=== PATIENT | female | born 1980 | race Caucasian/White ===

== ENCOUNTER 2024-05-02 09:25 | Emergency (ER) | payer OTHER, SELFPAY ==
--- NOTE | 2024-05-02 09:37 | ED_ITS ---
HPI - Extremity Problem General Chief complaint: Back Pain/Injury Stated complaint: leg pain Time Seen by Provider: 05/02/24 09:27 History of Present Illness HPI Narrative: 43-year-old female presented to the emergency department for evaluation right hip pain. Patient does have a prior history of sciatica and feels that is what affecting her today. Patient does have an injury to her left leg involving a fibula fracture and so patient is in a walking boot. Patient suspects that her adapting her walking to the boot has affected her right-sided sciatica. Patient has been taking ibuprofen for pain control without significant improvement. Related Data Allergies Allergy/AdvReac Type Severity Reaction Status Date / Time No Known Allergies Allergy Verified 05/02/24 09:48 Review of Systems Review of Systems: All systems reviewed & are unremarkable except as noted in HPI and below Exam Narrative: APPEARANCE: Well appearing, no pain, no distress, well-nourished. HEAD: normocephalic, atraumatic. EYES: PERRLA/EOMI, conjunctivae clear. NOSE: Normal no drainage EARS:TMS clear with good light reflex. THROAT: Pharynx clear, no exudate. NECK: Supple. No adenopathy, no masses. RESPIRATORY: Airway patent, respirations nonlabored. Clear to auscultation bilaterally, no rales, rhonchi, wheezing. CARDIOVASCULAR: Regular rate and rhythm without murmurs rubs or gallops. ABDOMINAL: Soft, nontender, nondistended, normal bowel sounds MUSCULOSKELETAL: Lower back tenderness into right buttock NEURO: Alert. Cranial nerves II through XII intact. Grossly intact SKIN: Warm, dry. Normal Color Course Vital Signs Vital signs: Vital Signs Temperature 97.7 F 05/02/24 09:44 Pulse Rate 91 05/02/24 09:44 Respiratory Rate 20 05/02/24 09:44 Blood Pressure 137/88 05/02/24 09:44 Pulse Oximetry 97 05/02/24 09:44 Oxygen Delivery Room Air 05/02/24 09:44 Temperature 97.7 F 05/02/24 09:44 Pulse Rate 89 05/02/24 10:43 Respiratory Rate 20 05/02/24 10:43 Blood Pressure 133/76 05/02/24 10:43 Pulse Oximetry 98 05/02/24 10:43 Oxygen Delivery Room Air 05/02/24 09:44 MDM - Extremity (Nontraumatic) MDM Narrative Medical decision making narrative: 43-year-old female presents emergency department for evaluation for worsening pinched nerve/sciatica the right side. Patient suspects is worsened due to her favoring her left foot. Patient has only been taking ibuprofen for pain control. Patient did feel improved with treatment with med to the emergency department. Patient was discharged home with a Medrol Dosepak and Flexeril and additional medication for pain control. Patient was comfortable plan for discharge and close follow-up. Differential Diagnosis Differential diagnosis: Likely other (Back pain, lumbar radiculopathy) Discharge Plan Discharge Clinical Impression: Sciatica, Lumbar radiculopathy Patient Disposition: Home, Self-Care Condition: Stable Instructions: Antibiotic Form, Sciatica (ED) Additional Instructions: Medrol Dosepak as directed. Ibuprofen for pain control. [place] for additional pain control. Flexeril for muscle spasm. Patient Language: Indonesian Prescriptions: New methylprednisolone [Medrol (Rahsad)] 4 mg tablets,dose pack See Rx Instructions .ROUTE .COMPLEX Qty: 21 0RF Rx Instructions: for 6 days hydrocodone-acetaminophen 5-325 mg tablet 1 tablet PO Q12H PRN (Reason: pain) Qty: 14 0RF Follow-up/Referrals: [place], [Primary Care Provider] -
[2024-05-02 09:44] VITALS: BP 137/88; PULSE 91; RESP 20; TEMP 36.5; O2SAT 97
[2024-05-02] MEDS: KETOROLAC 30 MG/ML VIAL (*BKC) IM (09:48)
[2024-05-02] MEDS: HYDROcodone/acetaminophen (*CRX) 5-325 MG TABLET 1 TAB PO (09:49)
[2024-05-02] MEDS: CYCLOBENZAPRINE HCL 10 MG TABLET PO (09:49)
[2024-05-02 10:43] VITALS: BP 133/76; PULSE 89; RESP 20; O2SAT 98
--- OUTSIDE RECORDS SUMMARY | 2024-05-09 04:59 | XMS_ITS | Continuity of Care Document ---
Author Name [facility] Organization [facility] Care Team Providers Care Microbiology Analyst Name Role Phone [facility] Unavailable Unavailable Problems Combined list of problems from Department of Defense and Veterans Affairs facilities. It does not include entries that were removed or entered in error. Problem Status Onset Date Problem Type Date of Resolution Comments Source Depression Active 04/24/2024 Diagnosis 6130C-Af -C -375Th Medgrp-Sco tt Fracture of leg Active 04/24/2024 Diagnosis 613 0C-Af-C -375Th Medgrp-Sco tt Weight gain Active 04/24/2024 Diagnosis 6130C-A f-C -375Th Medgrp-Sco tt Laboratory test result abnormal Active 04/13/2024 Diagnosis 6130C-Af- C -375Th Medgrp-Sco tt Leg fracture Active 04/13/2024 Diagnosis 6130C- Af-C -375Th Medgrp-Sco tt Anxiety disorder, unspecified Active 06/04/2016 Condition DoD Essential (primary) hypertension Active 03/06/2015 Condition DoD Major depressive disorder, recurrent, moderate Active Condition DoD Post-traumatic stress disorder, chronic Active Condition DoD Diverticulosis of intestine, part unspecified, without perforation or abscess without bleeding Active Condition DoD Dysthymic disorder Active Condition DoD Headache Active Condition DoD headache syndromes Active Condition DoD depression with anxiety Active Condition DoD Implantable Contraceptive Capsules Removal Inactive Condition DoD routine gynecological exam Inactive Condition DoD Inquiry And Counseling: Family Planning Inactive Condition DoD menorrhagia Active Condition DoD Implantable Contraceptive Capsules Insertion Inactive Condition DoD esophageal reflux Inactive Condition DoD Cervix Sample Taken For Pap Smear Inactive Condition DoD Cervical Pap Smear Inactive Condition Do D nonorganic sleep apnea obstructive Inactive Condition DoD Patient Counseling: Inactive Condition D oD sinusitis Inactive Condition DoD iron deficiency anemia Active Condition DoD anxiety Inactive Condition DoD depression Inactive Condition DoD tobacco use Active Condition DoD vertigo Inactive Condition DoD visit for: laboratory Inactive Condition DoD Breasts Pendulous Active Condition DoD partner relational problem Inactive Condition DoD upper back pain Active Condition DoD lower back pain Active Condition DoD constipation Inactive Condition DoD visit for: issue repeat prescription Inactive Condition DoD nonorganic sleep apnea Inactive Condition DoD Need For Prophylactic Measure Inactive Condition DoD visit for: contraceptive surveillance Inactive Condition DoD insomnia Inactive Condition DoD Laboratory Studies Inactive Condition Do D visit for: screening exam pulmonary tuberculosis Inactive Condition DoD essential hypertension Active Condition DoD visit for: screening exam for malignant neoplasm cervix Inactive Condition DoD visit for: administrative purpose Inactive Condition DoD pain during urination (dysuria) Inactive Condition DoD prehypertension Inactive Condition DoD visit for: issue medical certificate Inactive Condition DoD visit for: routine eye exam Inactive Condition DoD urinary tract infection Inactive Condition DoD joint pain, localized in the hip Active Condition DoD Need For Vaccination Against Influenza Inactive Condition DoD Patient Education Inactive Condition DoD visit for: occupational health / fitness exam Inactive Condition DoD Patient Education - Injury Prevention Inactive Condition DoD Need For Vaccination Hepatitis B Inactive Condition DoD Need For Vaccination Hepatitis A Inactive Condition DoD dizziness Inactive Condition DoD backache Inactive Condition DoD herpes simplex type II Inactive Condition DoD fatigue Inactive Condition DoD Gynecologic Services Intrauterine Device (IUD) Checking Inactive Condition DoD allergic rhinitis Active Condition DoD Gynecologic Services Contraceptive Management Inactive Condition DoD upper respiratory infection Inactive Condition DoD pharyngitis Inactive Condition DoD routine pelvic exam Inactive Condition D oD Need For Vaccination Against Combinations Of Diseases Inactive Condition DoD Need For Vaccination Against Single Disease Inactive Condition DoD visit for: pre-employment physical Inactive Condition DoD Need For Vaccination Against DTP Inactive Condition DoD Guidance: Concerns About Inadequate Physical Activity Inactive Condition DoD obesity Active Condition DoD Contraceptives Inactive Condition DoD abdominal pain Inactive Condition DoD pyelonephritis Inactive Condition DoD Unspecified fracture of unspecified lower leg, initial encounter for closed fracture Active Diagnosis 6130C-Af-C -375Th Medgrp-Sco tt Abnormal weight gain Active Diagnosis 6 130C-Af-C -375Th Medgrp-Sco tt Depression, unspecified Active Diagnosis 6130C-Af-C -375Th Medgrp-Sco tt Medications Combined list of outpatient medications from Department of Defense and Veterans Affairs facilities.Medications provided include 1) outpatient medications from the last 15 months, and 2) patient-reported medications. Medication Details Route Status Patient Instructions Prescription Expires Prescription Number Last Dispense Date Ordering Provider Order Date Order Qty Source phentermine 37.5 mg oral capsule 1 cap(s), Oral, Daily, # 90 cap(s), 0 total refill(s ), Maintena nce, 1 cap(s) Oral Daily, Pharmacy : [id number] Oral (given by mouth) Ordered 90.0 6130C-A f-C-375 Th Medgrp- Varinder Topamax 50 mg oral tablet 3 tab(s), Oral, BID, 0 total refill(s ), Maintena nce Oral (given by mouth) Discont inued 03/26/2024 6130C-A f-C-375 Th Medgrp- Varinder Wellbutrin SR 150 mg/12 hours oral tablet, extended release tab(s), Oral, BID, 0 total refill(s ), Maintena nce Oral (given by mouth) Discont inued 03/26/2024 6130C-A f-C-375 Th Medgrp- Varinder Wellbutrin SR 200 mg/12 hours oral tablet, extended release 1 tab(s), Oral, BID, # 180 tab(s), 0 total refill(s ), Maintena nce, 1 tab(s) Oral BID, Pharmacy : [facility] Oral (given by mouth) Discont inued 04/30/2024 180.0 6130C-A f-C-375 Th Medgrp- Varinder Wellbutrin SR 200 mg/12 hours oral tablet, extended release 1 tab(s), Oral, BID, # 180 tab(s), 3 total refill(s ), Maintena nce, 1 tab(s) Oral BID, Pharmacy : [facility] #[id number] Oral (given by mouth) Ordered 180.0 6130C-A f-C-375 Th Medgrp- Varinder Allergies, Adverse Reactions, Alerts Combined list of allergies from Department of Defense and Veterans Affairs facilities. It does not include entries that were removed or entered in error. Substance Category Reaction Severity Reaction type Status Date Reported Comments Source No Known Allergies Drug allergy (disorder) active 02/23/2017 [facility] Immunizations Combined list of available immunizations from the Department of Defense and Veterans Affairs facilities. 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 Status Comments Source COVID Vaccine Pfizer 2021 Traci myers Arm [id number] PFIZER complet ed COVID Vaccine Pfizer 07/29/21 Given Ambulat ory Pharmac y SARS-COV-2 (COVID-19) vaccine, mRNA, spike protein, LNP, preservative free, 30 mcg/0.3mL dose 1 2021 [place] CATHERINE [id number] Pfizer, Inc (PFR) complet ed SARS-COV- 2 (COVID-19 ) vaccine, mRNA, spike protein, LNP, preservat pierre free, 30 mcg/0.3mL dose DoD SARS-CoV-2 (COVID-19) Ad26 vaccine, rec 2020 [facility] Arm [id number] complet ed SARS-CoV- 2 (COVID-19 ) Ad26 vaccine, rec 07/25/20 Given Ambulat ory Pharmac y SARS-COV-2 (COVID-19) vaccine, vector non-replicati ng, recombinant spike protein-Ad26, preservative free, 0.5 mL 1 2020 LESTERKURT [id number] [facility] (JSN) complet ed SARS-COV- 2 (COVID-19 ) vaccine, vector non-repli cating, recombina nt spike protein-A d26, preservat pierre free, 0.5 mL DoD influenza, seasonal, injectable 2013 zzMiquel Arm [id number] GlaxoSmithKli ne complet ed influenza , seasonal, injectabl e 03/04/14 Given Ambulat ory Pharmac y Influenza, seasonal, injectable 1 2013 JUJU JONES [id number] [facility] (SKB) complet ed Influenza , seasonal, injectabl e DoD tuberculin purified protein derivative 2009 zzLef t Arm [id number] complet ed Patient Tolerance : Negative Ambulat ory Pharmac y tuberculin skin test; purified protein derivative solution, intradermal 0 2009 ISIDRO CANTU [id number] 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) complet ed tuberculi n skin test; purified protein derivativ e solution, intraderm al DoD hepatitis B adult vaccine 2009 [id number] 43 Unknown complet ed hepatitis B adult vaccine 11/15/09 Given Ambulat ory Pharmac y hepatitis A-hepatitis B vaccine 2009 zzLef t Arm [id number] 104 GlaxoSmithKli ne complet ed hepatitis A-hepatit is B vaccine 11/06/09 Given Ambulat ory Pharmac y hepatitis A and hepatitis B vaccine 3 2009 KATINA TAPIA ahabb16 7ba 104 [employer]line ([place]) complet ed hepatitis A and hepatitis B vaccine DoD hepatitis A-hepatitis B vaccine 2009 zzLef t Arm [id number] 104 [facility] ed hepatitis A-hepatit is B vaccine 07/08/09 Given Ambulat ory Pharmac y hepatitis A and hepatitis B vaccine 2 2009 MAHI BUTLER ahabb17 4aa 104 Smithine (B) complet ed hepatitis A and hepatitis B vaccine DoD tuberculin purified protein derivative 2009 UNK 96 Unknown complet ed tuberculi n purified protein derivativ e 06/09/09 Given Ambulat ory Pharmac y hepatitis A-hepatitis B vaccine 2007 zzLef t Arm [id number] 104 [facility] hepatitis A-hepatit is B vaccine 02/26/08 Given Ambulat ory Pharmac y Human Papillomaviru s,quadrivalen t(HPV4) 2007 zzLef t Arm [id number] Merck & Company Inc complet ed Human Papilloma virus,jhonny drivalent (HPV4) 02/26/08 Given Ambulat ory Pharmac y human papilloma virus vaccine, quadrivalent 1 2007 JJ BAIRD [id number] Merck (MSD) complet ed human papilloma virus vaccine, quadrival ent DoD hepatitis A and hepatitis B vaccine 1 2007 JJ BAIRD [id number] 104 Smithine ([place]) complet ed hepatitis A and hepatitis B vaccine DoD tetanus-dipht h toxoids (Td) adult/adol 2007 UNK 09 Unknown complet ed tetanus-d iphth toxoids (Td) adult/ado l 02/21/08 Given Ambulat ory Pharmac y tetanus, diphtheria, acellular pertu is 2007 zzLef t Arm [id number] [facility] complet ed tetanus, diphtheri a, acellular pertussis 02/21/08 Given Ambulat ory Pharmac y tetanus toxoid, reduced diphtheria toxoid, and acellular pertu is vaccine, adsorbed 1 2007 SEEMA BILLINGSLEY [id number] [facility] ([place]) complet ed tetanus toxoid, reduced diphtheri a toxoid, and acellular pertussis vaccine, adsorbed DoD Results Combined list of recent chemistry, hematology and other laboratory results from Department of Defense and Veterans Affairs, ranging from 15 months to all on record, depending upon the facility. Order Name Results Value Reference Range Date Interpretation Specimen Comments Source Chemistry _Thyroglobu beny ARIAS LC 11.4 ng/mL 04/04 Result Comment: According to the National Academy of Clinical Biochemistr y, the reference interval for Thyroglobul in (TG) should be related to euthyroid patients and not for patients who underwent thyroidecto my. TG reference intervals for these patients depend on the residual mass of the thyroid tissue left after surgery. Establishin g a post-operat pierre baseline is recommended . The assay limit of quantitatio n is 0.1 ng/mL Thyroglobul in measured by [facility] [employer]omet[employer] c Assay Performed At: [address] [id number] Lenora Blanco PhD Ph:[phone] [facility] Chemistry eGFR CKD EPI 82 mL/min /1.73_ m2 04/04 Interpretiv e Data: Estimated Glomerular Filtration Rate (eGFR) calculated using the 2020 Chronic Kidney Disease-Epi demiology (CKD-EPI) Collaborati on creatinine equation; units of measure are mL/min/1.73 m2. Results are only valid for adults (>=18 years) whose serum creatinine is in steady state. eGFR calculation s are not valid for patients with acute kidney injury and for patients on dialysis. Creatinine- based estimates of kidney function may also be inaccurate in patients with reduced creatinine generation due to decreased muscle mass (e.g., malnutritio n, severe hypoalbumin emia, sarcopenia, chronic neuromuscul ar disease, amputations , severe heart failure or liver disease) and in patients with increased creatinine generation due to increased muscle mass (e.g., muscle builders, anabolic steroids) or increased dietary intake. CKD is diagnosed based on abnormaliti es of kidney structure or function, present for >3 months, with implication s for health and disease. CKD is classified and staged based on cause, eGFR and albuminuria (quantified as urine albumin to creatinine ratio). An eGFR >60 mL/min/1.73 m2 in the absence of increased urine albumin excretion or structural abnormaliti es does not CKD. eGFR provides only an estimate of measured GFR within +/- 30% for most patients. As mentioned, nutritional status and muscle mass, among many factors, may lead to inaccuracy in the estimate. Consider ordering the creatinine- cystatin C panel if better accuracy is needed for clinical decision-camacho lowery. eGFR (mL/min/1.7 3 m2) CKD stage Interpretat ion Normal 60-89 Mild decrease 45-59 Mild to moderate decrease 30-44 Moderate to severe decrease 15-29 Severe decrease <15 Kidney failure [facility] TSH 1.340 mIU/L 0.270 - 4.200 04/04 N Interpretiv e Data: Recommend: TPO/Thyrope roxidase Antibody when TSH result is > 4.2 uIU/mL [facility] Hematolog y WBC 5.4 x10^3/ mcL 4.0 - 11.0103 04/04 N [facility] Hematolog y RDW 14.4 % 11.0 - 14.9 04/04 N [facility] Hematolog y RBC 3.9 x10^6/ mcL 3.6 - 5.0106 04/04 N [facility] Hematolog y Platelets 302.0 x10^3/ mcL 150.0 - 450.0103 04/04 N [facility] Hematolog y MPV 9.3 fL 7.4 - 10.4 04/04 N [facility] Hematolog y MCV 90 fL 80 - 97 04/04 N [facility] Hematolog y MCHC 33.6 g/dL 33.0 - 36.5 04/04 N [facility] Hematolog y MCH 30 pg 28 - 33 04/04 N [facility] Hematolog y Hemoglobin 11.8 g/dL 11.0 - 15.0 04/04 N [facility] Hematolog y Hematocrit 35 % 34 - 46 04/04 N [facility] Hematolog y Differentia l? Auto (04/04 1:05 PM) 04/04 N [facility] Chemistry Protein Total 7.6 g/dL 6.4 - 8.3 04/04 N [facility] Chemistry Sodium 140 mmol/L 136 - 145 04/04 N [facility] Chemistry Potassium Lvl 3.7 mmol/L 3.5 - 5.1 04/04 N [facility] Chemistry Glucose Lvl 91 mg/dL 74 - 99 04/04 N [facility] Chemistry Creatinine Level 0.90 mg/dL 0.57 - 1.11 04/04 N [facility] Chemistry CO2 22 mmol/L 22 - 29 04/04 N [facility] Chemistry Chloride 108 mmol/L 98 - 107 04/04 H [facility] Chemistry Calcium 9.8 mg/dL 8.4 - 10.2 04/04 N [facility] Chemistry BUN/Creat Ratio 18 mg/dL 12 - 20 04/04 N [facility] Chemistry BUN 16 mg/dL 7 - 20 04/04 N [facility] Chemistry Bilirubin Total 0.5 mg/dL 0.2 - 1.2 04/04 N [facility] Chemistry AST 14 U/L 5 - 34 04/04 N [facility] Chemistry ALT 11 U/L 5 - 55 04/04 N [facility] Chemistry Alk Phos 103 U/L 40 - 150 04/04 N [facility] Chemistry Albumin 4.10 g/dL 3.50 - 5.20 04/04 N [facility] Chemistry AGAP 10.00 0.00 - 15.00 04/04 N [facility] Chemistry T4 Free 1.34 ng/dL 0.93 - 1.70 04/04 N Interpretiv e Data: METHODOLOGY : Testing performed by electrochem iluminescen t immunoassay (ECLIA). [facility] Chemistry T3 Free 3.8 pg/mL 2.0 - 4.4 04/04 N Interpretiv e Data: METHODOLOGY : Testing performed by electrochem iluminescen t immunoassay (ECLIA). [facility] Immunolog y/Serolog y Thyroid Peroxidase Ab >450 IU/mL 04/04 H Interpretiv e Data: Values above 35 IU/mL are generally associated with autoimmune thyroiditis , but elevations are also seen in other autoimmune diseases. In patients with subclinical hypothyroid ism, the presence of thyroperoxi dase (TPO) antibodies predicts a higher risk of developing overt hypothyroid ism, 4.3% per year versus 2.1% per year in antibody-ne gative individuals . Furthermore , it raises the concern that such patients may be at increased risk of developing other autoimmune diseases, such as adrenal insufficien cy and type 1 diabetes. The frequency of detectable anti-TPO observed in nonimmune thyroid disease is similar to the 10% to 12% observed in a healthy population with normal thyroid function. There is a good association between the presence of autoantibod ies against TPO and histologica l thyroiditis . However, in view of the extensive regenerativ e capacity of the thyroid under the influence of thyroid-sti mulating hormone, chronic thyroid disease may be present for years before the clinical manifestati on of hypothyroid ism becomes evident, if ever. Moderately increased levels of thyroperoxi dase (TPO) antibodies may be found in patients with nonthyroid autoimmune disease such as pernicious anemia, type 1 diabetes, or other disorders that activate the immune system. No reference ranges available for pediatric patients. Methodology : Electrochem iluminescen ce [facility] Chemistry T3 Reverse.LC 18.5 ng/dL 04/04 Result Comment: This test was developed and its performance characteris tics determined by [facility]. It has not been cleared or approved by the Food and Drug Administrat ion. Performed At: [address] [facility] [address] [id number] Jeffy Flowers MD Ph:[phone] [facility] Chemistry Thyroglobul in Antibody LC <1.0 IU/mL 04/04 Result Comment: Thyroglobul in Antibody measured by EDMdesigner Methodology It should be noted that the presence of thyroglobul in antibodies may not be pathogenic nor diagnostic, especially at very low levels. The assay manufacture r has found that four percent of individuals without evidence of thyroid disease or autoimmunit y will have positive TgAb levels up to 4 IU/mL. Performed At: [address] [facility] [address] [id number] Lenora Blanco PhD Ph:[phone] [facility] Hematolog y Neutrophil % Auto 60.1 % 46.0 - 77.0 04/04 N [facility] Hematolog y Neutro Absolute 3.3 x10^3/ mcL 2.0 - 7.0103 04/04 N [facility] Hematolog y Monocyte % Auto 7 % 1 - 12 04/04 N [facility] Hematolog y [place] Absolute 0.4 x10^3/ mcL 0.2 - 0.8103 04/04 N [facility] Hematolog y Lymph Absolute 1.6 x10^3/ mcL 1.2 - 4.0103 04/04 N [facility] Hematolog y Lymphocyte % Auto 30.1 % 20.0 - 40.0 04/04 N [facility] Hematolog y Eosinophil % Auto 2 % 0 - 5 04/04 N [facility] Hematolog y Eos Absolute 0.1 x10^3/ mcL 0.0 - 0.7103 04/04 N [facility] Hematolog y Basophil % Auto 0.6 % 0.0 - 2.5 04/04 N [facility] Hematolog y Baso Absolute 0.0 x10^3/ mcL 0.0 - 0.1103 04/04 N [facility] Vital Signs Combined list of inpatient and outpatient Vital Signs from Department of Defense and Veterans Affairs, ranging from 12 months to all on record, depending upon the facility. Vital Sign Value Date Comments Source BP Site 04/24/2024 15:49:00 [facility] Blood Pressure Manual 04/24/2024 15:49:00 [facility] Systolic Blood Pressure 122mm[Hg] 04/24/2024 15:49:00 Ambulatory Pharmacy Diastolic Blood Pressure 72mm[Hg] 04/24/2024 15:49:00 [facility]ulatory Pharm[facility] Mean Arterial Pressure, Calc 89mm[Hg] 04/24/2024 15:49:00 Ambulatory P harmacy Peripheral Pulse Rate 102bpm 04/24/2024 15:49:00 Ambulatory Pharmacy Systolic Blood Pressure 126mm[Hg] 03/26/2024 19:41:00 Ambulatory Pharmacy Diastolic Blood Pressure 88mm[Hg] 03/26/2024 19:41:00 Ambulatory Pharmacy Mean Arterial Pressure, Calc 101mm[Hg] 03/26/2024 19:41:00 Ambulatory P harmacy Peripheral Pulse Rate 98bpm 03/26/2024 19:41:00 Ambulatory Pharmacy BP Site 03/26/2024 19:41:00 [facility] Blood Pressure Manual 03/26/2024 19:41:00 Ambulatory Pharmacy Encounters Combined list of: 1) Encounters from Department of Veterans Affairs facilities going back up to thelast 18 months. 2) Encounters from the Department of Defense facilities going back up to 280 months. Location Location Details Encounter Type Encounter Number Reason For Visit Attending Provider ADM Date DC Date Status Disposition Source [facility] 01A17 Fabricati on) OUTPATIENT [id number] poss kidney infecti on x4dys BOB DAVILA 10/29 Released w/o Limitations [facility] 01A17 Clancy tion) [facility] 01A17 Fabricati on) OUTPATIENT [id number] F/U PAP TEST RESULTS ,REQ BSKIP MOCTEZUMA 12/04 Released w/o Limitations [facility] 01A17 Clancy tion) [facility]) OUTPATIENT [id number] td SEEMA BILLINGSLEY 02/20 Released w/o Limitations [facility] Immun[facility] at[facility]) [facility] OUTPATIENT [id number] Pre Appt health screen MARY ELLEN DIETRICH 02/23 Released w/o Limitations [facility]) [facility] 01A17 Fabricati on) OUTPATIENT [id number] imms varicel la MMR Hep B JOCELINE BOOKER 02/25 Released w/o Limitations [facility] 01A17 Clancy tion) [facility] 01A17 Fabricati on) OUTPATIENT [id number] ANNUAL PAP/BC LEATHA ESTEBAN 03/15 Released w/o Limitations [facility] 01A17 Cl[address]ion) [facility] 01A17 Fabricati on) OUTPATIENT [id number] OLESYA Ortiz 03/18 Released w/o Limitations [facility] 01A17 Cl[address]ion) [facility] 01A17 Fabricati on) OUTPATIENT [id number] fu cough,s ore throat, sinus x2wks OLESYA MICHAELS 03/26 Released w/o Limitations [facility] 01A17 [address]) [facility] 01A17 Fabricati on) OUTPATIENT [id number] iud placmen t LEATHA ESTEBAN A 03/29 Released w/o Limitations [facility] 01A17 [address]) [facility] 01A17 Fabricati on) OUTPATIENT [id number] fu iud LEATHA ESTEBAN A 06/05 Released w/o Limitations [facility] 01A17 [address]) [facility] 01A17 Fabricati on) OUTPATIENT [id number] back pain +yrs/la bs + multi issues (uar 06/19) SKIP KEYS 06/20 Released w/o Limitations [facility] 01A17 Cl[address]ion) [facility]) OUTPATIENT [id number] ini SERGEY Simpson 08/02 [facility] [place]ette [place]Immun[place]) OUTPATIENT [id number] ISIDRO Dubose 07/08 Released w/o Limitations [facility] [place](Im[place]iz[place]) [facility] [place] OUTPATIENT [id number] [facility] MARIAELENA FRANKEL 07/29 Released w/o Limitations [facility] [place]) [facility] [place]Immun[place]ations) OUTPATIENT [id number] ISIDRO Leary 07/29 Released w/o Limitations [facility] [place]) [facility] [place] [facility] [place]) OUTPATIENT [id number] ARNOLDO LUNA 08/25 Released w/o Limitations [facility] Samuel [place] [facility] [place] [facility] [place] [facility] [place]) [place]PATIENT [id number] poss uti/hcg LAUREN ROSA 10/17 Released w/o Limitations [facility] [place]) [facility] [place] OUTPATIENT [id number] [facility] JUJU SALAS L 10/21 Released w/o Limitations [facility] Samuel Mendosa [facility] [place]) [facility] Samuel Mend[facility] [place]) OUTPATIENT [id number] urinary issues BARBARA IZQUIERDO 10/22 Released w/o Limitations [facility] Samuel Mendosa [facility] [place] [facility] [place] TELE CONSULT [id number] UTI WILI RAMOS 10/27 Referred for Appointment [facility] [place]) [facility] [place]) TELE CONSULT [id number] Complet e Hepatit is Series JUJU SALAS L 10/30 [facility] [place]) [facility] [place]Immun[place]) [place] [id number] twin YANG BUTLER 11/06 Released w/o Limitations [facility] Samuel Mend[facility] [place]Im[place] [facility] [place] [facility] [place] [facility]) OUTPATIENT [id number] swati webb for job TIMBOBARBARA VARINDER 12/04 Released w/o Limitations [facility] Samuel [facility] [place] 1) [facility] [place]Immun[place]) OUTPATIENT [id number] ISIDRO [place] 12/08 Released w/o Limitations [facility] [place](Immu nizatio ns) [facility] Samuel Mendosa [facility] JOON [place](Immuni zations) OUTPATIENT [id number] read ISIDRO CANTU 12/10 Released w/o Limitations [facility] [place]ON [place](Immu nizatio ns) [facility] Samuel Mendosa [facility] [place](Family Practice Team 1) TELE CONSULT [id number] pap letter SUMMER CLARK 12/29 Referred for Appointment [facility] Samuel Mend[facility] JOON [place](Fami ly Practic e Team 1) [facility] Samuel Mend[facility] [place](Family Practice Team 1) OUTPATIENT [id number] f/u weight managem ent BARBARA IZQUIERDO 12/29 Released w/o Limitations [facility] Samuel Mendosa [facility] [place] Pract[place] 1) [facility] Samuel Mend[facility] [place]) OUTPATIENT [id number] f/up meds BARBARA IZQUIERDO 02/19 Released w/o Limitations [facility] Samuel Mendosa [facility] [place](Fami ly Practic e Team 1) [facility] Samuel Mendosa [facility] JOON [place](Family Practice Team 1) TELE CONSULT [id number] Needs referra ls WILI [place] 03/10 Referred for Appointment [facility] Mend[facility] [place](Fami ly Practic e Team 1) [facility] Samuel Mendosa [facility] [place] TELE CONSULT [id number] Pt asking for new order's for a multivi tamin and calcuim supplem ent WILI RAMOS 03/23 Referred for Appointment [facility] [place](Fami ly Practic e Team 1) [facility] Mend[facility] [place]) OUTPATIENT [id number] F/U SLEEP STUDY BARBARA IZQUIERDO 04/22 Released w/o Limitations [facility] [place] Pract[place] 1) [facility] [place] TELE CONSULT [id number] Pt seen yesterd ay and sleep study to be faxed and titrati on done need's script. BARBARA IZQUIERDO 04/23 [facility] [place] 1) [facility] Mend[facility] [place] TELE CONSULT [id number] control MOSELEY, ANDREI A. 05/21 Referred for Appointment [facility] Samuel Mendosa [facility] [place] 1) [facility] Samuel Mendosa [facility] [place] TELE CONSULT [id number] rx refill MOSELEY, ANDREI A. 05/21 Referred for Appointment [facility] Samuel Mend[facility] [place] 1[place] [facility] Samuel Mend[facility] [place]) [place] [id number] JAKUB KHOURY 06/05 Released w/o Limitations [facility] Samuel Mend[facility] [place] [facility] [place] TELE CONSULT [id number] medicat ion refill WILI RAMOS 06/25 Referred for Appointment [facility] Samuel Mend[facility] [place] 1) [facility] Mend[facility] [place] [id number] OLESYA GUZMAN 06/27 Released w/o Limitations [facility] Samuel Mend[facility] [place] [facility] Mend[facility] [place]) [place]PAT[place] [id number] control needed and back pain GURJIT KISER 12/11 Released w/o Limitations [facility] Samuel Mendosa [facility] [place] Team 1) [facility] Mend[facility] [place]) OUTPATIENT [id number] f/u on xray s JACKY STODDARD 12/29 Released w/o Limitations [facility] Samuel Mend[facility] [place] Pract[place] 1) [facility] Samuel Mend[facility] [place]Loader Engineer al Medicine[place] OUTPATIENT [id number] CONSULT FOR BREAST REDUCTI ON JACKY STODDARD 01/08 Released w/o Limitations [facility] [place] [facility] Mend[facility] [place] TELE CONSULT [id number] Med Renewal JACKY STODDARD 02/17 [facility] Mend[facility] [place]Inte [place] Medicin [place]) [facility] Mend[facility] [place]) OUTPATIENT [id number] sinus/v ertigo issues JACKY STODDARD F 02/22 Released w/o Limitations [facility] Mend[facility] [place]) [facility] Mend[facility] [place] TELE CONSULT [id number] refbisi [place] JACKY STODDARD 03/03 [facility] Mend[facility] [place]) [facility] Mend[facility] [place] OUTPATIENT [id number] f/u med refill JACKY STODDARD 03/16 Released w/o Limitations [facility] Mend[facility] [place]) [facility] [place]) [place] [id number] DEBRA TRUONG R 04/27 Released w/o Limitations [facility] Samuel Mend[facility] [place]) [facility] Mend[facility] [place] M01D Cats[place] OUTPATIENT [id number] swati [place] JACKY STODDARD F 05/04 Released w/o Limitations [facility] Samuel Mend[facility] [place] M[place] [facility] Mendosa [facility] [place]AMH M01A Cards) OUTPATIENT [id number] POSS SINUS INFECTI ON KELVIN GARCIA R 07/07 Released w/o Limitations [facility] Samuel Mend[facility] [place]) [facility] Mend[facility] [place] TELE CONSULT [id number] KELVIN Cerda R 07/13 [facility] [place] [facility] [place]) OUTPATIENT [id number] referra l wanted and med. renewal s JOSESINDHUSachi Ambrocio 07/18 Released w/o Limitations [facility] [place](AMH M01A Cards) [facility] [place]ON [place](AMH M01D Cats) TELE CONSULT [id number] Adminis trative issue JACKY STODDARD 07/19 [facility] [place]ON [place](AMH M01D Cats) [facility] JOON [place](AMH M01A Cards) TELE CONSULT [id number] xray results MOSELEY, ANDREI A. 07/21 Referred for Appointment [facility] JOON [place](AMH M01A Cards) [facility] Mendosa [facility] JOON [place](AMH M01A Cards) TELE CONSULT [id number] Sleep Study Results MOSELEY, ANDREI A. 08/09 Referred for Appointment [facility] [place]ON [place](AMH M01A Cards) [facility] Mend[facility] JOON [place](AMH M01A Cards) TELE CONSULT [id number] med refills MOSELEY, ANDREI A. 08/26 Referred for Appointment [facility] JOON [place](AMH M01A Cards) [facility] JOON [place](AMH M01A Cards) TELE CONSULT [id number] Med refills MOSELEY, ANDREI A. 08/30 Referred for Appointment [facility] JOON [place](AMH M01A Cards) [facility] JOON [place](AMH M01A Cards) OUTPATIENT [id number] MARC Gnog 10/21 Released w/o Limitations [facility] JOON [place](AMH M01A Cards) [facility] JOON [place](AMH M01A Cards) TELE CONSULT [id number] Notes Entered by: LUBA RAMIREZ 03 Nov 2011 1430 ------- ------- ------- ------- -- Followu p labs MOSELEY ANDREI A. 11/02 Referred for Appointment [facility] JOON [place](AMH M01A Cards) [facility] Mend[facility] [place]) OUTPATIENT [id number] medicat ion & tail bone LOPEZHARRISON LOVE 12/20 Released w/o Limitations [facility] Mend[facility] [place] M01A Cards) [facility] Mend[facility] [place] OUTPATIENT [id number] Nexipla non inserti on, hcg ordered AMITA AYERSLEIGH ANN 01/03 Released w/o Limitations [facility] [place] M01A Cards) [facility] [place] Oz 1) OUTPATIENT [id number] [place] ANDREI DANIELS JASSI 09/12 Released w/o Limitations [facility] [place] F01A Oz 1) [facility] [place]) OUTPATIENT [id number] Notes Entered by: EDGARD MAY 26 Sep 2013 0848 ------- ------- ------- ------- -- OSS FOR GENNY EVAN ARAUJO 09/26 Released w/o Limitations [facility] [place] ) [facility] [place] F01[place] Oz [place]) OUTPATIENT [id number] nexplan on removal ANDREI DANIELS JASSI 10/08 Released w/o Limitations [facility] [place] [facility] [place] F[place] Oz [place] TELE CONSULT [id number] Notes Entered by: MARIAELENA BRANCH 09 Oct 2013 1337 ------- ------- ------- ------- -- symptom MARIAELENA LIU 10/09 Referred for Appointment [facility] [place] F[place] [facility] [place] F[place] Oz [place] TELE CONSULT [id number] Notes Entered by: JOSEPH HAMILTON 10 Dec 2013 1602 ------- ------- ------- ------- -- pt needs zoloft 100mg, zestore tic 20/12.5 mg ARNOLD KISER 12/10 Medication Refill Forwarded [place] TELE CONSULT [id number] Notes Entered by: MARIAELENA BRANCH 02 Jan 2014 1205 ------- ------- ------- ------- -- referMARIAELENA Adrian 01/02 Referred [place] Appointment [place]) OUTPATIENT [id number] discuss referra ANDREI Durbin 01/29 Released w/o Limitations [place] [facility] M[facility] Blue) OUTPATIENT [id number] Larm pain JUJU BANDA LEON 03/04 [facility] w[facility] Limitations [facility] M04[facility] Blue[place] OUTPATIENT [id number] medicat ion update JUJU BANDA LEON 03/14 [facility] w/[facility] Limitations [facility] M04A Blue[facility] TELE CONSULT [id number] Notes Entered by: KESHA THOMSON 28 Mar 2014 0925 ------- ------- ------- ------- -- f/u labwork JUJU BANDA LEON 03/28 [facility](AMH M04A Blue) [facility](AMH M04A Blue) TELE CONSULT [id number] Notes Entered by: ZEFERINO PATEL 10 Apr 2014 1128 ------- ------- ------- ------- -- Hospita l Dischar UBALDO Joe 04/10 [facility](AMH M04A Blue) [facility](AMH M04A Blue) OUTPATIENT [id number] F/U diverti roque SOTOHARRISON Ram Cristóbal 04/10 Released w/o Limitations [facility](AMH M04A Blue) [facility] M04B Red) TELE CONSULT [id number] Notes Entered by: JH ARELLANO 11 Apr 2014 0922 ------- ------- ------- ------- -- Dischar ge Follow Up JH ARELLANO 04/11 [facility](AMH M04B Red) [facility](AMH M04A Blue) OUTPATIENT [id number] Follow up JUJU BANDA 04/18 [facility] w/o Limitations [facility]H M04A Blue) TELE CONSULT [id number] Notes Entered by: ZEFERINO PATEL 22 Apr 2014 0929 ------- ------- ------- ------- -- Poss Yeast infecti on JUJU BANDA 04/22 [facility](AMH M04A Blue) [facility](AMH M04A Blue) OUTPATIENT [id number] Telecon UBALDO Mccann 04/23 [facility] w[facility] Limitations [facility] General Surgery) OUTPATIENT [id number] Telehea lt, Scope, Diverti ROBYN Choe 04/23 Released w/o Limitations [facility] General Surgery ) [facility](AMH M04A Blue) OUTPATIENT [id number] sore throat JUJU BANDA 05/13 Released w/o Limitations [facility](AMH M04A Blue) [facility](AMH M04A Blue) TELE CONSULT [id number] Notes Entered by: JOHNY NICOLE 14 May 2014 1010 ------- ------- ------- ------- -- JUJU Byrd 05/14 [facility](AMH M04A Blue) [facility] OUTPATIENT [id number] METABOL IC TESTING DREW GANDHI 05/15 Released w/o Limitations [facility] OUTPATIENT [id number] Notes Entered by: TATI SYED 15 May 2014 1346 ------- ------- ------- ------- -- BODY DREW WILKINS 05/15 Released w/o Limitations [facility] M04A Blue) TELE CONSULT [id number] Notes Entered by: BILL GANDHI 15 May 2014 1541 ------- ------- ------- ------- -- Please review Metabol ic Test JUJU BANDA 05/15 [facility](AMH M04A Blue) [facility] OUTPATIENT [id number] UYM CLASS DREW GANDHI 05/21 Released w/o Limitations [facility] OUTPATIENT [id number] Notes Entered by: SHAW MYERS 23 May 2014 1312 ------- ------- ------- ------- -- UYM Class SHAW HALEY 05/23 Released w/o Limitations [facility](AMH M04A Blue) TELE CONSULT [id number] Notes Entered by: ZEFERINO PATEL 23 May 2014 1519 ------- ------- ------- ------- -- Lap Band/La b work JUJU BANDA LEON 05/23 [facility](AMH M04A Blue) [facility](AMH M04B Red) OUTPATIENT [id number] Smoking GUILLERMINA DELEON 05/29 Released w/o Limitations [facility](AMH M04B Red) [facility](AMH M04B Red) OUTPATIENT [id number] smoking cessati on KHRIS HAYWOOD 05/29 Released w/o Limitations [facility](AMH M04B Red) [facility](AMH M04A Blue) OUTPATIENT [id number] pt stated that her lap band is leaking JUJU BANDA LEON 06/06 Released w/o Limitations [facility](AMH M04A Blue) [facility](AMH M04B Red) TELE CONSULT [id number] Notes Entered by: JOSE LYONS 06 Jun 2014 1113 ------- ------- ------- ------- -- smoking cessati on medicat ions KHRIS HAYWOOD 06/06 [facility](AMH M04B Red) [facility](AMH M04A Blue) TELE CONSULT [id number] Notes Entered by: KESHA THOMSON 07 Jun 2014 0813 ------- ------- ------- ------- -- low Vitamin D level JUJU BANDA 06/07 [facility](AMH M04A Blue) [facility](AMH M04A Blue) OUTPATIENT [id number] acupunc ture JUJU BANDA LEON 06/10 Released w/o Limitations [facility](AMH M04A Blue) [facility]H M04B Red) OUTPATIENT [id number] smoking cessati on f/u #[address] [facility] 06/12 Released w/o Limitations [facility](AMH M04B Red) [facility](AMH M04A Blue) OUTPATIENT [id number] acupunc ture JUJU BANDA LEON 06/12 Released w/o Limitations [facility](AMH M04A Blue) [facility](AMH M04A Blue) OUTPATIENT [id number] acupunc ture-20 min per JUJU Chowdary LEON 06/14 Released w/o Limitations [facility](AMH M04A Blue) [facility](AMH M04B Red) TELE CONSULT [id number] Notes Entered by: [facility] 28 Jun 2014 0917 ------- ------- ------- ------- -- Zyban refKHRIS Aguilera 06/28 [facility](AMH M04B Red) [facility](AMH M04B Red) OUTPATIENT [id number] F/U per patient [facility] 07/25 Released w/o Limitations [facility](AMH M04B Red) [facility](AMH M04B Red) TELE CONSULT [id number] Notes Entered by: [facility] 25 Jul 2014 1024 ------- ------- ------- ------- -- medicat ion refill JUJU BANDA 07/25 [facility](AMH M04B Red) [facility](AMH M04A Blue) OUTPATIENT [id number] pain in knee pcm JUJU Edge 07/31 Released w/o Limitations [facility](AMH M04A Blue) [facility](AMH M04A Blue) TELE CONSULT [id number] Notes Entered by: JUAN PABLO PEREZ 19 Aug 2014 0743 ------- ------- ------- ------- -- Need presc refills for Topiram ax, Setrali ne UBALDO MCHUGH 08/19 [facility](AMH M04A Blue) [facility](AMH M04B Red) OUTPATIENT [id number] smoking cessati on GUILLERMINA DELEON 08/28 Released w/o Limitations [facility](AMH M04B Red) [facility](AMH M04A Blue) TELE CONSULT [id number] Notes Entered by: SURJIT PORTER 04 Sep 2014 1401 ------- ------- ------- ------- -- NETWORK RESULTS - INPT - -10 APR 2014. LOOK IN ARTIFAC TS AND IMAGES JUJU BANDA LEON 09/04 [facility](AMH M04A Blue) [facility](AMH M04A Blue) TELE CONSULT [id number] Notes Entered by: NGOC WONG 23 Sep 2014 1150 ------- ------- ------- ------- -- medicai ton refill UBALDO MCHUGH 09/23 [facility](AMH M04A Blue) [facility]H M04A Blue) OUTPATIENT [id number] smoking cessati on med refill KHRIS HAYWOOD 10/17 Released w/o Limitations [facility](AMH M04A Blue) [facility](AMH M04A Blue) OUTPATIENT [id number] Vaginal Infecti on PCM [facility] JUJU Hawthorne LEON 11/21 Released w/o Limitations [facility](AMH M04A Blue) [facility](AMH M04A Blue) TELE CONSULT [id number] Notes Entered by: Cassandra MCHUGH 27 Nov 2014 0911 ------- ------- ------- ------- -- patient states she is doing fine, but would like results from labs on 11/21 JUJU BANDA 11/27 [facility](AMH M04A Blue) [facility](AMH M04A Blue) OUTPATIENT [id number] family emely garza PCM Antony swan n/a DANIKA KNIGHT 01/21 Released w/o Limitations [facility](AMH M04A Blue) [facility](AMH M04A Blue) TELE CONSULT [id number] Notes Entered by: JUAN PABLO PEREZ 11 Feb 2015 1046 ------- ------- ------- ------- -- Need lab results done on Jan 23 2015 UBALDO MCHUGH 02/11 [facility](AMH M04A Blue) [facility](AMH M04A Blue) OUTPATIENT [id number] severe stomach pains ALEKSANDER AMBROSE 02/18 Released w/o Limitations [facility](AMH M04A Blue) [facility](AMH M04A Blue) TELE CONSULT [id number] Notes Entered by: Cassandra MCHUGH 18 Feb 2015 1539 ------- ------- ------- ------- -- UBALDO De Luna 02/18 [facility](AMH M04A Blue) [facility](AMH M04A Blue) TELE CONSULT [id number] Notes Entered by: BILL SALAZAR 19 Feb 2015 1150 ------- ------- ------- ------- -- Lab results . PCM UBALDO SANDOVAL 02/19 [facility](AMH M04A Blue) [facility](AMH M04A Blue) TELE CONSULT [id number] Notes Entered by: ADRIANE HOUSE 06 Mar 2015 1517 ------- ------- ------- ------- -- rx ALEKSANDER Goddard 03/06 [facility](AMH M04A Blue) [facility](AMH M04A Blue) TELE CONSULT [id number] Notes Entered by: VIDYA BLAKELYSENACristóbal Hassan 14 Apr 2015 1417 ------- ------- ------- ------- -- consult ation report ALEKSANDER AMBROSE 04/14 [facility](AMH M04A Blue) [facility](AMH M04A Blue) TELE CONSULT [id number] Notes Entered by: BILL SALAZAR 05 May 2015 1245 ------- ------- ------- ------- -- Imms needed. PCM ALEKSANDER OSHEA 05/05 [facility](AMH M04A Blue) [facility]H M04A Blue) OUTPATIENT [id number] [facility] ALEKSANDER Ball 05/12 Released w/o Limitations [facility](AMH M04A Blue) [facility](AMH M04A Blue) TELE CONSULT [id number] Notes Entered by: NIKOLAI ESPITIA 16 May 2015 1042 ------- ------- ------- ------- -- Medicat ion refill ALEKSANDER AMBROSE 05/16 [facility](AMH M04A Blue) [facility](AMH M04A Blue) OUTPATIENT [id number] chest cold CARLENE ALTAMIRANO 05/30 Released w/o Limitations [facility](AMH M04A Blue) [facility](AMH M04A Blue) OUTPATIENT [id number] Conjunc DANIKA Vela 06/19 Released w/o Limitations [facility](AMH M04A Blue) [facility](AMH M04A Blue) TELE CONSULT [id number] Notes Entered by: Geoffrey STEVENSON 24 Jun 2015 1007 ------- ------- ------- ------- -- NETWORK RESULTS -IN PATIENT -[id number] ALEKSANDER AMBROSE 06/24 [facility]) [facility]) OUTPATIENT [id number] Skin ulcer DANIKA KNIGHT 07/01 Released w/o Limitations [facility]) [facility]) TELE CONSULT [id number] Notes Entered by: ELLEN FAULKNER 03 Jul 2015 1601 ------- ------- ------- ------- -- EVAN Pascal 07/03 [facility] Derm[facility]) [facility] M04A Blue) OUTPATIENT [id number] hip pain ALEKSANDER AMBROSE 07/08 Released w/o Limitations [facility]) [facility]) OUTPATIENT [id number] CT scan follow up Diverti culosis ALEKSANDER AMBROSE 07/14 Released w/o Limitations [facility]) [facility]) TELE CONSULT [id number] Notes Entered by: ALFREDO HARDY 21 Jul 2015 0943 ------- ------- ------- ------- -- NETWORK RESULTS - RAD - [id number] ALEKSANDER AMBROSE 07/20 [facility]) [facility]) OUTPATIENT [id number] pos skin cancer EVAN PETERSEN 07/20 Released w/o Limitations [facility]) [facility]) OUTPATIENT [id number] per team EVAN PETERSEN 08/10 Released w/o Limitations [facility]) [facility]) TELE CONSULT [id number] Notes Entered by: ELANA CHAVEZ 11 Aug 2015 1618 ------- ------- ------- ------- -- care after procedu re NICOLAEVAN JEAN-PAUL 08/10 [facility] Derm[facility]) [facility](Em ergency) OUTPATIENT [id number] L Elbow Pain//A brasion L Elbow/M edical Exam CHOW, TRUNG 10/07 Released w/o Limitations [facility] [place]( Emergen [facility]) [facility] OUTPATIENT [id number] ED F/up HUSSAIN RODRIGUEZ 10/13 Released w/o Limitations [facility] [place]( [facility]) [facility] OUTPATIENT [id number] F/up appt HUSSAIN RODRIGUEZ 10/27 Released w/o Limitations [facility]( [facility]) [facility](Em ergency) OUTPATIENT [id number] L ear pain/th roat pain//p haryngi tis acute/o talgia ear pain, bilater al/coug h CHOW, TRUNG 11/18 Released w/o Limitations [facility]( Emergen [facility]) [facility] TELE CONSULT [id number] Notes Entered by: Yared BADILLO 26 Nov 2015 1328 ------- ------- ------- ------- -- rx AUBRIE Monahan 11/25 Released to Self Care .[facility]( [facility]) [facility] TELE CONSULT [id number] Notes Entered by: AUBRIE DANIELS 05 Dec 2015 1634 ------- ------- ------- ------- -- NO SHOW - Nov-MED REFILL AUBRIE DANIELS 12/04 Referred for Appointment [facility]( [facility]) [facility]) TELE CONSULT [id number] Notes Entered by: MAXIMO LANDERS 30 Dec 2015 1617 ------- ------- ------- ------- -- med refill ALEKSANDER AMBROSE 12/29 [facility]) [facility]) OUTPATIENT [id number] multipl e med refills and checkup with ALEKSANDER Buckley 01/04 Released w/o Limitations [facility]) [facility]) TELE CONSULT [id number] Notes Entered by: ADRIANE HOUSE 15 Jan 2016 1246 ------- ------- ------- ------- -- lab results ALEKSANDER AMBROSE 01/14 [facility]) [facility]) TELE CONSULT [id number] Notes Entered by: ELLEN FAULKNER 05 Feb 2016 1548 ------- ------- ------- ------- -- Rx refill ALEKSANDER AMBROSE 02/04 [facility]) [facility]) TELE CONSULT [id number] Notes Entered by: DALIA MATHIS 21 Apr 2016 0857 ------- ------- ------- ------- -- NETWORK RESULTS [facility] 16 ALEKSANDER AMBROSE 04/21 [facility]) [facility]) OUTPATIENT [id number] Possibl e sinus infecti on ANANYA CORRIGAN 05/20 Released w/o Limitations [facility]) [facility]) OUTPATIENT [id number] Lung pain,co ughing, and sinuses ALEKSANDER AMBROSE 05/26 Released w/o Limitations [facility]) [facility] M04B Red) TELE CONSULT [id number] Notes Entered by: Fely ENGLISH 28 May 2016 1043 ------- ------- ------- ------- -- Medicat ALEKSANDER Riley 05/28 [facility]) [facility] ) OUTPATIENT [id number] eye exam JACKY DREW BLANCO 08/24 Released w/o Limitations [facility]) [facility]) OUTPATIENT [id number] ALEKSANDER Mosley 09/02 Released w/o Limitations [facility]) [facility]) TELE CONSULT [id number] Notes Entered by: YVONNE BE 10 Sep 2016 1421 ------- ------- ------- ------- -- ALEKSANDER Montes 09/10 [facility]) [facility]) TELE CONSULT [id number] Notes Entered by: LORETTA ARCINIEGA 10 Sep 2016 1510 ------- ------- ------- ------- -- Medicat ALEKSANDER Eller 09/10 [facility]) [facility]) TELE CONSULT [id number] Notes Entered by: YVONNE BE 23 Sep 2016 1552 ------- ------- ------- ------- -- Lab results ALEKSANDER AMBROSE 09/23 [facility]) [facility]) OUTPATIENT [id number] sore throat for 2 wks TORIE TEMPLE 10/13 Released w/o Limitations [facility]) [facility]) TELE CONSULT [id number] Notes Entered by: Cassandra ALEXANDER 22 Oct 2016 1009 ------- ------- ------- ------- -- NETWORK RESULTS -RADIO- [id number] ALEKSANDER AMBROSE 10/22 [facility]) [facility]) TELE CONSULT [id number] Notes Entered by: Geoffrey STEVENSON 22 Oct 2016 1522 ------- ------- ------- ------- -- NETWORK RESULTS -DERM-1 [id number] ALEKSANDER AMBROSE 10/22 [facility]) [facility] 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)) OUTPATIENT [id number] Notes Entered by: CARMELITA KWAN 01 Nov 2016 1015 ------- ------- ------- ------- -- Care Coordin STACEY Costello 11/01 Released w/o Limitations [facility] 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) ) [facility]) TELE CONSULT [id number] Notes Entered by: DALIA MATHIS 26 Nov 2016 0950 ------- ------- ------- ------- -- NETWORK RESULTS DERM [id number] VIDYAREDDYALEKSANDER 11/26 [facility] M04A Blue) [facility] ER, DIRECT TO [facility] [id number] CEASAR ROJAS 01/02 DISCHARGED HOME [facility]( [facility] Surgery Clinic) OUTPATIENT [id number] f/u per diverti CEASAR Wetzel 01/24 Released w/o Limitations [facility] ([facility] Surgery [facility]) [facility] Team 1) TELE CONSULT [id number] Notes Entered by: MANE CLEMENS 17 Feb 2017 1519 ------- ------- ------- ------- -- medicat ion bridge, appoint ment on Feb SYLVIA FRAZIER 02/17 Referred for Appointment [facility] ([facility] Team 1) [facility] Team 1) OUTPATIENT [id number] medicat ion refill - topamax , velafax JASSI Smith 03/04 Released w/o Limitations [facility] ([facility] Team 1) [facility]( en[facility] Surgery Clinic) OUTPATIENT [id number] f/u diverti cultisi CEASAR Ramos 03/16 Released w/o Limitations [facility] ([facility] Surgery [facility]) [facility]( en[facility] Surgery Clinic) OUTPATIENT [id number] f/u CSP 17nov, sched surgery CEASAR ROJAS 04/04 Released w/o Limitations [facility] ([facility] Surgery [facility]) [address] Medgrp-Sc paris Between Visit [id number] 04/05 Discharge Disposition: Home or Self Care 6[address]C-A f-C-375 Th Medgrp- [place] 6[address]C-Af- C[address]375Th Medgrp-Sc paris Between Visit [id number] 04/08 Discharge Disposition: Home or Self Care 6130C-A f-C-375 Th Medgr[facility]- [place] 6130C-Af- C-375Th Medgrp-Sc paris Between Visit [id number] Unspeci fied abnorma l finding in specime ns from other organs, systems and tissues ,Unspec ified fractur e of unspeci fied lower leg, initial encount er for closed fractur e 04/09 Discharge Disposition: Home or Self Care [address] f-C[address]375 [facility] [address]- C[address]375[address] [facility] [id number] Unspeci fied fractur e of unspeci fied lower leg, initial encount er for closed fractur e,Abnor mal weight gain,De pressio n, unspeci fied,Un specifi ed fractur e of unspeci fied lower leg, initial encount er for closed fractur e,Abnor mal weight gain,De pressio n, unspeci fied ILYA BURNETT 04/24 Discharge Disposition: Home or Self Care [address] f-C[address] [facility] [address]C-Af- C[address]375Th Medgrp-Tn paris Between Visit [id number] 04/30 Discharge Disposition: Home or Self Care [address] f-C[address]375 [facility] Procedures Combined list of: 1) Procedures from Department of [facility] Affairs facilities [facility], not all VA non-surgical procedures are included; 2) All procedures from the Department of Defense facilities. Procedure Procedure Type Code Date Perfomer Comments Sourc e No data available for this section Ambulato ry Pharmacy UNLISTED SPECIAL SERVICE, PROCEDURE OR REPORT 2016 [facility] INTRAVENOUS INFUSION, FOR THERAPY, PROPHYLAXIS, OR DIAGNOSIS (SPECIFY SUBSTANCE OR DRUG); EACH ADDITIONAL HOUR (LIST SEPARATELY IN ADDITION TO CODE FOR PRIMARY PROCEDURE) 2016 [facility] INTRAVENOUS INFUSION, FOR THERAPY, PROPHYLAXIS, OR DIAGNOSIS (SPECIFY SUBSTANCE OR DRUG); EACH ADDITIONAL HOUR (LIST SEPARATELY IN ADDITION TO CODE FOR PRIMARY PROCEDURE) 2016 [facility] INTRAVENOUS INFUSION, FOR THERAPY, PROPHYLAXIS, OR DIAGNOSIS (SPECIFY SUBSTANCE OR DRUG); INITIAL, UP TO 1 HOUR 2016 [facility]D THERAPEUTIC,PROPHY LACTIC,OR DIAGNOSTIC INJECTION (SPECIFY SUBSTANCE/DRUG);EA ADDITIONAL SEQUENTIAL INTRAVENOUS PUSH OF A NEW SUBSTANCE/DRUG (LIST SEPARATELY IN ADDITION TO CODE FOR PRIMARY PROCEDURE) 2016 DoD INJECTION, DIAZEPAM, UP TO 5 MG 2008 DoD HEPATITIS A AND HEPATITIS B VACCINE (HEPA-HEPB), ADULT DOSAGE, FOR INTRAMUSCULAR USE 2007 [facility] SCREENING TEST OF VISUAL ACUITY, QUANTITATIVE, BILATERAL 2007 DoD IMMUNIZATION ADMINISTRATION (INCLUDES PERCUTANEOUS, INTRADERMAL, SUBCUTANEOUS, OR INTRAMUSCULAR INJECTIONS); 1 VACCINE (SINGLE OR COMBINATION VACCINE/TOXOID) 2007 DoD COLLECTION OF VENOUS BLOOD BY VENIPUNCTURE 2015 DoD TELE ASSESS & MGT SRV PROV QUAL NONPHYS HLTH CARE PRO TO EST PAT,PARENT,GUARD NOT ORIG REL ASSESS & MGT SRV PROV W/IN PREV 7 DAYS NOR LEAD ASSESS & MGT SRV/PX W/IN NXT 24 HR/SOON APT;5-10 MIN MED DIS 2013 DoD TELE ASSESS & MGT SRV PROV QUAL NONPHYS HLTH CARE PRO TO EST PAT,PARENT,GUARD NOT ORIG REL ASSESS & MGT SRV PROV W/IN PREV 7 DAYS NOR LEAD ASSESS & MGT SRV/PX W/IN NXT 24 HR/SOON APT;5-10 MIN MED DIS 2013 DoD SCREENING PAPANICOLAOU SMEAR; OBTAINING, PREPARING AND CONVEYANCE OF CERVICAL OR VAGINAL SMEAR TO LABORATORY 2013 DoD INSERTION, DRUG-DELIVERY IMPLANT (IE, BIORESORBABLE, BIODEGRADABLE, NON-BIODEGRADABLE) 2011 DoD THERAPEUTIC, PROPHYLACTIC, OR DIAGNOSTIC INJECTION (SPECIFY SUBSTANCE OR DRUG); SUBCUTANEOUS OR INTRAMUSCULAR 2011 DoD FAMILY PSYCHOTHERAPY (CONJOINT PSYCHOTHERAPY) (WITH PATIENT PRESENT), 50 MINUTES 2010 DoD PSYCHIATRIC DIAGNOSTIC INTERVIEW EXAMINATION 2010 DoD THERAPEUTIC,PROPHY LACTIC,OR DIAGNOSTIC INJECTION (SPECIFY SUBSTANCE/DRUG);EA ADDITIONAL SEQUENTIAL INTRAVENOUS PUSH OF A NEW SUBSTANCE/DRUG (LIST SEPARATELY IN ADDITION TO CODE FOR PRIMARY PROCEDURE) 2010 DoD SKIN TEST; TUBERCULOSIS, INTRADERMAL 2009 DoD SCREENING PAPANICOLAOU SMEAR; OBTAINING, PREPARING AND CONVEYANCE OF CERVICAL OR VAGINAL SMEAR TO LABORATORY 2009 DoD HEPATITIS A AND HEPATITIS B VACCINE (HEPA-HEPB), ADULT DOSAGE, FOR INTRAMUSCULAR USE 2009 DoD VIS FUNCT SCREEN,AUTOMAT/JOCELYNE I-AUTOMAT BILAT QUANT DETERM VISUAL ACUITY,OCULAR ALIGN,COLOR VISION,PSEUDOISOCH ROMAT PLATES,& FIELD VIS (MAY INC ALL/SOME SCRN DETERM FOR CONTRAST SENSITIV,VIS UND GLARE) 2009 [facility] INFLUENZA VIRUS VACCINE, TRIVALENT (IIV3), SPLIT VIRUS, 0.5 ML DOSAGE, FOR INTRAMUSCULAR USE 2009 DoD HEPATITIS A AND HEPATITIS B VACCINE (HEPA-HEPB), ADULT DOSAGE, FOR INTRAMUSCULAR USE 2009 DoD CASE MANAGEMENT, EACH 15 MINUTES 2016 DoD PSYCHOTHERAPY, 30 MINUTES WITH PATIENT WHEN PERFORMED WITH AN EVALUATION AND MANAGEMENT SERVICE (LIST SEPARATELY IN ADDITION TO THE CODE FOR PRIMARY PROCEDURE) 2016 DoD TELE ASSESS & MGT SRV PROV QUAL NONPHYS HLTH CARE PRO TO EST PAT,PARENT,GUARD NOT ORIG REL ASSESS & MGT SRV PROV W/IN PREV 7 DAYS NOR LEAD ASSESS & MGT SRV/PX W/IN NXT 24 HR/SOON APT;5-10 MIN MED DIS 2016 DoD ONLINE ASSESS &MANAG SERV PROVIDE,A QUAL NONPHYS HCP TO AN ESTABLISHED PAT/GUARDIAN,NOT ORIGINAT FRM RELAT ASSESS &MANAG SERV PROVIDE W/IN THE PREV 7 DAYS,USE THE [employer] NETWORK 2016 DoD TELE ASSESS & MGT SRV PROV QUAL NONPHYS HLTH CARE PRO TO EST PAT,PARENT,GUARD NOT ORIG REL ASSESS & MGT SRV PROV W/IN PREV 7 DAYS NOR LEAD ASSESS & MGT SRV/PX W/IN NXT 24 HR/SOON APT;5-10 MIN MED DIS 2016 DoD DETERMINATION OF REFRACTIVE STATE 2016 DoD PSYCHIATRIC DIAGNOSTIC EVALUATION WITH MEDICAL SERVICES 2016 DoD BRIEF EMOTIONAL/BEHAVIOR AL ASSESSMENT (EG, DEPRESSION INVENTORY, ATTENTION-DEFICIT/ HYPERACTIVITY DISORDER [ADHD] SCALE), WITH SCORING AND DOCUMENTATION, PER STANDARDIZED INSTRUMENT 2016 DoD TELE ASSESS & MGT SRV PROV QUAL NONPHYS HLTH CARE PRO TO EST PAT,PARENT,GUARD NOT ORIG REL ASSESS & MGT SRV PROV W/IN PREV 7 DAYS NOR LEAD ASSESS & MGT SRV/PX W/IN NXT 24 HR/SOON APT;5-10 MIN MED DIS 2015 DoD TELE ASSESS & MGT SRV PROV QUAL NONPHYS HLTH CARE PRO TO EST PAT,PARENT,GUARD NOT ORIG REL ASSESS & MGT SRV PROV W/IN PREV 7 DAYS NOR LEAD ASSESS & MGT SRV/PX W/IN NXT 24 HR/SOON APT;5-10 MIN MED DIS 2015 DoD TELE ASSESS & MGT SRV PROV QUAL NONPHYS HLTH CARE PRO TO EST PAT,PARENT,GUARD NOT ORIG REL ASSESS & MGT SRV PROV W/IN PREV 7 DAYS NOR LEAD ASSESS & MGT SRV/PX W/IN NXT 24 HR/SOON APT;5-10 MIN MED DIS 2015 DoD REPAIR, INTERMEDIATE, WOUNDS OF FACE, EARS, EYELIDS, NOSE, LIPS AND/OR MUCOUS MEMBRANES; 2.6 CM TO 5.0 CM 2015 DoD BIOPSY OF SKIN, SUBCUTANEOUS TISSUE AND/OR MUCOUS MEMBRANE (INCLUDING SIMPLE CLOSURE), UNLESS OTHERWISE LISTED; SINGLE LESION 2015 DoD OSTEOPATHIC MANIPULATIVE TREATMENT (OMT); 3-4 BODY REGIONS INVOLVED 2015 DoD TELE ASSESS & MGT SRV PROV QUAL NONPHYS HLTH CARE PRO TO EST PAT,PARENT,GUARD NOT ORIG REL ASSESS & MGT SRV PROV W/IN PREV 7 DAYS NOR LEAD ASSESS & MGT SRV/PX W/IN NXT 24 HR/SOON APT;5-10 MIN MED DIS 2015 DoD TELE ASSESS & MGT SRV PROV QUAL NONPHYS HLTH CARE PRO TO EST PAT,PARENT,GUARD NOT ORIG REL ASSESS & MGT SRV PROV W/IN PREV 7 DAYS NOR LEAD ASSESS & MGT SRV/PX W/IN NXT 24 HR/SOON APT;5-10 MIN MED DIS 2014 DoD TELE ASSESS & MGT SRV PROV QUAL NONPHYS HLTH CARE PRO TO EST PAT,PARENT,GUARD NOT ORIG REL ASSESS & MGT SRV PROV W/IN PREV 7 DAYS NOR LEAD ASSESS & MGT SRV/PX W/IN NXT 24 HR/SOON APT;5-10 MIN MED DIS 2014 DoD TELE ASSESS & MGT SRV PROV QUAL NONPHYS HLTH CARE PRO TO EST PAT,PARENT,GUARD NOT ORIG REL ASSESS & MGT SRV PROV W/IN PREV 7 DAYS NOR LEAD ASSESS & MGT SRV/PX W/IN NXT 24 HR/SOON APT;5-10 MIN MED DIS 2014 DoD TELE ASSESS & MGT SRV PROV QUAL NONPHYS HLTH CARE PRO TO EST PAT,PARENT,GUARD NOT ORIG REL ASSESS & MGT SRV PROV W/IN PREV 7 DAYS NOR LEAD ASSESS & MGT SRV/PX W/IN NXT 24 HR/SOON APT;5-10 MIN MED DIS 2014 DoD SCREENING PAPANICOLAOU SMEAR; OBTAINING, PREPARING AND CONVEYANCE OF CERVICAL OR VAGINAL SMEAR TO LABORATORY 2014 DoD MEDICATION THERAPY MANAGEMENT SERVICE(S) PROVIDED BY A PHARMACIST, INDIVIDUAL, [id number] WITH PATIENT, WITH ASSESSMENT AND INTERVENTION IF PROVIDED; INITIAL 15 MINUTES, ESTABLISHED PATIENT 2014 DoD TELE ASSESS & MGT SRV PROV QUAL NONPHYS HLTH CARE PRO TO EST PAT,PARENT,GUARD NOT ORIG REL ASSESS & MGT SRV PROV W/IN PREV 7 DAYS NOR LEAD ASSESS & MGT SRV/PX W/IN NXT 24 HR/SOON APT;5-10 MIN MED DIS 2014 DoD SMOKING AND TOBACCO CESSATION COUNSELING VISIT FOR THE ASYMPTOMATIC PATIENT; INTENSIVE, GREATER THAN 10 MINUTES 2014 DoD TELE ASSESS & MGT SRV PROV QUAL NONPHYS HLTH CARE PRO TO EST PAT,PARENT,GUARD NOT ORIG REL ASSESS & MGT SRV PROV W/IN PREV 7 DAYS NOR LEAD ASSESS & MGT SRV/PX W/IN NXT 24 HR/SOON APT;5-10 MIN MED DIS 2014 DoD EDUCATION &TRAINING, PATIENT SELF-MGT QUALIFIED, NONPHYSICIAN HEALTH [place] USING STDIZED CURRICULUM, [id number] W THE PATIENT (COULD INCL CAREGIVER/FAMILY) EA 30 MIN; INDIVIDUAL PATIENT 2014 DoD ACUPUNCTURE, 1 OR MORE NEEDLES; WITH ELECTRICAL STIMULATION, INITIAL 15 MINUTES OF PERSONAL ONE-ON-ONE CONTACT WITH THE PATIENT 2014 DoD ACUPUNCTURE, 1/MORE NEEDLES; WO ELECTRICAL STIMULATION, EA ADDITIONAL 15 MINUTES, PERSONAL ONE-ON-ONE CONTACT W THE PATIENT, W RE-INSERTION, NEEDLE(S) (LIST SEPARATELY ADDITION CODE, 1 PROCEDURE) 2014 DoD EDUCATION &TRAINING, PATIENT SELF-MGT QUALIFIED, NONPHYSICIAN HEALTH [place] USING STDIZED CURRICULUM, [id number] W THE PATIENT (COULD INCL CAREGIVER/FAMILY) EA 30 MIN; INDIVIDUAL PATIENT 2014 [facility] ACUPUNCTURE, 1/MORE NEEDLES; WO ELECTRICAL STIMULATION, EA ADDITIONAL 15 MINUTES, PERSONAL ONE-ON-ONE CONTACT W THE PATIENT, W RE-INSERTION, NEEDLE(S) (LIST SEPARATELY ADDITION CODE, 1 PROCEDURE) 2014 [facility] ACUPUNCTURE, 1 OR MORE NEEDLES; WITHOUT ELECTRICAL STIMULATION, INITIAL 15 MINUTES OF PERSONAL ONE-ON-ONE CONTACT WITH THE PATIENT 2014 [facility] UNLISTED SPECIAL SERVICE, PROCEDURE OR REPORT 2014 [facility] MEDICATION THERAPY MGT SERVICE(S) PROVIDED,A PHARMACIST,Brandi BARON LUZ ELENA-TO-FACE W PATIENT,WITH ASSESS & INTERVENE IF PROVIDED;EA ADDITION 15 MINUTES (LIST SEPARATELY IN ADDITION TO CODE FOR PRIM SERVICE) 2014 [facility] PATIENT EDUCATION, NOT OTHERWISE CLASSIFIED, NON-PHYSICIAN PROVIDER, GROUP, PER SESSION 2014 [facility] PATIENT EDUCATION, NOT OTHERWISE CLASSIFIED, NON-PHYSICIAN PROVIDER, GROUP, PER SESSION 2014 [facility] PATIENT EDUCATION, NOT OTHERWISE CLASSIFIED, NON-PHYSICIAN PROVIDER, INDIVIDUAL, PER SESSION 2014 [facility] OXYGEN UPTAKE, GAS ANALYSIS; REST, INDIRECT (SEPARATE PROCEDURE) 2014 [facility] TELEHEALTH ORIGINATING SITE FACILITY FEE 2013 [facility] HEEL OR ELBOW PROTECTOR, EACH 2013 [facility] Case Management, each 15 minutes 2016 STACEY KWAN [facility] Coordinated care fee, maintenance rate 2016 STACEY KWAN [facility] Psychotherapy Individual Approx 30 Min W/ Medical Evaluation & Management Psychotherapy Individual Approx 30 Min W/ Medical Evaluation & Management [id number] 2016 STANTON RENE [facility] Non-Physician Phone Call To Patient/Provider Brief (5-10min) Non-Physician Phone Call To Patient/Provider Brief (5-10min) [id number] 2016 ALEKSANDER AMRBOSE Internet Med Svc Qual Nonphys Healthcare Prof Up To 7 Days Estab Patient Internet Med Svc Qual Nonphys Healthcare Prof Up To 7 Days Estab Patient [id number] 2016 ALEKSANDER AMBROSE Non-Physician Phone Call To Patient/Provider Brief (5-10min) Non-Physician Phone Call To Patient/Provider Brief (5-10min) [id number] 2016 ALEKSANDER AMBROSE Determination Of Refractive State Determination Of Refractive State [id number] 2016 DREW RICO Ophthalmological New Patient Start Comprehensive Care Ophthalmological New Patient Start Comprehensive Care [id number] 2016 DREW RICO Psychiatric Diagnostic Evaluation With Medical Evaluation And Management Psychiatric Diagnostic Evaluation With Medical Evaluation And Management [id number] 2016 RENECOTYSTANTON Yanely [facility] Psychiatric Diagnostic Evaluation Comprehensive Examination Psychiatric Diagnostic Evaluation Comprehensive Examination [id number] 2016 TOM RANDLE Non-Physician Phone Call To Patient/Provider Brief (5-10min) Non-Physician Phone Call To Patient/Provider Brief (5-10min) [id number] 2015 ALEKSANDER AMBROSE Non-Physician Phone Call To Patient/Provider Brief (5-10min) Non-Physician Phone Call To Patient/Provider Brief (5-10min) [id number] 2015 ALEKSANDER AMBROSE Non-Physician Phone Call To Patient/Provider Brief (5-10min) Non-Physician Phone Call To Patient/Provider Brief (5-10min) [id number] 2015 ANDREWS MITTAL Layer Closure Of Wound Face 2.6 to 5.0 cm Layer Closure Of Wound Face 2.6 to 5.0 cm [id number] 2015 EVAN PETERSEN Excision Of Lesion Face Malignant 1.1 to 2cm Excision Of Lesion Face Malignant 1.1 to 2cm 38324 2015 EVAN PETERSEN Biopsy Skin Biopsy Skin 14328 2015 EVAN PETERSEN Osteopathic Manip Treatment (OMT) 3-4 Body Regions Involved Osteopathic Manip Treatment (OMT) 3-4 Body Regions Involved [id number] 2015 ALEKSANDER AMBROSE Non-Physician Phone Call To Patient/Provider Brief (5-10min) Non-Physician Phone Call To Patient/Provider Brief (5-10min) [id number] 2015 CHANTEL MORRIS Non-Physician Phone Call To Patient/Provider Brief (5-10min) Non-Physician Phone Call To Patient/Provider Brief (5-10min) [id number] 2014 CHANTEL MORRIS Non-Physician Phone Call To Patient/Provider Brief (5-10min) Non-Physician Phone Call To Patient/Provider Brief (5-10min) [id number] 2014 UBALDO MCHUGH Non-Physician Phone Call To Patient/Provider Brief (5-10min) Non-Physician Phone Call To Patient/Provider Brief (5-10min) [id number] 2014 CHANTEL MORRIS Non-Physician Phone Call To Patient/Provider Brief (5-10min) Non-Physician Phone Call To Patient/Provider Brief (5-10min) [id number] 2014 CHANTEL MORRIS Medication Management By Pharmacist Initial 15 Minutes Established Patient Medication Management By Pharmacist Initial 15 Minutes Established Patient [id number] 2014 KHRIS HAYWOOD Non-Physician Phone Call To Patient/Provider Brief (5-10min) Non-Physician Phone Call To Patient/Provider Brief (5-10min) [id number] 2014 CHANTEL MORRIS Smoking and tobacco ce ation counseling visit for the asymptomatic patient; intensive, greater than 10 minutes 2014 GUILLERMINA DELEON Non-Physician Phone Call To Patient/Provider Brief (5-10min) Non-Physician Phone Call To Patient/Provider Brief (5-10min) [id number] 2014 CHANTEL MORRIS Acupuncture One Or More Quitman With Stimulation Initial 15 Min Acupuncture One Or More Q[place] With Stimulation Initial 15 Min [id number] 2014 JUJU BANDA Acupunct One Or More Q[place]man W/O Stimulation Initial 15 Min Acupunct One Or More Q[place]man W/O Stimulation Initial 15 Min [id number] 2014 JUJU BANDA Acupunct One Or More [place] W/O Stimulation Initial 15 Min Acupunct One Or More Q[place] W/O Stimulation Initial 15 Min [id number] 2014 JUJU BANDA Verbal consent after review of risks and benefits. Sterile 0.2 x 40 mm needles placed to Kidney, Point Zero, Gracia Men, Lung, and nicotine point bilaterally for 30 minutes. Body points added to LR3, SP6, MH6 and Anderson Elsi and left in dispersion. Patient tolerated procedure well. Damaris Acupunct One/More Quitman W/O Stim Each Addl 15 Min W/ Reinsert Needle(s) Acupunct One/More Quitman W/O Stim Each Addl 15 Min W/ Reinsert Needle(s) 55129 2014 JUJU BANDA Verbal consent after review of risks and benefits. Body points to LR 3, SP 6, MH 6, and Anderson Elsi placed bilaterally and left in dispersion for 15 minutes. Patient tolerated procedure well. DoD Acupunct One Or More Q[place]man W/O Stimulation Initial 15 Min Acupunct One Or More Quitman W/O Stimulation Initial 15 Min [id number] 2014 JUJU BANDA Verbal consent after review of risks and benefits. Auricular acupuncture with points to Gracia Men, Kidney, Point Zero, Lung and nicotine point bilaterally and left for 30 minutes. [facility]D Acupunct One Or More Quitman W/O Stimulation Initial 15 Min Acupunct One Or More Quitman W/O Stimulation Initial 15 Min [id number] 2014 JUJU BANDA Verbal consent after review of risks and benefits. Auricular acupuncture bilaterally to Gracia Men, kidney, Point Zero, Lung, and Nicotine Point for 30 minutes. Quitman removed without incident and patient tolerated procedure well. [facility] Intervention And Counseling On Ce ation Of Tobacco Use Intervention And Counseling On Cessation Of Tobacco Use 4000F 2014 KHRIS HAYWOOD [facility] Medication Management By Pharmacist Each Additional 15 Minutes Medication Management By Pharmacist Each Additional 15 Minutes [id number] 2014 KHRIS HAYWOOD [facility] Medication Management By Pharmacist Initial 15 Minutes New Patient Medication Management By Pharmacist Initial 15 Minutes New Patient [id number] 2014 KHRIS HAYWOOD [facility] Patient education, not otherwise cla ified, non-physician provider, group, per se ion 2014 SHAW HENRY [facility] Patient education, not otherwise cla ified, non-physician provider, group, per se ion 2014 DREW GANDHI [facility] Patient education, not otherwise cla ified, non-physician provider, individual, per se ion 2014 DREW GANDHI Pulmon Function - O2 Uptake - Gas Analysis Rest, Ind Pulmon Function - [place]2 [place]ptake [place] [address] 2014 DREW GANDHI Acupunct One Or More Quitman W/O Stimulation Initial 15 Min Acupunct One Or More Quitman W/O Stimulation Initial 15 Min [id number] 2014 JUJU BANDA Verbal consent after review of risks and benefits. 22 gauge needle used to create small punctures from BL2 medially to glabella at GV 24.5 bilaterally (about 10 total) and excess blood wiped away with sterile gauze. Procedure caused profuse rhinorrhea (normal response). Patient reported 70+% improvement in pressure and rhinorrhea following procedure. [facility] Telehealth originating site facility fee 2013 UBALDO MCHUGH [facility] Heel or elbow protector, each 2013 JUJU BANDA Issued Tennis Elbow Strap and patient instructed on use. [facility] Vaccines Vaccines 48498 2013 JUJU BANDA Influenza Split (Injectable); Series #: 1; .5 mL; IM; Right Arm; Mfg: Ryzing; Lot: [id number]; VIS given (Gurdeep: 12/01/12). [facility] Immunization Administration By Injection, One Vaccine Immunization Administration By Injection, One Vaccine 50234 2013 JUJU BANDA [facility] Non-Physician Phone Call To Patient/Provider Brief (5-10min) Non-Physician Phone Call To Patient/Provider Brief (5-10min) [id number] 2013 MARIAELENA LIU [facility] Non-Physician Phone Call To Patient/Provider Brief (5-10min) Non-Physician Phone Call To Patient/Provider Brief (5-10min) [id number] 2013 ARNOLD KISER [facility] Screening papanicolaou smear; obtaining, preparing and conveyance of cervical or vaginal smear to laboratory 2013 ANDREI DANIELS [facility] Implantable Contraceptive Capsules Insertion 2011 AMITA AYERS [facility] Clinical Social Work Counseling Marital 2010 WILLAM MERAZ [facility] Psychiatric Diagnostic Evaluation Comprehensive Examination Psychiatric Diagnostic Evaluation Comprehensive Examination [id number] 2010 WILLAM MERAZ [facility] Skin Test Anergy Tuberculin Intradermal Skin Test Anergy Tuberculin Intradermal 84004 2009 ISIDRO CANTU [facility] Screening papanicolaou smear; obtaining, preparing and conveyance of cervical or vaginal smear to laboratory 2009 BARBARA IZQUIERDO [facility] Immunization Administration By Injection, One Vaccine Immunization Administration By Injection, One Vaccine 21280 2009 CARRIEYANG HENNING [facility] Hepatitis A And Hepatitis B (Intramuscular Use) Adult Dosage Hepatitis A And Hepatitis B (Intramuscular Use) Adult Dosage 94378 2009 CARRIEYANG HENNING [facility] Visual Function Screening Visual Function Screening 42492 2009 JUJU SALAS [facility] Influenza Split Virus Vaccine 0.5mL Dosage Intramuscular 2009 ISIDRO CANTU [facility] Immunization Administration By Injection, One Vaccine Immunization Administration By Injection, One Vaccine 51541 2009 [place] [facility] Hepatitis A And Hepatitis B (Intramuscular Use) Adult Dosage Hepatitis A And Hepatitis B (Intramuscular Use) Adult Dosage 74942 2009 [place] [facility] Immunization Administration By Injection, One Vaccine Immunization Administration By Injection, One Vaccine 54781 2009 [facility] Hepatitis A And Hepatitis B (Intramuscular Use) Adult Dosage Hepatitis A And Hepatitis B (Intramuscular Use) Adult Dosage 13848 2007 JJ BAIRD [facility] Immunization Administration By Injection, Each Additional Vaccine Immunization Administration By Injection, Each Additional Vaccine 47529 2007 JJ BAIRD [facility] Human Papilloma Virus Vaccine, Quadrivalent Human Papilloma Virus Vaccine, Quadrivalent 94447 2007 BAIRDJJ CARY [facility] Immunization Administration By Injection, One Vaccine Immunization Administration By Injection, One Vaccine 53164 2007 JJ BAIRD [facility] Screening Test Of Visual Acuity, Quantitative, Bilateral Screening Test Of Visual Acuity, Quantitative, Bilateral 22772 2007 MARY ELLEN DIETRICH [facility] Immunization Administration By Injection, One Vaccine Immunization Administration By Injection, One Vaccine 90820 2007 SEEMA BILLINGSLEY [facility] Tdap Vaccine Tdap Vaccine 49916 2007 SEEMA BILLINGSLEY [facility] Social History Combined list of available smoking, tobacco, and other social history from [facility] and [facility] facilities. Social History Type Response Date Comment [facility] e Female 12/02/2022 Ambulatory Pha rmacy Tobacco Cigarette use: Yes-current everyday cigarette user. Average PACKS per day: (10 cigarettes = 0.5 packs) 0.25. Other Tobacco use: Never-other tobacco user (not cigarettes). Ambulatory Pharma cy Sexual Orientation Ambula tory Pharmacy Gender identity Ambulator y Pharmacy This section is an empty social history section. DoD Assessment and Plan Combined list of future care activities from [facility] of Defense and Veterans Affairs facilities (e.g., assessment and plan notes, appointments, orders, and referrals). Additional future care activities may be listed in the Plan of Care section. Result Assessment and Plan Date Source Assessment and Plan Extracted from:Title : Lab f/u, weight gain, med f/u Author: ILYA HAHN MD Date: 04/24/24 1.?Fracture of leg - Labs drawn from last visit remarkable for presence of TPO antibodies - Other labs unremarkable - Referral to endo placed - PTH and urine Ca to assess for parathyroid disorder - DEXA scan ordered ? ? ? Ordered: PTH Intact [id number] Referral Request 2.0 - DoD ? 2.?Weight gain ?- Has gained almost 10 lbs over the past ~1 month - Likely multifactorial: depression improvement, stopping topimax, leg fracture - Will trial phentermine, f/u in 3 months to discuss weight changes ? Ordered: phentermine(phentermine 37.5 mg oral capsule), 1 cap(s), Oral, Daily, # 90 cap(s), 0 total refill(s), Maintenance, 1 cap(s) Oral Daily, Pharmacy: [facility] #[id number] [External Rx] ? 3.?Depression ?- BILLY-7: 6, PHQ-9: 6 - Changed from 150mg to 200mg BID of wellbutrin - Patient doing better on new med regimen, will f/u in 3 months as above ? ? Ilya Hahn MD PGY-2, Family Medicine Addendum by VICKIE ALMANZA DO on April 25, 2024 10:34:02 GROCERY ASSOCIATE I certify that I was present for case discussion in the Family Medicine preceptor room at the time of this encounter. I have reviewed the note and agree with the findings, assessment, and plan except as I have documented below. Follow up as listed. All labs/imaging/consults to be followed by the ordering provider. Vickie Almanza, , [facility], Staff Physician Extracted from:Title: Leg fracture, depression/anxiety med change Author: ILYA HAHN MD Date: 03/26/24 1.?Leg fracture - Per patient fracture happened while she took a step walking up her stairs at home.? No force when going up stairs. - Fracture of tib/fib of left leg s/p internal fixation - Patient has f/u w/ ortho on Tuesday - Discussed drawing labs to look for possible cause of fracture - Will order skeletal CT to assess for bone fragility - Patient has f/u w/ Ortho on Tuesday ? Ordered: CBC w/ Diff Comprehensive Metabolic Panel Free T3 Level Free T4 Level Reverse T3 [id number] TgAb + Thyroglobulin JUANA or MESERET [id number] Thyroid Peroxidase Antibodies Thyroid Stimulating Hormone CT Bone Density Axial Skeleton ? 2.?Depression - PHQ-9: 22, BILLY-7: 12 - Patient says that she has not noticed difference in anxiety depression, says she does feel sad about her broken leg - Patient seeing therapist - After discussion patient is interested in med change, has done multiple combos including SNRI+buspar and SNRI+abilify.? Had adverse reaction to abilify - Discussed increasing wellbutrin dose - No SI/HI - Will f/u in 1 month ? 3.?Anxiety - Plan as above ? Orders: buPROPion(Wellbutrin SR 200 mg/12 hours oral tablet, extended release), 1 tab(s), Oral, BID, # 180 tab(s), 0 total refill(s), Maintenance, 1 tab(s) Oral BID, Pharmacy: [facility] [Not filled] Ilya Hahn MD PGY-2, Family Medicine Addendum by SARIAH DENISE MD on March 27, 2024 13:44:52 GROCERY ASSOCIATE On the day of encounter, I was available for discussion with the resident physician. Case was discussed with me in the Teach Room. I agree with the assessment and plan of care as documented above with any exceptions/additions noted below if necessary. All labs/rads/consults to be followed by the ordering provider. ? DO [employer], Family Medicine Physician? Future Scheduled TestsLaboratoryCalcium Random Ur [id number] 04/20/24PTH Intact [id number] 04/24/24PTH Intact+Calcium [id number] 04/13/24Phosphorus Level 04/13/24RadiologyCT Bone Density Axial Skeleton 03/26/24US Thyroid 04/13/24 05/09/2024 Ambulatory Pharmacy Functional Status Combined list of recent functional and cognitive assessments recorded at [facility] Functional Gates Measurement (FIM) Scale: 1 = Total Assistance (Subject = 0% +), 2 = Maximal Assistance (Subject = 25% +), 3 = Moderate Assistance (Subject = 50% +), 4 = Minimal Assistance (Subject = 75% +), 5 = Supervision, 6 = Modified Gates (Device), 7 = Complete Gates (Timely, Safely). Assessment Date/Time Source Assessment Type Assessment Skill Assessment Score Assessment Details No data available for this section
--- OUTSIDE RECORDS SUMMARY | 2024-05-09 05:04 | XMS_ITS | Referral Summary ---
Author Organization [facility] Address [address] [facility] [place] [address] Care Team Providers Care Oracle Endeca Consultant Name Role Phone None, Physician Primary Care Provider Unavailabl e Source Comments [facility],non-owned Affiliates and Associated Physician Practices is amultiple site organization consisting of ambulatory clinics and hospital sitesin [place], [place], [place] and [place]. This disclosure is being madepursuant to the Care Everywhere program and may not contain all information available regarding this patient. Last updated 18.[facility] Encounters Date Type Department Care Team Description 04/04/2024 Orders Only [facility] - Orth[facility] [address] [place] [phone] Manuel Resendiz, Tibia/fibula fracture, left, closed, with routine healing, subsequent encounter 03/30/2024 Travel 03/30/2024 11:15 AM RESEARCH ENVIRONMENTAL SCIENTIST Office Visit [facility] [address] [place] [address] Manuel Resendiz, Fracture tibia/fibula, left, closed, initial encounter (Primary Dx) 03/05/2024 11:26 PM CDT - 03/09/2024 11:17 AM CDT Hospital Encounter [facility] 5S ACUTE [address] [place] [phone] Jv Garcia MD Revak, Thomas J, DO Surgery Orthopedics Discharge Disposition: Home or Self Care 03/07/2024 2:29 PM CDT - 03/07/2024 4:[address] [facility] [address] [place] [address] Manuel Resendiz, DO INTRAMEDULLARY (IM) NAILING TIBIA 03/07/2024 3:33 PM CDT Anesthesia Event [facility] [address] [place] [address] Abhishek Rubi MD Wilson, Katlyn Oliver, GRAPHIC DESIGN INTERN-SORTING SUPERVISOR 03/05/2024 Travel from Last 3 Months Allergies No known active allergies Medications * Be aware that medications may not be up to date on this document. Alwaysverify current medications with the patient. Medication Sig Dispensed Refills Start Date End Date Status buPROPion SR 12hr (Wellbutrin-SR) 150 MG tablet Take 1 (one) tablet by mouth 2 times daily Active topiramate (Topamax) 100 MG tablet Take 1 (one) tablet by mouth 2 times daily Active oxyCODONE, immediate release, (Roxicodone) 5 MG tabletIndications :Closed fracture of left ankle, initial encounter,Fractur e tibia/fibula, left, closed, initial encounter Take 1 (one) tablet by mouth every 4 hours as needed 40 tablet 03/09/2024 Active oxyCODONE, immediate release, (Roxicodone) 5 MG tabletIndications :Closed fracture of left ankle, initial encounter Take 1 (one) tablet by mouth every 6 hours as needed for Pain 40 tablet 03/09/2024 Active acetaminophen (Tylenol) 500 MG tablet Take 2 (two) tablets by mouth every 6 hours for 60 days Maximum allowable Acetaminophen amount = 4 Grams (4000 mg) / 24 hours. 240 tablet 1 03/09/2024 Active aspirin EC (Ecotrin) 81 MG tablet Take 1 (one) tablet by mouth 2 times daily 100 tablet 03/09/2024 Active polyethylene glycol 3350 (MiraLax) 17 g packet Take 17 (seventeen) g by mouth once daily 03/09/2024 Active cyclobenzaprine (Flexeril) 10 MG tablet Take 1 (one) tablet by mouth 3 times daily as needed for Muscle Spasms 40 tablet 03/09/2024 Active vitamin D3 (Cholecalciferol) 25 MCG (1000 UNITS) tablet Take 1 (one) tablet by mouth once daily for 90 days 30 tablet 2 03/09/2024 06/07/2024 Active Active Problems Problem Noted Date Diagnosed Date Fall 03/06/2024 Fracture tibia/fibula, left, closed, initial enc ounter 03/06/2024 Syncope and collapse 03/06/2024 Closed fracture of left ankle, initial encounter 03/06/2024 Ground-level fall 03/06/2024 Social History Tobacco Use Types Packs/Day Years Used Date Smoking Tobacco: Never Smokeless Tobacco: Never Tobacco Cessation:Counseling Given: Not Answered AUDIT-C Answer Date Recorded Q1: How often do you have a drink containing alcohol? Never 03/09/2024 Q2: How many drinks containi ng alcohol do you have on a typical day when you are drinking? Patient does not drink Q3: How often do you have si x or more drinks on one occasion? Never 03/09/2024 Overall Financial Resource Strain (CARDIA) Answe r Date Recorded How hard is it for you to pa y for the very basics like food, housing, medical care, and heating? Patient declined 03/09/2024 [facility] - Occupational Stress Questionnaire Answer Date Recorded Do you feel stress - tense, restless, nervous, or anxious, or unable to sleep at night because your mind is troubled all the time - these days? Patient declined 03/09/2024 Hunger Vital Sign Answer Date Recorded Within the past 12 months, y ou worried that your food would run out before you got the money to buy more. Patient declined Within the past 12 months, t he food you bought just didn't last and you didn't have money to get more. Patient declined 05/2023 PRAPARE - Transportation Answer Date Re corded In the past 12 months, has l ack of transportation kept you from medical appointments or from getting medications? No 05/2023 In the past 12 months, has l ack of transportation kept you from meetings, work, or from getting things needed for daily living? No 03/09/2024 Housing Stability Vital Sign Answer Kee e Recorded In the last 12 months, was t here a time when you were not able to pay the mortgage or rent on time? Patient declined 03/09/20 24 In the past 12 months, how m any times have you moved where you were living? 1 03/09/2024 At any time in the past 12 m [facility], were you homeless or living in a alf (including now)? Patient declined 03/09/2024 Sex and Gender Information Value Date Recorded Sex Assigned at Not on file Gender Identity Not on file Sexual Orientation Not on file Last Filed Vital Signs Vital Sign Reading Time Taken Comments Blood Pressure 119/75 03/09/2024 7:28 AM CDT Pulse 71 03/09/2024 7:28 AM CDT Temperature 36.7 ??C (98.1 ??F) 03/09/2024 7:28 AM CD T Respiratory Rate 16 03/09/2024 7:28 AM CDT Oxygen Saturation 100% 03/09/2024 7:28 AM CDT Inhaled Oxygen Concentration - - Weight 83 kg (183 lb) 03/30/2024 11:35 AM RESEARCH ENVIRONMENTAL SCIENTIST Height 165.1 cm (5' 5 ) 03/30/2024 11:35 AM RESEARCH ENVIRONMENTAL SCIENTIST Body Mass Index 30.45 03/30/2024 11:35 AM RESEARCH ENVIRONMENTAL SCIENTIST Functional Status Functional Status Response Date of Assess ment Is person deaf or have serious hearing difficult y? No 03/07/2024 Is person blind or have serious difficulty seein g? No 03/07/2024 Does person have serious dif ficulty walking/climbing stairs? No 03/07/2024 Does person have difficulty dressing/bathing? No 03/07/2024 Does person have difficulty doing errands alone? No 03/07/2024 Cognitive Status Response Date of Assessm ent Does person have difficulty concentrating/remembering/making decisions? No 03/07/2024 Plan of Treatment Upcoming Encounters Date Type Department Care Team (Late st Contact Info) Description 05/18/2024 9:15 AM RESEARCH ENVIRONMENTAL SCIENTIST Office Visit [facility] [address] [place] [address], [facility] [phone] Manuel Resendiz T, DO [address] [place] [phone] Medical Devices Implanted Type Area Svp Operations Device Identifier Shelf Expiration Date Model / Serial / Lot Screw 2.7mm 5mm 30mm T8 Slf-Tap Strdr Implanted:Qty: 1 on 03/07/2024 by Benny Jones MD at [facility] Left: Tibia [employer]ynthe[employer] Usa [id number] / / Screw 2.7mm 5mm 32mm T8 Slf-Tap Strdr Implanted:Qty: 1 on 03/07/2024 by Benny Jones MD at [facility] Left: Tibia [employer] Usa [id number] / / Nail Im 9mm 345mm Xprt Tib Cornell Prox Bnd Implanted:Qty: 1 on 03/07/2024 by Benny Jones MD at [facility] Left: Tibia [employer] 07/06/2033 [id number] S / / [id number] 5.0mm Locking Screw For Im Nail, 28mm Implanted:Qty: 1 on 03/07/2024 by Benny Jones MD at [facility] Left: Tibia S[employer]s Trauma [id number] / / 5.0mm Locking Screw For Im Nail, 32mm Implanted:Qty: 1 on 03/07/2024 by Benny Jones MD at [facility] Left: Tibia [employer] Trauma [id number] / / 5.0mm Locking Screw For Im Nail, 36mm Implanted:Qty: 1 on 03/07/2024 by Benny Jones MD at [facility] Left: Tibia [employer]s Trauma [id number] / / Explanted Type Area Svp Operations Device Identifier Shelf Expiration Date Model / Serial / Lot Screw 2.7mm 5mm 28mm T8 Slf-Tap Strdr Explanted:Qty: 1 on 03/07/2024 by Benny Jones MD at [facility] Left: Tibia [employer] Usa [id number] / / Slv Prtc 12mm Suprapatellar Strl Explanted:Qty: 1 on 03/07/2024 by Benny Jones MD at [facility] Left: Tibia [employer]sa [id number] S / / Procedures Procedure Name Priority Date/Time Associated Diagnosis Comments CBC W/O DIFFERENTIAL AM Draw 03/09/2024 2:53 AM CDT Closed fracture of left ankle, initial encounter CARDIAC EKG ORDER 03/08/2024 11: 33 AM CDT CBC W/O DIFFERENTIAL AM Draw 03/08/2024 2:41 AM CDT Closed fracture of left ankle, initial encounter PT EVAL AND TREAT Routine 03/07/2024 5:5 8 PM CDT OT EVAL AND TREAT Routine 03/07/2024 5:5 8 PM CDT FL ESTEFANI SURGERY Routine 03/07/2024 5:55 PM CDT Fracture tibia/fibula, left, closed, initial encounter ENDOTRACHEAL TUBE NOTE Routine 4:11 PM CDT OH OPEN RX TIBIA SHAFT FX,INTRAMED NASIR 03/07/2024 3:34 PM CDT Closed fracture of distal end of left tibia, unspecified fracture morphology, initial encounter BASIC METABOLIC PANEL (CALCIUM TOTAL) AM Draw 03/07/2024 2:41 AM CDT Closed fracture of left ankle, initial encounter CBC W/O DIFFERENTIAL AM Draw 03/07/2024 2:41 AM CDT Closed fracture of left ankle, initial encounter EKG 12-LEAD Routine 03/06/2024 4:07 PM CDT Closed fracture of left ankle, initial encounter URINE DRUG SCREEN IMMUNOASSAY STAT 03/06/2024 9:[address] LUMBAR SPINE WO CONTRAST STAT 03/06/2024 2:42 AM CDT Ground-level fall CT THORACIC SPINE WO CONTRAST STAT 03/06/2024 2:42 AM CDT Ground-level fall CT CHEST ABDOMEN PELVIS W CONT STAT 03/06/2024 2:42 AM CDT Ground-level fall CT CERVICAL SPINE WO CONTRAST STAT 03/06/2024 2:42 AM CDT Ground-level fall CT HEAD WO CONTRAST STAT 03/06/2024 2 :42 AM CDT Ground-level fall CT ANKLE LEFT WO CONTRAST STAT 03/06/2024 2:41 AM CDT Ground-level fall BLOOD TYPE VERIFICATION STAT 03/06/2024 2:39 AM CDT HCG BETA BLOOD QUANTITATIVE STAT 03/06/2024 2:36 AM CDT Ground-level fall Closed fracture of left ankle, initial encounter Syncope and collapse VITAMIN D 25-HYDROXY Routine 03/06/2024 2:36 AM CDT PTT SLH STAT 03/06/2024 2:36 AM CDT PT-INR SLH STAT 03/06/2024 2:36 AM CDT ALCOHOL ETHYL BLOOD STAT 03/06/2024 2 :36 AM CDT XR TIBIA FIBULA LEFT 2VW Routine 03/06/2024 1:40 AM CDT Ground-level fall XR KNEE LEFT 2VW OR LESS STAT 03/06/2024 1:04 AM CDT Ground-level fall TYPE + SCREEN PANEL STAT 03/06/2024 1 :00 AM CDT PTT SLH STAT 03/06/2024 1:00 AM CDT PT-INR SLH STAT 03/06/2024 1:00 AM CDT COMPREHENSIVE METABOLIC PANEL STAT 03/06/2024 1:00 AM CDT CBC W AUTO DIFFERENTIAL STAT 03/06/2024 1:00 AM CDT XR TIBIA FIBULA LEFT 2VW STAT 03/05/2024 11:50 PM CDT Ground-level fall XR ANKLE LEFT 3VW OR MORE STAT 03/05/2024 11:50 PM CDT Ground-level fall from Last 3 Months Results * (ABNORMAL) CBC W/O DIFFERENTIAL (03/09/2024 2:53 AM CDT) Only the most recent of3 resultswithin the time period is included. WBC 5.5 4.0 - 10.7 x10E9/L 03/09/2024 3:49 AM [facility] RBC Count 3.06(L) 3.90 - 5.20 x10E12/L 03/09/2024 3:49 AM [facility] Hemoglobin 8.9(L) 11.9 - 15.8 g/dL 03/09/2024 3:49 AM [facility] Hematocrit 28.2(L) 34.8 - 46.1 % 03/09/2024 3:49 AM [facility] MCV 92.2 80.0 - 98.0 fL 03/09/2024 3:49 AM [facility] MCH 29.1 26.7 - 33.6 pg 03/09/2024 3:49 AM [facility] MCHC 31.6(L) 31.7 - 36.3 g/dL 03/09/2024 3:49 AM [facility] RDW-CV 14.5 11.3 - 14.8 % 03/09/2024 3:49 AM [facility] Platelet Count 230 150 - 420 x10E9/L 03/09/2024 3:49 AM [facility] MPV 9.4 7.8 - 11.4 fL 03/09/2024 3:49 AM [facility] Blood BLOOD SPECIMEN / Unknown Lab Venipuncture / Unknown 03/09/2024 2:53 AM CDT 03/09/2024 3:28 AM CDT Chase Garcia DO LAB - HEMATOLOGY ORD ERABLES [facility] [address] [place] [phone], [facility] [phone] * CARDIAC EKG ORDER (03/08/2024 11:33 AM CDT) Narrative 03/08/2024 11:33 AM CDT Ordered by an unspecified provider. Scanned Document CARDIAC SERVICES ORD ERABLES * FL Estefani Surgery (03/07/2024 5:55 PM CDT) Narrative [facility] RADI[facility] - 03/07/2024 5:57 PM CDT Fluoroscopy was used for this exam in the OR. Please see the Operative report. Manuel Geiger Astrid DO FLUOROSCOPY ORDERABL ES [facility] * ETT LINE PERFORMABLE (03/07/2024 4:11 PM CDT) Narrative Obinna Gupta MD - 03/07/2024 4:11 PM CDT Obinna Gupta MD ? 03/07/2024 ??4:11 PM Endotracheal Tube Placement: ? Patient Location: OR. Intubation Event Date/Time: ??03/07/2024 3:43 PM Procedure: intubation (53201) Procedure Section: ?? Sedation: under general anesthesia. Indications for Airway Management: ??anesthesia Procedure pretreatments used? ??No Induction: standard IV Patient Position: ??sniffing and supine Mask Ventilation: easy with oral airway. Blade Type: Umer Blade Size: 3 Laryngoscopy View: grade 1 (full cords) Intubation Adjuncts: stylet Tube: endotracheal tube Placement: oral Tube type: cuff - inflated Tube Size (MM): 7 Depth of Insertion (CM): 22 Measured From: teeth Cuff volume (mL): ??10 Cuff Inflated With: air Number of Attempts: 1. Placement Verified By: direct visualization, bilateral breath sounds, chest auscultation and CO2 monitor Tube secured with: ??adhesive tape. Dentition unchanged? ??Yes Difficult Airway? ??No. Procedure Start Time: 03/07/2024 3:43 PM. Staff Section ? Anesthesia Provider: Obinna Gupta MD, Performed the procedure ? Provider #1: Iker Jonas MD. Iker Jonas MD GENERAL ANESTHESIA O RDERABLES * (ABNORMAL) BASIC METABOLIC PANEL (CALCIUM TOTAL) (03/07/2024 2:41 AM CDT) BUN 12 7 - 26 mg/dL 03/07/2024 3:42 AM [facility] Creatinine 1.04(H) 0.56 - 0.96 mg/dL 03/07/2024 3:42 AM [facility] Sodium 140 136 - 145 mmol/L 03/07/2024 3:42 AM [facility] Potassium 3.9 3.5 - 4.5 mmol/L 03/07/2024 3:42 AM [facility] Chloride 106 98 - 107 mmol/L 03/07/2024 3:42 AM [facility] CO2 25 22 - 29 mmol/L 03/07/2024 3:42 AM [facility] Glucose 101(H) 70 - 99 mg/dL 03/07/2024 3:42 AM [facility] Calcium 8.2(L) 8.4 - 10.2 mg/dL 03/07/2024 3:42 AM [facility] Anion Gap 9 6 - 16 03/07/2024 3:42 AM [facility] BUN/Creatinine Ratio 12 7 - 23 03/07/2024 3:42 AM [facility] Osmolality Calculated 290 275 - 295 mOsm/kg 03/07/2024 3:42 AM [facility] eGFR by CKD-EPI 69(L) >=90 mL/min/1.7 3 m2 03/07/2024 3:42 AM [facility] Blood BLOOD SPECIMEN / Unknown Lab Venipuncture / Unknown 03/07/2024 2:41 AM CDT 03/07/2024 3:08 AM CDT Chase Garcia DO LAB - CHEMISTRY PAULINE JORGE [facility] [address] [place] [phone], [facility] [phone] * EKG 12-LEAD (03/06/2024 4:07 PM CDT) Ventricular Rate [address] [facility] Atrial Rate [address] [facility] P-R Interval [address] [facility] QRS Duration ms [address] [facility] Q-T Interval ms [address] [facility] QTC Calculation (Bezet) [address] [facility] Calculated P [place] [address] [facility] Calculated R [place] [address] [facility] Calculated T [place] [address] [facility] Interpretation EKG NORMAL SINUS RHYTHM NORMAL ECG NO PREVIOUS ECGS AVAILABLE Confirmed by MAYURI ZHANG MD ([id number]) on 03/11/2024 10:28:[address] [facility] 03/06/2024 4:07 PM CDT 03/11/2024 10:28 AM RESEARCH ENVIRONMENTAL SCIENTIST Katlyn King GRAPHIC DESIGN INTERN-SORTING SUPERVISOR ECG ORDERAB LES [facility] * (ABNORMAL) URINE DRUG SCREEN IMMUNOASSAY (03/06/2024 9:38 AM CDT) Amphetamines Screen Urine Negative Negative : < 1000 ng/mL 03/06/2024 10:00 AM [facility] Barbiturates Screen Urine Negative Negative : < 200 ng/mL 03/06/2024 10:00 AM [facility] Benzodiazepine Screen Urine Negative Negative : < 200 ng/mL 03/06/2024 10:00 AM [facility] Opiates Urine Positive(A) Negative : < 300 ng/mL 03/06/2024 10:00 AM [facility] Comment:Positive urine opiat e screening results should be confirmed by another generally accepted non-immunological method such as gas chromatography or mass spectrometry. Cocaine Metabolites Urine Negative Negative : < 300 ng/mL 03/06/2024 10:00 AM [facility] Phencyclidine Screen Urine Negative Negative : < 25 ng/ml 03/06/2024 10:00 AM [facility] Cannabinoids Screen Urine Positive(A) Negative : <50 ng/mL 03/06/2024 10:00 AM [facility] Comment:Positive urine canna binoids (THC) screening results should be confirmed by another generally accepted non-immunological method such as gas chromatography or mass spectrometry. Methadone Screen Urine Negative Negative : < 300 ng/mL 03/06/2024 10:00 AM CDT [facility] Fentanyl Screen Urine Negative Negative : <1.5 ng/mL 03/06/2024 10:00 AM CDT [facility] Urine URINE / Unknown Collection / Unknown 03/06/2024 9:38 AM CDT 03/06/2024 9:41 AM CDT Narrative [facility] - 03/06/2024 10:00 AM CDT The Urine Toxicology Screening Panel does not screen for Propoxyphene, Meprobamate, Carisoprodol, Trazodone, xjit-jji-pxsbrwk medications and/or volatiles (Acetone, Isopropanol, Methanol or Ethylene Glycol). Ethanol, Salicylate, Acetaminophen, Tricyclic Antidepressants and several therapeutic drugs may be individually assayed in serum or plasma specimen. Toxicology testing by the [facility] is an aid to medical diagnosis and treatment of patients. No documented chain of custody was maintained. Results are intended to be used for clinical purposes only. ? Jv Garcia MD LAB - URINE CHEMISTR Y ORDERABLES Performing Organization Address [facility]/State/[facility] Co de Phone Number [facility] [address] [place] [phone], [facility] [phone] * CT CHEST ABDOMEN PELVIS W CONT - Abdomen-pelvis trauma, blunt or penetrating (03/06/2024 2:42 AM CDT) Anatomical Region Laterality Modality Chest, Abdomen, Pelvis Computed Tomography 03/06/2024 2:47 AM CDT Impressions 03/06/2024 7:08 AM CDT Impression: 1.No acute visceral, vascular, or osseus injury identified in the chest, abdomen, or pelvis. 2.Postoperative changes of partial colectomy with surgical anastomosis within the region of the sigmoid colon. Postoperative changes of gastric banding are seen. > Dictated by Pranav Morales DO (resident assistant). I, Selina Narvaez MD have personally reviewed and interpreted this examination/study. > Interpreting Provider: Selina Narvaez MD on 03/06/2024 7:08 AM Narrative 03/06/2024 7:08 AM CDT PROCEDURE: ??CT CHEST ABDOMEN PELVIS W CONT, DATE/TIME OF EXAM: ??03/06/2024 2:43 AM, LOCATION ??[facility] INDICATION: Trauma COMPARISON: None. TECHNIQUE: CT of the chest, abdomen, and pelvis was performed after the uneventful administration of 100 mL of Isovue 370 intravenous contrast according to standard protocol. Findings: Chest: Lower Neck and Axillae: Normal. Lungs: No pulmonary parenchymal or airway process is present. No suspicious pulmonary nodules are identified. No pleural fluid or pneumothorax is present. Heart and Pericardium: The cardiac chambers are normal in size. No pericardial fluid or thickening is present. Mediastinum and Jessica: No mediastinal hemorrhage is present. No enlarged lymph nodes are present. Thoracic Vasculature: No vascular abnormality is present. Abdomen/pelvis: Liver: Normal. Gallbladder and Bile Ducts: Normal. Spleen: Normal. Pancreas: Normal. Adrenals: Normal. Kidneys: Normal. Gastrointestinal: A gastric banding device is seen. A tube is seen extending from the gastric banding device and courses through the abdominal wall relating to a device that is implanted in the subcutaneous anterior abdominal wall soft tissues.. The stomach and visualized loops of small bowel are unremarkable. Postsurgical changes of partial colectomy with surgical anastomosis seen within the region of the sigmoid colon. There is otherwise scattered diverticula, primarily within the sigmoid colon. No evidence of diverticulitis. The appendix is normal. Mesentery/Peritoneum/Retroperitoneum: No free intraperitoneal air. No free fluid in the abdomen or pelvis. Bladder: Normal. Reproductive Organs: The uterus is normal. Abdominal Vasculature: Atherosclerotic calcification of the aorta and its branch vessels. Bones: Bone windows demonstrate no suspicious lytic or blastic lesions. The visible osseous structures are intact. There are mild degenerative changes throughout the spine. Soft tissues: Bilateral breast implants are seen. Procedure Note Selina Narvaez MD - 03/06/2024 PROCEDURE: CT CHEST ABDOMEN PELVIS W CONT, DATE/TIME OF EXAM:03/06/2024 2:43 AM, LOCATION [facility] INDICATION: Trauma COMPARISON: None. TECHNIQUE: CT of the chest, abdomen, and pelvis was performed after the uneventful administration of 100 mL of Isovue 370 intravenous contrast according to standard protocol. Findings: Chest: Lower Neck and Axillae: Normal. Lungs: No pulmonary parenchymal or airway process is present. No suspicious pulmonary nodules are identified. No pleural fluid or pneumothorax is present. Heart and Pericardium: The cardiac chambers are normal in size. No pericardial fluid orthickening is present. Mediastinum and Jessica: No mediastinal hemorrhage is present. No enlarged lymph nodes arepresent. Thoracic Vasculature: No vascular abnormality is present. Abdomen/pelvis: Liver: Normal. Gallbladder and Bile Ducts: Normal. Spleen: Normal. Pancreas: Normal. Adrenals: Normal. Kidneys: Normal. Gastrointestinal: A gastric banding device is seen. A tube is seen extending from thegastric banding device and courses through the abdominal wall relating to adevice that is implanted in the subcutaneous anterior abdominal wall soft tissues.. The stomach and visualized loops of small bowel are unremarkable. Postsurgical changes of partial colectomy with surgical anastomosis seen within the region of the sigmoid colon. There is otherwise scattered diverticula, primarily within the sigmoid colon. No evidence of diverticulitis. The appendix is normal. Mesentery/Peritoneum/Retroperitoneum: No free intraperitoneal air. No free fluid in the abdomen or pelvis. Bladder: Normal. Reproductive Organs: The uterus is normal. Abdominal Vasculature: Atherosclerotic calcification of the aorta and its branch vessels. Bones: Bone windows demonstrate no suspicious lytic or blastic lesions. The visible osseous structures are intact. There are mild degenerativechanges throughout the spine. Soft tissues: Bilateral breast implants are seen. Impression: 1.No acute visceral, vascular, or osseus injury identified in the chest, abdomen, or pelvis. 2.Postoperative changes of partial colectomy with surgical anastomosis within the region of the sigmoid colon. Postoperative changes of gastric banding are seen. > Dictated by Pranav Morales DO (resident assistant). Selina Mallory MD have personally reviewed and interpreted this examination/study. > Interpreting Provider: Selina Narvaez MD on 47:08 AM Jv Garcia MD CT ORDERABLES * CT LUMBAR SPINE WO CONTRAST - T/L-spine trauma, Spine fracture (03/06/2024 2:42 AM CDT) Anatomical Region Laterality Modality Spine Computed Tomogra phy 03/06/2024 2:57 AM CDT Impressions 03/06/2024 7:44 AM CDT IMPRESSION: 1.No acute intracranial hemorrhage, midline shift, or significant mass effect. 2.No evidence of acute fracture in the cervical, thoracic, or lumbar spine. 3.Please refer to the concurrent, dedicated body report for findings in the chest, abdomen, and pelvis. > Dictated by Cedric Bal DO ([employer]), 03/06/2024 3:09 AM. Anthony Mallory MD have personally reviewed and interpreted this examination/study. > Interpreting Provider: Anthony Adler MD on 03/06/2024 7:44 AM Narrative 03/06/2024 7:44 AM CDT PROCEDURE: ??CT HEAD WO CONTRAST, CT LUMBAR SPINE WO CONTRAST, CT THORACIC SPINE WO CONTRAST, CT CERVICAL SPINE WO CONTRAST, DATE/TIME OF EXAM: 03/06/2024 2:43 AM, LOCATION ??[facility] INDICATION: Trauma EXAMINATION: 1.Computed tomography (CT) of the head without contrast 2.CT of the cervical spine without contrast 3.CT of the thoracic spine without contrast 4.CT of the lumbar spine without contrast TECHNIQUE: CT of the head and cervical spine was performed without contrast according to standard protocol. Reformatted axial, sagittal, and coronal images of the thoracic and lumbar spine were obtained by the technologist from a concurrently performed body CT and sent to the workstation for review. CT dose reduction technique was used, including Automated Exposure Control. COMPARISON: No prior study is available for comparison at the time of this dictation. FINDINGS: Head: No acute intra- or extra-axial fluid collections are identified. The ventricles are of normal size, shape, and morphology. The basilar cisterns are patent. No mass effect or midline shift is seen. The white-white matter differentiation is normal. No acute calvarial fracture is identified.. The orbits appear normal. The paranasal sinuses are clear.. The mastoid air cells are clear. No soft tissue abnormality is identified. Cervical spine: There is gentle cervical kyphosis. Vertebral bodies are normal in height without evidence of acute fracture. Other than middle atlantoaxial joint osteoarthritis, the craniocervical junction appears normal. There is mild degenerative disc disease. No central canal stenosis is seen. The facets appear normal. There are varying degrees of mild uncovertebral joint osteoarthritis. No significant neural foraminal stenosis is seen. No soft tissue abnormality is identified. Thoracic spine: Very shallow S-shaped curvature of the thoracic spine. The alignment is normal. Vertebral bodies are normal in height without evidence of acute fracture. There is mild degenerative disc disease. No central canal stenosis is seen. There is mild facet osteoarthritis at multiple levels. No neural foraminal stenosis is seen. No soft tissue abnormality is identified. Lumbar spine: The alignment is normal. Vertebral bodies are normal in height without evidence of acute fracture. There is mild degenerative disc disease. No central canal stenosis is seen. There is mild facet osteoarthritis at multiple levels. No neural foraminal stenosis is seen. The arterial vessels are tortuous. No soft tissue abnormality is identified. Brain injury guidelines: Skull fracture: No Subdural hematoma: No subdural hematoma. Epidural hematoma: No epidural hematoma. Intraparenchymal hemorrhage: No intraparenchymal hemorrhage. Subarachnoid hemorrhage: No subarachnoid hemorrhage. Intraventricular hemorrhage: No. Midline shift: No. Procedure Note Anthony Adler MD - 03/06/2024 PROCEDURE: CT HEAD WO CONTRAST, CT LUMBAR SPINE WO CONTRAST, CTTHORACIC SPINE WO CONTRAST, CT CERVICAL SPINE WO CONTRAST, DATE/TIME OF EXAM: 03/06/2024 2:43 AM, LOCATION [facility] INDICATION: Trauma EXAMINATION: 1.Computed tomography (CT) of the head without contrast 2.CT of the cervical spine without contrast 3.CT of the thoracic spine without contrast 4.CT of the lumbar spine without contrast TECHNIQUE: CT of the head and cervical spine was performed withoutcontrast according to standard protocol. Reformatted axial, sagittal, and coronal images of the thoracic and lumbar spine were obtained by thetechnologist from a concurrently performed body CT and sent to the workstation for review. CT dose reduction technique was used, including AutomatedExposure Control. COMPARISON: No prior study is available for comparison at the time ofthis dictation. FINDINGS: Head: No acute intra- or extra-axial fluid collections are identified. The ventricles are of normal size, shape, and morphology. The basilarcisterns are patent. No mass effect or midline shift is seen. The white-whitematter differentiation is normal. No acute calvarial fracture is identified..The orbits appear normal. The paranasal sinuses are clear.. The mastoid air cells are clear. No soft tissue abnormality is identified. Cervical spine: There is gentle cervical kyphosis. Vertebral bodies are normal in height without evidence of acute fracture. Other than middle atlantoaxial joint osteoarthritis, the craniocervical junction appears normal. There ismild degenerative disc disease. No central canal stenosis is seen. The facets appear normal. There are varying degrees of mild uncovertebral joint osteoarthritis. No significant neural foraminal stenosis is seen. Nosoft tissue abnormality is identified. Thoracic spine: Very shallow S-shaped curvature of the thoracic spine. The alignment is normal. Vertebral bodies are normal in height without evidence of acute fracture. There is mild degenerative disc disease. No central canal stenosis is seen. There is mild facet osteoarthritis at multiple levels.No neural foraminal stenosis is seen. No soft tissue abnormality is identified. Lumbar spine: The alignment is normal. Vertebral bodies are normal in height without evidence of acute fracture. There is mild degenerative disc disease. No central canal stenosis is seen. There is mild facet osteoarthritis at multiple levels. No neural foraminal stenosis is seen. The arterialvessels are tortuous. No soft tissue abnormality is identified. Brain injury guidelines: Skull fracture: No Subdural hematoma: No subdural hematoma. Epidural hematoma: No epidural hematoma. Intraparenchymal hemorrhage: No intraparenchymal hemorrhage. Subarachnoid hemorrhage: No subarachnoid hemorrhage. Intraventricular hemorrhage: No. Midline shift: No. IMPRESSION: 1.No acute intracranial hemorrhage, midline shift, or significant mass effect. 2.No evidence of acute fracture in the cervical, thoracic, or lumbarspine. 3.Please refer to the concurrent, dedicated body report for findings inthe chest, abdomen, and pelvis. > Dictated by Cedric Bal DO ([employer]), 03/06/2024 3:09AM. Anthony Mallory MD have personally reviewed and interpretedthis examination/study. > Interpreting Provider: Anthony Adler MD on 03/06/2024 7:44 AM Jv Garcia MD CT ORDERABLES * CT THORACIC SPINE WO CONTRAST - T/L-spine trauma, spine fracture (03/06/2024 2:42 AM CDT) Anatomical Region Laterality Modality Spine Computed Tomogra phy 03/06/2024 2:57 AM CDT Impressions 03/06/2024 7:44 AM CDT IMPRESSION: 1.No acute intracranial hemorrhage, midline shift, or significant mass effect. 2.No evidence of acute fracture in the cervical, thoracic, or lumbar spine. 3.Please refer to the concurrent, dedicated body report for findings in the chest, abdomen, and pelvis. > Dictated by Cedric Bal DO ([employer]), 03/06/2024 3:09 AM. Anthony Mallory MD have personally reviewed and interpreted this examination/study. > Interpreting Provider: Anthony Adler MD on 03/06/2024 7:44 AM Narrative 03/06/2024 7:44 AM CDT PROCEDURE: ??CT HEAD WO CONTRAST, CT LUMBAR SPINE WO CONTRAST, CT THORACIC SPINE WO CONTRAST, CT CERVICAL SPINE WO CONTRAST, DATE/TIME OF EXAM: 03/06/2024 2:43 AM, LOCATION ??[facility] INDICATION: Trauma EXAMINATION: 1.Computed tomography (CT) of the head without contrast 2.CT of the cervical spine without contrast 3.CT of the thoracic spine without contrast 4.CT of the lumbar spine without contrast TECHNIQUE: CT of the head and cervical spine was performed without contrast according to standard protocol. Reformatted axial, sagittal, and coronal images of the thoracic and lumbar spine were obtained by the technologist from a concurrently performed body CT and sent to the workstation for review. CT dose reduction technique was used, including Automated Exposure Control. COMPARISON: No prior study is available for comparison at the time of this dictation. FINDINGS: Head: No acute intra- or extra-axial fluid collections are identified. The ventricles are of normal size, shape, and morphology. The basilar cisterns are patent. No mass effect or midline shift is seen. The white-white matter differentiation is normal. No acute calvarial fracture is identified.. The orbits appear normal. The paranasal sinuses are clear.. The mastoid air cells are clear. No soft tissue abnormality is identified. Cervical spine: There is gentle cervical kyphosis. Vertebral bodies are normal in height without evidence of acute fracture. Other than middle atlantoaxial joint osteoarthritis, the craniocervical junction appears normal. There is mild degenerative disc disease. No central canal stenosis is seen. The facets appear normal. There are varying degrees of mild uncovertebral joint osteoarthritis. No significant neural foraminal stenosis is seen. No soft tissue abnormality is identified. Thoracic spine: Very shallow S-shaped curvature of the thoracic spine. The alignment is normal. Vertebral bodies are normal in height without evidence of acute fracture. There is mild degenerative disc disease. No central canal stenosis is seen. There is mild facet osteoarthritis at multiple levels. No neural foraminal stenosis is seen. No soft tissue abnormality is identified. Lumbar spine: The alignment is normal. Vertebral bodies are normal in height without evidence of acute fracture. There is mild degenerative disc disease. No central canal stenosis is seen. There is mild facet osteoarthritis at multiple levels. No neural foraminal stenosis is seen. The arterial vessels are tortuous. No soft tissue abnormality is identified. Brain injury guidelines: Skull fracture: No Subdural hematoma: No subdural hematoma. Epidural hematoma: No epidural hematoma. Intraparenchymal hemorrhage: No intraparenchymal hemorrhage. Subarachnoid hemorrhage: No subarachnoid hemorrhage. Intraventricular hemorrhage: No. Midline shift: No. Procedure Note Anthony Adler MD - 03/06/2024 PROCEDURE: CT HEAD WO CONTRAST, CT LUMBAR SPINE WO CONTRAST, CTTHORACIC SPINE WO CONTRAST, CT CERVICAL SPINE WO CONTRAST, DATE/TIME OF EXAM: 03/06/2024 2:43 AM, LOCATION [facility] INDICATION: Trauma EXAMINATION: 1.Computed tomography (CT) of the head without contrast 2.CT of the cervical spine without contrast 3.CT of the thoracic spine without contrast 4.CT of the lumbar spine without contrast TECHNIQUE: CT of the head and cervical spine was performed withoutcontrast according to standard protocol. Reformatted axial, sagittal, and coronal images of the thoracic and lumbar spine were obtained by thetechnologist from a concurrently performed body CT and sent to the workstation for review. CT dose reduction technique was used, including AutomatedExposure Control. COMPARISON: No prior study is available for comparison at the time ofthis dictation. FINDINGS: Head: No acute intra- or extra-axial fluid collections are identified. The ventricles are of normal size, shape, and morphology. The basilarcisterns are patent. No mass effect or midline shift is seen. The white-whitematter differentiation is normal. No acute calvarial fracture is identified..The orbits appear normal. The paranasal sinuses are clear.. The mastoid air cells are clear. No soft tissue abnormality is identified. Cervical spine: There is gentle cervical kyphosis. Vertebral bodies are normal in height without evidence of acute fracture. Other than middle atlantoaxial joint osteoarthritis, the craniocervical junction appears normal. There ismild degenerative disc disease. No central canal stenosis is seen. The facets appear normal. There are varying degrees of mild uncovertebral joint osteoarthritis. No significant neural foraminal stenosis is seen. Nosoft tissue abnormality is identified. Thoracic spine: Very shallow S-shaped curvature of the thoracic spine. The alignment is normal. Vertebral bodies are normal in height without evidence of acute fracture. There is mild degenerative disc disease. No central canal stenosis is seen. There is mild facet osteoarthritis at multiple levels.No neural foraminal stenosis is seen. No soft tissue abnormality is identified. Lumbar spine: The alignment is normal. Vertebral bodies are normal in height without evidence of acute fracture. There is mild degenerative disc disease. No central canal stenosis is seen. There is mild facet osteoarthritis at multiple levels. No neural foraminal stenosis is seen. The arterialvessels are tortuous. No soft tissue abnormality is identified. Brain injury guidelines: Skull fracture: No Subdural hematoma: No subdural hematoma. Epidural hematoma: No epidural hematoma. Intraparenchymal hemorrhage: No intraparenchymal hemorrhage. Subarachnoid hemorrhage: No subarachnoid hemorrhage. Intraventricular hemorrhage: No. Midline shift: No. IMPRESSION: 1.No acute intracranial hemorrhage, midline shift, or significant mass effect. 2.No evidence of acute fracture in the cervical, thoracic, or lumbarspine. 3.Please refer to the concurrent, dedicated body report for findings inthe chest, abdomen, and pelvis. > Dictated by Cedric Bal DO ([employer]), 03/06/2024 3:09AM. Anthony Mallory MD have personally reviewed and interpretedthis examination/study. > Interpreting Provider: Anthony Adler MD on 03/06/2024 7:44 AM Jv Garcia MD CT ORDERABLES * CT CERVICAL SPINE WO CONTRAST - C-Spine Trauma, Spine fracture (03/06/2024 2:42 AM CDT) Anatomical Region Laterality Modality Spine Computed Tomogra phy 03/06/2024 2:57 AM CDT Impressions 03/06/2024 7:44 AM CDT IMPRESSION: 1.No acute intracranial hemorrhage, midline shift, or significant mass effect. 2.No evidence of acute fracture in the cervical, thoracic, or lumbar spine. 3.Please refer to the concurrent, dedicated body report for findings in the chest, abdomen, and pelvis. > Dictated by Cedric Bal DO ([employer]), 03/06/2024 3:09 AM. Anthony Mallory MD have personally reviewed and interpreted this examination/study. > Interpreting Provider: Anthony Adler MD on 03/06/2024 7:44 AM Narrative 03/06/2024 7:44 AM CDT PROCEDURE: ??CT HEAD WO CONTRAST, CT LUMBAR SPINE WO CONTRAST, CT THORACIC SPINE WO CONTRAST, CT CERVICAL SPINE WO CONTRAST, DATE/TIME OF EXAM: 03/06/2024 2:43 AM, LOCATION ??[facility] INDICATION: Trauma EXAMINATION: 1.Computed tomography (CT) of the head without contrast 2.CT of the cervical spine without contrast 3.CT of the thoracic spine without contrast 4.CT of the lumbar spine without contrast TECHNIQUE: CT of the head and cervical spine was performed without contrast according to standard protocol. Reformatted axial, sagittal, and coronal images of the thoracic and lumbar spine were obtained by the technologist from a concurrently performed body CT and sent to the workstation for review. CT dose reduction technique was used, including Automated Exposure Control. COMPARISON: No prior study is available for comparison at the time of this dictation. FINDINGS: Head: No acute intra- or extra-axial fluid collections are identified. The ventricles are of normal size, shape, and morphology. The basilar cisterns are patent. No mass effect or midline shift is seen. The white-white matter differentiation is normal. No acute calvarial fracture is identified.. The orbits appear normal. The paranasal sinuses are clear.. The mastoid air cells are clear. No soft tissue abnormality is identified. Cervical spine: There is gentle cervical kyphosis. Vertebral bodies are normal in height without evidence of acute fracture. Other than middle atlantoaxial joint osteoarthritis, the craniocervical junction appears normal. There is mild degenerative disc disease. No central canal stenosis is seen. The facets appear normal. There are varying degrees of mild uncovertebral joint osteoarthritis. No significant neural foraminal stenosis is seen. No soft tissue abnormality is identified. Thoracic spine: Very shallow S-shaped curvature of the thoracic spine. The alignment is normal. Vertebral bodies are normal in height without evidence of acute fracture. There is mild degenerative disc disease. No central canal stenosis is seen. There is mild facet osteoarthritis at multiple levels. No neural foraminal stenosis is seen. No soft tissue abnormality is identified. Lumbar spine: The alignment is normal. Vertebral bodies are normal in height without evidence of acute fracture. There is mild degenerative disc disease. No central canal stenosis is seen. There is mild facet osteoarthritis at multiple levels. No neural foraminal stenosis is seen. The arterial vessels are tortuous. No soft tissue abnormality is identified. Brain injury guidelines: Skull fracture: No Subdural hematoma: No subdural hematoma. Epidural hematoma: No epidural hematoma. Intraparenchymal hemorrhage: No intraparenchymal hemorrhage. Subarachnoid hemorrhage: No subarachnoid hemorrhage. Intraventricular hemorrhage: No. Midline shift: No. Procedure Note Anthony Adler MD - 03/06/2024 PROCEDURE: CT HEAD WO CONTRAST, CT LUMBAR SPINE WO CONTRAST, CTTHORACIC SPINE WO CONTRAST, CT CERVICAL SPINE WO CONTRAST, DATE/TIME OF EXAM: 03/06/2024 2:43 AM, LOCATION [facility] INDICATION: Trauma EXAMINATION: 1.Computed tomography (CT) of the head without contrast 2.CT of the cervical spine without contrast 3.CT of the thoracic spine without contrast 4.CT of the lumbar spine without contrast TECHNIQUE: CT of the head and cervical spine was performed withoutcontrast according to standard protocol. Reformatted axial, sagittal, and coronal images of the thoracic and lumbar spine were obtained by thetechnologist from a concurrently performed body CT and sent to the workstation for review. CT dose reduction technique was used, including AutomatedExposure Control. COMPARISON: No prior study is available for comparison at the time ofthis dictation. FINDINGS: Head: No acute intra- or extra-axial fluid collections are identified. The ventricles are of normal size, shape, and morphology. The basilarcisterns are patent. No mass effect or midline shift is seen. The white-whitematter differentiation is normal. No acute calvarial fracture is identified..The orbits appear normal. The paranasal sinuses are clear.. The mastoid air cells are clear. No soft tissue abnormality is identified. Cervical spine: There is gentle cervical kyphosis. Vertebral bodies are normal in height without evidence of acute fracture. Other than middle atlantoaxial joint osteoarthritis, the craniocervical junction appears normal. There ismild degenerative disc disease. No central canal stenosis is seen. The facets appear normal. There are varying degrees of mild uncovertebral joint osteoarthritis. No significant neural foraminal stenosis is seen. Nosoft tissue abnormality is identified. Thoracic spine: Very shallow S-shaped curvature of the thoracic spine. The alignment is normal. Vertebral bodies are normal in height without evidence of acute fracture. There is mild degenerative disc disease. No central canal stenosis is seen. There is mild facet osteoarthritis at multiple levels.No neural foraminal stenosis is seen. No soft tissue abnormality is identified. Lumbar spine: The alignment is normal. Vertebral bodies are normal in height without evidence of acute fracture. There is mild degenerative disc disease. No central canal stenosis is seen. There is mild facet osteoarthritis at multiple levels. No neural foraminal stenosis is seen. The arterialvessels are tortuous. No soft tissue abnormality is identified. Brain injury guidelines: Skull fracture: No Subdural hematoma: No subdural hematoma. Epidural hematoma: No epidural hematoma. Intraparenchymal hemorrhage: No intraparenchymal hemorrhage. Subarachnoid hemorrhage: No subarachnoid hemorrhage. Intraventricular hemorrhage: No. Midline shift: No. IMPRESSION: 1.No acute intracranial hemorrhage, midline shift, or significant mass effect. 2.No evidence of acute fracture in the cervical, thoracic, or lumbarspine. 3.Please refer to the concurrent, dedicated body report for findings inthe chest, abdomen, and pelvis. > Dictated by Cedric Bal DO ([employer]), 03/06/2024 3:09AM. Anthony Mallory MD have personally reviewed and interpretedthis examination/study. > Interpreting Provider: Anthony Adler MD on 03/06/2024 7:44 AM Jv Garcia MD CT ORDERABLES * CT HEAD WO CONTRAST - Head Trauma, CSF leak, mental status changes (03/06/2024 2:42 AM CDT) Anatomical Region Laterality Modality Head Computed Tomogra phy 03/06/2024 2:57 AM CDT Impressions 03/06/2024 7:44 AM CDT IMPRESSION: 1.No acute intracranial hemorrhage, midline shift, or significant mass effect. 2.No evidence of acute fracture in the cervical, thoracic, or lumbar spine. 3.Please refer to the concurrent, dedicated body report for findings in the chest, abdomen, and pelvis. > Dictated by Cedric Bal DO ([employer]), 03/06/2024 3:09 AM. Anthony Mallory MD have personally reviewed and interpreted this examination/study. > Interpreting Provider: Anthony Adler MD on 03/06/2024 7:44 AM Narrative 03/06/2024 7:44 AM CDT PROCEDURE: ??CT HEAD WO CONTRAST, CT LUMBAR SPINE WO CONTRAST, CT THORACIC SPINE WO CONTRAST, CT CERVICAL SPINE WO CONTRAST, DATE/TIME OF EXAM: 03/06/2024 2:43 AM, LOCATION ??[facility] INDICATION: Trauma EXAMINATION: 1.Computed tomography (CT) of the head without contrast 2.CT of the cervical spine without contrast 3.CT of the thoracic spine without contrast 4.CT of the lumbar spine without contrast TECHNIQUE: CT of the head and cervical spine was performed without contrast according to standard protocol. Reformatted axial, sagittal, and coronal images of the thoracic and lumbar spine were obtained by the technologist from a concurrently performed body CT and sent to the workstation for review. CT dose reduction technique was used, including Automated Exposure Control. COMPARISON: No prior study is available for comparison at the time of this dictation. FINDINGS: Head: No acute intra- or extra-axial fluid collections are identified. The ventricles are of normal size, shape, and morphology. The basilar cisterns are patent. No mass effect or midline shift is seen. The white-white matter differentiation is normal. No acute calvarial fracture is identified.. The orbits appear normal. The paranasal sinuses are clear.. The mastoid air cells are clear. No soft tissue abnormality is identified. Cervical spine: There is gentle cervical kyphosis. Vertebral bodies are normal in height without evidence of acute fracture. Other than middle atlantoaxial joint osteoarthritis, the craniocervical junction appears normal. There is mild degenerative disc disease. No central canal stenosis is seen. The facets appear normal. There are varying degrees of mild uncovertebral joint osteoarthritis. No significant neural foraminal stenosis is seen. No soft tissue abnormality is identified. Thoracic spine: Very shallow S-shaped curvature of the thoracic spine. The alignment is normal. Vertebral bodies are normal in height without evidence of acute fracture. There is mild degenerative disc disease. No central canal stenosis is seen. There is mild facet osteoarthritis at multiple levels. No neural foraminal stenosis is seen. No soft tissue abnormality is identified. Lumbar spine: The alignment is normal. Vertebral bodies are normal in height without evidence of acute fracture. There is mild degenerative disc disease. No central canal stenosis is seen. There is mild facet osteoarthritis at multiple levels. No neural foraminal stenosis is seen. The arterial vessels are tortuous. No soft tissue abnormality is identified. Brain injury guidelines: Skull fracture: No Subdural hematoma: No subdural hematoma. Epidural hematoma: No epidural hematoma. Intraparenchymal hemorrhage: No intraparenchymal hemorrhage. Subarachnoid hemorrhage: No subarachnoid hemorrhage. Intraventricular hemorrhage: No. Midline shift: No. Procedure Note Anthony Adler MD - 03/06/2024 PROCEDURE: CT HEAD WO CONTRAST, CT LUMBAR SPINE WO CONTRAST, CTTHORACIC SPINE WO CONTRAST, CT CERVICAL SPINE WO CONTRAST, DATE/TIME OF EXAM: 03/06/2024 2:43 AM, LOCATION [facility] INDICATION: Trauma EXAMINATION: 1.Computed tomography (CT) of the head without contrast 2.CT of the cervical spine without contrast 3.CT of the thoracic spine without contrast 4.CT of the lumbar spine without contrast TECHNIQUE: CT of the head and cervical spine was performed withoutcontrast according to standard protocol. Reformatted axial, sagittal, and coronal images of the thoracic and lumbar spine were obtained by thetechnologist from a concurrently performed body CT and sent to the workstation for review. CT dose reduction technique was used, including AutomatedExposure Control. COMPARISON: No prior study is available for comparison at the time ofthis dictation. FINDINGS: Head: No acute intra- or extra-axial fluid collections are identified. The ventricles are of normal size, shape, and morphology. The basilarcisterns are patent. No mass effect or midline shift is seen. The white-whitematter differentiation is normal. No acute calvarial fracture is identified..The orbits appear normal. The paranasal sinuses are clear.. The mastoid air cells are clear. No soft tissue abnormality is identified. Cervical spine: There is gentle cervical kyphosis. Vertebral bodies are normal in height without evidence of acute fracture. Other than middle atlantoaxial joint osteoarthritis, the craniocervical junction appears normal. There ismild degenerative disc disease. No central canal stenosis is seen. The facets appear normal. There are varying degrees of mild uncovertebral joint osteoarthritis. No significant neural foraminal stenosis is seen. Nosoft tissue abnormality is identified. Thoracic spine: Very shallow S-shaped curvature of the thoracic spine. The alignment is normal. Vertebral bodies are normal in height without evidence of acute fracture. There is mild degenerative disc disease. No central canal stenosis is seen. There is mild facet osteoarthritis at multiple levels.No neural foraminal stenosis is seen. No soft tissue abnormality is identified. Lumbar spine: The alignment is normal. Vertebral bodies are normal in height without evidence of acute fracture. There is mild degenerative disc disease. No central canal stenosis is seen. There is mild facet osteoarthritis at multiple levels. No neural foraminal stenosis is seen. The arterialvessels are tortuous. No soft tissue abnormality is identified. Brain injury guidelines: Skull fracture: No Subdural hematoma: No subdural hematoma. Epidural hematoma: No epidural hematoma. Intraparenchymal hemorrhage: No intraparenchymal hemorrhage. Subarachnoid hemorrhage: No subarachnoid hemorrhage. Intraventricular hemorrhage: No. Midline shift: No. IMPRESSION: 1.No acute intracranial hemorrhage, midline shift, or significant mass effect. 2.No evidence of acute fracture in the cervical, thoracic, or lumbarspine. 3.Please refer to the concurrent, dedicated body report for findings inthe chest, abdomen, and pelvis. > Dictated by Cedric Bal DO ([employer]), 03/06/2024 3:09AM. Anthony Mallory MD have personally reviewed and interpretedthis examination/study. > Interpreting Provider: Anthony Adler MD on 03/06/2024 7:44 AM Jv Garcia MD CT ORDERABLES * CT Ankle Left Wo Contrast (03/06/2024 2:41 AM CDT) Anatomical Region Laterality Modality Lower Extremity Computed Tomogra phy 03/06/2024 2:56 AM CDT Impressions 03/06/2024 7:43 AM CDT IMPRESSION: Redemonstration of moderately displaced mildly comminuted distal fibular and tibial fractures with posterior displacement and angulation of the apex fragments relative to the proximal fragments. There is extension of the distal tibial fracture into the tibial plafond. > Dictated by Pranav Morales DO (resident assistant). Selina Mallory MD have personally reviewed and interpreted this examination/study. > Interpreting Provider: Selina Narvaez MD on 03/06/2024 7:43 AM Narrative 03/06/2024 7:43 AM CDT PROCEDURE: ??CT ANKLE LEFT WO CONTRAST DATE/TIME OF EXAM: ??03/06/2024 2:42 AM CLINICAL INFORMATION: None relevant/not provided if blank. Indication: W18.30XA: Ground-level fall COMPARISON: None. TECHNIQUE: CT of the left ankle was performed utilizing standard protocol. CT dose reduction technique was used, including Automated Exposure Control. FINDINGS: A soft tissue splint is seen. Redemonstration of moderately displaced mildly comminuted distal fibular and tibial fractures. The tibial fracture is spiral in morphology and extends into the tibial plafond. There is posterior and angulation and displacement of the tibial and fibular apex fragments relative to the proximal fragments. The medial and lateral clear spaces are within normal limits. Mild soft tissue swelling is seen about the ankle. Procedure Note Selina Narvaez MD - 03/06/2024 PROCEDURE: CT ANKLE LEFT WO CONTRAST DATE/TIME OF EXAM: 03/06/2024 2:42 AM CLINICAL INFORMATION: None relevant/not provided if blank. Indication: W18.30XA: Ground-level fall COMPARISON: None. TECHNIQUE: CT of the left ankle was performed utilizing standard protocol. CT dose reduction technique was used, including Automated ExposureControl. FINDINGS: A soft tissue splint is seen. Redemonstration of moderately displaced mildly comminuted distal fibular and tibial fractures. The tibial fracture is spiral in morphology and extends into the tibial plafond. There is posterior and angulation and displacement of the tibial and fibular apex fragments relative to the proximal fragments. The medial and lateral clear spaces are withinnormal limits. Mild soft tissue swelling is seen about the ankle. IMPRESSION: Redemonstration of moderately displaced mildly comminuted distal fibular and tibial fractures with posterior displacement and angulation of theapex fragments relative to the proximal fragments. There is extension of the distal tibial fracture into the tibial plafond. > Dictated by Pranav Morales DO (resident assistant). I, Selina Narvaez MD have personally reviewed and interpreted this examination/study. > Interpreting Provider: Selina Narvaez MD on 47:43 AM Jv Garcia MD CT ORDERABLES * BLOOD TYPE VERIFICATION (03/06/2024 2:39 AM CDT) ABO Rh A POS 03/06/2024 3:[address] [facility] Blood Bank BLOOD SPECIMEN / Unknown Venipuncture / Unknown 03/06/2024 2:39 AM CDT 03/06/2024 2:45 AM CDT Jv Garcia MD LAB - BLOOD BANK ORD ERABLES [facility] [address] [place] [address], [facility] [phone] * PTT [facility] (03/06/2024 2:36 AM CDT) Only the most recent of2 resultswithin the time period is included. APTT 26.0 23.0 - 38.4 Seconds 03/06/2024 3:08 AM CDT [facility] Comment:Suggested therapeuti c range for full dose I.V. unfractionated heparin therapy for venous thromboembolism is 71 to 109 seconds. Blood BLOOD SPECIMEN / Unknown Venipuncture / Unknown 03/06/2024 2:36 AM CDT 03/06/2024 2:47 AM CDT Jv Garcia MD LAB - COAGULATION OR DERABLES Performing Organization Address City/[facility]/ZIP Co de Phone Number [address] [address], [facility] [phone] * PT-INR [facility] (03/06/2024 2:36 AM CDT) Only the most recent of2 resultswithin the time period is included. PT 12.7 12.1 - 14.8 Seconds 03/06/2024 3:08 AM CDT [facility] INR 1.0 See Comment 03/06/2024 3:08 AM CDT [facility] Comment:The suggested therap eutic range for standard coumadin (warfarin) therapy is an INR of 2.0-3.0. For high-risk patients (Mechanical Mitral Valve Prosthesis, etc.), the suggested prophylactic therapeutic range is an INR of 2.5-3.5. Blood BLOOD SPECIMEN / Unknown Venipuncture / Unknown 03/06/2024 2:36 AM CDT 03/06/2024 2:47 AM CDT Jv Garcia MD LAB - COAGULATION OR DERABLES [facility] [address] [place] [phone], [facility] [phone] * (ABNORMAL) VITAMIN D 25-HYDROXY (03/06/2024 2:36 AM CDT) [facility] Vitamin D, 25 Hydroxy 26.0(L) 30.0 - 80.0 ng/mL 03/06/2024 6:57 AM CDT [facility] Comment: The recommendations for 25-Hydroxy Vitamin D clinical decision points are as follows: ? Deficient: ? <20.0 ng/mL ? Insufficient: ? 20.0 - 29.9 ng/mL ? Sufficient: ? 30.0 - 100.0 ng/mL ? Potential Toxicity: ??>100 ng/mL Reference: The Endocrine Society Clinical Practice Guidelines. 2011 If the 25-Hydroxy Vitamin D results are inconsitent with clinical evidence, it is recommended that follow-up testing using a method such as LC/MS/MS be performed to confirm the result. ? Blood BLOOD SPECIMEN / Unknown Venipuncture / Unknown 03/06/2024 2:36 AM CDT 03/06/2024 2:47 AM CDT Rissa Montes PA-C LAB - CHEMISTRY OR DERABLES Performing Organization Address [facility] Phone Number [address] [phone], [facility] [phone] * HCG BETA BLOOD QUANTITATIVE (03/06/2024 2:36 AM CDT) [facility] Beta-hCG Total Quantitative <3 mIU/mL 03/06/2024 3:16 PM CDT [facility] Comment: HCG Numeric Result Interpretation: ? Non- Females: ? < 5 mIU/mL ? Post-Menopausal Females: ??< 7 mIU/mL ? This assay is cleared for use in the early detection of only. It is not approved for any other uses such as tumor marker screening, tumor marker monitoring, etc. and should not be used for any other purposes. Blood BLOOD SPECIMEN / Unknown Venipuncture / Unknown 03/06/2024 2:36 AM CDT 03/06/2024 2:47 AM CDT Katlynbaltazar Oliver Fernando GRAPHIC DESIGN INTERN-SORTING SUPERVISOR LAB - CHEMI STRY ORDERABLES Performing Organization Address [facility]/ZIP Co de Phone Number [address] [address], [facility] [phone] * ALCOHOL ETHYL BLOOD (03/06/2024 2:36 AM CDT) Ethanol (mg/dL) <10 <10 mg/dL 3:09 AM CDT [facility] Ethanol Calculated (g/dL) <0.010 <=0.010 g/dL 03/06/2024 3:09 AM CDT [facility] Blood BLOOD SPECIMEN / Unknown Venipuncture / Unknown 03/06/2024 2:36 AM CDT 03/06/2024 2:47 AM CDT Narrative [facility] - 03/06/2024 3:09 AM CDT Ethanol Interp <10: None Detected. Depression of PROPERTY MAINTENANCE SUPERVISOR: >100 mg/dl Potentially Critical: >250 mg/dl Potentially Fatal >400 mg/dl Ethanol in the patient's blood will contribute to the osmolar gap. Ethanol's contribution to the osmolar gap can be estimated by dividing the concentration of ethanol in mg/dL by 4.6. This test is for clinical use only and does not equal a MARY for legal purposes. Jv Garcia MD LAB - CHEMISTRY PAULINE JORGE Performing Organization Address [facility] Co de Phone Number [address] [phone], [facility] [phone] * XR Tibia Fibula Left 2Vw (03/06/2024 1:40 AM CDT) Only the most recent of2 resultswithin the time period is included. Anatomical Region Laterality Modality Lower Extremity Digital Radiogra phy 03/06/2024 2:40 AM CDT Narrative 03/06/2024 11:55 AM CDT PROCEDURE: ??XR TIBIA FIBULA LEFT 2VW, DATE/TIME OF EXAM: ??03/06/2024 1:40 AM, LOCATION ??[facility] INDICATION: W18.30XA: Ground-level fall ADDITIONAL CLINICAL INFORMATION: Ordering Provider Reason For Exam: ??reduction will call when ready COMPARISON: Left tibia fibula x-ray 03/05/2024 FINDINGS/IMPRESSION: Splint material obscures osseous and soft tissue detail. Redemonstrated acute moderately displaced comminuted fracture of the distal tibia and fibula with extension into the tibial plafond. Alignment appears relatively unchanged from prior exam. Report dictated by Cedric Bal DO (resident assistant). Naveen Mallory MD have personally reviewed and interpreted this examination/study. > Interpreting Provider: Naveen Ace MD on 03/06/2024 11:55 AM Procedure Note Naveen Ace MD - 03/06/2024 PROCEDURE: XR TIBIA FIBULA LEFT 2VW, DATE/TIME OF EXAM: 41:40 AM, LOCATION [facility] INDICATION: W18.30XA: Ground-level fall ADDITIONAL CLINICAL INFORMATION: Ordering Provider Reason For Exam: reduction will call when ready COMPARISON: Left tibia fibula x-ray 03/05/2024 FINDINGS/IMPRESSION: Splint material obscures osseous and soft tissue detail. Redemonstrated acute moderately displaced comminuted fracture of the distal tibia and fibula with extension into the tibial plafond. Alignment appearsrelatively unchanged from prior exam. Report dictated by Cedric Bal DO (resident assistant). Naveen Mallory MD have personally reviewed andinterpreted this examination/study. > Interpreting Provider: Naveen Ace MD on 03/06/2024 11:55AM Jv Garcia MD DIAGNOSTIC IMAGING O RDERABLES * XR Knee Left 2Vw or Less (03/06/2024 1:04 AM CDT) Anatomical Region Laterality Modality Lower Extremity Digital Radiogra phy 03/06/2024 2:40 AM CDT Impressions 03/06/2024 9:26 AM CDT IMPRESSION: No acute fracture or dislocation identified. Report dictated by Cedric Bal DO (resident assistant). Naveen Mallory MD have personally reviewed and interpreted this examination/study. > Interpreting Provider: Naveen Ace MD on 03/06/2024 9:26 AM Narrative 03/06/2024 9:26 AM CDT PROCEDURE: ??XR KNEE LEFT 2VW OR LESS, DATE/TIME OF EXAM: ??03/06/2024 1:05 AM, LOCATION ??[facility] INDICATION: W18.30XA: Ground-level fall ADDITIONAL CLINICAL INFORMATION: Ordering Provider Reason For Exam: ??injury films COMPARISON: ??None. FINDINGS: The osseous structures are intact and well aligned without acute fracture or dislocation. The knee joint space is preserved. No joint effusion is seen. Bone density and texture are normal. Procedure Note Naveen Ace MD - 03/06/2024 PROCEDURE: XR KNEE LEFT 2VW OR LESS, DATE/TIME OF EXAM: 41:05 AM, LOCATION [facility] INDICATION: W18.30XA: Ground-level fall ADDITIONAL CLINICAL INFORMATION: Ordering Provider Reason For Exam: injury films COMPARISON: None. FINDINGS: The osseous structures are intact and well aligned without acutefracture or dislocation. The knee joint space is preserved. No joint effusion is seen. Bone density and texture are normal. IMPRESSION: No acute fracture or dislocation identified. Report dictated by Cedric Bal DO (resident assistant). Naveen Mallory MD have personally reviewed andinterpreted this examination/study. > Interpreting Provider: Naveen Ace MD on 03/06/2024 9:26AM Jv Garcia MD DIAGNOSTIC IMAGING O RDERABLES * TYPE + SCREEN PANEL (03/06/2024 1:00 AM CDT) [facility] Antibody Screen NEG 1:[address] [facility] ABO Rh A POS 03/06/2024 1:[address] [facility] Blood Bank BLOOD SPECIMEN / Unknown Venipuncture / Unknown 03/06/2024 1:00 AM CDT 03/06/2024 1:07 AM CDT Jv Garcia MD LAB - BLOOD BANK ORD ERABLES [facility] [address] [place] [address], [facility] [phone] * (ABNORMAL) CBC W AUTO DIFFERENTIAL (03/06/2024 1:00 AM CDT) [facility] WBC 8.8 4.0 - 10.7 x10E9/L 03/06/2024 1:13 AM [facility] RBC Count 3.88(L) 3.90 - 5.20 x10E12/L 03/06/2024 1:13 AM [facility] Hemoglobin 11.6(L) 11.9 - 15.8 g/dL 03/06/2024 1:13 AM [facility] Hematocrit 34.0(L) 34.8 - 46.1 % 03/06/2024 1:13 AM [facility] MCV 87.6 80.0 - 98.0 fL 03/06/2024 1:13 AM [facility] MCH 29.9 26.7 - 33.6 pg 03/06/2024 1:13 AM [facility] MCHC 34.1 31.7 - 36.3 g/dL 03/06/2024 1:13 AM [facility] RDW-CV 14.1 11.3 - 14.8 % 03/06/2024 1:13 AM [facility] Platelet Count 297 150 - 420 x10E9/L 03/06/2024 1:13 AM [facility] MPV 9.2 7.8 - 11.4 fL 03/06/2024 1:13 AM [facility] Neutrophil % 78.1(H) 41.0 - 74.0 % 03/06/2024 1:13 AM [facility] Lymphocyte % 15.7(L) 17.0 - 47.0 % 03/06/2024 1:13 AM [facility] Monocyte % 4.9 3.0 - 11.0 % 03/06/2024 1:13 AM [facility] Eosinophil % 0.6 0.0 - 7.0 % 03/06/2024 1:13 AM [facility] Basophil % 0.5 0.0 - 1.6 % 03/06/2024 1:13 AM [facility] Immature Granulocytes % 0.2 0.0 - 1.0 % 03/06/2024 1:13 AM [facility] Neutrophil Absolute 6.85 1.60 - 7.50 x10E9/L 03/06/2024 1:13 AM [facility] Lymphocyte Absolute 1.38 1.00 - 4.40 x10E9/L 03/06/2024 1:13 AM [facility] Monocyte Absolute 0.43 0.15 - 1.00 x10E9/L 03/06/2024 1:13 AM [facility] Eosinophil Absolute 0.05 0.00 - 0.60 x10E9/L 03/06/2024 1:13 AM [facility] Basophil Absolute 0.04 0.00 - 0.13 x10E9/L 03/06/2024 1:13 AM [facility] Blood BLOOD SPECIMEN / Unknown Venipuncture / Unknown 03/06/2024 1:00 AM CDT 03/06/2024 1:07 AM CDT Jv Garcia MD LAB - HEMATOLOGY ORD ERABLES [facility] [address] [place] [phone], [facility] [phone] * (ABNORMAL) COMPREHENSIVE METABOLIC PANEL (03/06/2024 1:00 AM CDT) [facility] BUN 12 7 - 26 mg/dL 03/06/2024 1:32 AM [facility] Creatinine 0.97(H) 0.56 - 0.96 mg/dL 03/06/2024 1:32 AM [facility] Sodium 138 136 - 145 mmol/L 03/06/2024 1:32 AM [facility] Potassium 3.6 3.5 - 4.5 mmol/L 03/06/2024 1:32 AM [facility] Chloride 107 98 - 107 mmol/L 03/06/2024 1:32 AM [facility] CO2 22 22 - 29 mmol/L 03/06/2024 1:32 AM [facility] Glucose 132(H) 70 - 99 mg/dL 03/06/2024 1:32 AM [facility] Calcium 8.9 8.4 - 10.2 mg/dL 03/06/2024 1:32 AM [facility] Protein Total 6.3 6.0 - 8.3 g/dL 03/06/2024 1:32 AM [facility] Albumin 3.6 3.4 - 5.0 g/dL 03/06/2024 1:32 AM [facility] Bilirubin Total 0.2 0.2 - 1.2 mg/dL 03/06/2024 1:32 AM [facility] Alkaline Phosphatase 63 40 - 150 U/L 03/06/2024 1:32 AM [facility] ALT 12 5 - 55 U/L 03/06/2024 1:32 AM [facility] AST 15 5 - 34 U/L 03/06/2024 1:32 AM [facility] Anion Gap 9 6 - 16 03/06/2024 1:32 AM [facility] BUN/Creatinine Ratio 12 7 - 23 03/06/2024 1:32 AM [facility] Osmolality Calculated 288 275 - 295 mOsm/kg 03/06/2024 1:32 AM [facility] Albumin/Globulin Ratio 1.3 1.1 - 2.3 03/06/2024 1:32 AM [facility] eGFR by CKD-EPI 75(L) >=90 mL/min/1.7 3 m2 03/06/2024 1:[address] [facility] Blood BLOOD SPECIMEN / Unknown Venipuncture / Unknown 03/06/2024 1:00 AM CDT 03/06/2024 1:07 AM CDT Jv Garcia MD LAB - CHEMISTRY PAULINE JORGE [facility] [address] [place] [address], [facility] [phone] * XR Ankle Left 3Vw or More (03/05/2024 11:50 PM CDT) Anatomical Region Laterality Modality Lower Extremity Digital Radiogra phy 03/06/2024 2:24 AM CDT Impressions 03/06/2024 9:21 AM CDT IMPRESSION: Acute moderately displaced comminuted fracture of the distal tibia and fibula with extension into the tibial plafond. Report dictated by Cedric Bal DO (resident assistant). I, Naveen Ace MD have personally reviewed and interpreted this examination/study. > Interpreting Provider: Naveen Ace MD on 03/06/2024 9:21 AM Narrative 03/06/2024 9:21 AM CDT PROCEDURE: ??XR ANKLE LEFT 3VW OR MORE, DATE/TIME OF EXAM: ??03/05/2024 11:50 PM, LOCATION ??[facility] INDICATION: W18.30XA: Ground-level fall ADDITIONAL CLINICAL INFORMATION: Ordering Provider Reason For Exam: ??r/o fracture COMPARISON: ??None. FINDINGS: Acute moderately displaced comminuted fracture of the distal tibia and fibula. There is extension into the tibial plafond. There is narrowing of the lateral clear space. Bone density and texture are normal. Soft tissue swelling is present. Procedure Note Naveen Ace MD - 03/06/2024 PROCEDURE: XR ANKLE LEFT 3VW OR MORE, DATE/TIME OF EXAM: 1:50 PM, LOCATION [facility] INDICATION: W18.30XA: Ground-level fall ADDITIONAL CLINICAL INFORMATION: Ordering Provider Reason For Exam: r/o fracture COMPARISON: None. FINDINGS: Acute moderately displaced comminuted fracture of the distal tibia and fibula. There is extension into the tibial plafond. There is narrowingof the lateral clear space. Bone density and texture are normal. Softtissue swelling is present. IMPRESSION: Acute moderately displaced comminuted fracture of the distal tibia and fibula with extension into the tibial plafond. Report dictated by Cedric Bal DO (resident assistant). I, Naveen Ace MD have personally reviewed andinterpreted this examination/study. > Interpreting Provider: Naveen Ace MD on 03/06/2024 9:21AM Prachi Martinez MD DIAGNOSTIC IMAGING O RDERABLES from Last 3 Months Advance Directives * Full Code (Latest Code Status on File) Date Activated Date Inactivated Comments 03/06/2024 8:39 PM 03/09/2024 12:23 PM Care Teams [employer] Consultant Relationship Specialty Start Date End Date None, Physician [address] [place] [address] PCP - General 03/30/24
--- OUTSIDE RECORDS SUMMARY | 2024-05-09 05:04 | XMS_ITS | Encounter Summary ---
Author Organization [facility] Address [address] [place] [address] Care Team Providers Care Seed Trucker Name Role Phone None, Physician Primary Care Provider Unavailabl e Reason for Visit * Reason Comments Injury Ankle Encounter Details Date Type Department Care Team (Late st Contact Info) Description 03/30/2024 11:15 AM DERMATOLOGIST MANAGING PARTNER Office Visit [facility] - [facility] [address], [facility] [place] [phone] Manuel Resendiz T, DO [address] [place] [phone] Fracture tibia/fibula, left, closed, initial encounter (Primary Dx) Social History Tobacco Use Types Packs/Day Years [...] medical care, and heating? Patient declined 03/09/2024 [facility] [place] [facility] Occupat ional Health - Occupational Stress [...] any time in the past 12 m [facility], were you homeless or living in a snf (including now)? Patient declined 03/09/2024 Sex and Gender Information Value Date Recorded Sex Assigned at Not on file Gender Identity Not on file Sexual Orientation Not on file documented as of this encounter Last Filed Vital Signs Vital Sign Reading Time Taken Comments Blood Pressure - - Pulse - - Temperature - - Respiratory Rate - - Oxygen Saturation - - Inhaled Oxygen Concentration - - Weight 83 kg (183 lb) 03/30/2024 11:35 AM DERMATOLOGIST MANAGING PARTNER Height 165.1 cm (5' 5 ) 03/30/2024 11:35 AM DERMATOLOGIST MANAGING PARTNER Body Mass Index 30.45 03/30/2024 11:35 AM DERMATOLOGIST MANAGING PARTNER documented in this encounter Functional Status Functional Status Response Date of [...] person have difficulty concentrating/remembering/making decisions? No 03/07/2024 documented as of this encounter Progress Notes * Jennifer Gary MD - 03/30/2024 11:51 AM CST [facility] Clinic Note Serenity Mooney 43 year old female CSN: [id number] Date of service: 03/30/2024 [facility] Serenity Mooney is a 43 year old female who had a left distal third tibia and medial malleolus fracture and was treated with left tibia IMN and left medial malleolus CRPP on 03/07. This is the patient'sfirst visit since being discharged from hospital on 03/09. Pain has been controlled since the hospital discharge. The pain is located in the ankle. The patient has been WBAT of the left lower extremity with walker in ACB since She was last seen. No other orthopedic complaints at this time. Denies any recent fever or chills, tingling, numbness. Review of Systems A complete organ system review completed and is only significant for what was mentioned in HPI. Medical History Past Medical History: Diagnosis Date Basal cell carcinoma face and arm Diverticulitis Humerus fracture Right arm MDD (major depressive disorder) Non-contributory Surgical History Past Surgical History: Procedure Laterality Date ADJUSTABLE GASTRIC BAND, LAP PLACEMENT Breast Augmentation Bilateral COLECTOMY PARTIAL OR HEMICOLECTOMY HUMERAL SHAFT FRACTURE, OPEN REPAIR Right TIBIAL SHAFT FRACTURE REPAIR WITH NASIR Left 03/07/2024 Left; INTRAMEDULLARY (IM) NAILING TIBIA Non-contributory MEDICATIONS Current Outpatient Medications on File Prior to Visit Medication Sig Dispense Refill acetaminophen (Tylenol) 500 MG tablet Take 2 (two) tablets by mouth every 6 hours for 60 days Maximum allowable Acetaminophen amount = 4 Grams (4000 mg) / 24 hours. 240 tablet 1 aspirin EC (Ecotrin) 81 MG tablet Take 1 (one) tablet by mouth 2 times daily 100 tablet 0 buPROPion SR 12hr (Wellbutrin-SR) 150 MG tablet Take 1 (one) tablet by mouth 2 times daily cyclobenzaprine (Flexeril) 10 MG tablet Take 1 (one) tablet by mouth 3 times daily as needed for Muscle Spasms 40 tablet 0 oxyCODONE, immediate release, (Roxicodone) 5 MG tablet Take 1 (one) tablet by mouth every 4 hours as needed 40 tablet 0 oxyCODONE, immediate release, (Roxicodone) 5 MG tablet Take 1 (one) tablet by mouth every 6 hours as needed for Pain 40 tablet 0 polyethylene glycol 3350 (MiraLax) 17 g packet Take 17 (seventeen) g by mouth once daily topiramate (Topamax) 100 MG tablet Take 1 (one) tablet by mouth 2 times daily vitamin D3 (Cholecalciferol) 25 MCG (1000 UNITS) tablet Take 1 (one) tablet by mouth once daily for90 days 30 tablet 2 No current facility-administered medications on file prior to visit. Allergies No Known Allergies Family History family history is not on file. Non-contributory Social History Social History Tobacco Use Smoking status: Never Smokeless tobacco: Never Substance Use Topics Alcohol use: Not on file Physical Exam Ht 1.651 m (5' 5 ) Wt 83 kg (183 lb) General exam: patient cooperative with exam Constitutional: well developed, well nourished, no acute distress Head: normocephalic, atraumatic ENT: moist oral mucosa Eyes: non-icteric sclera Cardiovascular: regular rate Respiratory: effort normal, no respiratory distress Neurological: awake, AOx4 Psychiatric: no distress, mood and affect normal, behavior normal, judgment and thought content normal. Left lower extremity: Incision: clean, dry, and intact without evidence of erythema, dehiscence, ordrainage. There is tenderness of the ankle. ROM of the ankle is limited due to stiffness. intact EHL/FHL/GS/AT, Sensation: intact to light touch distally, 2+DP. Gait is antalgic. Imaging No imaging obtained today. Assessment and Plan Fracture tibia/fibula, left, closed, initial encounter This is a 43 year old female who is 3 weeks status post left tibia IMN and CRPP medial malleolus on03/07. Ms. Mooney was counseled as to her diagnosis Images reviewed in office with patient She demonstrated understanding The patient's weight bearing status will be WBAT of the left lower extremity in ACB Mortgage Broker ROM of joints along with Vitamin D and calcium supplementation for bone health. Follow up in 4 weeks XR needed at follow up: Yes - 2 view(s) XR of the left tib/fib She will call in the interim with any questions or concerns. Jennifer Gary MD 03/30/2024 11:55 AM ATOLOGIST MANAGING PARTNER Associated attestation - Manuel Resendiz DO - 03/30/2024 12:15 PM DERMATOLOGIST MANAGING PARTNER I have seen and examined the patient with the resident and I agree with the findings and plan of care as documented by the resident. Date of Service: 03/30/2024 Patient's incisions look great today. I want her to remain weightbearing as tolerated in the cam boot at this time. I did discuss with her removing the boot whenever she not up and ambulating and working on aggressive range of motion home exercise program for the ankle. We will see her back in the office in 4 weeks for reevaluation with an x-ray. At that point plan to progress to weightbearing without the cam boot. Manuel Resendiz DO documented in this encounter Plan of Treatment Upcoming Encounters Date Type Department Care Team (Late st Contact Info) Description 05/18/2024 9:15 AM DERMATOLOGIST MANAGING PARTNER Office Visit [facility] [address], [facility] [place] [phone] Manuel Resendiz DO [address] [place] [phone] documented as of this encounter Visit Diagnoses Diagnosis Fracture tibia/fibula, left, closed, initial encounter- Primary documented in this encounter Care Teams Seed Trucker Relationship Specialty Start Date End Date None, Physician [address] [place] [address] PCP - General 03/30/24 documented as of this encounter
--- OUTSIDE RECORDS SUMMARY | 2024-05-09 05:04 | XMS_ITS | Patient Health Summary ---
Author Organization [facility] Tile Address [address] [place] [address] Care Team Providers Care Injection Specialist Name Role Phone None, Physician Primary Care Provider Unavailabl e Note from [facility],non-owned Affiliates and Associated Physician Practices is amultiple site organization consisting of ambulatory clinics and hospital sitesin [place], [place], [place] and [place]. This disclosure is being madepursuant to the Care Everywhere program and may not contain all information available regarding this patient. Last updated 18.[facility] Allergies No known active allergies Medications * Be aware that medications may not be up to date on this document. Alwaysverify current medications with the patient. * buPROPion SR 12hr (Wellbutrin-SR) 150 MG tablet Take 1 (one) tablet by mouth 2 times daily * topiramate (Topamax) 100 MG tablet Take 1 (one) tablet by mouth 2 times daily * oxyCODONE, immediate release, (Roxicodone) 5 MG tablet(Started 03/09/2024) Take 1 (one) tablet by mouth every 4 hours as needed * oxyCODONE, immediate release, (Roxicodone) 5 MG tablet(Started 03/09/2024) Take 1 (one) tablet by mouth every 6 hours as needed for Pain * acetaminophen (Tylenol) 500 MG tablet(Started 03/09/2024) Take 2 (two) tablets by mouth every 6 hours for 60 days Maximum allowable Acetaminophen amount = 4 Grams (4000 mg) / 24 hours. 1 refill by 03/09/2025 * aspirin EC (Ecotrin) 81 MG tablet(Started 03/09/2024) Take 1 (one) tablet by mouth 2 times daily * polyethylene glycol 3350 (MiraLax) 17 g packet(Started 03/09/2024) Take 17 (seventeen) g by mouth once daily * cyclobenzaprine (Flexeril) 10 MG tablet(Started 03/09/2024) Take 1 (one) tablet by mouth 3 times daily as needed for Muscle Spasms * vitamin D3 (Cholecalciferol) 25 MCG (1000 UNITS) tablet(Started 03/09/2024) Take 1 (one) tablet by mouth once daily for 90 days 2 refills by 03/09/2025 Active Problems Problem Noted Date Diagnosed Date [...] medical care, and heating? 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 Left: Tibia [employer]sa [id number] / / Screw 2.7mm 5mm 32mm T8 Slf-Tap Strdr Implanted:Qty: 1 on 03/07/2024 by Benny Jones MD at [facility] Left: Tibia [employer]sa [id number] / / Nail Im 9mm 345mm Xprt Tib Cornell Prox Bnd Implanted:Qty: 1 on 03/07/2024 by Benny Jones MD at [facility] Left: Tibia [employer] 07/06/2033 04.043.135 S / / [id number] 5.0mm Locking Screw For Im Nail, 28mm Implanted:Qty: 1 on 03/07/2024 by Benny Jones MD at [facility] Left: Tibia [employer] Trauma 04.045.028 / / 5.0mm Locking Screw For Im Nail, 32mm Implanted:Qty: 1 on 03/07/2024 by Benny Jones MD at [facility] Left: Tibia [employer] Trauma 04.045.032 / / 5.0mm Locking Screw For Im Nail, 36mm Implanted:Qty: 1 on 03/07/2024 by Benny Jones MD at [facility] Left: Tibia [employer] Trauma 04.045.036 / / Explanted Type Area Compliance Lead Device Identifier Shelf Expiration Date Model / Serial / Lot Screw 2.7mm 5mm 28mm T8 Slf-Tap Strdr Explanted:Qty: 1 on 03/07/2024 by Benny Jones MD at [facility] Left: Tibia [employer]sa [id number] / / Slv Prtc 12mm Suprapatellar Strl Explanted:Qty: 1 on 03/07/2024 by Benny Jones MD at [facility] Left: Tibia [employer]sa [id number] S / / Procedures * CBC W/O DIFFERENTIAL(Performed 03/09/2024) Performed for Closed fracture of left ankle, initial encounter * CARDIAC EKG ORDER(Performed 03/08/2024) * CBC W/O DIFFERENTIAL(Performed 03/08/2024) Performed for Closed fracture of left ankle, initial encounter * PT EVAL AND TREAT(Performed 03/07/2024) * OT EVAL AND TREAT(Performed 03/07/2024) * FL ESTEFANI SURGERY(Performed 03/07/2024) Performed for Fracture tibia/fibula, left, closed, initial encounter * ENDOTRACHEAL TUBE NOTE(Performed 03/07/2024) * [place] OPEN RX TIBIA SHAFT FX,INTRAMED NASIR(Performed 03/07/2024) Performed for Closed fracture of distal end of left tibia, unspecified fracture morphology, initialencounter * BASIC METABOLIC PANEL (CALCIUM TOTAL)(Performed 03/07/2024) Performed for Closed fracture of left ankle, initial encounter * CBC W/O DIFFERENTIAL(Performed 03/07/2024) Performed for Closed fracture of left ankle, initial encounter * EKG 12-LEAD(Performed 03/06/2024) Performed for Closed fracture of left ankle, initial encounter * URINE DRUG SCREEN IMMUNOASSAY(Performed 03/06/2024) * CT LUMBAR SPINE WO CONTRAST(Performed 03/06/2024) Performed for Ground-level fall * CT THORACIC SPINE WO CONTRAST(Performed 03/06/2024) Performed for Ground-level fall * CT CHEST ABDOMEN PELVIS W CONT(Performed 03/06/2024) Performed for Ground-level fall * CT CERVICAL SPINE WO CONTRAST(Performed 03/06/2024) Performed for Ground-level fall * CT HEAD WO CONTRAST(Performed 03/06/2024) Performed for Ground-level fall * CT ANKLE LEFT WO CONTRAST(Performed 03/06/2024) Performed for Ground-level fall * BLOOD TYPE VERIFICATION(Performed 03/06/2024) * HCG BETA BLOOD QUANTITATIVE(Performed 03/06/2024) Performed for Ground-level fall, Closed fracture of left ankle, initial encounter, Syncope and collapse * VITAMIN D 25-HYDROXY(Performed 03/06/2024) * PTT [facility](Performed 03/06/2024) * PT-INR [facility](Performed 03/06/2024) * ALCOHOL ETHYL BLOOD(Performed 03/06/2024) * XR TIBIA FIBULA LEFT 2VW(Performed 03/06/2024) Performed for Ground-level fall * XR KNEE LEFT 2VW OR LESS(Performed 03/06/2024) Performed for Ground-level fall * TYPE + SCREEN PANEL(Performed 03/06/2024) * PTT [facility](Performed 03/06/2024) * PT-INR [facility](Performed 03/06/2024) * COMPREHENSIVE METABOLIC PANEL(Performed 03/06/2024) * CBC W AUTO DIFFERENTIAL(Performed 03/06/2024) * XR TIBIA FIBULA LEFT 2VW(Performed 03/05/2024) Performed for Ground-level fall * XR ANKLE LEFT 3VW OR MORE(Performed 03/05/2024) Performed for Ground-level fall Results * (ABNORMAL) CBC W/O DIFFERENTIAL (03/09/2024 2:53 AM CDT) Only the most recent of3 resultswithin the time period is included. WBC 5.5 4.0 - 10.7 x10E9/L 03/09/2024 3:49 AM [facility] RBC Count 3.06(L) 3.90 - 5.20 x10E12/L 03/09/2024 3:49 AM [facility] Hemoglobin 8.9(L) 11.9 - 15.8 g/dL 03/09/2024 3:49 AM [facility] Hematocrit 28.2(L) 34.8 - 46.1 % 03/09/2024 3:49 AM [facility] MCV 92.2 80.0 - 98.0 fL 03/09/2024 3:49 AM [facility] MCH 29.1 26.7 - 33.6 pg 03/09/2024 3:49 AM [facility] MCHC 31.6(L) 31.7 - 36.3 g/dL 03/09/2024 3:49 AM [facility] RDW-CV 14.5 11.3 - 14.8 % 03/09/2024 3:49 AM [facility] Platelet Count 230 150 - 420 x10E9/L 03/09/2024 3:49 AM [facility] MPV 9.4 7.8 - 11.4 fL 03/09/2024 3:49 AM [facility] Blood BLOOD SPECIMEN / Unknown Lab Venipuncture / Unknown 03/09/2024 2:53 AM CDT 03/09/2024 3:28 AM CDT Chase Garcia DO LAB - HEMATOLOGY ORD ERABLES [facility] [address] [place] [phone], [facility] [phone] * CARDIAC EKG ORDER (03/08/2024 11:33 AM CDT) Narrative 03/08/2024 11:33 AM CDT Ordered by an unspecified provider. Scanned Document CARDIAC SERVICES ORD ERABLES * [place] Estefani Surgery (03/07/2024 5:55 PM CDT) Narrative [facility] RADIOLOGY - 03/07/2024 5:57 PM CDT Fluoroscopy was used for this exam in the OR. Please see the Operative report. Manuel Resendiz DO FLUOROSCOPY ORDERABL ES [facility] RADIOLOGY * ETT LINE PERFORMABLE (03/07/2024 4:11 PM CDT) Narrative Obinna Gupta MD - 03/07/2024 4:11 PM CDT Obinna Gupta MD ? 03/07/2024 ??4:11 PM Endotracheal Tube Placement: ? Patient Location: OR. Intubation Event Date/Time: ??03/07/2024 3:43 PM Procedure: intubation ([id number]) Procedure Section: ?? Sedation: under general anesthesia. [...] 7 - 26 mg/dL 03/07/2024 3:42 AM CDT [facility] Creatinine 1.04(H) 0.56 - 0.96 mg/dL 03/07/2024 3:42 AM [facility] Sodium 140 136 - 145 mmol/L 03/07/2024 3:42 AM [facility] Potassium 3.9 3.5 - 4.5 mmol/L 03/07/2024 3:42 AM [facility] Chloride 106 98 - 107 mmol/L 03/07/2024 3:42 AM [facility] CO2 25 22 - 29 mmol/L 03/07/2024 3:42 AM [facility] Glucose 101(H) 70 - 99 mg/dL 03/07/2024 3:42 AM [facility] Calcium 8.2(L) 8.4 - 10.2 mg/dL 03/07/2024 3:42 AM [facility] Anion Gap 9 6 - 16 03/07/2024 3:42 AM [facility] BUN/Creatinine Ratio 12 7 - 23 03/07/2024 3:42 AM [facility] Osmolality Calculated 290 275 - 295 mOsm/kg 03/07/2024 3:42 AM [facility] eGFR by CKD-EPI 69(L) >=90 mL/min/1.7 3 m2 03/07/2024 3:42 AM [facility] Blood BLOOD SPECIMEN / Unknown Lab Venipuncture / Unknown 03/07/2024 2:41 AM CDT 03/07/2024 3:08 AM T Chase Garcia DO LAB - CHEMISTRY PAULINE JORGE [facility] [address] [place] [address], [facility] [phone] * EKG 12-LEAD (03/06/2024 4:07 PM CDT) Ventricular Rate 65 BPM [facility] MUSE Atrial Rate 65 BPM [facility] MUSE P-R Interval 150 ms [facility] MUSE QRS Duration ms 78 ms [facility] MUSE Q-T Interval ms 408 ms [facility] MUSE QTC Calculation (Bezet) 424 ms [facility] MUSE Calculated P [place] 46 degrees [facility] MUSE Calculated R [place] 61 degrees [facility] MUSE Calculated T [place] 35 degrees [facility] MUSE Interpretation EKG NORMAL SINUS RHYTHM NORMAL ECG NO PREVIOUS ECGS AVAILABLE Confirmed by MAYURI ZHANG MD ([id number]) on 03/11/2024 10:28:06 AM [facility] MUSE 03/06/2024 4:07 PM CDT 03/11/2024 10:28 AM SLICE PLUG CUTTER OPERATOR Katlyn Ann Fernando WORKDAY CONSULTANT-GUILLOTINE TRIMMER ECG ORDERAB LES [facility] MUSE * (ABNORMAL) URINE DRUG SCREEN IMMUNOASSAY (03/06/2024 9:38 AM [facility]) Amphetamines Screen Urine Negative Negative : < 1000 ng/mL 03/06/2024 10:00 AM [facility] Barbiturates Screen Urine Negative Negative : < 200 ng/mL 03/06/2024 10:00 AM [facility] Benzodiazepine Screen Urine Negative Negative : < 200 ng/mL 03/06/2024 10:00 AM [facility] Opiates Urine Positive(A) Negative : < 300 ng/mL 03/06/2024 10:00 AM [facility] Comment:Positive urine opiat e screening results should be confirmed by another generally accepted non-immunological method such as gas chromatography or mass spectrometry. Cocaine Metabolites Urine Negative Negative : < 300 ng/mL 03/06/2024 10:00 AM [facility] Phencyclidine Screen Urine Negative Negative : < 25 ng/ml 03/06/2024 10:00 AM [facility] Cannabinoids Screen Urine Positive(A) Negative : <50 ng/mL 03/06/2024 10:00 AM [facility] Comment:Positive urine canna binoids (THC) screening results should be confirmed by another generally accepted non-immunological method such as gas chromatography or mass spectrometry. Methadone Screen Urine Negative Negative : < 300 ng/mL 03/06/2024 10:00 AM [facility] Fentanyl Screen Urine Negative Negative : <1.5 ng/mL 03/06/2024 10:00 AM [facility] Urine URINE / Unknown Collection / Unknown 03/06/2024 9:38 AM CDT 03/06/2024 9:41 AM CDT Narrative [facility] - 03/06/2024 10:00 AM CDT The Urine Toxicology Screening Panel does not screen for Propoxyphene, Meprobamate, Carisoprodol, Trazodone, yfrb-vkb-tqropwy medications and/or volatiles (Acetone, Isopropanol, Methanol or Ethylene Glycol). Ethanol, Salicylate, Acetaminophen, Tricyclic Antidepressants and several therapeutic drugs may be individually assayed in serum or plasma specimen. Toxicology testing by the [facility] is an aid to medical diagnosis and treatment of patients. No documented chain of custody was maintained. Results are intended to be used for clinical purposes only. ? Jv Garcia MD LAB - URINE CHEMISTR Y ORDERABLES Performing Organization Address [facility] Phone Number [facility] [address] [place] [phone], [facility] [phone] * CT CHEST ABDOMEN PELVIS W CONT [...] seen. > Dictated by Pranav Morales DO (president and cmo). I, Selina Narvaez MD have personally reviewed and interpreted this examination/study. > Interpreting Provider: Selina Narvaez MD on 03/06/2024 7:08 AM Narrative 03/06/2024 7:08 AM CDT PROCEDURE: ??CT CHEST ABDOMEN PELVIS W CONT, DATE/TIME OF EXAM: ??03/06/2024 2:43 AM, LOCATION ??[facility] INDICATION: Trauma COMPARISON: None. TECHNIQUE: CT of [...] CONT, DATE/TIME OF EXAM:03/06/2024 2:43 AM, LOCATION [facility] INDICATION: Trauma COMPARISON: None. TECHNIQUE: CT of [...] seen. > Dictated by Pranav Morales DO (president and cmo). I, Selina Narvaez MD have personally reviewed and interpreted this examination/study. > Interpreting Provider: Abdulfabian Narvaez MD on 47:08 AM Jv Garcia [...] pelvis. > Dictated by Cedric Bal DO (Attendant Campground), 03/06/2024 3:09 AM. IAnthony MD have personally reviewed and interpreted this examination/study. > Interpreting Provider: Anthony Adler MD on 03/06/2024 7:44 AM Narrative 03/06/2024 7:44 AM CDT PROCEDURE: ??CT HEAD WO CONTRAST, CT LUMBAR SPINE WO CONTRAST, CT THORACIC SPINE WO CONTRAST, CT CERVICAL SPINE WO CONTRAST, DATE/TIME OF EXAM: 03/06/2024 2:43 AM, LOCATION ??[facility] INDICATION: Trauma EXAMINATION: 1.Computed tomography (CT) of [...] DATE/TIME OF EXAM: 03/06/2024 2:43 AM, LOCATION [facility] INDICATION: Trauma EXAMINATION: 1.Computed tomography (CT) of [...] pelvis. > Dictated by Cedric Bal DO (Attendant [employer]), 03/06/2024 3:09AM. Anthony Mallory MD have personally [...] pelvis. > Dictated by Cedric Bal DO (Attendant [employer]ground), 03/06/2024 3:09 AM. I, Anthony Adler MD have personally reviewed and interpreted this examination/study. > Interpreting Provider: Anthony Adler MD on 03/06/2024 7:44 AM Narrative 03/06/2024 7:44 AM CDT PROCEDURE: ??CT HEAD WO CONTRAST, CT LUMBAR SPINE WO CONTRAST, CT THORACIC SPINE WO CONTRAST, CT CERVICAL SPINE WO CONTRAST, DATE/TIME OF EXAM: 03/06/2024 2:43 AM, LOCATION ??[facility] INDICATION: Trauma EXAMINATION: 1.Computed tomography (CT) of [...] DATE/TIME OF EXAM: 03/06/2024 2:43 AM, LOCATION [facility] INDICATION: Trauma EXAMINATION: 1.Computed tomography (CT) of [...] pelvis. > Dictated by Cedric Bal DO (Attendant [employer]), 03/06/2024 3:09AM. Anthony Mallory MD have personally [...] pelvis. > Dictated by Cedric Bal DO (Attendant [employer]), 03/06/2024 3:09 AM. Anthony Mallory MD have personally reviewed and interpreted this examination/study. > Interpreting Provider: Anthony Adler MD on 03/06/2024 7:44 AM Narrative 03/06/2024 7:44 AM CDT PROCEDURE: ??CT HEAD WO CONTRAST, CT LUMBAR SPINE WO CONTRAST, CT THORACIC SPINE WO CONTRAST, CT CERVICAL SPINE WO CONTRAST, DATE/TIME OF EXAM: 03/06/2024 2:43 AM, LOCATION ??[facility] INDICATION: Trauma EXAMINATION: 1.Computed tomography (CT) of [...] DATE/TIME OF EXAM: 03/06/2024 2:43 AM, LOCATION [facility] INDICATION: Trauma EXAMINATION: 1.Computed tomography (CT) of [...] pelvis. > Dictated by Cedric Bal DO (Attendant [employer]), 03/06/2024 3:09AM. Anthony Mallory MD have personally [...] pelvis. > Dictated by Cedric Bal DO (Attendant [employer]), 03/06/2024 3:09 AM. Anthony Mallory MD have personally reviewed and interpreted this examination/study. > Interpreting Provider: Anthony Adler MD on 03/06/2024 7:44 AM Narrative 03/06/2024 7:44 AM CDT PROCEDURE: ??CT HEAD WO CONTRAST, CT LUMBAR SPINE WO CONTRAST, CT THORACIC SPINE WO CONTRAST, CT CERVICAL SPINE WO CONTRAST, DATE/TIME OF EXAM: 03/06/2024 2:43 AM, LOCATION ??[facility] INDICATION: Trauma EXAMINATION: 1.Computed tomography (CT) of [...] DATE/TIME OF EXAM: 03/06/2024 2:43 AM, LOCATION [facility] INDICATION: Trauma EXAMINATION: 1.Computed tomography (CT) of [...] pelvis. > Dictated by Cedric Bal DO (Attendant [employer]), 03/06/2024 3:09AM. Anthony Mallory MD have personally [...] plafond. > Dictated by Pranav Morales DO (president and cmo). Selina Mallory MD have personally reviewed and [...] plafond. > Dictated by Pranav Morales DO (president and cmo). I, Selina Narvaez MD have personally reviewed and interpreted this examination/study. > Interpreting Provider: Selina Narvaez MD on 47:43 AM Jv Garcia MD CT ORDERABLES * BLOOD TYPE VERIFICATION (03/06/2024 2:39 AM CDT) ABO Rh A POS 03/06/2024 3:1 0 AM CDT [facility] BLOOD BANK LAB Blood Bank BLOOD SPECIMEN / Unknown Venipuncture / Unknown 03/06/2024 2:39 AM CDT 03/06/2024 2:45 AM CDT Jv Garcia MD LAB - BLOOD BANK ORD ERABLES [facility] BLOOD BANK LAB [address] [place] [address], [place] [phone] * PTT [facility] (03/06/2024 2:36 AM CDT) Only the most recent of2 resultswithin the time period is included. APTT 26.0 23.0 - 38.4 Seconds 03/06/2024 3:08 AM CDT [facility] Comment:Suggested therapeuti c range for full dose I.V. unfractionated heparin therapy for venous thromboembolism is 71 to 109 seconds. Blood BLOOD SPECIMEN / Unknown Venipuncture / Unknown 03/06/2024 2:36 AM CDT 03/06/2024 2:47 AM CDT Jv Garcia MD LAB - COAGULATION OR DERABLES Performing Organization Address [facility]/ZIP Co de Phone Number [facility] [address] [place] [address], [facility] [phone] * PT-INR [facility] (03/06/2024 2:36 AM CDT) Only the most recent of2 resultswithin the time period is included. Pathologist [facility] PT 12.7 12.1 - 14.8 Seconds 03/06/2024 3:08 AM CDT [facility] INR 1.0 See Comment 03/06/2024 3:08 AM CDT [facility] Comment:The suggested therap eutic range for standard coumadin (warfarin) therapy is an INR of 2.0-3.0. For high-risk patients (Mechanical Mitral Valve Prosthesis, etc.), the suggested prophylactic therapeutic range is an INR of 2.5-3.5. Blood BLOOD SPECIMEN / Unknown Venipuncture / Unknown 03/06/2024 2:36 AM CDT 03/06/2024 2:47 AM CDT Jv Garcia MD LAB - COAGULATION OR DERABLES Performing Organization Address [facility]/ZIP Co de Phone Number [facility] [address] [place] [phone], [facility] [phone] * (ABNORMAL) VITAMIN D 25-HYDROXY (03/06/2024 2:36 AM CDT) Pathologist [facility] Vitamin D, 25 Hydroxy 26.0(L) 30.0 - 80.0 ng/mL 03/06/2024 6:57 AM CDT [facility] Comment: The recommendations for 25-Hydroxy Vitamin D [...] - CHEMISTRY OR DERABLES Performing Organization Address [facility] Co de Phone Number [facility] [address] [place] [phone], [facility] [phone] * HCG BETA BLOOD QUANTITATIVE (03/06/2024 2:36 AM CDT) Pathologist [facility] Beta-hCG Total Quantitative <3 mIU/mL 03/06/2024 3:16 PM CDT [facility] Comment: HCG Numeric Result Interpretation: ? Non- [...] 2:36 AM CDT 03/06/2024 2:47 AM CDT Katlynjimbo King WORKDAY CONSULTANT-GUILLOTINE TRIMMER LAB - CHEMI STRY ORDERABLES Performing Organization Address [facility] Co de Phone Number [address] [address], [facility] [phone] * ALCOHOL ETHYL BLOOD (03/06/2024 2:36 AM CDT) Pathologist [facility] Ethanol (mg/dL) <10 <10 mg/dL 3:09 AM CDT [facility] Ethanol Calculated (g/dL) <0.010 <=0.010 g/dL 03/06/2024 3:09 AM CDT [facility] Blood BLOOD SPECIMEN / Unknown Venipuncture / Unknown 03/06/2024 2:36 AM CDT 03/06/2024 2:47 AM CDT Narrative [facility] - 03/06/2024 3:09 AM CDT Ethanol Interp <10: None Detected. Depression of PILE DRIVER: >100 mg/dl Potentially Critical: >250 mg/dl Potentially [...] - CHEMISTRY PAULINE JORGE Performing Organization Address [facility]/ZIP Co de Phone Number [address] [phone], [facility] [phone] * XR Tibia Fibula Left 2Vw (03/06/2024 1:40 AM CDT) Only the most recent of2 resultswithin the time period is included. Anatomical Region Laterality Modality Lower Extremity Digital Radiogra phy 03/06/2024 2:40 AM CDT Narrative 03/06/2024 11:55 AM CDT PROCEDURE: ??XR TIBIA FIBULA LEFT 2VW, DATE/TIME OF EXAM: ??03/06/2024 1:40 AM, LOCATION ??[facility] INDICATION: W18.30XA: Ground-level fall ADDITIONAL CLINICAL INFORMATION: Ordering Provider Reason For Exam: ??reduction will call when ready COMPARISON: Left tibia fibula x-ray 03/05/2024 FINDINGS/IMPRESSION: Splint material obscures osseous and soft tissue detail. Redemonstrated acute moderately displaced comminuted fracture of the distal tibia and fibula with extension into the tibial plafond. Alignment appears relatively unchanged from prior exam. Report dictated by Cedric Bal DO (president and cmo). Naveen Mallory MD have personally reviewed and interpreted this examination/study. > Interpreting Provider: Naveen Ace MD on 03/06/2024 11:55 AM Procedure Note Naveen Ace MD - 03/06/2024 PROCEDURE: XR TIBIA FIBULA LEFT 2VW, DATE/TIME OF EXAM: 41:40 AM, LOCATION [facility] INDICATION: W18.30XA: Ground-level fall ADDITIONAL CLINICAL INFORMATION: Ordering Provider Reason For Exam: reduction will call when ready COMPARISON: Left tibia fibula x-ray 03/05/2024 FINDINGS/IMPRESSION: Splint material obscures osseous and soft tissue detail. Redemonstrated acute moderately displaced comminuted fracture of the distal tibia and fibula with extension into the tibial plafond. Alignment appearsrelatively unchanged from prior exam. Report dictated by Cedric Bal DO (president and cmo). Naveen Mallory MD have personally reviewed andinterpreted [...] identified. Report dictated by Cedric Bal DO (president and cmo). Naveen Mallory MD have personally reviewed and interpreted this examination/study. > Interpreting Provider: Naveen Ace MD on 03/06/2024 9:26 AM Narrative 03/06/2024 9:26 AM CDT PROCEDURE: ??XR KNEE LEFT 2VW OR LESS, DATE/TIME OF EXAM: ??03/06/2024 1:05 AM, LOCATION ??[facility] INDICATION: W18.30XA: Ground-level fall ADDITIONAL CLINICAL INFORMATION: [...] LESS, DATE/TIME OF EXAM: 41:05 AM, LOCATION [facility] INDICATION: W18.30XA: Ground-level fall ADDITIONAL CLINICAL INFORMATION: Ordering Provider Reason For Exam: injury films COMPARISON: None. FINDINGS: The osseous structures are intact and well aligned without acutefracture or dislocation. The knee joint space is preserved. No joint effusion is seen. Bone density and texture are normal. IMPRESSION: No acute fracture or dislocation identified. Report dictated by Cedric Bal DO (president and cmo). Naveen Mallory MD have personally reviewed andinterpreted this examination/study. > Interpreting Provider: Naveen Ace MD on 03/06/2024 9:26AM Jv Garcia MD DIAGNOSTIC IMAGING O RDERABLES * TYPE + SCREEN PANEL (03/06/2024 1:00 AM CDT) Antibody Screen NEG 1:50 AM CDT [facility] BLOOD BANK LAB ABO Rh A POS 03/06/2024 1:50 AM CDT [facility] BLOOD BANK LAB Blood Bank BLOOD SPECIMEN / Unknown Venipuncture / Unknown 03/06/2024 1:00 AM CDT 03/06/2024 1:07 AM CDT Jv Garcia MD LAB - BLOOD BANK ORD ERABLES [facility] BLOOD BANK LAB [address] [place] [address], [facility] [phone] * (ABNORMAL) CBC W AUTO DIFFERENTIAL (03/06/2024 1:00 AM CDT) WBC 8.8 4.0 - 10.7 x10E9/L 03/06/2024 1:13 AM [facility] RBC Count 3.88(L) 3.90 - 5.20 x10E12/L 03/06/2024 1:13 AM [facility] Hemoglobin 11.6(L) 11.9 - 15.8 g/dL 03/06/2024 1:13 AM [facility] Hematocrit 34.0(L) 34.8 - 46.1 % 03/06/2024 1:13 AM [facility] MCV 87.6 80.0 - 98.0 fL 03/06/2024 1:13 AM [facility] MCH 29.9 26.7 - 33.6 pg 03/06/2024 1:13 AM [facility] MCHC 34.1 31.7 - 36.3 g/dL 03/06/2024 1:13 AM [facility] RDW-CV 14.1 11.3 - 14.8 % 03/06/2024 1:13 AM [facility] Platelet Count 297 150 - 420 x10E9/L 03/06/2024 1:13 AM [facility] MPV 9.2 7.8 - 11.4 fL 03/06/2024 1:13 AM [facility] Neutrophil % 78.1(H) 41.0 - 74.0 % 03/06/2024 1:13 AM [facility] Lymphocyte % 15.7(L) 17.0 - 47.0 % 03/06/2024 1:13 AM CDT [facility] Monocyte % 4.9 3.0 - 11.0 % 03/06/2024 1:13 AM [facility] Eosinophil % 0.6 0.0 - 7.0 % 03/06/2024 1:13 AM T [facility] Basophil % 0.5 0.0 - 1.6 % 03/06/2024 1:13 AM T [facility] Immature Granulocytes % 0.2 0.0 - 1.0 % 03/06/2024 1:13 AM [facility] Neutrophil Absolute 6.85 1.60 - 7.50 x10E9/L 03/06/2024 1:13 AM T [facility] Lymphocyte Absolute 1.38 1.00 - 4.40 x10E9/L 03/06/2024 1:13 AM [facility] Monocyte Absolute 0.43 0.15 - 1.00 x10E9/L 03/06/2024 1:13 AM [facility] Eosinophil Absolute 0.05 0.00 - 0.60 x10E9/L 03/06/2024 1:13 AM [facility] Basophil Absolute 0.04 0.00 - 0.13 x10E9/L 03/06/2024 1:13 AM [facility] Blood BLOOD SPECIMEN / Unknown Venipuncture / Unknown 03/06/2024 1:00 AM CDT 03/06/2024 1:07 AM CDT Jv Garcia MD LAB - HEMATOLOGY ORD ERABLES [facility] [address] [place] [id number], [facility] [phone] * (ABNORMAL) COMPREHENSIVE METABOLIC PANEL (03/06/2024 1:00 AM CDT) BUN 12 7 - 26 mg/dL 03/06/2024 1:32 AM T [facility] Creatinine 0.97(H) 0.56 - 0.96 mg/dL 03/06/2024 1:32 AM [facility] Sodium 138 136 - 145 mmol/L 03/06/2024 1:32 AM [facility] Potassium 3.6 3.5 - 4.5 mmol/L 03/06/2024 1:32 AM [facility] Chloride 107 98 - 107 mmol/L 03/06/2024 1:32 AM [facility] CO2 22 22 - 29 mmol/L 03/06/2024 1:32 AM [facility] Glucose 132(H) 70 - 99 mg/dL 03/06/2024 1:32 AM [facility] Calcium 8.9 8.4 - 10.2 mg/dL 03/06/2024 1:32 AM [facility] Protein Total 6.3 6.0 - 8.3 g/dL 03/06/2024 1:32 AM [facility] Albumin 3.6 3.4 - 5.0 g/dL 03/06/2024 1:32 AM [facility] Bilirubin Total 0.2 0.2 - 1.2 mg/dL 03/06/2024 1:32 AM [facility] Alkaline Phosphatase 63 40 - 150 U/L 03/06/2024 1:32 AM [facility] ALT 12 5 - 55 U/L 03/06/2024 1:32 AM [facility] AST 15 5 - 34 U/L 03/06/2024 1:32 AM [facility] Anion Gap 9 6 - 16 03/06/2024 1:32 AM [facility] BUN/Creatinine Ratio 12 7 - 23 03/06/2024 1:32 AM [facility] Osmolality Calculated 288 275 - 295 mOsm/kg 03/06/2024 1:32 AM [facility] Albumin/Globulin Ratio 1.3 1.1 - 2.3 03/06/2024 1:32 AM [facility] eGFR by CKD-EPI 75(L) >=90 mL/min/1.7 3 m2 03/06/2024 1:32 AM [facility] Blood BLOOD SPECIMEN / Unknown Venipuncture / Unknown 03/06/2024 1:00 AM CDT 03/06/2024 1:07 AM CDT Jv Garcia MD LAB - CHEMISTRY PAULINE Mcnally Organization Address City/State/ZIP Co de Phone Number [facility] [place] [address], [facility] [phone] * XR Ankle Left 3Vw or More (03/05/2024 11:50 PM CDT) Anatomical Region Laterality Modality Lower Extremity Digital Radiogra phy 03/06/2024 2:24 AM CDT Impressions 03/06/2024 9:21 AM CDT IMPRESSION: Acute moderately displaced comminuted fracture of the distal tibia and fibula with extension into the tibial plafond. Report dictated by Cedric Bal DO (president and cmo). I, Naveen Ace MD have personally reviewed and interpreted this examination/study. > Interpreting Provider: Naveen Ace MD on 03/06/2024 9:21 AM Narrative 03/06/2024 9:21 AM CDT PROCEDURE: ??XR ANKLE LEFT 3VW OR MORE, DATE/TIME OF EXAM: ??03/05/2024 11:50 PM, LOCATION ??[facility] INDICATION: W18.30XA: Ground-level fall ADDITIONAL CLINICAL INFORMATION: [...] MORE, DATE/TIME OF EXAM: 1:50 PM, LOCATION [facility] INDICATION: W18.30XA: Ground-level fall ADDITIONAL CLINICAL INFORMATION: [...] plafond. Report dictated by Cedric Bal DO (president and cmo). I, Naveen Ace MD have personally reviewed andinterpreted this examination/study. > Interpreting Provider: Naveen Ace MD on 03/06/2024 9:21AM Prachi Martinez MD [facility] Care Teams Injection Specialist Relationship Specialty Start Date End Date None, Physician [address] [place] [address] PCP - General 03/30/24
--- OUTSIDE RECORDS SUMMARY | 2024-05-09 05:04 | XMS_ITS | Encounter Summary ---
Author Organization [facility] Address [address] [facility] [place] [address] Care Team Providers Care Shoe Reconditioner Name Role Phone None, Physician Primary Care Provider Unavailabl e Encounter Details Date Type Department Care Team (Late st Contact Info) Description 04/04/2024 Orders Only [facility] [address] [place] [address], [facility] [phone] Manuel Resendiz T, [address] [place] [id number] Tibia/fibula fracture, left, closed, with routine healing, subsequent encounter Social History Tobacco Use Types Packs/Day Years Used Date Smoking Tobacco: Never Smokeless Tobacco: Never AUDIT-C Answer Date Recorded Q1: How often [...] medical care, and heating? Patient declined 03/09/2024 [facility] [place] [facility] - Occupational Stress [...] any time in the past 12 m [facility], were you homeless or living in a penitentiary (including now)? Patient declined 03/09/2024 Sex and Gender Information Value Date Recorded Sex Assigned at Not on file Gender Identity Not on file Sexual Orientation Not on file documented as of this encounter Functional Status Functional Status Response [...] No 03/07/2024 documented as of this encounter Plan of Treatment Upcoming Encounters Date Type Department Care Team (Late st Contact Info) Description 05/18/2024 9:15 AM MODELING MANAGER Office Visit [facility] [address] [facility] [place] [address] Manuel Resendiz T, DO [address] [place] [address] Scheduled Orders Name Type Priority Associated Diagnoses Orde r Schedule XR Tibia Fibula Left 2Vw Imaging Routine Tibia/fibula fracture, left, closed, with routine healing, subsequent encounter 1 Occurrences starting 04/04/2024 until 04/04/2025 documented as of this encounter Visit Diagnoses Diagnosis Tibia/fibula fracture, left, closed, with routine healing, subsequent encounter- Primary documented in this encounter Care Teams Shoe Reconditioner Relationship Specialty Start Date End Date None, Physician [address] [place] [address] PCP - General 03/30/24 documented as of this encounter
--- OUTSIDE RECORDS SUMMARY | 2024-05-09 05:04 | XMS_ITS | Encounter Summary ---
Author Organization [facility] Address [address] [facility] [place] [address] Care Team Providers Care Grain Elevator Worker Name Role Phone None, Physician Primary Care Provider Unavailabl e Encounter Details Date Type Department Care Team (Latest Contact Info) Description 03/30/2024 Travel Social History Tobacco Use Types Packs/Day Years [...] medical care, and heating? Patient declined 03/09/2024 [facility] - Occupational [...] any time in the past 12 m [facility], were you homeless or living in a senior care (including now)? Patient declined 03/09/2024 Sex and [...] st Contact Info) Description 05/18/2024 9:15 AM FISH SEINER Office Visit [facility] [address] [facility] [place] [address] Manuel Resendiz T, DO [address] [place] [phone] documented as of this encounter Visit Diagnoses Not on filedocumented in this encounter Care Teams Grain Elevator Worker Relationship Specialty Start Date End Date None, Physician [address] [place] [address] PCP - General 03/30/24 documented as of this encounter
--- OUTSIDE RECORDS SUMMARY | 2024-05-09 05:04 | XMS_ITS | Clinical Summary ---
Author Organization [facility] [employer] Address [address] [place] [place] [address] Care Team Providers Care Full Time Name Role Phone None, Physician Primary Care Provider Unavailabl e Source Comments [facility] [employer],non-owned Affiliates and Associated Physician Practices is amultiple site organization consisting of ambulatory clinics and hospital sitesin [place], [place], [place] and [place]. This disclosure is being madepursuant to the Care Everywhere program and may not contain all information available regarding this patient. Last updated 18.[employer] Allergies No known active allergies Medications * [...] ankle, initial encounter 03/06/2024 Ground-level fall 03/06/2024 Encounters Date Type Department Care Team Description 04/04/2024 Orders Only [facility] - Orthopedics [facility] [place] [address] Manuel Resendiz, Tibia/fibula fracture, left, closed, with routine healing, subsequent encounter 03/30/2024 11:15 AM DUMPER BAILER OPERATOR Office Visit [facility] - Orthopedics [facility] [place] [address] Manuel Resendiz, DO Fracture tibia/fibula, left, closed, initial encounter (Primary Dx) 03/30/2024 Travel 03/07/2024 3:33 PM CDT Anesthesia Event [facility] [address] [place] [address] Abhishek Rubi MD Wilson, Patricia Ann, [employer] ADMINISTRATOR-BUSHEL WORKER 03/07/2024 2:29 PM CDT - 03/07/2024 4:[address] [facility] [address] [place] [address] Manuel Resendiz, DO INTRAMEDULLARY (IM) NAILING TIBIA 03/05/2024 11:26 PM CDT - 03/09/2024 11:17 AM CDT Hospital Encounter [facility] ACUTE [address] [place] [address] Jv Garcia MD Revak, Thomas J, DO Surgery Orthopedics Discharge Disposition: Home or Self Care 03/05/2024 Travel from Last 3 Months Social History Tobacco Use Types Packs/Day Years [...] medical care, and heating? Patient declined 03/09/2024 [facility] - Occupational Stress [...] any time in the past 12 m [facility], were you homeless or living in a fdc (including now)? Patient declined 03/09/2024 Sex and [...] 83 kg (183 lb) 03/30/2024 11:35 AM DUMPER BAILER OPERATOR Height 165.1 cm (5' 5 ) 03/30/2024 11:35 AM DUMPER BAILER OPERATOR Body Mass Index 30.45 03/30/2024 11:35 AM DUMPER BAILER OPERATOR Plan of Treatment Upcoming Encounters Date Type Department Care Team (Late st Contact Info) Description 05/18/2024 9:15 AM DUMPER BAILER OPERATOR Office Visit [facility] - Orthopedics [address] [place] [address], [place] [phone] Manuel Resendiz T, DO [address] [place] [id number] Health Maintenance Due Date Last Done Comments LIPID TESTING 1982 MAMMOGRAM 1982 PAP SMEAR 1982 HIV SCREENING 1997 HEPATITIS C SCREENING 06/05/2000 DTAP/TDAP/TD VACCINES (1 - Tdap) 2001 HEPATITIS B VACCINE (1 of 3 - 19+ 3-dose series) 2001 DEPRESSION SCREENING 05/09/2023 COVID-19 VACCINE (3 - 2023-2 5 season) 2024 07/29/2021, 07/25/2020 INFLUENZA VACCINE (#1) 2024 03/04/2014 SCREENING FOR DIABETES 03/07/2027 , 03/06/2024 ZOSTER VACCINE (1 of 2) 2032 HIB VACCINE Aged Out No longer eligi ble based on patient's age to complete this topic HPV VACCINE Aged Out No longer eligi ble based on patient's age to complete this topic MENINGOCOCCAL VACCINE Aged Out No rachel nguyễn eligible based on patient's age to complete this topic PNEUMOCOCCAL VACCINE Aged Out No long er eligible based on patient's age to complete this topic Medical Devices Implanted Type Area Balloon Seller Device Identifier Shelf Expiration Date Model / Serial / Lot Screw 2.7mm 5mm 30mm T8 Slf-Tap Strdr Implanted:Qty: 1 on 03/07/2024 by Benny Jones MD at [facility] Left: Tibia [employer]sa [id number] / / Screw 2.7mm 5mm 32mm T8 Slf-Tap Strdr Implanted:Qty: 1 on 03/07/2024 by Benny Jones MD at [facility] Left: Tibia [employer] Usa [id number] / / Nail Im 9mm 345mm Xprt Tib Cornell Prox Bnd Implanted:Qty: 1 on 03/07/2024 by Benny Jones MD at [facility] Left: Tibia [employer] 07/06/2033 [id number] S / / [id number] 5.0mm Locking Screw For Im Nail, 28mm Implanted:Qty: 1 on 03/07/2024 by Benny Jones MD at [facility] Left: Tibia [employer] Trauma [id number] / / 5.0mm Locking Screw For Im Nail, 32mm Implanted:Qty: 1 on 03/07/2024 by Benny Jones MD at [facility] Left: Tibia [employer] Trauma [id number] / / 5.0mm Locking Screw For Im Nail, 36mm Implanted:Qty: 1 on 03/07/2024 by Benny Jones MD at [facility] Left: Tibia [employer] Trauma [id number] / / Explanted Type Area Balloon Seller Device Identifier Shelf Expiration Date Model / Serial / Lot Screw 2.7mm 5mm 28mm T8 Slf-Tap Strdr Explanted:Qty: 1 on 03/07/2024 by Benny Jones MD at [facility] Left: Tibia [employer]sa [id number] / / Slv Prtc 12mm Suprapatellar Strl Explanted:Qty: 1 on 03/07/2024 by Benny Jones MD at [facility] Left: Tibia Synthes [facility] [id number] S / / Procedures Procedure Name [...] ENDOTRACHEAL TUBE NOTE Routine 4:11 PM CDT WI OPEN RX TIBIA SHAFT FX,INTRAMED NASIR 03/07/2024 [...] 4.0 - 10.7 x10E9/L 03/09/2024 3:49 AM [facility] RBC Count 3.06(L) 3.90 - 5.20 x10E12/L 03/09/2024 3:49 AM [facility] Hemoglobin 8.9(L) 11.9 - 15.8 g/dL 03/09/2024 3:49 AM [facility] Hematocrit 28.2(L) 34.8 - 46.1 % 03/09/2024 3:49 AM [facility] MCV 92.2 80.0 - 98.0 fL 03/09/2024 3:49 AM [facility] MCH 29.1 26.7 - 33.6 pg 03/09/2024 3:49 AM [facility] MCHC 31.6(L) 31.7 - 36.3 g/dL 03/09/2024 3:49 AM [facility] RDW-CV 14.5 11.3 - 14.8 % 03/09/2024 3:49 AM [facility] Platelet Count 230 150 - 420 x10E9/L 03/09/2024 3:49 AM [facility] MPV 9.4 7.8 - 11.4 fL 03/09/2024 3:49 AM [facility] Blood BLOOD SPECIMEN / Unknown Lab Venipuncture / Unknown 03/09/2024 2:53 AM CDT 03/09/2024 3:28 AM CDT Chase Garcia DO LAB - HEMATOLOGY ORD ERABLES Performing Organization Address City/[facility]/ZIP Co de Phone Number [facility] [address] [place] [address], [facility] [phone] * CARDIAC EKG ORDER (03/08/2024 11:33 AM CDT) Narrative 03/08/2024 11:33 AM CDT Ordered by an unspecified provider. Scanned Document CARDIAC SERVICES ORD ERABLES * [place] Estefani Surgery (03/07/2024 5:55 PM CDT) Narrative [facility] RAD[facility] - 03/07/2024 5:57 PM CDT Fluoroscopy was used for this exam in the OR. Please see the Operative report. Manuel Resendiz DO FLUOROSCOPY ORDERABL ES Performing Organization Address City/[facility]/ZIP Co de Phone Number [facility] * ETT LINE PERFORMABLE (03/07/2024 4:11 PM CDT) Narrative Obinna Gupta MD - 03/07/2024 4:11 PM CDT Obinna Gupta MD ? 03/07/2024 ??4:11 PM Endotracheal Tube Placement: ? Patient Location: OR. Intubation Event Date/Time: ??03/07/2024 3:43 PM Procedure: intubation ([id number]) Procedure Section: ?? Sedation: under general anesthesia. [...] METABOLIC PANEL (CALCIUM TOTAL) (03/07/2024 2:41 AM T) BUN 12 7 - 26 mg/dL 03/07/2024 3:42 AM [facility] Creatinine 1.04(H) 0.56 - 0.96 mg/dL 03/07/2024 3:42 AM [facility] Sodium 140 136 - 145 mmol/L 03/07/2024 3:42 AM [facility] Potassium 3.9 3.5 - 4.5 mmol/L 03/07/2024 3:42 AM [facility] Chloride 106 98 - 107 mmol/L 03/07/2024 3:42 AM [facility] CO2 25 22 - 29 mmol/L 03/07/2024 3:42 AM [facility] Glucose 101(H) 70 - 99 mg/dL 03/07/2024 3:42 AM [facility] Calcium 8.2(L) 8.4 - 10.2 mg/dL 03/07/2024 3:42 AM [facility] Anion Gap 9 6 - 16 03/07/2024 3:42 AM [facility] BUN/Creatinine Ratio 12 7 - 23 03/07/2024 3:42 AM [facility] Osmolality Calculated 290 275 - 295 mOsm/kg 03/07/2024 3:42 AM [facility] eGFR by CKD-EPI 69(L) >=90 mL/min/1.7 3 m2 03/07/2024 3:42 AM [facility] Blood BLOOD SPECIMEN / Unknown Lab Venipuncture / Unknown 03/07/2024 2:41 AM CDT 03/07/2024 3:08 AM CDT Chase Garcia DO LAB - CHEMISTRY PAULINE MARYJANEFRANDY Performing Organization Address City/[facility]/ZIP Co de Phone Number [facility] [address] [place] [address], [facility] [phone] * EKG 12-LEAD (03/06/2024 4:07 PM CDT) Ventricular Rate [address] [facility] M[facility] Atrial Rate [address] [facility] P-R Interval [address] [facility] QRS Duration ms [address] [facility] Q-T Interval ms [address] [facility] QTC Calculation (Bezet) [address] [facility] MUSE Calculated P Elbe 46 degrees SL MUSE Calculated R Elbe [address] [facility] MUSE Calculated T Elbe [address] [facility] MUSE Interpretation EKG NORMAL SINUS RHYTHM NORMAL ECG NO PREVIOUS ECGS AVAILABLE Confirmed by MAYURI ZHANG MD ([id number]) on 03/11/2024 10:28:[address] [facility] MUSE 03/06/2024 4:07 PM CDT 03/11/2024 10:28 AM DUMPER BAILER OPERATOR Katlyn King [employer] ADMINISTRATOR-BUSHEL WORKER ECG ORDERAB LES Performing Organization Address [facility] Co de Phone Number [facility] MUSE * (ABNORMAL) URINE DRUG SCREEN IMMUNOASSAY (03/06/2024 9:38 AM CDT) Pathologist [facility] Amphetamines Screen Urine Negative Negative : < 1000 ng/mL 03/06/2024 10:00 AM T [facility] Barbiturates Screen Urine Negative Negative : < 200 ng/mL 03/06/2024 10:00 AM [facility] Benzodiazepine Screen Urine Negative Negative : < 200 ng/mL 03/06/2024 10:00 AM [facility] Opiates Urine Positive(A) Negative : < 300 ng/mL 03/06/2024 10:00 AM [facility] Comment:Positive urine opiat e screening results should be confirmed by another generally accepted non-immunological method such as gas chromatography or mass spectrometry. Cocaine Metabolites Urine Negative Negative : < 300 ng/mL 03/06/2024 10:00 AM [facility] Phencyclidine Screen Urine Negative Negative : < 25 ng/ml 03/06/2024 10:00 AM [facility] Cannabinoids Screen Urine Positive(A) Negative : <50 ng/mL 03/06/2024 10:00 AM [facility] Comment:Positive urine canna binoids (THC) screening results should be confirmed by another generally accepted non-immunological method such as gas chromatography or mass spectrometry. Methadone Screen Urine Negative Negative : < 300 ng/mL 03/06/2024 10:00 AM [facility] Fentanyl Screen Urine Negative Negative : <1.5 ng/mL 03/06/2024 10:00 AM [facility] Urine URINE / Unknown Collection / Unknown 03/06/2024 9:38 AM T 03/06/2024 9:41 AM [facility] - 03/06/2024 10:00 AM [facility] The Urine Toxicology Screening Panel does not screen for Propoxyphene, Meprobamate, Carisoprodol, Trazodone, fpyp-jpf-oinekmc medications and/or volatiles (Acetone, Isopropanol, Methanol or Ethylene Glycol). Ethanol, Salicylate, Acetaminophen, Tricyclic Antidepressants and several therapeutic drugs may be individually assayed in serum or plasma specimen. Toxicology testing by the [facility] is an aid to medical diagnosis and treatment of patients. No documented chain of custody was maintained. Results are intended to be used for clinical purposes only. ? Jv Garcia MD LAB - URINE CHEMISTR Y ORDERABLES [facility] [place] [address], [facility] [phone] * CT CHEST ABDOMEN PELVIS W CONT [...] seen. > Dictated by Pranav Morales DO (sr vice president). I, Selina Narvaez MD have personally reviewed and interpreted this examination/study. > Interpreting Provider: Selina Narvaez MD on 03/06/2024 7:08 AM Narrative 03/06/2024 7:08 AM CDT PROCEDURE: ??CT CHEST ABDOMEN PELVIS W CONT, DATE/TIME OF EXAM: ??03/06/2024 2:43 AM, LOCATION ??[facility] INDICATION: Trauma COMPARISON: None. TECHNIQUE: CT [...] CONT, DATE/TIME OF EXAM:03/06/2024 2:43 AM, LOCATION [facility] INDICATION: Trauma COMPARISON: None. TECHNIQUE: CT [...] seen. > Dictated by Pranav Morales DO (sr vice president). Selina Mallory MD have personally reviewed and [...] pelvis. > Dictated by Cedric Bal DO (Dialer), 03/06/2024 3:09 AM. Anthony Mallory MD have personally reviewed and interpreted this examination/study. > Interpreting Provider: Anthony Adler MD on 03/06/2024 7:44 AM Narrative 03/06/2024 7:44 AM CDT PROCEDURE: ??CT HEAD WO CONTRAST, CT LUMBAR SPINE WO CONTRAST, CT THORACIC SPINE WO CONTRAST, CT CERVICAL SPINE WO CONTRAST, DATE/TIME OF EXAM: 03/06/2024 2:43 AM, LOCATION ??[facility] INDICATION: Trauma EXAMINATION: 1.Computed tomography (CT) [...] DATE/TIME OF EXAM: 03/06/2024 2:43 AM, LOCATION [facility] INDICATION: Trauma EXAMINATION: 1.Computed tomography (CT) [...] pelvis. > Dictated by Cedric Bal DO (Dialer), 03/06/2024 3:09AM. Anthony Mallory MD have personally [...] pelvis. > Dictated by Cedric Bal DO (Dialer), 03/06/2024 3:09 AM. Anthony Mallory MD have personally reviewed and interpreted this examination/study. > Interpreting Provider: Anthony Adler MD on 03/06/2024 7:44 AM Narrative 03/06/2024 7:44 AM CDT PROCEDURE: ??CT HEAD WO CONTRAST, CT LUMBAR SPINE WO CONTRAST, CT THORACIC SPINE WO CONTRAST, CT CERVICAL SPINE WO CONTRAST, DATE/TIME OF EXAM: 03/06/2024 2:43 AM, LOCATION ??[facility] INDICATION: Trauma EXAMINATION: 1.Computed tomography (CT) [...] DATE/TIME OF EXAM: 03/06/2024 2:43 AM, LOCATION [facility] INDICATION: Trauma EXAMINATION: 1.Computed tomography (CT) [...] pelvis. > Dictated by Cedric Bal DO (Dialer), 03/06/2024 3:09AM. Anthony Mallory MD have personally [...] pelvis. > Dictated by Cedric Bal DO (Dialer), 03/06/2024 3:09 AM. Anthony Mallory MD have personally reviewed and interpreted this examination/study. > Interpreting Provider: Anthony Adler MD on 03/06/2024 7:44 AM Narrative 03/06/2024 7:44 AM CDT PROCEDURE: ??CT HEAD WO CONTRAST, CT LUMBAR SPINE WO CONTRAST, CT THORACIC SPINE WO CONTRAST, CT CERVICAL SPINE WO CONTRAST, DATE/TIME OF EXAM: 03/06/2024 2:43 AM, LOCATION ??[facility] INDICATION: Trauma EXAMINATION: 1.Computed tomography (CT) [...] DATE/TIME OF EXAM: 03/06/2024 2:43 AM, LOCATION [facility] INDICATION: Trauma EXAMINATION: 1.Computed tomography (CT) [...] pelvis. > Dictated by Cedric Bal DO (Dialer), 03/06/2024 3:09AM. Anthony Mallory MD have personally [...] pelvis. > Dictated by Cedric Bal DO (Dialer), 03/06/2024 3:09 AM. Anthony Mallory MD have personally reviewed and interpreted this examination/study. > Interpreting Provider: Anthony Adlre MD on 03/06/2024 7:44 AM Narrative 03/06/2024 7:44 AM CDT PROCEDURE: ??CT HEAD WO CONTRAST, CT LUMBAR SPINE WO CONTRAST, CT THORACIC SPINE WO CONTRAST, CT CERVICAL SPINE WO CONTRAST, DATE/TIME OF EXAM: 03/06/2024 2:43 AM, LOCATION ??[facility] INDICATION: Trauma EXAMINATION: 1.Computed tomography (CT) [...] DATE/TIME OF EXAM: 03/06/2024 2:43 AM, LOCATION [facility] INDICATION: Trauma EXAMINATION: 1.Computed tomography (CT) [...] pelvis. > Dictated by Cedric Bal DO (Dialer), 03/06/2024 3:09AM. Anthony Mallory MD have personally [...] plafond. > Dictated by Pranav Morales DO (sr vice president). Selina Mallory MD have personally reviewed and [...] plafond. > Dictated by Pranav Morales DO (sr vice president). I, Selina Narvaez MD have personally reviewed and interpreted this examination/study. > Interpreting Provider: Selina Narvaez MD on 47:43 AM Jv Garcia MD CT ORDERABLES * BLOOD TYPE VERIFICATION (03/06/2024 2:39 AM CDT) ABO Rh A POS 03/06/2024 3:[address] [facility] Blood Bank BLOOD SPECIMEN / Unknown Venipuncture / Unknown 03/06/2024 2:39 AM CDT 03/06/2024 2:45 AM CDT Jv Garcia MD LAB - BLOOD BANK ORD ERABLES Performing Organization Address City/[facility]/ZIP Co de Phone Number [facility] [address] [place] [address], [facility] [phone] * PTT [facility] (03/06/2024 2:36 AM CDT) Only the most recent of2 resultswithin the time period is included. APTT 26.0 23.0 - 38.4 Seconds 03/06/2024 3:[address] [facility] Comment:Suggested therapeuti c range for full dose I.V. unfractionated heparin therapy for venous thromboembolism is 71 to 109 seconds. Blood BLOOD SPECIMEN / Unknown Venipuncture / Unknown 03/06/2024 2:36 AM CDT 03/06/2024 2:47 AM CDT Jv Garcia MD LAB - COAGULATION OR DERABLES Performing Organization Address City/[facility] Co de Phone Number [facility] [address] [place] [address], [facility] [phone] * PT-INR [facility] (03/06/2024 2:36 AM CDT) Only the most recent of2 resultswithin the time period is included. PT 12.7 12.1 - 14.8 Seconds 03/06/2024 3:[address] [facility] INR 1.0 See Comment 03/06/2024 3:08 AM CDT [facility] Comment:The suggested therap eutic range for standard coumadin (warfarin) therapy is an INR of 2.0-3.0. For high-risk patients (Mechanical Mitral Valve Prosthesis, etc.), the suggested prophylactic therapeutic range is an INR of 2.5-3.5. Blood BLOOD SPECIMEN / Unknown Venipuncture / Unknown 03/06/2024 2:36 AM CDT 03/06/2024 2:47 AM CDT Jv Garcia MD LAB - COAGULATION OR DERABLES Performing Organization Address [facility] Co de Phone Number [facility] [address] [place] [address], [facility] [phone] * (ABNORMAL) VITAMIN D 25-HYDROXY (03/06/2024 2:36 AM CDT) Vitamin D, 25 Hydroxy 26.0(L) 30.0 - 80.0 ng/mL 03/06/2024 6:57 AM CDT [facility] Comment: The recommendations for 25-Hydroxy Vitamin [...] - CHEMISTRY OR DERABLES Performing Organization Address City/[facility] Co de Phone Number [facility] [address] [place] [address], [facility] [phone] * HCG BETA BLOOD QUANTITATIVE (03/06/2024 2:36 AM CDT) Pathologist [facility] Beta-hCG Total Quantitative <3 mIU/mL 03/06/2024 3:16 PM CDT [facility] Comment: HCG Numeric Result Interpretation: ? [...] 2:36 AM CDT 03/06/2024 2:47 AM CDT Katlyn King [employer] ADMINISTRATOR-BUSHEL WORKER LAB - CHEMI STRY ORDERABLES [facility] [address] [place] [address], [facility] [phone] * ALCOHOL ETHYL BLOOD (03/06/2024 2:36 AM CDT) [facility] Ethanol (mg/dL) <10 <10 mg/dL 3:09 AM CDT [facility] Ethanol Calculated (g/dL) <0.010 <=0.010 g/dL 03/06/2024 3:09 AM CDT [facility] Blood BLOOD SPECIMEN / Unknown Venipuncture / Unknown 03/06/2024 2:36 AM CDT 03/06/2024 2:47 AM CDT Narrative [facility] - 03/06/2024 3:09 AM CDT Ethanol Interp <10: None Detected. Depression of OVEN HEATER: >100 mg/dl Potentially Critical: >250 mg/dl Potentially [...] Garcia MD LAB - CHEMISTRY PAULINE JORGE [facility] Organization Address City/State/ZIP Co de Phone Number [facility] [address] [place] [address], [facility] [phone] * XR Tibia Fibula Left 2Vw (03/06/2024 1:40 AM CDT) Only the most recent of2 resultswithin the time period is included. Anatomical Region Laterality Modality Lower Extremity Digital Radiogra phy 03/06/2024 2:40 AM CDT Narrative 03/06/2024 11:55 AM CDT PROCEDURE: ??XR TIBIA FIBULA LEFT 2VW, DATE/TIME OF EXAM: ??03/06/2024 1:40 AM, LOCATION ??[facility] INDICATION: W18.30XA: Ground-level fall ADDITIONAL CLINICAL [...] exam. Report dictated by Cedric Bal DO (sr vice president). I, Naveen Ace MD have personally reviewed and interpreted this examination/study. > Interpreting Provider: Naveen Ace MD on 03/06/2024 11:55 AM Procedure Note Naveen Ace MD - 03/06/2024 PROCEDURE: XR TIBIA FIBULA LEFT 2VW, DATE/TIME OF EXAM: 41:40 AM, LOCATION [facility] INDICATION: W18.30XA: Ground-level fall ADDITIONAL CLINICAL INFORMATION: Ordering Provider Reason For Exam: reduction will call when ready COMPARISON: Left tibia fibula x-ray 03/05/2024 FINDINGS/IMPRESSION: Splint material obscures osseous and soft tissue detail. Redemonstrated acute moderately displaced comminuted fracture of the distal tibia and fibula with extension into the tibial plafond. Alignment appearsrelatively unchanged from prior exam. Report dictated by Cedric Bal DO (sr vice president). Naveen Mallory MD have personally reviewed andinterpreted [...] identified. Report dictated by Cedric Bal DO (sr vice president). Naveen Mallory MD have personally reviewed and interpreted this examination/study. > Interpreting Provider: Naveen Ace MD on 03/06/2024 9:26 AM Narrative 03/06/2024 9:26 AM CDT PROCEDURE: ??XR KNEE LEFT 2VW OR LESS, DATE/TIME OF EXAM: ??03/06/2024 1:05 AM, LOCATION ??[facility] INDICATION: W18.30XA: Ground-level fall ADDITIONAL CLINICAL [...] LESS, DATE/TIME OF EXAM: 41:05 AM, LOCATION [facility] INDICATION: W18.30XA: Ground-level fall ADDITIONAL CLINICAL INFORMATION: Ordering Provider Reason For Exam: injury films COMPARISON: None. FINDINGS: The osseous structures are intact and well aligned without acutefracture or dislocation. The knee joint space is preserved. No joint effusion is seen. Bone density and texture are normal. IMPRESSION: No acute fracture or dislocation identified. Report dictated by Cedric Bal DO (sr vice president). I, Naveen Ace MD have personally reviewed andinterpreted this examination/study. > Interpreting Provider: Naveen Ace MD on 03/06/2024 9:26AM Jv Garcia MD DIAGNOSTIC IMAGING O RDERABLES * TYPE + SCREEN PANEL (03/06/2024 1:00 AM CDT) [facility] Antibody Screen NEG 1:[address] [facility] ABO Rh A POS 03/06/2024 1:[address] [facility] Blood Bank BLOOD SPECIMEN / Unknown Venipuncture / Unknown 03/06/2024 1:00 AM CDT 03/06/2024 1:07 AM CDT Jv Garcia MD LAB - BLOOD BANK ORD ERABLES [facility] [address] [place] [address], [facility] [phone] * (ABNORMAL) CBC W AUTO DIFFERENTIAL (03/06/2024 1:00 AM CDT) [facility] WBC 8.8 4.0 - 10.7 x10E9/L 03/06/2024 1:[address] [facility] RBC Count 3.88(L) 3.90 - 5.20 x10E12/L 03/06/2024 1:[facility] Hemoglobin 11.6(L) 11.9 - 15.8 g/dL 03/06/2024 1:13 AM [facility] Hematocrit 34.0(L) 34.8 - 46.1 % 03/06/2024 1:13 AM [facility] MCV 87.6 80.0 - 98.0 fL 03/06/2024 1:[address] [facility] MCH 29.9 26.7 - 33.6 pg 03/06/2024 1:13 AM [facility] MCHC 34.1 31.7 - 36.3 g/dL 03/06/2024 1:13 AM [facility] RDW-CV 14.1 11.3 - 14.8 % 03/06/2024 1:13 AM [facility] Platelet Count 297 150 - 420 x10E9/L 03/06/2024 1:13 AM [facility] MPV 9.2 7.8 - 11.4 fL 03/06/2024 1:13 AM [facility] Neutrophil % 78.1(H) 41.0 - 74.0 % 03/06/2024 1:13 AM [facility] Lymphocyte % 15.7(L) 17.0 - 47.0 % 03/06/2024 1:13 AM [facility] Monocyte % 4.9 3.0 - 11.0 % 03/06/2024 1:13 AM [facility] Eosinophil % 0.6 0.0 - 7.0 % 03/06/2024 1:13 AM [facility] Basophil % 0.5 0.0 - 1.6 % 03/06/2024 1:13 AM [facility] Immature Granulocytes % 0.2 0.0 - 1.0 % 03/06/2024 1:13 AM [facility] Neutrophil Absolute 6.85 1.60 - 7.50 x10E9/L 03/06/2024 1:13 AM [facility] Lymphocyte Absolute 1.38 1.00 - 4.40 x10E9/L 03/06/2024 1:13 AM [facility] Monocyte Absolute 0.43 0.15 - 1.00 x10E9/L 03/06/2024 1:13 AM [facility] Eosinophil Absolute 0.05 0.00 - 0.60 x10E9/L 03/06/2024 1:13 AM [facility] Basophil Absolute 0.04 0.00 - 0.13 x10E9/L 03/06/2024 1:13 AM [facility] Blood BLOOD SPECIMEN / Unknown Venipuncture / Unknown 03/06/2024 1:00 AM CDT 03/06/2024 1:07 AM CDT Jv Garcia MD LAB - HEMATOLOGY ORD ERABLES [facility] [address] [place] [address], [facility] [phone] * (ABNORMAL) COMPREHENSIVE METABOLIC PANEL (03/06/2024 1:00 AM CDT) BUN 12 7 - 26 mg/dL 03/06/2024 1:32 AM [facility] Creatinine 0.97(H) 0.56 - 0.96 mg/dL 03/06/2024 1:32 AM [facility] Sodium 138 136 - 145 mmol/L 03/06/2024 1:32 AM [facility] Potassium 3.6 3.5 - 4.5 mmol/L 03/06/2024 1:32 AM [facility] Chloride 107 98 - 107 mmol/L 03/06/2024 1:32 AM [facility] CO2 22 22 - 29 mmol/L 03/06/2024 1:32 AM [facility] Glucose 132(H) 70 - 99 mg/dL 03/06/2024 1:32 AM [facility] Calcium 8.9 8.4 - 10.2 mg/dL 03/06/2024 1:32 AM [facility] Protein Total 6.3 6.0 - 8.3 g/dL 03/06/2024 1:32 AM [facility] Albumin 3.6 3.4 - 5.0 g/dL 03/06/2024 1:32 AM [facility] Bilirubin Total 0.2 0.2 - 1.2 mg/dL 03/06/2024 1:32 AM [facility] Alkaline Phosphatase 63 40 - 150 U/L 03/06/2024 1:32 AM [facility] ALT 12 5 - 55 U/L 03/06/2024 1:32 AM [facility] AST 15 5 - 34 U/L 03/06/2024 1:32 AM [facility] Anion Gap 9 6 - 16 03/06/2024 1:[address] [facility] BUN/Creatinine Ratio 12 7 - 23 03/06/2024 1:[address] [facility] Osmolality Calculated 288 275 - 295 mOsm/kg 03/06/2024 1:32 AM CDT [facility] Albumin/Globulin Ratio 1.3 1.1 - 2.3 03/06/2024 1:32 AM CDT [facility] eGFR by CKD-EPI 75(L) >=90 mL/min/1.7 3 m2 03/06/2024 1:32 AM CDT [facility] Blood BLOOD SPECIMEN / Unknown Venipuncture / Unknown 03/06/2024 1:00 AM CDT 03/06/2024 1:07 AM CDT Jv Garcia MD LAB - CHEMISTRY PAULINE JOR[facility] Address City/State/ZIP Co de Phone Number [facility] [address] [place] [phone], [facility] [phone] * XR Ankle Left 3Vw or More (03/05/2024 11:50 PM CDT) Anatomical Region Laterality Modality Lower Extremity Digital Radiogra phy 03/06/2024 2:24 AM CDT Impressions 03/06/2024 9:21 AM CDT IMPRESSION: Acute moderately displaced comminuted fracture of the distal tibia and fibula with extension into the tibial plafond. Report dictated by Cedric Bal DO (sr vice president). I, Naveen Ace MD have personally reviewed and interpreted this examination/study. > Interpreting Provider: Naveen Ace MD on 03/06/2024 9:21 AM Narrative 03/06/2024 9:21 AM CDT PROCEDURE: ??XR ANKLE LEFT 3VW OR MORE, DATE/TIME OF EXAM: ??03/05/2024 11:50 PM, LOCATION ??[facility] INDICATION: W18.30XA: Ground-level fall ADDITIONAL CLINICAL [...] MORE, DATE/TIME OF EXAM: 1:50 PM, LOCATION [facility] INDICATION: W18.30XA: Ground-level fall ADDITIONAL CLINICAL [...] plafond. Report dictated by Cedric Bal DO (sr vice president). I, Naveen Ace MD have personally reviewed andinterpreted this examination/study. > Interpreting Provider: Naveen Ace MD on 03/06/2024 9:21AM Prachi Martinez MD DIAGNOSTIC IMAGING O RDERABLES from Last 3 Months Advance Directives * Full Code (Latest Code Status on File) Date Activated Date Inactivated Comments 03/06/2024 8:39 PM 03/09/2024 12:23 PM Care Teams Full Time Relationship Specialty Start Date End Date None, Physician [id number] [place] [address] PCP - General 03/30/24
--- OUTSIDE RECORDS SUMMARY | 2024-05-09 05:04 | XMS_ITS | Encounter Summary ---
Author Organization [facility] Address [address] [place] [place] [address] Care Team Providers Care Special Agent [employer] Name Role Phone Unavailable Primary Care Provider Unavailabl e Reason for Referral * (Routine) - Pending Review Specialty Diagnoses / Procedures Referred By Sammy myers Referred To Contact Procedures Follow up with provider Rissa Montes PA-C [address] [place] [address] Referral ID Status Reason Start Date Expiration Date V isits Requested Visits Authorized [id number] Pending Review 03/08/2024 03/08/2025 1 1 Reason for Visit * Reason Comments Fall PT BIBEMS for a fall from standing. Per EMS pt was smoking marijuana, feeling dizzy and fell. Pt presents with pain to LLE, complaining of pain in ankle. Pulses and sensation intact, motor reduced 2/2 pain. Pt received 100mcg fent en route. * Auth/Cert (Routine) Specialty Diagnoses / Procedures Referred By Sammy myers Referred To Contact Referral ID Status Reason Start Date Expiration Date Visits Re quested Visits Authorized [id number] 1 1 Encounter Details Date Type Department Care Team (Late st Contact Info) Description 03/05/2024 11:26 PM CDT - 03/09/2024 11:17 AM CDT Hospital Encounter [facility] ACUTE [address] [place] [id number] Jv Garcia MD [address] [facility] [place] [address] Chase Garcia, [address] [facility] [place] [address] Surgery Orthopedics Discharge Disposition: Home or Self Care Social History Tobacco Use Types Packs/Day Years Used Date Smoking Tobacco: Never Smokeless Tobacco: Never Tobacco Cessation:Counseling Given: Yes AUDIT-C Answer Date Recorded Q1: How often [...] medical care, and heating? Patient declined 03/09/2024 [facility] - Occupational Stress [...] any time in the past [address] [facility], were you homeless or living in a usp (including now)? Patient declined 03/09/2024 Sex and [...] - - Weight 83 kg (183 lb) 03/06/2024 9:50 PM CDT Height 165.1 cm (5' 5 ) 03/06/2024 9:50 PM CDT Body Mass Index 30.45 03/06/2024 9:50 PM CDT documented in this encounter Functional Status Functional [...] No 03/07/2024 documented as of this encounter Discharge Summaries * Rissa Montes PA-C - 03/09/2024 7:59 AM CDT Orthopedic Surgery Discharge Summary Patient: Serenity Yang / 43 year old / female : 1980 CSN: [id number] Attending Physician: Chase Garcia DO Consults: PT/OT, Trauma Surgery, Case Management Discharging Physician/CHARLY: Rissa Montes PA-C Admit date: 03/05/2024 11:26 PM Discharge date: 03/09/2024 Discharge Condition: good Disposition: Home Admitting Diagnoses: Principal Problem: Fracture tibia/fibula, left, closed, initial encounter Active Problems: Fall Syncope and collapse Closed fracture of left ankle, initial encounter Ground-level fall Discharge Diagnoses: Principal Problem: Fracture tibia/fibula, left, closed, initial encounter Active Problems: Fall Syncope and collapse Closed fracture of left ankle, initial encounter Ground-level fall Mechanism of Injury: fall on 03/05. Orthopaedic Injuries: - Left distal third tibia fracture - Left medial malleolus fracture Treatment: 03/07/24 Left tibia IMN and left medial malleolus CRPP by Dr. Resendiz [facility] Course: Serenity Yang is a 43 year old female who presented on 03/05/2024 following a ground level fall secondary to marijuana use with resultant left distal 1/3 tibia and fibula fracture, and medial malleolus fractures. She underwent Left tibia IMN and left medial malleolus CRPP and tolerated the procedurewithout complication. Patient was extubated and transported to the PACU safely and was admitted as an inpatient for pain control and physical therapy. Antibiotics given perioperatively. Physical therapy recommended home with WW and OP PT. Additional consulting teams listed above. On POD#2 she graduated from physical therapy and pain was controlled on oral pain medication. Diet was advanced and patient tolerated oral intake. Discharged with aspirin 325mg BID x35 days for DVT prophylaxis. Medications were ordered to her OSH pharmacy pre request due to insurance issues. Patient was discharged home in stable condition and will follow up with Dr. Resendiz. Discharge Physical Exam: Patient Vitals for the past 6 hrs: Temp Pulse Resp BP BP Method 03/09/24 0426 98 ??F (36.7 ??C) 72 16 132/81 Automatic GEN: alert, oriented, appears stated age CHEST: Chest rise and fall symmetrically, no acute respiratory distress HEART: No JVD GI: Abdomen soft and non tender, non-distended PSYCH: Alert and oriented to person place time and situation. Good mood, appropriate affect. Left lower extremity: - Appearance: Dressing clean, dry, intact. ACB in place - Motor: Fires EHL/FHL/Gastroc/Tibialis anterior - Sensation: intact to light touch - Vascular: Digits warm and well perfused, capillary refill <2s Medications prior to admission: No current facility-administered medications on file prior to encounter. Current Outpatient Medications on File Prior to Encounter Medication Sig Dispense Refill buPROPion SR 12hr (Wellbutrin-SR) 150 MG tablet Take 1 (one) tablet by mouth 2 times daily topiramate (Topamax) 100 MG tablet Take 1 (one) tablet by mouth 2 times daily Discharge medications: Medication List START taking these medications acetaminophen 500 MG tablet Commonly known as: Tylenol Take 2 (two) tablets by mouth every 6 hours Maximum allowable Acetaminophen amount = 4 Grams (4000 mg) / 24 hours. aspirin EC 81 MG tablet Commonly known as: Ecotrin Take 1 (one) tablet by mouth 2 times daily cyclobenzaprine 10 MG tablet Commonly known as: Flexeril Take 1 (one) tablet by mouth 3 times daily as needed for Muscle Spasms oxyCODONE (immediate release) 5 MG tablet Commonly known as: Roxicodone Take 1 (one) tablet by mouth every 4 hours as needed polyethylene glycol 3350 17 g packet Commonly known as: MiraLax Take 17 (seventeen) g by mouth once daily vitamin D3 25 MCG (1000 UNITS) tablet Commonly known as: Cholecalciferol Take 1 (one) tablet by mouth once daily for 90 days CONTINUE taking these medications buPROPion SR 12hr 150 MG tablet Commonly known as: Wellbutrin-SR topiramate 100 MG tablet Commonly known as: Topamax Where to Get Your Medications These medications were sent to [facility] [address] [id number] aspirin EC 81 MG tablet cyclobenzaprine 10 MG tablet oxyCODONE (immediate release) 5 MG tablet vitamin D3 25 MCG (1000 UNITS) tablet You can get these medications from any pharmacy You don't need a prescription for these medications acetaminophen 500 MG tablet polyethylene glycol 3350 17 g packet Follow up: Future Appointments Saturday March 23, 2024 9:00 AM Appointment with Manuel Resendiz at [facility] - Orthopedics ([phone]) [address] [place] [phone] Discharge Orders & Patient Instructions Summary: Weight Bearing: left lower extremity weight bearing as tolerated in ACB Activity: activity as tolerated Diet: may resume diet (prior to hospitalization) Anticoagulation: Aspirin: 325 mg twice daily Sutures/Roxana: any nonabsorbable sutures to be removed at next clinic appointment Pain Medication: Tylenol, oxycodone, and Flexeril Wound Care: Keep wound clean and dry. Change dressing in 2 days or sooner if saturated. OK to shower on POD#5 . Remove brace daily for skin checks For after hours orthopaedic emergency calls dial [phone] and page the orthopaedic surgery resident cotton stomper Discharge Instructions Orthopaedic Trauma Surgery Patient Discharge Instructions Serenity Yang you were admitted to [facility] for evaluation and treatment of injuries sustained during a fall. Orthopaedic Trauma Surgery was consulted for the management of your left lower leg fracture. You underwent surgery with Dr. Resendiz on 03/07/24 to fix your tibia with a nasir and screws. Surgery was successful and completed without complication. Physical therapy was consulted after surgery for the evaluation of safety and possible equipment upon discharge from the hospital. Per therapy's recommendations: home with walker and outpatient therapy. The following instructions have been tailored for your discharge. Patient Discharge Instructions Summary: FOLLOW UP: Please plan to follow-up with Dr. Resendiz in 2 week(s). Future Appointments Saturday March 23, 2024 9:00 AM Appointment with Manuel Resendiz at [facility] - Orthopedics ([phone]) [address] [place] [phone] You can call the clinic to confirm, cancel, or reschedule as needed. If you have any questions or concerns please call before your visit. Office Schedulers: [phone], option 1 Activity: Activity as tolerated. No strenuous activity until cleared by surgeon at follow-up. Weight Bearing Status: weight bearing as tolerated of the left lower extremity Diet: Resume your normal diet unless otherwise advised by your PCP. Make sure to include plenty of protein, calcium, and water in your diet. Pelvic Procedure Patients: No sexual activity until cleared by surgeon. Anticoagulation (Blood Thinners): You were discharged with a prescription for Aspirin 81 mg twice a day (blood thinners) to prevent blood clots in the legs, also known as DVT. Please continue taking these until you are told to stop them. If the Eliquis is too expensive, call our office and we can try to get it approved by your insurance or give you a different medicine. If you are having surgery and you are on a blood thinner that was prescribed by our office, please stop this 24 hours before surgery. If you are on a blood thinner that is prescribed by another doctor, such as your primary care doctor, a central office maintainer (heart), vascular (blood vessel), or a elevator supervisor (lung), please call their office for instructions. Bone Health: Recommend the following to promote bone health: Your Vitamin D level was low (26). If 20-30 ng/mL, recommend 1000 units daily. Please discharge on 600-800 units daily x3 months. Recommend PCP re-check at 3 months. Multivitamin 1 tablet daily Calcium 1200mg daily Stop smoking - nicotine, which can be found in cigarettes, cigars, chewing tobacco, and e-cigarettes/vapres, has been shown to slow bone healing and increase your risk for infection. Decrease alcohol consumption Fall prevention Aircast Boot: Remove the boot at least once every 12 hours to check skin. The boot can be removed for bathing. Make sure the skin is well dried before reapplying the boot. If told by the doctor to do so, you can remove the boot while sitting or laying to work on gentle motion. Make sure to reapply the boot before walking or moving around. The boot can put increased pressure and friction on the incision as well. Try covering the incisionin a thicker pad or gauze to help protect it. Make sure skin is covered by an LUZ ELENA wrap or tall sock. You can also adjust the air pockets in the boot to reduce the pressure being pushed on the incision. Surgical Dressing: Change your dry gauze bandage every 1-2 days and as needed to keep the incision/wound clean and dry. Use an island dressing or dry gauze and medipore tape. Always wash your hands with soap and water before and after changing your dressing. You have non-dissolvable stitches that we will remove in clinic. Bathing: You may shower with assistance on post op day 5 (03/12/24). Do not scrub or soak surgical incisions. No tub baths. Wash gently with soap and water and pat dry. Do not apply lotion, cream, ointment, or powder onto the surgical incisions. OK to use lotion on surrounding dry skin. If you experience increasing pain at your incision site, redness, swelling, increasing discharge, foul odors, or fevers (greater than 100.4) and chills you should call the orthopaedic office. If you feel this is an emergency you should be evaluated in the Emergency Department of a nearby hospital. Home Medications: Resume your home medications as before unless directed otherwise Pain Medication: Our goal is to control your pain. It is important to remember that pain medicationis not intended to take away the pain completely but rather combat it enough to make daily living manageable For mild to moderate pain, please take acetaminophen (Tylenol) as instructed Please reserve narcotic medication for severe pain Please take colace for constipation when taking narcotic medications Please do not exceed 3,000 mg of acetaminophen in a 24 hour period Start decreasing pain medicine as your pain decreases - this means stretching the time between doses. No driving while taking prescription pain medications Do not drink alcohol or take tranquilizers while taking prescription pain medications Do not take medicine that has not been prescribed by your provider Avoid anti-inflammatories such as Ibuprofen or Aleve If none of the above solutions help, contact your surgeon as needed. Prescription Pain Medication: When at home, alternate Tylenol and narcotic medications like oxycodone, hydrocodone, etc for better control of breakthrough pain. Alternating between the two medications helps with pain coverage forbreakthrough pain. Do not drink alcohol while taking prescription pain medicine. Do not drive any motor vehicles while taking prescription pain medicines or any medicines that makeyou sleepy. Take the medicine at the time of the day when you most often feel pain. This may be: when you wake up in the morning, before you start certain activities, or when you are ready for bed. Be sure to call your surgeon for refills at least 48 hours prior to need (prescription pain medications may need more time). MEDICATIONS cannot be refilled after 4:00 p.m. during the week, on weekends or holidays. Anti-inflammatory Medications (ie NSAIDs, Ibuprofen, Advil, Naproxen, Aleve): Typically we like to limit the use of these medications in the beginning stages of fracture healing. Try to avoid these right after surgery unless otherwise instructed by the doctor. These medications can also increase your risk of bleeding if taken with blood thinners (ie Eliquis,Lovenox) Swelling, Discoloration, and Temperature Changes of the Foot: The body undergoes a hyperemic (increased blood flow) response to an injury and surgery. This is associated with color changes (red or purple), temperature changes, and edema (swelling), that can cause tension on the incision, skin, and soft tissue. Elevation can help reduce these symptoms. Make sure you have the foot higher than the knee and yourknee higher than your heart when elevating while laying flat on your back. Keep your heel floated or off the bed to prevent skin breakdown. Compression stockings or LUZ ELENA wrap worn during the day when you are moving around can help limit swelling and color changes. Make sure to take the compression stockings off at night while you sleep. Ice can be helpful as well. You can apply this over the splint or above/below the splint to exposedskin. Apply ice for 15-20 minutes at a time and then remove for at least 20-30 minutes. The cold constricts the blood vessels and decreases the hyperemic response. In more serious cases, blood clots can form. If you feel extreme pain in your calf with swelling that does not get better with elevation, call the office or hospital immediately. If you develop sudden chest pain or shortness of breath, go to the nearest emergency room. Continue the blood thinners as instructed. Home Health, Physical/Occupational Therapy: If home health or therapy orders are needed, please call the office and provide a fax number of the office or facility where the orders need to be sent. Paperwork: Please drop off paperwork, mail, or fax it to our office ([phone]) in advance so itcan be completed in a timely manner before the necessary deadline. FMLA, disability, and work paperwork is completed each Tuesday by the [employer]. Also, the doctor is only in the office one day a week to sign the paperwork. Medical records: Your medical records can be obtained by calling [phone] Fax number: [phone] Please contact our clinic at if you need to schedule or change an appointment or forany additional questions. After hours: [phone] - ask the electronic equipment set up operator for the On-Call Ortho Resident For medical emergencies, please call [phone]. Follow up Contact Information: [facility] office contact information: [facility] ([facility]) [address] [place] [address], [address] [place] [address] Visit our website at [email or web address] for information about our practice and an interactive health encyclopedia. Please visit [email or web address] to access your health record, ask questions, request medication refills, and request appointments for non-urgent needs after you have configured your [employer] account. If you do not currently have access, please contact one of our staff members or call [phone]. Tailored patient discharge instructions (see above) reviewed with patient. Patient verbalized understanding. Patient given office contact information should questions/concerns arise. Rissa Montes PA-C 03/09/2024 7:59 AM documented in this encounter Discharge Instructions * Discharge Instructions* Elizabeth Vargas PA-C - 03/08/2024 4:19 PM CDT Orthopaedic Trauma Surgery Patient Discharge Instructions Serenity Yang you were admitted to [facility] for evaluation and treatment of injuries sustained during a fall. Orthopaedic Trauma Surgery was consulted for the management of your left lower leg fracture. You underwent surgery with Dr. Resendiz on 03/07/24 to fix your tibia with a nasir and screws. Surgery was successful and completed without complication. Physical therapy was consulted after surgery for the evaluation of safety and possible equipment upon discharge from the hospital. Per therapy's recommendations: home with walker and outpatient therapy. The following instructions have been tailored for your discharge. Patient Discharge Instructions Summary: FOLLOW UP: Please plan to follow-up with Dr. Resendiz in 2 week(s). Future Appointments Saturday March 23, 2024 9:00 AM Appointment with Manuel Resendiz at [facility] - Orthopedics ([phone]) [address] [place] [phone] You can call the clinic to confirm, cancel, or reschedule as needed. If you have any questions or concerns please call before your visit. Office Schedulers: [phone], option 1 Activity: Activity as tolerated. No strenuous activity until cleared by surgeon at follow-up. Weight Bearing Status: weight bearing as tolerated of the left lower extremity Diet: Resume your normal diet unless otherwise advised by your PCP. Make sure to include plenty of protein, calcium, and water in your diet. Pelvic Procedure Patients: No sexual activity until cleared by surgeon. Anticoagulation (Blood Thinners): You were discharged with a prescription for Aspirin 81 mg twice a day (blood thinners) to prevent blood clots in the legs, also known as DVT. Please continue taking these until you are told to stop them. If the Eliquis is too expensive, call our office and we can try to get it approved by your insurance or give you a different medicine. If you are having surgery and you are on a blood thinner that was prescribed by our office, please stop this 24 hours before surgery. If you are on a blood thinner that is prescribed by another doctor, such as your primary care doctor, a central office maintainer (heart), vascular (blood vessel), or a elevator supervisor (lung), please call their office for instructions. Bone Health: Recommend the following to promote bone health: Your Vitamin D level was low (26). If 20-30 ng/mL, recommend 1000 units daily. Please discharge on 600-800 units daily x3 months. Recommend PCP re-check at 3 months. Multivitamin 1 tablet daily Calcium 1200mg daily Stop smoking - nicotine, which can be found in cigarettes, cigars, chewing tobacco, and e-cigarettes/vapres, has been shown to slow bone healing and increase your risk for infection. Decrease alcohol consumption Fall prevention Aircast Boot: Remove the boot at least once every 12 hours to check skin. The boot can be removed for bathing. Make sure the skin is well dried before reapplying the boot. If told by the doctor to do so, you can remove the boot while sitting or laying to work on gentle motion. Make sure to reapply the boot before walking or moving around. The boot can put increased pressure and friction on the incision as well. Try covering the incisionin a thicker pad or gauze to help protect it. Make sure skin is covered by an LUZ ELENA wrap or tall sock. You can also adjust the air pockets in the boot to reduce the pressure being pushed on the incision. Surgical Dressing: Change your dry gauze bandage every 1-2 days and as needed to keep the incision/wound clean and dry. Use an island dressing or dry gauze and medipore tape. Always wash your hands with soap and water before and after changing your dressing. You have non-dissolvable stitches that we will remove in clinic. Bathing: You may shower with assistance on post op day 5 (03/12/24). Do not scrub or soak surgical incisions. No tub baths. Wash gently with soap and water and pat dry. Do not apply lotion, cream, ointment, or powder onto the surgical incisions. OK to use lotion on surrounding dry skin. If you experience increasing pain at your incision site, redness, swelling, increasing discharge, foul odors, or fevers (greater than 100.4) and chills you should call the orthopaedic office. If you feel this is an emergency you should be evaluated in the Emergency Department of a nearby hospital. Home Medications: Resume your home medications as before unless directed otherwise Pain Medication: Our goal is to control your pain. It is important to remember that pain medicationis not intended to take away the pain completely but rather combat it enough to make daily living manageable For mild to moderate pain, please take acetaminophen (Tylenol) as instructed Please reserve narcotic medication for severe pain Please take colace for constipation when taking narcotic medications Please do not exceed 3,000 mg of acetaminophen in a 24 hour period Start decreasing pain medicine as your pain decreases - this means stretching the time between doses. No driving while taking prescription pain medications Do not drink alcohol or take tranquilizers while taking prescription pain medications Do not take medicine that has not been prescribed by your provider Avoid anti-inflammatories such as Ibuprofen or Aleve If none of the above solutions help, contact your surgeon as needed. Prescription Pain Medication: When at home, alternate Tylenol and narcotic medications like oxycodone, hydrocodone, etc for better control of breakthrough pain. Alternating between the two medications helps with pain coverage forbreakthrough pain. Do not drink alcohol while taking prescription pain medicine. Do not drive any motor vehicles while taking prescription pain medicines or any medicines that makeyou sleepy. Take the medicine at the time of the day when you most often feel pain. This may be: when you wake up in the morning, before you start certain activities, or when you are ready for bed. Be sure to call your surgeon for refills at least 48 hours prior to need (prescription pain medications may need more time). MEDICATIONS cannot be refilled after 4:00 p.m. during the week, on weekends or holidays. Anti-inflammatory Medications (ie NSAIDs, Ibuprofen, Advil, Naproxen, Aleve): Typically we like to limit the use of these medications in the beginning stages of fracture healing. Try to avoid these right after surgery unless otherwise instructed by the doctor. These medications can also increase your risk of bleeding if taken with blood thinners (ie Eliquis,Lovenox) Swelling, Discoloration, and Temperature Changes of the Foot: The body undergoes a hyperemic (increased blood flow) response to an injury and surgery. This is associated with color changes (red or purple), temperature changes, and edema (swelling), that can cause tension on the incision, skin, and soft tissue. Elevation can help reduce these symptoms. Make sure you have the foot higher than the knee and yourknee higher than your heart when elevating while laying flat on your back. Keep your heel floated or off the bed to prevent skin breakdown. Compression stockings or LUZ ELENA wrap worn during the day when you are moving around can help limit swelling and color changes. Make sure to take the compression stockings off at night while you sleep. Ice can be helpful as well. You can apply this over the splint or above/below the splint to exposedskin. Apply ice for 15-20 minutes at a time and then remove for at least 20-30 minutes. The cold constricts the blood vessels and decreases the hyperemic response. In more serious cases, blood clots can form. If you feel extreme pain in your calf with swelling that does not get better with elevation, call the office or hospital immediately. If you develop sudden chest pain or shortness of breath, go to the nearest emergency room. Continue the blood thinners as instructed. Home Health, Physical/Occupational Therapy: If home health or therapy orders are needed, please call the office and provide a fax number of the office or facility where the orders need to be sent. Paperwork: Please drop off paperwork, mail, or fax it to our office ([phone]) in advance so itcan be completed in a timely manner before the necessary deadline. FMLA, disability, and work paperwork is completed each Tuesday by the [employer]. Also, the doctor is only in the office one day a week to sign the paperwork. Medical records: Your medical records can be obtained by calling [phone] Fax number: [phone] Please contact our clinic at if you need to schedule or change an appointment or forany additional questions. After hours: [phone] - ask the electronic equipment set up operator for the On-Call Ortho Resident For medical emergencies, please call 911. Follow up Contact Information: [facility] Orthopedic Surgery office contact information: [facility] ([facility]) [address] [place] [address], [address] [place] [address] Visit our website at [email or web address] for information about our practice and an interactive health encyclopedia. Please visit [email or web address] to access your health record, ask questions, request medication refills, and request appointments for non-urgent needs after you have configured your [employer] account. If you do not currently have access, please contact one of our staff members or call [phone]. documented in this encounter Medications at Time of Discharge Medication Sig Dispensed Refills Start Date End Date acetaminophen (Tylenol) 500 MG tablet Take 2 (two) tablets by mouth every 6 hours for 60 days Maximum allowable Acetaminophen amount = 4 Grams (4000 mg) / 24 hours. 240 tablet 1 03/09/2024 aspirin EC (Ecotrin) 81 MG tablet Take 1 (one) tablet by mouth 2 times daily 100 tablet 03/09/2024 buPROPion SR 12hr (Wellbutrin-SR) 150 MG tablet Take 1 (one) tablet by mouth 2 times daily cyclobenzaprine (Flexeril) 10 MG tablet Take 1 (one) tablet by mouth 3 times daily as needed for Muscle Spasms 40 tablet 03/09/2024 oxyCODONE, immediate release, (Roxicodone) 5 MG tabletIndications:Cl osed fracture of left ankle, initial encounter,Fracture tibia/fibula, left, closed, initial encounter Take 1 (one) tablet by mouth every 4 hours as needed 40 tablet 03/09/2024 oxyCODONE, immediate release, (Roxicodone) 5 MG tabletIndications:Cl osed fracture of left ankle, initial encounter Take 1 (one) tablet by mouth every 6 hours as needed for Pain 40 tablet 03/09/2024 polyethylene glycol 3350 (MiraLax) 17 g packet Take 17 (seventeen) g by mouth once daily 03/09/2024 topiramate (Topamax) 100 MG tablet Take 1 (one) tablet by mouth 2 times daily vitamin D3 (Cholecalciferol) 25 MCG (1000 UNITS) tablet Take 1 (one) tablet by mouth once daily for 90 days 30 tablet 2 03/09/2024 06/07/2024 documented as of this encounter Progress Notes * Raine Proctor RN - 03/09/2024 11:07 AM CDT Problem: Pain/Discomfort Goal: Patient exhibits reduced pain/discomfort as evidenced by pain scores Outcome: Progressing Goal: Patient uses pharmacological and non-pharmacological pain management strategies. Outcome: Progressing Goal: Patient verbalizes acceptable level of pain relief and ability to engage in desired activity. Outcome: Progressing Problem: Fall Risk Goal: Fall risk and fall related injury risk are minimized (interventions related to the fall risk can be found in the flowsheet documentation) Outcome: Progressing Problem: Skin Integrity Goal: Skin integrity is maintained or improved Outcome: Progressing Problem: Balance Goal: LTG - Patient will maintain balance to allow for safe mobility Outcome: Progressing * Greg Medrano MD - 03/09/2024 5:50 AM CDT [facility] Orthopedic Surgery Progress Note Admit Date: 03/05/2024 11:26 PM March 09, 2024 Subjective Patient seen and examined on rounds this am. No acute ortho events overnight. Pain controlled. Patient amenable to discharge today. Data BP 132/81 (BP Location: Right arm, Patient Position: Lying) Pulse 72 Temp 98 ??F (36.7 ??C) (Oral) Resp 16 Ht 1.651 m (5' 5 ) Wt 83 kg (183 lb) SpO2 97% Temp (24hrs), Av.1 ??F (36.7 ??C), Min:97.9 ??F (36.6 ??C), Max:98.3 ??F (36.8 ??C) Labs Recent Labs Component Name 03/09/24 0253 03/08/24 0241 WBC 5.5 7.3 HGB 8.9* 9.8* HCT 28.2* 30.0* PLTCOUNT 230 270 Recent Labs Component Name 03/07/24 0241 03/06/24 0100 NA 140 138 POTASSIUM 3.9 3.6 CL 106 107 CO2 25 22 BUN 12 12 CREATININE 1.04* 0.97* GLUCOSE 101* 132* Recent Labs Component Name 03/06/24 0236 03/06/24 0100 INR 1.0 1.0 Physical Exam General appearance: No distress, responsive Left lower extremity: Able to flex/extend great toe, able to plantarflex/dorsiflex ankle, Sensationintact distally, Toes warm, well perfused. Assessment/Plan Patient Active Problem List: Fall Fracture tibia/fibula, left, closed, initial encounter Syncope and collapse Closed fracture of left ankle, initial encounter Ground-level fall Serenity Yang is a 43 year old female with the following diagnoses: #Left distal third tibia fracture #Left medial malleolus fracture - s/p Left tibia IMN and left medial malleolus CRPP No further acute orthopaedic surgery interventions this admission planned WBAT LLE in ACB PT/OT Pain Control Bowel regimen Hospital DVT Prophylaxis: Lovenox Anticoagulation plan at discharge: 35 days of DVT chemoprophylaxis Dispo: plan for discharge home today Will continue to follow, please page with questions. DO NOT USE [employer] Secure Chat. Greg Medrano MD 5:50 AM 03/09/2024 * Dipti Askew RN - 03/08/2024 9:11 PM CDT Problem: Pain/Discomfort Goal: Patient exhibits reduced pain/discomfort as evidenced by pain scores Outcome: Progressing Goal: Patient uses pharmacological and non-pharmacological pain management strategies. Outcome: Progressing Goal: Patient verbalizes acceptable level of pain relief and ability to engage in desired activity. Outcome: Progressing Problem: Fall Risk Goal: Fall risk and fall related injury risk are minimized (interventions related to the fall risk can be found in the flowsheet documentation) Outcome: Progressing Problem: Skin Integrity Goal: Skin integrity is maintained or improved Outcome: Progressing Problem: Balance Goal: LTG - Patient will maintain balance to allow for safe mobility Outcome: Progressing * Racheal Ruiz RN - 03/08/2024 2:13 PM CDT Care Coordination Progress Note Expected Discharge Date: 03/09/2024 Discharge Plan: PT recommends patient can discharge home with no further services. Christa wheeled walker delivered to patients room. Family to transport. Family Support (Name and Phone): Extended Emergency Contact Information Primary Emergency Contact: tony yang Mobile Relation: Spouse Agricultural Consultant needed? No Transportation at Discharge: Family: READMISSION RISK SCORE is N/A at 2:14 PM 03/08/2024.: Name: Racheal Ruiz RN * Raine Proctor RN - 03/08/2024 1:13 PM CDT Problem: Pain/Discomfort Goal: Patient exhibits reduced pain/discomfort as evidenced by pain scores Outcome: Progressing Goal: Patient uses pharmacological and non-pharmacological pain management strategies. Outcome: Progressing Goal: Patient verbalizes acceptable level of pain relief and ability to engage in desired activity. Outcome: Progressing Problem: Fall Risk Goal: Fall risk and fall related injury risk are minimized (interventions related to the fall risk can be found in the flowsheet documentation) Outcome: Progressing Problem: Skin Integrity Goal: Skin integrity is maintained or improved Outcome: Progressing Problem: Balance Goal: LTG - Patient will maintain balance to allow for safe mobility Outcome: Progressing * Margie Magana OT - 03/08/2024 9:14 AM CDT [facility] Physical Medicine and Rehabilitation Occupational Therapy Initial Evaluation Note Patient: Serenity Yang Med Record Number: [id number] Date of : 1980 Age: [age] year old PPE worn by staff: gloves;mask - procedural Tech: no Recommendations: Discharge OT Discharge Recommendations: Patient may return home without the need for ongoing skilled therapy services post-hospitalization Acute OT needs addressed and adequate for discharge from hospital: Yes In addition to the 1:1 evaluation of the patient, additional eval time was spent completing the chart review prior to the assessment, completing the multidisciplinary plan of care and education plan post evaluation and communicating results of the eval to other treatment team members. Nurse contacted regarding patient status and/or discharge plan. Physician Orders: Evaluation and Treat Activity Level: as tolerated PRECAUTIONS: Weight Bearing Status: (WBAT LLE in ACB) DIAGNOSIS: Patient Active Problem List: Fall Fracture tibia/fibula, left, closed, initial encounter Syncope and collapse Closed fracture of left ankle, initial encounter Ground-level fall Past Medical History: Diagnosis Date Basal cell carcinoma face and arm Diverticulitis Humerus fracture Right arm MDD (major depressive disorder) SUBJECTIVE: Subjective: Pt agreeable PATIENT GOALS: pain to get better Home Situation: Type of Residence: Private Residence Living arrangement: Spouse/Significant Other Steps to Enter: 1 Home Structure: Two Story Primary Bathroom: Second Floor Bathroom : Walk in Shower Equipment at Home: None Prior Level of Functioning: Mobility: Ambulate-In Community;Independent;Driving Fallen Within 6 Mos: 1 Have Help at Home?: Yes, there is help at home now Who assists you at home?: Friends/Family Level of Help Sufficient?: Yes Oxygen at Home: No Activity at Home: Active;Driving Vision: No impairment Hearing Exceptions: No impairment Who manages medications?: self Pain Assessment: Pain Location #1 Pain Scale/Observation: Numeric (0-10) Pain Rating Score #1: 7 Sedation Level #1: 1-Awake and alert Non-pharmacological interventions: Elevated;Reposition OBJECTIVE: At start of therapy session, patient found standing in room with walker General Appearance: alert LDA: Floor: IVs: Peripheral line Edema: No edema noted Vitals: (*Assess the 3 levels of oxygen saturations both for room air and 02 unless rest on room air is 88% or less). NAD, no c/o dizziness Mental Status/Cognition: Level of Consciousness-Adult: Alert;Eyes Open Spontaneously Orientation Level: Oriented X4 Cognition: Follows Commands-Consistent;Attention/concentration-normal for age;Processing-Appropriate UE ROM: RUE: AROM WFL LUE: AROM WFL Strength: RUE: WFL LUE: WFL UE Tone RUE: no abnormal tone noted LUE: no abnormal tone noted Coordination: intact serial opposition for bilateral hands UE Proprioception RUE: WFL LUE: WFL UE Sensation RUE: intact, no complaints of numbness or tingling LUE: intact, no complaints of numbness or tingling Perception: Inattention/Neglect: Appears intact Visual Motor Tracking: Able to track stimulus in all quads w/o difficulty Mobility: A gait belt and non-slip socks were used for all out of bed activity this date. Bed Mobility: Supine to Sit: Activity Does Not Occur (Pt ambulating in room upon arrival.) Transfers: Sit to Stand: Modified [place] Stand to Sit: Modified [place] Toilet Transfers: Modified [place] Transfer Device: Gait belt;Walker-2 Wheeled Functional Ambulation: Patient ambulated in room with modified independent using 2 wheeled walker. Balance: Sitting - Static: Good Sitting - Dynamic: Good Standing - Static: Good Standing - Dynamic: Good Activities of Daily Living Feeding: Complete [place] Oral Facial Hygiene: Complete [place] Upper Body Dressing: Complete [place] Lower Body Dressing: Modified [place] (educated pt on hemidressing techniques, technique for doffing/donning ACB) Toileting: Complete [place] Splint Issued/Checked: none ACTIVITY TOLERANCE: Activity Tolerance: Tolerates ADLs without rest breaks AM-PAC 6 Clicks Daily Activity Raw Score:: 24 TREATMENT / EDUCATION / INTERVENTIONS: While performing OT, Patient was instructed in:functional mobility training, self-care training, weight bearing status, energy conservation, safety awareness/fall precautions , use of adaptive equipment, discharge planning, use of call light Presented to patient who demonstrates Good understanding of instructions given. INFORMED CONSENT TO TREATMENT: Plan of care not given secondary to pt is at baseline with ADL's/mobility. ASSESSMENT: Patient demonstrated independence/ baseline with activities of daily living. No continued IP Occupational Therapy indicated at this time. Plan: DC patient from skilled therapy services at this time. If patient is discharged from the facility, this note serves as a discharge summary if further occupational therapy visits did not occur. Refer to filed flowsheet for further details. Following therapy session, patient left in patient bedside chair , with call light within reach. * Greg Oconnell, PT - 03/08/2024 9:06 AM CDT [facility] Physical Medicine and Rehabilitation Physical Therapy Initial Evaluation Note Patient: Serenity Yang Med Record Number: [id number] Date of : 1980 Age: [age] year old PPE worn by staff: gloves;mask - procedural PPE worn by patient: gown - patient, clean;socks - clean Tech: no Recommendations: Discharge PT Discharge Recommendations: Patient would benefit from OP Therapy: PT In addition to the 1:1 evaluation of the patient, additional eval time was spent completing the chart review prior to the assessment, completing the multidisciplinary plan of care and education plan post evaluation and communicating results of the eval to other treatment team members. Patient currently using Wheeled Walker and needs equipment if d/c home. Nurse and Occupational Therapist contacted regarding patient status and/or discharge plan. Physician Orders: Evaluation and Treat PRECAUTIONS: Weight Bearing Status: (WBAT LLE in ACB) Activity Level: Activity as Tolerated DIAGNOSIS: Patient Active Problem List: Fall Fracture tibia/fibula, left, closed, initial encounter Syncope and collapse Closed fracture of left ankle, initial encounter Ground-level fall Past Medical History: Diagnosis Date Basal cell carcinoma face and arm Diverticulitis Humerus fracture Right arm MDD (major depressive disorder) SUBJECTIVE: Subjective: Pt agreeable with therapy PATIENT GOALS: Patient's Primary Concern: Getting better Home Situation: Type of Residence: Private Residence Living arrangement: Spouse/Significant Other Steps to Enter: 1 Handrails: Indoor Home Structure: Two Story Primary Bathroom: Second Floor (has one one on the main level) Bathroom : Walk in Shower (has one one on the main level) Equipment at Home: None Prior Level of Functioning: Prior Level of Function Mobility: Ambulate-In Community;Independent;Driving Fallen Within 6 Mos: 1 Have Help at Home?: Yes, there is help at home now Who assists you at home?: Friends/Family Level of Help Sufficient?: Yes Oxygen at Home: No Activity at Home: Active Vision: No impairment Hearing Exceptions: No impairment Who manages medications?: self Pain Assessment: Pain Location #1 Pain Scale/Observation: Numeric (0-10) Pain Rating Score #1: 7 Sedation Level #1: 1-Awake and alert Pain Location : Leg Pain Orientation: Left OBJECTIVE: At start of therapy session, patient found in bed. General Appearance: 43 y/o female supine in bed NAD LDAs: Floor: IVs: Peripheral line Edema: edema noted in left lower extremity although covered in bulky dressing Vitals: (*Assess the 3 levels of oxygen saturations both for room air and 02 unless rest on room air is 88% or less). Rest BP: 114/76 HR: 103 Sp02 Sp02 98 Room Air L O2 Observations: No s/s of distress Mental Status/Cognition: Level of Consciousness-Adult: Alert Orientation Level: Oriented X4 Cognition: Follows Commands-Consistent Attention Span: Appears intact Memory: Appears intact Following Commands: Follows all commands and directions without difficulty Safety Judgement: Good awareness of safety precautions Awareness of Errors: Decreased awareness of deficits Problem Solving: Assistance required to generate solutions ROM: RLE: AROM WFL LLE: AROM WFL, limited by bulky dressing Strength: RLE:WFL LLE: deficits noted, 2/2 increased pain Tone: RLE: no abnormal tone noted LLE: no abnormal tone noted Sensation: RLE: no complaints of numbness or tingling LLE: no complaints of numbness or tingling Mobility: A gait belt and non-slip socks were used for all out of bed activity this date. Bed Mobility: Supine to Sit: Complete [place] with HOB in semi-fowlers position Transfers: Sit to Stand: Complete [place] Stand to Sit: Complete [place] Gait: Weight Bearing Status: (WBAT LLE in ACB) Distance Ambulated (ft): 60 FEET Ambulation: Assistive Device: Gait Belt;Walker-2 Wheeled Ambulation: Level of Assistance: Complete [place] Ambulation: Gait Deviations: Diana - Decreased;Step Length - Decreased;Antalgic Stairs: Number: 1 (using step stool in room) Stairs: Assistive Device: Walker-2 Wheeled;Gait Belt Stairs: Use of Rails: Right Balance: Balance Scales/Tests Used: Sitting: Static/Dynamic;Standing: Static/Dynamic Sitting - Static: Good Sitting - Dynamic: Good Standing - Static: Good -;With Both Upper Extremity's Support Standing - Dynamic: Good -;With Both Upper Extremity's Support ACTIVITY TOLERANCE: Patient's activity tolerance: good TREATMENT/INTERVENTIONS: evaluation AM-PAC 6 Clicks Mobility Raw Score:: 23 EDUCATION: While performing PT, Patient was instructed in:functional mobility training, energy conservation, safety awareness/fall precautions Presented to patient who demonstrates Good understanding of instructions given. INFORMED CONSENT TO TREATMENT: Plan of care including recommended therapy, goals and frequency, discussed with patient who understands and agrees to proceed. ASSESSMENT: Patient demonstrates independence with mobility/exercise. No continued Physical Therapy indicated at this time. Equipment Issued: gait belt and assistive device Plan: Discontinue IP PT If patient is discharged from the facility, this note serves as a discharge summary if further physical therapy visits did not occur. Refer to filed flowsheet for further details. Following therapy session, patient left in patient bedside chair , with call light within reach, with RN, Raine aware. * Greg Medrano MD - 03/08/2024 5:06 AM CDT [facility] Orthopedic Surgery Progress Note Admit Date: 03/05/2024 11:26 PM March 08, 2024 Subjective Patient seen and examined on rounds this am. No acute ortho events overnight. Pain controlled. Data BP 113/69 (BP Location: Left arm, Patient Position: Lying) Pulse 85 Temp 97.9 ??F (36.6 ??C) (Oral) Resp 19 Ht 1.651 m (5' 5 ) Wt 83 kg (183 lb) SpO2 99% Temp (24hrs), Av ??F (36.7 ??C), Min:97.9 ??F (36.6 ??C), Max:98.2 ??F (36.8 ??C) Labs Recent Labs Component Name 03/08/2424003/07/24240 WBC 7.3 6.5 HGB 9.8* 10.4* HCT 30.0* 31.4* PLTCOUNT 270 264 Recent Labs Component Name 03/07/24 0241 03/06/24 0100 NA 140 138 POTASSIUM 3.9 3.6 CL 106 107 CO2 25 22 BUN 12 12 CREATININE 1.04* 0.97* GLUCOSE 101* 132* Recent Labs Component Name 03/06/24 0236 03/06/24 0100 INR 1.0 1.0 Physical Exam General appearance: No distress, responsive Left lower extremity: Able to flex/extend great toe, able to plantarflex/dorsiflex ankle, Sensationintact distally, Toes warm, well perfused. Assessment/Plan Patient Active Problem List: Fall Fracture tibia/fibula, left, closed, initial encounter Syncope and collapse Closed fracture of left ankle, initial encounter Ground-level fall Serenity Yang is a 43 year old female with the following diagnoses: #Left distal third tibia fracture #Left medial malleolus fracture - s/p Left tibia IMN and left medial malleolus CRPP No further acute orthopaedic surgery interventions this admission planned WBAT LLE in ACB PT/OT Pain Control Bowel regimen Hospital DVT Prophylaxis: Lovenox Anticoagulation plan at discharge: 35 days of DVT chemoprophylaxis Dispo: pending PT/OT Will continue to follow, please page with questions. DO NOT USE [employer] Secure Chat. Greg Medrano MD 5:07 AM 03/08/2024 * Dipti Askew RN - 03/07/2024 8:53 PM CDT Problem: Pain/Discomfort Goal: Patient exhibits reduced pain/discomfort as evidenced by pain scores Outcome: Progressing Goal: Patient uses pharmacological and non-pharmacological pain management strategies. Outcome: Progressing Goal: Patient verbalizes acceptable level of pain relief and ability to engage in desired activity. Outcome: Progressing Problem: Fall Risk Goal: Fall risk and fall related injury risk are minimized (interventions related to the fall risk can be found in the flowsheet documentation) Outcome: Progressing Problem: Skin Integrity Goal: Skin integrity is maintained or improved Outcome: Progressing * Darrin Mendez - 03/07/2024 8:30 PM CDT Pt arrived from PACU to 534. VSS on RA. LLE air cast boot removed with LLE in elevation pillow. [place] provided. Pt resting comfortably. * Abdulkadir Guardado MD - 03/07/2024 5:53 PM CDT Orthopedic Surgery Postoperative Check Serenity Yang, 43 year old, female : 1980 CSN: [id number] Admitted: 03/05/2024 11:26 PM Subjective Nausea/vomiting: none Pain: controlled Patient stable and resting in post-anesthesia care unit Post-op check regarding: Procedure Performed: Procedure(s): INTRAMEDULLARY (IM) NAILING TIBIA Surgery Date: 03/07/2024 Vitals: Patient Vitals for the past 6 hrs: Temp Pulse Resp BP 03/07/24 1445 -- 79 16 118/82 03/07/24 1430 98.2 ??F (36.8 ??C) 85 17 125/85 Physical Exam General appearance: Awake, cooperative, and NAD LLE -Appearance: dressings c/d/i -ROM: immobilized in boot -Motor: flickers EHL/FHL, flickers lesser toes -Sensation: SILT over toes, states feels a little more normal than before surgery -Vascular: brisk capillary refill, toes warm and well perfused Assessment/Plan Patient is a 43 year old, female with left tibia and medial malleolus fracture - s/p: IMN L tibia with medial malleolus percutaneous fixation Patient transferred to the PACU in stable condition. Patient will be transferred to the floor Antibiotics- Ancef 2mg q8 for 24 hours Weight-bearing/Activity/Brace Status: WBAT LLE in ACB DVT Prophylaxis: SCD's today. OK for DVT chemoprophylaxis and recommend starting as soon as medically able if not already started Diet: regular Drains- None PT/OT Pain Control Imaging: no additional needed Please page OrthoTrauma with any questions or concerns Abdulkadir Guardado MD 03/07/2024 5:53 PM * Racheal Ruiz RN - 03/07/2024 3:08 PM CDT Care Coordination Initial Assessment Expected Discharge Date: 03/09/2024 Expected Discharge Disposition: Home or Self Care Transportation at Discharge: Family Prior Level of Care: Home Prior to Admit Provider: Deena Lui Comments: 43 year old female who presented to [facility] on 03/05/2024. Patient presents with a left tibia-fibula fracture after a ground-level fall. Patient having surgery today with ortho. Patient is from home with her . She reports that she is independent of all cares. Will await for PT/OT recom mendations following surgery to determine discharge plans. CM to follow. Lives with: Spouse/Significant Other Physical Limitations: None Requires Assistance With: None Preferred Pharmacy: [facility] [address] [id number] READMISSION RISK SCORE is N/A at 3:08 PM 03/07/2024. Met with patient Family Support (name and phone): Extended Emergency Contact Information Primary Emergency Contact: tony yang Mobile Relation: Spouse Agricultural Consultant needed? 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 theanine, carnitine, Mg). Stopped taking hydrochlorothiazide two months ago. see below for complete list. Allergies: None SocHx: 4-6 drinks a week Vapin cartridge every 2-3 weeks Smokes marijuana every 2-3 months FMH: Past Medical History: Diagnosis Date Basal cell carcinoma face and arm Diverticulitis Humerus fracture Right arm MDD (major depressive disorder) Past Surgical History: Procedure Laterality Date ADJUSTABLE GASTRIC BAND, LAP PLACEMENT Breast Augmentation Bilateral COLECTOMY PARTIAL OR HEMICOLECTOMY HUMERAL SHAFT FRACTURE, OPEN REPAIR Right No Known Allergies Outpatient Medications: buPROPion SR 12hr (Wellbutrin-SR) 150 MG tablet topiramate (Topamax) 100 MG tablet Inpatient Medications: Current Facility-Administered Medications Medication 0.9% NaCl injection 3 mL And 0.9% NaCl injection 1-10 mL HYDROmorphone (Dilaudid) injection 1 mg iopamidol (Isovue 370) 76 % contrast Current Outpatient Medications Medication buPROPion SR 12hr (Wellbutrin-SR) 150 MG tablet topiramate (Topamax) 100 MG tablet Social History Substance Use Topics Drug use: Yes Types: Marijuana No family history on file. Problem List/Present on Admission: Fracture tibia/fibula, left, closed, initial encounter (POA: Yes) Fall (POA: Yes) REVIEW OF SYSTEMS Constitutional: Negative for chills, fever and weight loss. HENT: Negative for congestion and sore throat. Eyes: Negative for blurred vision. Respiratory: Negative for cough and wheezing. Cardiovascular: Negative for chest pain and palpitations. Gastrointestinal: Negative for abdominal pain, heartburn, nausea and vomiting. Genitourinary: Negative for dysuria, frequency and urgency. Musculoskeletal: Positive for falls and myalgias (ankle). Skin: Negative for itching and rash. Neurological: Positive for dizziness and headaches. Negative for focal weakness and weakness. Psychiatric/Behavioral: Positive for depression. PHYSICAL EXAM Vitals: 03/06/24 0123 03/06/24 0233 03/06/24 0421 03/06/24 0614 BP: (!) 171/111 137/92 135/98 127/96 Pulse: 102 83 86 Resp: 19 18 Temp: SpO2: 99% 94% 96% 95% Weight: Height: Estimated body mass index is 27.88 kg/m?? as calculated from the following: Height as of this encounter: 1.651 m (5' 5 ). Weight as of this encounter: 76 kg (167 lb 8.8 oz). Physical Exam Constitutional: General: She is not in acute distress. HENT: Head: Normocephalic and atraumatic. Eyes: Conjunctiva/sclera: Conjunctivae normal. Pupils: Pupils are equal, round, and reactive to light. Cardiovascular: Rate and Rhythm: Normal rate and regular rhythm. Pulses: Normal pulses. Pulmonary: Effort: Pulmonary effort is normal. Breath sounds: Normal breath sounds. Abdominal: General: Bowel sounds are normal. Tenderness: There is no abdominal tenderness. Musculoskeletal: General: Swelling (L foot) present. Cervical back: No tenderness. Comments: L calf and ankle wrapped, able to move toes, toes warm Skin: Findings: No bruising (none visible) or lesion. Neurological: General: No focal deficit present. Mental Status: She is alert. Psychiatric: Mood and Affect: Mood normal. Thought Content: Thought content normal. Recent Labs: Results for orders placed or performed during the hospital encounter of 03/05/24 (from the past 24 hour(s)) CBC W AUTO DIFFERENTIAL Result Value Ref Range WBC 8.8 4.0 - 10.7 x10E9/L RBC Count 3.88 (L) 3.90 - 5.20 x10E12/L Hemoglobin 11.6 (L) 11.9 - 15.8 g/dL Hematocrit 34.0 (L) 34.8 - 46.1 % MCV 87.6 80.0 - 98.0 fL MCH 29.9 26.7 - 33.6 pg MCHC 34.1 31.7 - 36.3 g/dL RDW-CV 14.1 11.3 - 14.8 % Platelet Count 297 150 - 420 x10E9/L MPV 9.2 7.8 - 11.4 fL Neutrophil % 78.1 (H) 41.0 - 74.0 % Lymphocyte % 15.7 (L) 17.0 - 47.0 % Monocyte % 4.9 3.0 - 11.0 % Eosinophil % 0.6 0.0 - 7.0 % Basophil % 0.5 0.0 - 1.6 % Immature Granulocytes % 0.2 0.0 - 1.0 % Neutrophil Absolute 6.85 1.60 - 7.50 x10E9/L Lymphocyte Absolute 1.38 1.00 - 4.40 x10E9/L Monocyte Absolute 0.43 0.15 - 1.00 x10E9/L Eosinophil Absolute 0.05 0.00 - 0.60 x10E9/L Basophil Absolute 0.04 0.00 - 0.13 x10E9/L COMPREHENSIVE METABOLIC PANEL Result Value Ref Range BUN 12 7 - 26 mg/dL Creatinine 0.97 (H) 0.56 - 0.96 mg/dL Sodium 138 136 - 145 mmol/L Potassium 3.6 3.5 - 4.5 mmol/L Chloride 107 98 - 107 mmol/L CO2 22 22 - 29 mmol/L Glucose 132 (H) 70 - 99 mg/dL Calcium 8.9 8.4 - 10.2 mg/dL Protein Total 6.3 6.0 - 8.3 g/dL Albumin 3.6 3.4 - 5.0 g/dL Bilirubin Total 0.2 0.2 - 1.2 mg/dL Alkaline Phosphatase 63 40 - 150 U/L ALT 12 5 - 55 U/L AST 15 5 - 34 U/L Anion Gap 9 6 - 16 BUN/Creatinine Ratio 12 7 - 23 Osmolality Calculated 288 275 - 295 mOsm/kg Albumin/Globulin Ratio 1.3 1.1 - 2.3 eGFR by CKD-EPI 75 (L) >=90 mL/min/1.73 m2 PT-INR [facility] Result Value Ref Range PT 12.3 12.1 - 14.8 Seconds INR 1.0 See Comment TYPE + SCREEN PANEL Result Value Ref Range Antibody Screen NEG ABO Rh A POS PTT [facility] Result Value Ref Range APTT 25.6 23.0 - 38.4 Seconds ALCOHOL ETHYL BLOOD Result Value Ref Range Ethanol (mg/dL) <10 <10 mg/dL Ethanol Calculated (g/dL) <0.010 <=0.010 g/dL PT-INR [facility] Result Value Ref Range PT 12.7 12.1 - 14.8 Seconds INR 1.0 See Comment PTT [facility] Result Value Ref Range APTT 26.0 23.0 - 38.4 Seconds BLOOD TYPE VERIFICATION Result Value Ref Range ABO Rh A POS Imaging: XR Left Tibia/Fibula: Splint material obscures osseous and soft tissue detail. Redemonstrated acutemoderately displaced comminuted fracture of the distal tibia and fibula with extension into the tibial plafond. Alignment appears relatively unchanged from prior exam. CT Head/C Spine/T Spine/L Spine: No acute intracranial process. No evidence of acute fracture in the cervical, thoracic, or lumbar spine. CT Chest/Abdomen/Pelvis: No acute visceral, vascular, or osseus injury identified in the chest, abdomen, or pelvis. Postoperative changes of partial colectomy with surgical anastomosis within the region of the sigmoid colon. Postoperative changes of gastric banding are seen. CT Left Ankle: Redemonstration of moderately displaced mildly comminuted distal fibular and tibial fractures with posterior displacement and angulation of the apex fragments relative to the proximal fragments. There is extension of the distal tibial fracture into the tibial plafond. Assessment and Plan: Serenity Yang is a 43 year old female with closed fractures of the left tibia and fibula secondary to a ground level fall. Ortho is planning for operative intervention on this admission. No additionalinjuries found on trauma workup. - Recommend admission to orthopedic surgery - Trauma will perform tertiary exam during this admission - Please page trauma with questions or concerns Darwin Perze MD 03/06/2024 6:24 AM Associated attestation - Salvatore Nobles MD - 03/07/2024 1:39 PM CDT Patient seen and examined with the residents and cooperage shop supervisor. Please see note for further details. Patient's lab values and radiology images noted in this report were personally reviewed by me with my interpretations as below, unless otherwise indicated. I confirm history, exam, assessment and plan, exceptwhere it may differ from my own as stated below. -Patient has an acute complicated injury/illness that poses threat to life or bodily function: Comminuted fracture of the L tibia and fibula -I reviewed prior notes from: Orthopedic team -I reviewed the results of these tests and their abnormal results were: CBC, BMP, Coags - Gl 132, HGB 11.6 -Subsequent tests ordered: ETOH level -Imaging reviewed by me personally and my interpretation is: Xray L ankle, knee, tib fib shows L tib fib fracture -Patient discussed with: EM team, ortho team -Patient with parenteral narcotics ordered, will monitor for side effects - Dilaudid IV -Plan: Management per orthopedic surgery, no concern for other major traumatic issues, will performtertiary trauma exam Salvatore Nobles MD * Abdelrahman Pandey MD - 03/05/2024 11:00 PM CDTAssociated Order(s): IP CONSULT TO ORTHOPEDIC SURGERY [facility] Orthopedic Trauma Surgery Consultation Note Serenity Yang, 43 year old, female : 1980 CSN: [id number] Admitted: 03/05/2024 11:26 PM Consulting Service: ED Consulting Physician: Dr. Garcia Primary Care Physician: No primary care provider on file. Time at Bedside: 23:00 Today's Date/Time: 03/06/2024 6:02 AM Chief Complaint Chief Complaint Patient presents with Fall PT BIBEMS for a fall from standing. Per EMS pt was smoking marijuana, feeling dizzy and fell. Pt presents with pain to LLE, complaining of pain in ankle. Pulses and sensation intact, motor reduced 2/2 pain. Pt received 100mcg fent en route. History Serenity Yang is a 43 year old female who presented to [facility] on 03/05/2024. Patient presents with a left tibia-fibula fracture after a ground-level fall. Patient was smoking marijuana earlier today andfelt lightheaded and resulted in twisting her leg. Patient remains neurovascularly intact distally. Vitals Blood pressure 135/98, pulse 83, temperature 98.6 ??F (37 ??C), temperature source Temporal, resp. rate 19, height 1.651 m (5' 5 ), weight 76 kg (167 lb 8.8 oz), SpO2 96%. Labs Lab results smartLinks are not currently available Lab results smartLinks are not currently available PMHx Past Medical History: Diagnosis Date Basal cell carcinoma face and arm Diverticulitis Humerus fracture Right arm MDD (major depressive disorder) PSHx Past Surgical History: Procedure Laterality Date ADJUSTABLE GASTRIC BAND, LAP PLACEMENT Breast Augmentation Bilateral COLECTOMY PARTIAL OR HEMICOLECTOMY HUMERAL SHAFT FRACTURE, OPEN REPAIR Right Social Hx Social History Tobacco Use Smoking status: Not on file Smokeless tobacco: Not on file Substance Use Topics Alcohol use: Not on file Family Hx family history is not on file. Allergies No Known Allergies Medications Current Facility-Administered Medications Medication 0.9% NaCl injection 3 mL And 0.9% NaCl injection 1-10 mL HYDROmorphone (Dilaudid) injection 1 mg iopamidol (Isovue 370) 76 % contrast Current Outpatient Medications Medication buPROPion SR 12hr (Wellbutrin-SR) 150 MG tablet topiramate (Topamax) 100 MG tablet Review of Systems A 12 point review of systems was performed and was negative except for what was mentioned in the HPI Physical Exam General: Awake, cooperative, in no acute distress. CV: Regular rate. Pulm: No audible wheezing, no use of accessory muscles Abd: soft, nontender, nondistended Musculoskeletal: LLE -Inspection: skin intact, compartments soft/compressible -Tenderness: located at the tibia and ankle -ROM: nontender to passive range of motion of hip, knee, ankle, foot. Negative log roll. Negative axial load. No crepitation -Motor: Fires EHL/FHL/Gastroc/TA. Holds SLR -Sensation: in tact to light touch in DP/SP/Sural/Saphenous/Tibial nerve distributions -Vascular: 2+ DP/ PT pulse with toes warm and well perfused Imaging - Left tibia xrays demonstrates a distal one third tibia and fibular shaft fracture. -CT scan redemonstrates the distal one third tibia and fibular shaft fracture with extension into the medial malleolus. There is a vertical split of the medial malleolus that is nondisplaced - Please see separate radiographic report for formal read by Radiology Procedure Note - Left tibia closed reduction and splinting please see separate procedure note Assessment/Plan: 43 year old female with left tibia and fibula fracture, and medial malleolus fracture -s/p syncopal fall Weight bearing: NWB LLE Diet: NPO Anticoagulation: Please start when medically able Left tibia reduction performed in ED. The patient remained motor and neuro intact following reduction and reported interval resoltuion of pain Left short leg splint applied in ED Pain Control Bowel Regimen PT/OT when able To OR for left tibia IMN and ORIF. The risks and benefits of operative intervention were explained to the patient is a straightforwardmanner. All non-surgical treatment options were also explained to the patient. All questions were answered and explained in manner that was understood by the patient. The patient is aware of the riskand benefits of surgery, which include, but are not limited to: infection, bleeding, blood clots, damage to tendon, vessel, or nerve, and anesthesia complications, including . The patient agreedto proceed with surgical intervention. Informed consent was signed and obtained. Bone health: Please check vitamin D level for all fracture patients If <12 ng/mL, recommend 25,000 to 50,000 units PO once weekly x8 weeks, followed by 800units daily after 9 weeks. Recommend PCP re-evaluation at 6-8 weeks If 12-19 ng/mL, recommend 1000 units daily while inpatient. Please discharge on 800-1000 units PO daily x3 months. Recommend PCP re-check at 3 months. If 20-30 ng/mL, recommend 1000 units PO daily. Please discharge on 600-800 units PO daily x3 months. Recommend PCP re-check at 3 months. For patients <70 y/o: If vitamin D level is normal, recommend 500 units daily while inpatient. Recommend discharge on Vit D3 500-600 units daily. For patients >70 y/o: If vitamin D level is normal, recommend 500 units daily while inpatient. Recommend discharge Vit D3 800 units daily. Will discuss this patient with cotton stomper physician Dr. aGrcia and update plan accordingly. Please pageOrtho Trauma with any questions or concerns. Abdelrahman Pandey MD 03/06/2024 6:02 AM Orthopaedic Surgery [facility] Medicine, Level I-Orthopaedic Surgery [address] [place] [address] Visit our website at [email or web address] for information about our practice and an interactive health encyclopedia. Please visit [email or web address] to access your health record, ask questions, request medication refills, and request appointments for non-urgent needs after you have configured your [employer] account. If you do not currently have access, please contact one of our staff members or call [phone]. For after hour emergencies, please call and press 0 for the electronic equipment set up operator in order to page the orthopedic resident cotton stomper. documented in this encounter OR Notes * Brief Op Note - Abdulkadir Guardado MD - 03/07/2024 5:51 PM CDT Brief Op Note Procedure: INTRAMEDULLARY (IM) NAILING TIBIA - LEFT Patient Name: Serenity Yang Date of Service: 03/07/2024 Pre-Op Diagnosis: LEFT DISTAL TIBIA/FIBULA FRACTURE Post-Op Diagnosis: same as above Surgeons and Role: * Manuel Resendiz DO - Primary * Abdulkadir Guardado MD - Resident - Assisting * Benny Jones MD - Fellow Repair Mechanic(s): Derik Stack MS4 Anesthesia Type: general ETT Complications: none Findings: distal third tibia shaft fracture with medial malleolus component amendable to medial mallag screw x2 and Intramedullary nail EBL: blood loss of 150 ml Urine Output : not recorded IV Fluid Intake: per anesthesia record Drains: * No LDAs found * Specimen(s): * No specimens in log * Implant(s): Implant Name Type Inv. Item Serial No. [employer] Lot No. LRB No. Used Action Screw 2.7Mm 5Mm 30Mm T8 Slf-Tap Strdr Screw 2.7Mm 5Mm 30Mm T8 Slf-Tap Strdr [employer] [facility] Left 1 Implanted Screw 2.7Mm 5Mm 32Mm T8 Slf-Tap Strdr Screw 2.7Mm 5Mm 32Mm T8 Slf-Tap Strdr [employer] [facility] Left 1 Implanted Nail Im 9Mm 345Mm Xprt Tib Cornell Prox Bnd Nail Im 9Mm 345Mm Xprt Tib Cornell Prox Bnd [employer] [facility] [id number] Left 1 Implanted Abdulkadir Guardado MD * Operative - Manuel Resendiz DO - 03/07/2024 4:02 PM CDT Intramedullary Nail Tibia Procedure Note Name: Serenity Yang Date of Service: 03/07/2024 [facility] #: [id number] Pre-operative Diagnosis: left Tibial shaft fracture Left medial malleolus fracture Post-operative Diagnosis: left Tibial shaft fracture Left medial malleolus fracture Procedure: left tibia intramedullary nailing (CPT: 14115) Open duction internal fixation left medial malleolus (CPT: 77824) Surgeon: Manuel Resendiz DO Repair Mechanic: Karen PGY 6 Estimated Blood Loss: less than 100 ml Total IV Fluids: see anesthesia Complications: None Disposition: PACU - hemodynamically stable. Condition: stable Findings: See below dictation Procedure Details On 03/07/2024, the patient was transferred to the preoperative area. There he was evaluated by the Anesthesia Department. Once evaluation was complete, the patient was transferred to the OR. Once in the OR, general anesthetic was administered, and an ET tube was placed. Once the ET tube was in place, the patient was placed in a supine position on a diving board radiolucent table. Once in position, the right lower extremity was elevated on a bone foam wedge and the right lower extremity was prepped and draped in sterile fashion. Once the prep and drape were complete, a time-out was performed to ensure that the entire operating team was in agreement on the correct procedure, correct extremity, and any anticipated complications. With a timeout complete we did initially want to stabilize the medial malleolus fracture that was distal to the tibial shaft fracture. Overall alignment was maintained in good position and 2 separate2.7 mm lag screws were placed through percutaneous stab incisions from medial to lateral. 1 was placed in the anterior third of the medial malleolus and 1 in the posterior third of the medial malleolus. These were placed by making soft small percutaneous incisions and then over drilling the near cortex with a 2 7 drill bit and then drilling the far cortex with a 2.0 mm drill bit. Pass were then subsequently measured and 2.7 millimeter screws were hand tightened down to position to stabilize themedial malleolus fracture. Once this was complete we then turned our attention to placement of the tibial nail. Once the time-out was complete reduction of the tibial shaft was held and maintained and we turned our attention to approach for a suprapatellar nailing. An incision was drawn out from the superior pole of the patella proximally about 5-6 cm directly in the midline. A 10-blade knife was used to make the skin incision. Bovie cautery was used to dissect through the subcutaneous fat down to the quadriceps tendon. Once we encountered quadriceps, the tendon was split in line with its fibers directlymidline with a 10-blade knife and this allowed direct access into the intraarticular portion of theleft knee. With blunt finger dissection, we were able to palpate down the trochlear groove to the starting position on the proximal tibia. The [employer]ynthes suprapatellar nail instrumentation was then introduced through the trochlear groove down directly onto the starting position on the proximal tibia. The starting position on the proximal tibia was confirmed with C-arm fluoroscopy. Once we were happywith the trajectory, the guide pin was introduced into the proximal portion of the tibia. The starting position and the guide pin were confirmed on AP and lateral C-arm fluoroscopy, and then once we were happy with it, the opening reamer was introduced through the cannulated suprapatellar sleeve and the proximal tibial starting position as well as the metaphysis was reamed out. The hardware was then subsequently removed with the exception of the soft tissue sleeve in the trochlear groove, and aball-tip guidewire was then advanced down in the center-center position across the fracture site into the distal tibia at the level of the physeal scar. This was then measured, which measured, and weopted for a 345 mm length nail. We then we subsequently reamed with the reamer starting an 8.5 up to a size 10.5 mm reamer, where we did get good cortical chatter, so we opted for a 9 mm X 345 mm Synthes nail. This was opened and attached to the jig and then in cannulated fashion was advanced down with light mallet taps across the fracture to a well- seated position within the distal tibia at the level of the physeal scar. The position was confirmed with AP and lateral C-arm fluoroscopy as well as the reduction of the fracture. Once the nail was down into place, utilizing a perfect [place] technique, 2 medial to lateral distalinterlocking screws were placed through separate percutaneous stab incision. Perfect circles were obtained. Small incisions were made. Soft tissue was dissected away in the path where the screws weredrilled and measured, and the screws were subsequently placed. Their position within the nail was confirmed on lateral C-arm fluoroscopy as well as AP fluoroscopy. Once the distal interlocking screwswere in place, the jig was attached to the proximal portion of the handle of the nail and a single static interlocking screw was placed utilizing the jig and sleeves. Small separate percutaneous stab incision was made. The jig was advanced down onto the bone. The path was drilled, measured, and then the screw was placed. With distal interlocks in place and the proximal interlock in place, the fracture maintained its anatomic reduction and then all the other hardware was removed from the nail, and final C-arms were taken. Once the final C-arms were taken, the wound was copiously irrigated with normal saline as well as the intraarticular portion of the right knee was copiously irrigated. 0 Vicryl sutures were utilized to close the quadriceps tendon incision. Then 2-0 Vicryl sutures were used to close the subcutaneoustissue, and 3-0 nylon sutures were used to close the superficial skin incision of all the wounds. Xeroform, 4x4, cast padding, and then Luz Elena bandages were then used to dress the right lower extremity.Once the dressings were in place, drapes were taken down. Once the drapes were taken down, the patient was eventually transferred back to his hospital bed. He tolerated the procedure well. No complications were noted. Patient was transferred to the PACU in stable condition. Post-Operative Course The postoperative course for the patient will be patient will be weightbearing as tolerated on the left lower extremity. We are going to keep the patient here for the next 24 hours and patient will receive postoperative antibiotic prophylaxis. Patient will also receive postoperative DVT prophylaxisin the form of ASA for 21 days. Patient should be able to be discharged home after working with Physical Therapy tomorrow and will follow up with me in the office in approximately 2 weeks at which point we will reevaluate incisions. As long as everything appears well healed, the sutures will be removed at that time. documented in this encounter ED Notes * Farhan Arzate MD - 03/06/2024 4:16 PM CDT ASSUMED CARE NOTE Patient signed out to me by Dr. Ford at 3:00 PM. Briefly, Serenity Yang is a 43 year old female is being evaluated s/p fall. Pt has a left tib/fib fracture. Orthopedic Surgery will take the patient to the OR. At this time the patient's condition is Stable. Pt has been admitted to Orthopedic Surgery, pending bed availability. ED Course Pt has been taken to Ortho floor. Clinical Impression: 1. Closed fracture of left ankle, initial encounter 2. Ground-level fall 3. Syncope and collapse Disposition: Admit to Orthopedic Surgery By signing my name below, I, Maty Valentine, attest that this documentation has been prepared under the direction and in the presence of Dr. Arzate. Signed: Winsome Hennessy. I, Dr. Arzate, personally performed the services described in this documentation. All medical record entries made by the scribe were at my direction and in my presence. I have reviewed the chart andagree that the record reflects my personal performance and is accurate and complete. * Katlyn Olsen - 03/06/2024 8:19 AM CDT Pt assisted with bathroom. PureWick connected to suction. Pt asking for pain meds.Luna services manager will follow up with covering Attending. * Elvis Ford MD - 03/06/2024 7:48 AM CDT ASSUMED CARE NOTE Patient seen as a team with who has also contributed to this note. Patient signed out to me by Dr. Garcia at 7:48 AM. Briefly, Serenity Yang is a 43 year old female with a past medical history of basal cell carcinoma is being evaluated for left leg pain after falling. At this time the patient's condition is stable. Pending Trauma and Orthopedic recommendations for left tib fib fracture. Plan is likely admission. Vitals: 03/06/24 0123 03/06/24 0233 03/06/24 0421 03/06/24 0614 BP: (!) 171/111 137/92 135/98 127/96 Pulse: 102 83 86 Resp: 19 18 Temp: SpO2: 99% 94% 96% 95% Weight: Height: ED Course: ED Course as of 03/08/242044 Tue Mar 06, 2024 0705 Pending trauma vs ortho admission for L tib fib fx for OR CT L ANKLE: IMPRESSION: Redemonstration of moderately displaced mildly comminuted distal fibular and tibial fractures with posterior displacement and angulation of the apex fragments relative to the proximal fragments. There is extension of the distal tibial fracture into the tibial plafond. [AB] 0823 Redosing pain. [AB] 0854 Trauma recs ortho admissions. [AB] 0854 Paged ortho [AB] 0857 Admitted to ortho primary Dr. Garcia. [AB] ED Course User Index [AB] Radha Clayton MD Clinical Impressions as of 03/08/242044 Ground-level fall Closed fracture of left ankle, initial encounter Syncope and collapse Fracture tibia/fibula, left, closed, initial encounter Clinical Impression: 1. Closed fracture of left ankle, initial encounter 2. Ground-level fall 3. Syncope and collapse Disposition: Admit to Orthopedic Surgery By signing my name below, I, Karrie Fountain, attest that this documentation has been prepared under the direction and in the presence of Dr. Ford. Signed: Winsome De La Rosa. I, Dr. Ford, personally performed the services described in this documentation. All medical record entries made by the scribe were at my direction and in my presence. I have reviewed the chart and agree that the record reflects my personal performance and is accurate and complete. * Jv Garcia MD - 03/06/2024 1:42 AM CDT ASSUMED CARE NOTE Patient signed out to me by Dr. Martinez at 11:30 PM. Briefly, Serenity Yang is a 43 year old female is being evaluated for left leg pain after falling. Patient states that she was smoking marijuana and felt dizzy and fell to the ground at around 9 PM. At this time the patient's condition is Stable per previous team. Thus far, upon review of patient's xray imaging, patient xray shows mid shift tib fib fracture. Pending studies include CT imaging Plan is symptom control, ortho consult, and reassess Reassessment: 11:48 PM Reassessed the patient. Patient is resting comfortably with no new complaints. NAD. VSS. 12:02 AM Discussed all the pertinent aspects of the case with ortho who will see the patient for further assessment. 1:43 AM Ortho at bedside for patient care. BOB to at 7 AM. Patient status stable at this time, pending admission to ortho or trauma. Clinical Impression: 1. Ground-level fall Disposition: BOB to By signing my name below, I, Samanta Marcial, attest that this documentation has been prepared under the direction and in the presence of Dr. Garcia. Signed: Winsome Woody. I, Dr. Garcia, personally performed the services described in this documentation. All medical record entries made by the scribe were at my direction and in my presence. I have reviewed the chart and agree that the record reflects my personal performance and is accurate and complete. REPAIRER * Kerrie Rodriguez RN - 03/05/2024 11:26 PM CDT Bed: [facility] Expected date: Expected time: Means of arrival: Comments: Mary * Prachi Martinez MD - 03/05/2024 11:09 PM CDT ED Attending Note Serenity Hernandez is a 43 year old female presenting to the ED c/o left ankle pain. She smoked marijuanatonight and it seemed extra-strong, was dizzy walking and fell - heard a snap. She fell from standing, denies other injuries. No LOC, neck pain, rib/thorax pain, back pain, upper extremity injuries. PMH: borderline HTN (not on meds) PSH:none SH: vapes, occ ETOH and MJ , lives with No past medical history on file. No past surgical history on file. Social History Socioeconomic History Marital status: Not on file Spouse name: Not on file Number of children: Not on file Years of education: Not on file Highest education level: Not on file Occupational History Not on file Tobacco Use Smoking status: Not on file Smokeless tobacco: Not on file Substance and Sexual Activity Alcohol use: Not on file Drug use: Yes Types: Marijuana Sexual activity: Not on file Other Topics Concern Not on file Social History Narrative Not on file Social Determinants of Health Financial Resource Strain: Not on file Food Insecurity: Not on file Transportation Needs: Not on file Stress: Not on file Housing Stability: Not on file Review of Systems: Pertinent ROS as per HPI Vitals: 03/05/24 2255 BP: 138/97 Pulse: 77 Resp: 18 Temp: 98.6 ??F (37 ??C) SpO2: 98% Weight: 76 kg (167 lb 8.8 oz) Height: 1.651 m (5' 5 ) Exam: Constitutional: well developed, well nourished adult female, moderate distress HENT: no facial bony tenderness or scalp hematomas, moist oral mucosa Eyes: PERRL, EOMI, conjunctiva normal Neck: no posterior midline tenderness, FROM without pain, arrives not in C-collar Cardiovascular: regular rate and rhythm, no gallops, murmurs, or rubs Respiratory: no respiratory distress, clear to auscultation bilaterally Abdomen: positive bowel sounds, soft, non-tender, non-distended Back: no midline tenderness of thoracic or lumbar spine Musculoskeletal: abnormal findings limited to LLE - there is an abrasion on the knee but no patellar tenderness, joint effusion or tenderness at the head of the fibula. Moderate STS to distal lares with rotation at ankle. DP pulse intact. Skin: warm, dry, no rashes Neurological: awake, alert&OX3, CNI, sensation intact to light touch in all extremities, strength 5+/5 throughout Psychiatric: mood and affect normal Medical Decision Makin. LLE pain after GLF Differential diagnosis considered: Tib-fib fracture vs ankle fracture vs sprain vs other Low suspicion for other injuries Plan: Pain control, imaging, reassess Results: Labs Reviewed - No data to display No orders to display ED course: The patient's Oxygen Saturation Monitor was interpreted by me. The reading was 98%. The patient wason RA at the time of the reading. This is interpreted as normal. 23:[address] Garcia pending imaging Consult No Procedure done at this time No Ultrasound done at this time No CRITICAL CARE IN THE ED No Orders and Medicine administered during this encounter: Orders Placed This Encounter XR Ankle Left 3Vw or More XR Tibia Fibula Left 2Vw HYDROmorphone (Dilaudid) injection 0.5 mg Medications HYDROmorphone (Dilaudid) injection 0.5 mg (has no administration in time range) Clinical Impression: Pending at time of sign out Disposition: Pending at time of sign out * Reyna Butler, RN - 03/05/2024 10:57 PM CDT PT BIBEMS for a fall from standing. Per EMS pt was smoking marijuana, feeling dizzy and fell. Pt presents with pain to LLE, complaining of pain in ankle. Pulses and sensation intact, motor reduced 2/2 pain. Pt received 100mcg fent en route. documented in this encounter Plan of Treatment Upcoming Encounters Date Type Department Care Team (Late st Contact Info) Description 05/18/2024 9:15 AM LAST REPAIRER Office Visit [facility] - Orthopedics [address] [place] [address], [facility] [place] [address] Manuel Resendiz T, DO [address] [place] [phone] documented as of this encounter Procedures Procedure Name Priority Date/Time Associated Diagnosis Comments CBC W/O DIFFERENTIAL AM Draw 03/09/2024 2:53 AM CDT Closed fracture of left ankle, initial encounter CARDIAC EKG ORDER 03/08/2024 11: 33 AM CDT CBC W/O DIFFERENTIAL AM Draw 03/08/2024 2:41 AM CDT Closed fracture of left ankle, initial encounter OT EVAL AND TREAT Routine 03/07/2024 5:5 8 PM CDT PT EVAL AND TREAT Routine 03/07/2024 5:5 8 PM CDT [place] [facility] Routine 03/07/2024 5:55 PM CDT Fracture tibia/fibula, left, closed, initial encounter WA OPEN RX TIBIA SHAFT FX,INTRAMED NASIR 03/07/2024 3:34 PM CDT Closed fracture of distal end of left tibia, unspecified fracture morphology, initial encounter CBC W/O DIFFERENTIAL AM Draw 03/07/2024 2:41 AM CDT Closed fracture of left ankle, initial encounter BASIC METABOLIC PANEL (CALCIUM TOTAL) AM Draw 03/07/2024 2:41 AM CDT Closed fracture of left ankle, initial encounter EKG 12-LEAD Routine 03/06/2024 4:07 PM CDT Closed fracture of left ankle, initial encounter URINE DRUG SCREEN IMMUNOASSAY STAT 03/06/2024 9:[address] CHEST ABDOMEN PELVIS W CONT STAT 03/06/2024 2:42 AM CDT Ground-level fall CT LUMBAR SPINE WO CONTRAST STAT 03/06/2024 [...] TYPE VERIFICATION STAT 03/06/2024 2:39 AM CDT PTT [facility] STAT 03/06/2024 2:36 AM CDT PT-INR [facility] STAT 03/06/2024 2:36 AM CDT VITAMIN D 25-HYDROXY Routine 03/06/2024 2:36 AM CDT HCG BETA BLOOD QUANTITATIVE STAT 03/06/2024 2:36 AM CDT Ground-level fall Closed fracture of left ankle, initial encounter Syncope and collapse ALCOHOL ETHYL BLOOD STAT 03/06/2024 2 :36 AM CDT XR TIBIA FIBULA LEFT 2VW Routine 03/06/2024 1:40 AM CDT Ground-level fall XR KNEE LEFT 2VW OR LESS STAT 03/06/2024 1:04 AM CDT Ground-level fall PTT H STAT 03/06/2024 1:00 AM CDT PT-INR [facility] STAT 03/06/2024 1:00 AM CDT TYPE + SCREEN PANEL STAT 03/06/2024 1 :00 AM CDT CBC W AUTO DIFFERENTIAL STAT 03/06/2024 1:00 AM CDT COMPREHENSIVE METABOLIC PANEL STAT 03/06/2024 1:00 AM CDT XR ANKLE LEFT 3VW OR MORE STAT 03/05/2024 11:50 PM CDT Ground-level fall XR TIBIA FIBULA LEFT 2VW STAT 03/05/2024 11:50 PM CDT Ground-level fall documented in this encounter Results * (ABNORMAL) CBC W/O DIFFERENTIAL (03/09/2024 2:53 AM CDT) [facility] WBC 5.5 4.0 - 10.7 x10E9/L 03/09/2024 3:49 AM CDT [facility] RBC Count 3.06(L) 3.90 - 5.20 x10E12/L 03/09/2024 3:49 AM CDT [facility] Hemoglobin 8.9(L) 11.9 - 15.8 g/dL 03/09/2024 3:49 AM CDT [facility] Hematocrit 28.2(L) 34.8 - 46.1 % 03/09/2024 3:49 AM CDT [facility] MCV 92.2 80.0 - 98.0 fL 03/09/2024 3:49 AM CDT [facility] MCH 29.1 26.7 - 33.6 pg 03/09/2024 3:49 AM CDT [facility] MCHC 31.6(L) 31.7 - 36.3 g/dL 03/09/2024 3:49 AM T [facility] RDW-CV 14.5 11.3 - 14.8 % 03/09/2024 3:49 AM T [facility] Platelet Count 230 150 - 420 x10E9/L 03/09/2024 3:49 AM T [facility] MPV 9.4 7.8 - 11.4 fL 03/09/2024 3:49 AM T [facility] Blood BLOOD SPECIMEN / Unknown Lab Venipuncture / Unknown 03/09/2024 2:53 AM CDT 03/09/2024 3:28 AM CDT Chase Garcia DO LAB - HEMATOLOGY ORD ERABLES [facility] [address] [place] [phone], [facility] [phone] * CARDIAC EKG ORDER (03/08/2024 11:33 AM CDT) Narrative 03/08/2024 11:33 AM CDT Ordered by an unspecified provider. Scanned Document CARDIAC SERVICES ORD ERABLES * (ABNORMAL) CBC W/O DIFFERENTIAL (03/08/2024 2:41 AM CDT) WBC 7.3 4.0 - 10.7 x10E9/L 03/08/2024 3:22 AM CDT [facility] RBC Count 3.34(L) 3.90 - 5.20 x10E12/L 03/08/2024 3:22 AM CDT [facility] Hemoglobin 9.8(L) 11.9 - 15.8 g/dL 03/08/2024 3:22 AM [facility] Hematocrit 30.0(L) 34.8 - 46.1 % 03/08/2024 3:22 AM [facility] MCV 89.8 80.0 - 98.0 fL 03/08/2024 3:22 AM [facility] MCH 29.3 26.7 - 33.6 pg 03/08/2024 3:22 AM [facility] MCHC 32.7 31.7 - 36.3 g/dL 03/08/2024 3:22 AM [facility] RDW-CV 14.1 11.3 - 14.8 % 03/08/2024 3:22 AM [facility] Platelet Count 270 150 - 420 x10E9/L 03/08/2024 3:22 AM [facility] MPV 9.2 7.8 - 11.4 fL 03/08/2024 3:22 AM [facility] Blood BLOOD SPECIMEN / Unknown Lab Venipuncture / Unknown 03/08/2024 2:41 AM CDT 03/08/2024 3:09 AM CDT Chase Garcia DO LAB - HEMATOLOGY ORD ERABLES [facility] [address] [place] [address], [facility] [phone] * [place] [facility] (03/07/2024 5:55 PM CDT) Narrative [facility] - 03/07/2024 5:57 PM CDT Fluoroscopy was used for this exam in the OR. Please see the Operative report. Manuel Myers Gentomás DO FLUOROSCOPY ORDERABL ES [facility] * (ABNORMAL) CBC W/O DIFFERENTIAL (03/07/2024 2:41 AM CDT) WBC 6.5 4.0 - 10.7 x10E9/L 03/07/2024 3:20 AM CDT [facility] RBC Count 3.51(L) 3.90 - 5.20 x10E12/L 03/07/2024 3:20 AM [facility] Hemoglobin 10.4(L) 11.9 - 15.8 g/dL 03/07/2024 3:20 AM [facility] Hematocrit 31.4(L) 34.8 - 46.1 % 03/07/2024 3:20 AM [facility] MCV 89.5 80.0 - 98.0 fL 03/07/2024 3:20 AM [facility] MCH 29.6 26.7 - 33.6 pg 03/07/2024 3:20 AM [facility] MCHC 33.1 31.7 - 36.3 g/dL 03/07/2024 3:20 AM [facility] RDW-CV 14.6 11.3 - 14.8 % 03/07/2024 3:20 AM [facility] Platelet Count 264 150 - 420 x10E9/L 03/07/2024 3:20 AM [facility] MPV 9.5 7.8 - 11.4 fL 03/07/2024 3:20 AM [facility] Blood BLOOD SPECIMEN / Unknown Lab Venipuncture / Unknown 03/07/2024 2:41 AM CDT 03/07/2024 3:11 AM CDT Chase Garcia DO LAB - HEMATOLOGY ORD ERABLES Performing Organization Address City/State/[facility] Co de Phone Number [address] [address], [facility] [phone] * (ABNORMAL) BASIC METABOLIC PANEL (CALCIUM TOTAL) (03/07/2024 2:41 AM CDT) BUN 12 7 - 26 mg/dL 03/07/2024 3:42 AM [facility] Creatinine 1.04(H) 0.56 - 0.96 mg/dL 03/07/2024 3:42 AM [facility] Sodium 140 136 - 145 mmol/L 03/07/2024 3:42 AM [facility] Potassium 3.9 3.5 - 4.5 mmol/L 03/07/2024 3:42 AM [facility] Chloride 106 98 - 107 mmol/L 03/07/2024 3:42 AM [facility] CO2 25 22 - 29 mmol/L 03/07/2024 3:42 AM [facility] Glucose 101(H) 70 - 99 mg/dL 03/07/2024 3:42 AM [facility] Calcium 8.2(L) 8.4 - 10.2 mg/dL 03/07/2024 3:42 AM [facility] Anion Gap 9 6 - 16 03/07/2024 3:42 AM [facility] BUN/Creatinine Ratio 12 7 - 23 03/07/2024 3:42 AM [facility] Osmolality Calculated 290 275 - 295 mOsm/kg 03/07/2024 3:42 AM [facility] eGFR by CKD-EPI 69(L) >=90 mL/min/1.7 3 m2 03/07/2024 3:42 AM [facility] Blood BLOOD SPECIMEN / Unknown Lab Venipuncture / Unknown 03/07/2024 2:41 AM CDT 03/07/2024 3:08 AM CDT Chase Garcia DO LAB - CHEMISTRY PAULINE JORGE [facility] [address] [place] [address], [facility] [phone] * EKG 12-LEAD (03/06/2024 4:07 PM CDT) Ventricular Rate 65 BPM [facility] Atrial Rate 65 BPM [facility] P-R Interval 150 ms [facility] QRS Duration ms 78 ms [facility] Q-T Interval ms 408 ms [facility] QTC Calculation (Bezet) 424 ms [facility] Calculated P [place] 46 degrees [facility] Calculated R [place] 61 degrees [facility] Calculated T [place] 35 degrees [facility] Interpretation EKG NORMAL SINUS RHYTHM NORMAL ECG NO PREVIOUS ECGS AVAILABLE Confirmed by VICENTE SUAZO, MAYURI ([id number]) on 03/11/2024 10:28:06 AM [facility] 03/06/2024 4:07 PM CDT 03/11/2024 10:28 AM LAST REPAIRER Katlyn King MICROFILM CLERK-MATERIALS PLANNER/PRODUCTION PLANNER ECG ORDERAB LES [facility] * (ABNORMAL) URINE DRUG SCREEN IMMUNOASSAY (03/06/2024 9:38 AM CDT) Amphetamines Screen Urine Negative Negative : < 1000 ng/mL 03/06/2024 10:00 AM [facility] Barbiturates Screen Urine Negative Negative : < 200 ng/mL 03/06/2024 10:00 AM [facility] Benzodiazepine Screen Urine Negative Negative : < 200 ng/mL 03/06/2024 10:00 AM [facility] Opiates Urine Positive(A) Negative : < 300 ng/mL 03/06/2024 10:00 AM [facility] Comment:Positive urine opiat e screening results should be confirmed by another generally accepted non-immunological method such as gas chromatography or mass spectrometry. Cocaine Metabolites Urine Negative Negative : < 300 ng/mL 03/06/2024 10:00 AM [facility] Phencyclidine Screen Urine Negative Negative : < 25 ng/ml 03/06/2024 10:00 AM [facility] Cannabinoids Screen Urine Positive(A) Negative : <50 ng/mL 03/06/2024 10:00 AM [facility] Comment:Positive urine canna binoids (THC) screening results should be confirmed by another generally accepted non-immunological method such as gas chromatography or mass spectrometry. Methadone Screen Urine Negative Negative : < 300 ng/mL 03/06/2024 10:00 AM [facility] Fentanyl Screen Urine Negative Negative : <1.5 ng/mL 03/06/2024 10:00 AM [facility] Urine URINE / Unknown Collection / Unknown 03/06/2024 9:38 AM CDT 03/06/2024 9:41 AM CDT Narrative [facility] - 03/06/2024 10:00 AM CDT The Urine Toxicology Screening Panel does not screen for Propoxyphene, Meprobamate, Carisoprodol, Trazodone, fqrn-kux-gnxjezi medications and/or volatiles (Acetone, Isopropanol, Methanol or Ethylene Glycol). Ethanol, Salicylate, Acetaminophen, Tricyclic Antidepressants and several therapeutic drugs may be individually assayed in serum or plasma specimen. Toxicology testing by the [facility] is an aid to medical diagnosis and treatment of patients. No documented chain of custody was maintained. Results are intended to be used for clinical purposes only. ? Jv Garcia MD LAB - URINE CHEMISTR Y ORDERABLES Performing Organization Address City/State/[facility] Co de Phone Number [address] [address], [facility] [phone] * CT LUMBAR SPINE WO CONTRAST - [...] pelvis. > Dictated by Cedric Bal DO (Care Transition Mgr), 03/06/2024 3:09 AM. IAnthony MD have personally reviewed and interpreted this examination/study. > Interpreting Provider: Anthony Adler MD on 03/06/2024 7:44 AM Narrative 03/06/2024 7:44 AM CDT PROCEDURE: ??CT HEAD WO CONTRAST, CT LUMBAR SPINE WO CONTRAST, CT THORACIC SPINE WO CONTRAST, CT CERVICAL SPINE WO CONTRAST, DATE/TIME OF EXAM: 03/06/2024 2:43 AM, LOCATION ??[facility] INDICATION: Trauma EXAMINATION: 1.Computed tomography [...] DATE/TIME OF EXAM: 03/06/2024 2:43 AM, LOCATION [facility] INDICATION: Trauma EXAMINATION: 1.Computed tomography [...] pelvis. > Dictated by Cedric Bal DO (Care Transition Mgr), 03/06/2024 3:09AM. Anthony Mallory MD have personally [...] pelvis. > Dictated by Cedric Bal DO (Care Transition Mgr), 03/06/2024 3:09 AM. Anthony Mallory MD have personally reviewed and interpreted this examination/study. > Interpreting Provider: Anthony Adler MD on 03/06/2024 7:44 AM Narrative 03/06/2024 7:44 AM CDT PROCEDURE: ??CT HEAD WO CONTRAST, CT LUMBAR SPINE WO CONTRAST, CT THORACIC SPINE WO CONTRAST, CT CERVICAL SPINE WO CONTRAST, DATE/TIME OF EXAM: 03/06/2024 2:43 AM, LOCATION ??[facility] INDICATION: Trauma EXAMINATION: 1.Computed tomography [...] DATE/TIME OF EXAM: 03/06/2024 2:43 AM, LOCATION [facility] INDICATION: Trauma EXAMINATION: 1.Computed tomography [...] pelvis. > Dictated by Cedric Bal DO (Care Transition Mgr), 03/06/2024 3:09AM. IAnthony MD have personally reviewed and interpretedthis examination/study. > Interpreting Provider: Anthony Adler MD on 03/06/2024 7:44 AM Jv Garcia MD CT ORDERABLES * CT CHEST ABDOMEN PELVIS W CONT [...] seen. > Dictated by Pranav Morales DO (vice president business development). Selina Mallory MD have personally reviewed and interpreted this examination/study. > Interpreting Provider: Selina Narvaez MD on 03/06/2024 7:08 AM Narrative 03/06/2024 7:08 AM CDT PROCEDURE: ??CT CHEST ABDOMEN PELVIS W CONT, DATE/TIME OF EXAM: ??03/06/2024 2:43 AM, LOCATION ??[facility] INDICATION: Trauma COMPARISON: None. TECHNIQUE: [...] CONT, DATE/TIME OF EXAM:03/06/2024 2:43 AM, LOCATION [facility] INDICATION: Trauma COMPARISON: None. TECHNIQUE: [...] seen. > Dictated by Pranav Morales DO (vice president business development). I, Selina Narvaez MD have personally reviewed [...] pelvis. > Dictated by Cedric Bal DO (Care Transition Mgr), 03/06/2024 3:09 AM. IAnthony MD have personally reviewed and interpreted this examination/study. > Interpreting Provider: Anthony Adler MD on 03/06/2024 7:44 AM Narrative 03/06/2024 7:44 AM CDT PROCEDURE: ??CT HEAD WO CONTRAST, CT LUMBAR SPINE WO CONTRAST, CT THORACIC SPINE WO CONTRAST, CT CERVICAL SPINE WO CONTRAST, DATE/TIME OF EXAM: 03/06/2024 2:43 AM, LOCATION ??[facility] INDICATION: Trauma EXAMINATION: 1.Computed tomography [...] DATE/TIME OF EXAM: 03/06/2024 2:43 AM, LOCATION [facility] INDICATION: Trauma EXAMINATION: 1.Computed tomography [...] pelvis. > Dictated by Cedric Bal DO (Care Transition Mgr), 03/06/2024 3:09AM. IAnthony MD have personally reviewed and interpretedthis examination/study. [...] pelvis. > Dictated by Cedric Bal DO (Care Transition Mgr), 03/06/2024 3:09 AM. IAnthony MD have personally reviewed and interpreted this examination/study. > Interpreting Provider: Anthony Adler MD on 03/06/2024 7:44 AM Narrative 03/06/2024 7:44 AM CDT PROCEDURE: ??CT HEAD WO CONTRAST, CT LUMBAR SPINE WO CONTRAST, CT THORACIC SPINE WO CONTRAST, CT CERVICAL SPINE WO CONTRAST, DATE/TIME OF EXAM: 03/06/2024 2:43 AM, LOCATION ??[facility] INDICATION: Trauma EXAMINATION: 1.Computed tomography [...] DATE/TIME OF EXAM: 03/06/2024 2:43 AM, LOCATION [facility] INDICATION: Trauma EXAMINATION: 1.Computed tomography [...] pelvis. > Dictated by Cedric Bal DO (Care Transition Mgr), 03/06/2024 3:09AM. IAnthony MD have personally reviewed and interpretedthis examination/study. [...] plafond. > Dictated by Pranav Morales DO (vice president business development). I, Selina Narvaez MD have personally reviewed [...] plafond. > Dictated by Pranav Morales DO (vice president business development). I, Selina Narvaez MD have personally reviewed and interpreted this examination/study. > Interpreting Provider: Selina Narvaez MD on 47:43 AM Jv Garcia MD CT ORDERABLES * BLOOD TYPE VERIFICATION (03/06/2024 2:39 AM CDT) Pathologist [facility] ABO Rh A POS 03/06/2024 3:1 0 AM CDT [facility] Blood Bank BLOOD SPECIMEN / Unknown Venipuncture / Unknown 03/06/2024 2:39 AM CDT 03/06/2024 2:45 AM CDT Jv Garcia MD LAB - BLOOD BANK ORD ERABLES [facility] [address] [place] [address], [facility] [phone] * HCG BETA BLOOD QUANTITATIVE (03/06/2024 2:36 AM CDT) Pathologist [facility] Beta-hCG Total Quantitative <3 mIU/mL 03/06/2024 3:16 PM CDT [facility] Comment: HCG Numeric Result Interpretation: ? [...] CDT 03/06/2024 2:47 AM CDT Katlyn King MICROFILM CLERK-MATERIALS PLANNER/PRODUCTION PLANNER LAB - CHEMI STRY ORDERABLES [facility] [address] [place] [id number], [facility] [phone] * (ABNORMAL) VITAMIN D 25-HYDROXY (03/06/2024 2:36 AM CDT) [facility] Vitamin D, 25 Hydroxy 26.0(L) 30.0 - 80.0 ng/mL 03/06/2024 6:57 AM CDT [facility] Comment: The recommendations for 25-Hydroxy Vitamin [...] - CHEMISTRY OR DERABLES Performing Organization Address [facility] Co de Phone Number [address] [address], [facility] [phone] * PTT [facility] (03/06/2024 2:36 AM CDT) APTT 26.0 23.0 - 38.4 Seconds 03/06/2024 3:08 AM CDT [facility] Comment:Suggested therapeuti c range for full dose I.V. unfractionated heparin therapy for venous thromboembolism is 71 to 109 seconds. Blood BLOOD SPECIMEN / Unknown Venipuncture / Unknown 03/06/2024 2:36 AM CDT 03/06/2024 2:47 AM CDT Jv Garcia MD LAB - COAGULATION OR DERABLES Performing Organization Address [facility] Co de Phone Number [address] [address], [facility] [phone] * PT-INR [facility] (03/06/2024 2:36 AM CDT) PT 12.7 12.1 - 14.8 Seconds 03/06/2024 3:08 AM CDT [facility] INR 1.0 See Comment 03/06/2024 3:08 AM CDT [facility] Comment:The suggested therap eutic range for standard coumadin (warfarin) therapy is an INR of 2.0-3.0. For high-risk patients (Mechanical Mitral Valve Prosthesis, etc.), the suggested prophylactic therapeutic range is an INR of 2.5-3.5. Blood BLOOD SPECIMEN / Unknown Venipuncture / Unknown 03/06/2024 2:36 AM CDT 03/06/2024 2:47 AM CDT Jv Garcia MD LAB - COAGULATION OR DERABLES Performing Organization Address [facility] Co de Phone Number [address] [address], [facility] [phone] * ALCOHOL ETHYL BLOOD (03/06/2024 2:36 AM CDT) Ethanol (mg/dL) <10 <10 mg/dL 3:09 AM CDT [facility] Ethanol Calculated (g/dL) <0.010 <=0.010 g/dL 03/06/2024 3:09 AM CDT [facility] Blood BLOOD SPECIMEN / Unknown Venipuncture / Unknown 03/06/2024 2:36 AM CDT 03/06/2024 2:47 AM CDT Narrative [facility] - 03/06/2024 3:09 AM CDT Ethanol Interp <10: None Detected. Depression of LANDSCAPE ARCHITECT AND PLANNER: >100 mg/dl Potentially Critical: >250 mg/dl Potentially [...] Garcia MD LAB - CHEMISTRY PAULINE JORGE [facility] Organization Address City/State/ZIP Co de Phone Number [address] [address], [facility] [phone] * XR Tibia Fibula Left 2Vw (03/06/2024 1:40 AM CDT) Anatomical Region Laterality Modality Lower Extremity Digital Radiogra phy 03/06/2024 2:40 AM CDT Narrative 03/06/2024 11:55 AM CDT PROCEDURE: ??XR TIBIA FIBULA LEFT 2VW, DATE/TIME OF EXAM: ??03/06/2024 1:40 AM, LOCATION ??[facility] INDICATION: W18.30XA: Ground-level fall ADDITIONAL [...] exam. Report dictated by Cedric Bal DO (vice president business development). Naveen Mallory MD have personally reviewed and interpreted this examination/study. > Interpreting Provider: Naveen Ace MD on 03/06/2024 11:55 AM Procedure Note Naveen Ace MD - 03/06/2024 PROCEDURE: XR TIBIA FIBULA LEFT 2VW, DATE/TIME OF EXAM: 41:40 AM, LOCATION [facility] INDICATION: W18.30XA: Ground-level fall ADDITIONAL [...] exam. Report dictated by Cedric Bal DO (vice president business development). Naveen Mallory MD have personally reviewed andinterpreted [...] identified. Report dictated by Cedric Bal DO (vice president business development). Naveen Mallory MD have personally reviewed and interpreted this examination/study. > Interpreting Provider: Naveen Ace MD on 03/06/2024 9:26 AM Narrative 03/06/2024 9:26 AM CDT PROCEDURE: ??XR KNEE LEFT 2VW OR LESS, DATE/TIME OF EXAM: ??03/06/2024 1:05 AM, LOCATION ??[facility] INDICATION: W18.30XA: Ground-level fall ADDITIONAL [...] LESS, DATE/TIME OF EXAM: 41:05 AM, LOCATION [facility] INDICATION: W18.30XA: Ground-level fall ADDITIONAL CLINICAL INFORMATION: Ordering Provider Reason For Exam: injury films COMPARISON: None. FINDINGS: The osseous structures are intact and well aligned without acutefracture or dislocation. The knee joint space is preserved. No joint effusion is seen. Bone density and texture are normal. IMPRESSION: No acute fracture or dislocation identified. Report dictated by Cedric Bal DO (vice president business development). I, Naveen Ace MD have personally reviewed andinterpreted this examination/study. > Interpreting Provider: Naveen Ace MD on 03/06/2024 9:26AM Jv Garcia MD DIAGNOSTIC IMAGING O RDERABLES * PTT [facility] (03/06/2024 1:00 AM CDT) APTT 25.6 23.0 - 38.4 Seconds 03/06/2024 1:56 AM CDT [facility] Comment:Suggested therapeuti c range for full dose I.V. unfractionated heparin therapy for venous thromboembolism is 71 to 109 seconds. Blood BLOOD SPECIMEN / Unknown Venipuncture / Unknown 03/06/2024 1:00 AM CDT 03/06/2024 1:07 AM CDT Jv Garcia MD LAB - COAGULATION OR DERABLES [facility] [address] [place] [address], [facility] [phone] * TYPE + SCREEN PANEL (03/06/2024 1:00 AM CDT) [facility] Antibody Screen NEG 1:50 AM CDT [facility] ABO Rh A POS 03/06/2024 1:50 AM CDT [facility] Blood Bank BLOOD SPECIMEN / Unknown Venipuncture / Unknown 03/06/2024 1:00 AM CDT 03/06/2024 1:07 AM CDT Jv Garcia MD LAB - BLOOD BANK ORD ERABLES [facility] [address] [place] [address], [facility] [phone] * PT-INR [facility] (03/06/2024 1:00 AM CDT) [facility] PT 12.3 12.1 - 14.8 Seconds 03/06/2024 1:56 AM CDT [facility] INR 1.0 See Comment 03/06/2024 1:56 AM CDT [facility] Comment:The suggested therap eutic range for standard coumadin (warfarin) therapy is an INR of 2.0-3.0. For high-risk patients (Mechanical Mitral Valve Prosthesis, etc.), the suggested prophylactic therapeutic range is an INR of 2.5-3.5. Blood BLOOD SPECIMEN / Unknown Venipuncture / Unknown 03/06/2024 1:00 AM CDT 03/06/2024 1:07 AM CDT Jv Garcia MD LAB - COAGULATION OR DERABLES [facility] [address] [place] [address], [employer] [phone] * (ABNORMAL) COMPREHENSIVE METABOLIC PANEL (03/06/2024 1:00 AM CDT) [facility] BUN 12 7 - 26 mg/dL 03/06/2024 1:32 AM CDT [facility] Creatinine 0.97(H) 0.56 - 0.96 mg/dL 03/06/2024 1:32 AM [facility] Sodium 138 136 - 145 mmol/L 03/06/2024 1:32 AM [facility] Potassium 3.6 3.5 - 4.5 mmol/L 03/06/2024 1:32 AM [facility] Chloride 107 98 - 107 mmol/L 03/06/2024 1:32 AM [facility] CO2 22 22 - 29 mmol/L 03/06/2024 1:32 AM [facility] Glucose 132(H) 70 - 99 mg/dL 03/06/2024 1:32 AM [facility] Calcium 8.9 8.4 - 10.2 mg/dL 03/06/2024 1:32 AM [facility] Protein Total 6.3 6.0 - 8.3 g/dL 03/06/2024 1:32 AM [facility] Albumin 3.6 3.4 - 5.0 g/dL 03/06/2024 1:32 AM [facility] Bilirubin Total 0.2 0.2 - 1.2 mg/dL 03/06/2024 1:32 AM [facility] Alkaline Phosphatase 63 40 - 150 U/L 03/06/2024 1:32 AM [facility] ALT 12 5 - 55 U/L 03/06/2024 1:32 AM [facility] AST 15 5 - 34 U/L 03/06/2024 1:32 AM [facility] Anion Gap 9 6 - 16 03/06/2024 1:32 AM [facility] BUN/Creatinine Ratio 12 7 - 23 03/06/2024 1:32 AM [facility] Osmolality Calculated 288 275 - 295 mOsm/kg 03/06/2024 1:32 AM [facility] Albumin/Globulin Ratio 1.3 1.1 - 2.3 03/06/2024 1:32 AM [facility] eGFR by CKD-EPI 75(L) >=90 mL/min/1.7 3 m2 03/06/2024 1:32 AM [facility] Blood BLOOD SPECIMEN / Unknown Venipuncture / Unknown 03/06/2024 1:00 AM CDT 03/06/2024 1:07 AM CDT Jv Garcia MD LAB - CHEMISTRY PAULINE JORGE [facility] Organization Address City/State/ZIP Co de Phone Number [facility] [address] [place] [address], [facility] [phone] * (ABNORMAL) CBC W AUTO DIFFERENTIAL (03/06/2024 1:00 AM CDT) WBC 8.8 4.0 - 10.7 x10E9/L 03/06/2024 1:13 AM [facility] RBC Count 3.88(L) 3.90 - 5.20 x10E12/L 03/06/2024 1:13 AM [facility] Hemoglobin 11.6(L) 11.9 - 15.8 g/dL 03/06/2024 1:13 AM [facility] Hematocrit 34.0(L) 34.8 - 46.1 % 03/06/2024 1:13 AM [facility] MCV 87.6 80.0 - 98.0 fL 03/06/2024 1:13 AM [facility] MCH 29.9 26.7 - 33.6 pg 03/06/2024 1:13 AM [facility] MCHC 34.1 31.7 - 36.3 g/dL 03/06/2024 1:13 AM [facility] RDW-CV 14.1 11.3 - 14.8 % 03/06/2024 1:13 AM [facility] Platelet Count 297 150 - 420 x10E9/L 03/06/2024 1:13 AM [facility] MPV 9.2 7.8 - 11.4 fL 03/06/2024 1:13 AM [facility] Neutrophil % 78.1(H) 41.0 - 74.0 % 03/06/2024 1:13 AM [facility] Lymphocyte % 15.7(L) 17.0 - 47.0 % 03/06/2024 1:13 AM [facility] Monocyte % 4.9 3.0 - 11.0 % 03/06/2024 1:13 AM CDT [facility] Eosinophil % 0.6 0.0 - 7.0 % 03/06/2024 1:13 AM CDT [facility] Basophil % 0.5 0.0 - 1.6 % 03/06/2024 1:13 AM CDT [facility] Immature Granulocytes % 0.2 0.0 - 1.0 % 03/06/2024 1:13 AM CDT [facility] Neutrophil Absolute 6.85 1.60 - 7.50 x10E9/L 03/06/2024 1:13 AM CDT [facility] Lymphocyte Absolute 1.38 1.00 - 4.40 x10E9/L 03/06/2024 1:13 AM T [facility] Monocyte Absolute 0.43 0.15 - 1.00 x10E9/L 03/06/2024 1:13 AM T [facility] Eosinophil Absolute 0.05 0.00 - 0.60 x10E9/L 03/06/2024 1:13 AM CDT [facility] Basophil Absolute 0.04 0.00 - 0.13 x10E9/L 03/06/2024 1:13 AM CDT [facility] Blood BLOOD SPECIMEN / Unknown Venipuncture / Unknown 03/06/2024 1:00 AM CDT 03/06/2024 1:07 AM CDT Jv Garcia MD LAB - HEMATOLOGY ORD ERABLES Performing Organization Address City/State/[facility] Co de Phone Number [facility] [address] [place] [id number] [phone] * XR Tibia Fibula Left 2Vw (03/05/2024 11:50 PM CDT) Anatomical Region Laterality Modality Lower Extremity Digital Radiogra phy 03/06/2024 2:28 AM CDT Impressions 03/06/2024 9:21 AM CDT IMPRESSION: Acute moderately displaced comminuted fracture of the distal tibia and fibula with extension into the tibial plafond. Report dictated by Cedric Bal DO (vice president business development). Naveen Mallory MD have personally reviewed and interpreted this examination/study. > Interpreting Provider: Naveen Ace MD on 03/06/2024 9:21 AM Narrative 03/06/2024 9:21 AM CDT PROCEDURE: ??XR TIBIA FIBULA LEFT 2VW, DATE/TIME OF EXAM: ??03/05/2024 11:50 PM, LOCATION ??[facility] INDICATION: W18.30XA: Ground-level fall ADDITIONAL CLINICAL INFORMATION: Ordering Provider Reason For Exam: ??r/o fracture COMPARISON: ??None. FINDINGS: Acute moderately displaced comminuted fracture of the distal tibia and fibula with extension into the tibial plafond. Bone density and texture are normal. Soft tissue swelling is present. Procedure Note Naveen Ace MD - 03/06/2024 PROCEDURE: XR TIBIA FIBULA LEFT 2VW, DATE/TIME OF EXAM: 1:50 PM, LOCATION [facility] INDICATION: W18.30XA: Ground-level fall ADDITIONAL CLINICAL INFORMATION: Ordering Provider Reason For Exam: r/o fracture COMPARISON: None. FINDINGS: Acute moderately displaced comminuted fracture of the distal tibia and fibula with extension into the tibial plafond. Bone density and textureare normal. Soft tissue swelling is present. IMPRESSION: Acute moderately displaced comminuted fracture of the distal tibia and fibula with extension into the tibial plafond. Report dictated by Cedric Bal DO (vice president business development). Naveen Mallory MD have personally reviewed andinterpreted this examination/study. > Interpreting Provider: Naveen Ace MD on 03/06/2024 9:21AM Prachi Martinez MD DIAGNOSTIC IMAGING O RDERABLES * XR Ankle Left 3Vw or More (03/05/2024 11:50 PM CDT) Anatomical Region Laterality Modality Lower Extremity Digital Radiogra phy 03/06/2024 2:24 AM CDT Impressions 03/06/2024 9:21 AM CDT IMPRESSION: Acute moderately displaced comminuted fracture of the distal tibia and fibula with extension into the tibial plafond. Report dictated by Cedric Bal DO (vice president business development). Naveen Mallory MD have personally reviewed and interpreted this examination/study. > Interpreting Provider: Naveen Ace MD on 03/06/2024 9:21 AM Narrative 03/06/2024 9:21 AM CDT PROCEDURE: ??XR ANKLE LEFT 3VW OR MORE, DATE/TIME OF EXAM: ??03/05/2024 11:50 PM, LOCATION ??[facility] INDICATION: W18.30XA: Ground-level fall ADDITIONAL [...] MORE, DATE/TIME OF EXAM: 1:50 PM, LOCATION [facility] INDICATION: W18.30XA: Ground-level fall ADDITIONAL [...] plafond. Report dictated by Cedric Bal DO (vice president business development). Naveen Mallory MD have personally reviewed andinterpreted this examination/study. > Interpreting Provider: Naveen Ace MD on 03/06/2024 9:21AM Prachi Martinez MD DIAGNOSTIC IMAGING O RDERABLES documented in this encounter Visit Diagnoses Diagnosis Fracture tibia/fibula, left, closed, initial encounter- Primary Ground-level fall Closed fracture of left ankle, initial encounter Syncope and collapse Fracture tibia/fibula, left, closed, initial encounter Fall Unspecified fall Syncope and collapse Closed fracture of left ankle, initial encounter Ground-level fall documented in this encounter Administered Medications Inactive Administered Medications - up to 3 most recent administrations Medication Order MAR Action Action Date Dose Rate Site 0.9% NaCl injection 1-10 mL 1-10 mL, Intracatheter, PRN, Other, peripheral line flush, Starting on Tue03/06/24 at 0004, Until Tue03/09/24 at 1218, Flush peripheral IV catheter with 1-10 mL of normal saline before and after medications and prn to clear blood from the line or to verify patency. 0.9% NaCl injection 3 mL 3 mL, Intracatheter, EVERY 8 HOURS, First dose on Tue03/06/24 at 0045, Until Discontinued, Flush peripheral IV catheter with 3 mL of normal saline every 8 hours. $ Given 03/09/2024 6:05 AM CDT 3 mL $ Given 03/08/2024 8:28 PM CDT 3 mL $ Given 03/08/2024 3:06 PM CDT 3 mL acetaminophen (Tylenol) tablet 1,000 mg 1,000 mg, Oral, EVERY 6 HOURS, First dose on Tue03/06/24 at 2045, Until Discontinued, Patient preference for lesser PRN pain meds may be honored when the patient requests a less strong medication, a lower dose, or a less intrusive route of administration when the lesser drug, dose and route have been ordered for the patient. This patient request must be documented in the MAR. If both oral and IV options are ordered for the same pain severity, give oral first unless patient cannot tolerate oral intake $ Given 03/09/2024 6:04 AM CDT 1,000 mg $ Given 03/09/2024 12:14 AM CDT 1,000 mg $ Given 03/08/2024 5:40 PM CDT 1,000 mg buPROPion SR 12hr (Wellbutrin-SR) tablet 150 mg 150 mg, Oral, 2 TIMES DAILY, First dose on Tue03/06/24 at 2115, Until Discontinued, Do not crush, chew, or cut in half. $ Given 03/09/2024 8:37 AM CDT 150 mg $ Given 03/08/2024 8:27 PM CDT 150 mg $ Given 03/08/2024 9:35 AM CDT 150 mg ceFAZolin (Ancef) 2 g in sterile water (PF) 20 mL syringe 2 g, Intravenous, EVERY 8 HOURS, 3 doses, First dose on Tue03/07/24 at 2300, Last dose on Tue03/08/24 at 1500, Infuse over 3-5 minutes. Dilute vial with 20 ml solution for a final concentration of 100 mg/ml., Indication for anti-infective therapy: Surgical prophylaxis $ Given 03/08/2024 3:05 PM CDT 2 g $ Given 03/08/2024 6:30 AM CDT 2 g $ Given 03/07/2024 10:17 PM CDT 2 g cyclobenzaprine (Flexeril) tablet 10 mg 10 mg, Oral, 3 TIMES DAILY PRN, Muscle Spasms, Starting on Tue03/06/24 at 8, Until Tue03/09/24 at 1218 $ Given 03/09/2024 8:38 AM CDT 10 mg $ Given 03/08/2024 5:40 PM CDT 10 mg $ Given 03/08/2024 9:36 AM CDT 10 mg diazePAM (Valium) tablet 2 mg 2 mg, Oral, 3 TIMES DAILY PRN, Anxiety, Starting on Tue03/06/24 at 2039, Until Tue03/09/24 at 0400 $ Given 03/08/2024 9:35 AM CDT 2 mg $ Given 03/07/2024 10:18 PM CDT 2 mg $ Given 03/07/2024 1:05 PM CDT 2 mg docusate sodium (Colace) capsule 100 mg 100 mg, Oral, DAILY, First dose on Tue03/06/24 at 0900, Until Discontinued $ Given 03/09/2024 8:38 AM CDT 100 mg $ Given 03/07/2024 7:43 AM CDT 100 mg $ Given 03/06/2024 9:13 AM CDT 100 mg enoxaparin (Lovenox) injection 40 mg 40 mg, Subcutaneous, EVERY 12 HOURS, First dose on Tue03/06/24 at 0900, Until Discontinued, (for prefilled syringes) do not expel air bubble from the syringe prior to the injection Remind Patient to not rub injection site. Could cause hematoma. $ Given 03/09/2024 8:37 AM CDT 40 mg Abdominal Tissue $ Given 03/08/2024 8:27 PM CDT 40 mg Ab d Left Lower Quadrant $ Given 03/08/2024 9:35 AM CDT 40 mg Ab d Right Upper Quadrant HYDROcodone-acetaminophen ([place]) 10-325 MG tablet 1 tablet 1 tablet, Oral, EVERY 4 HOURS PRN, Moderate Pain, Starting on Tue03/06/24 at 0858, Until Tue03/06/24 at 203, Patient preference for lesser PRN pain meds may be honored when the patient requests a less strong medication, a lower dose, or a less intrusive route of administration when the lesser drug, dose and route have been ordered for the patient. This patient request must be documented in the MAR. If both oral and IV options are ordered for the same pain severity, give oral first unless patient cannot tolerate oral intake $ Given 03/06/2024 8:20 PM CDT 1 tablet $ Given 03/06/2024 4:11 PM CDT 1 tablet $ Given 03/06/2024 11:24 AM CDT 1 tablet HYDROmorphone (Dilaudid) injection 0.4 mg 0.4 mg, Intravenous, EVERY 3 HOURS PRN, Severe Pain, break thru, Starting on Tue03/07/24 at 1800, Until Tue03/08/24 at 1616, Patient preference for lesser PRN pain meds may be honored when the patient requests a less strong medication, a lower dose, or a less intrusive route of administration when the lesser drug, dose and route have been ordered for the patient. This patient request must be documented in the MAR. If both oral and IV options are ordered for the same pain severity, give oral first unless patient cannot tolerate oral intake $ Given 03/08/2024 1:18 PM CDT 0.4 mg HYDROmorphone (Dilaudid) injection 0.5 mg 0.5 mg, Intravenous, ONCE PRN, Severe Pain, 1 dose, Starting on Tue03/06/24 at 0822, Until Tue03/06/24 at 1421, Patient preference for lesser PRN pain meds may be honored when the patient requests a less strong medication, a lower dose, or a less intrusive route of administration when the lesser drug, dose and route have been ordered for the patient. This patient request must be documented in the MAR. If both oral and IV options are ordered for the same pain severity, give oral first unless patient cannot tolerate oral intake $ Given 03/06/2024 2:21 P M CDT 0.5 mg HYDROmorphone (Dilaudid) injection 0.5 mg 0.5 mg, Intravenous, EVERY 10 MIN PRN, Severe Pain, 4 doses, Starting on Tue03/07/24 at 1726, Until Tue03/07/24 at 1856, Maximum total of 4 doses If patient reaches max total dose, please consult anesthesiologist prior to further administration of pain meds. Hold pain meds if there are signs of hypoventilation. Patient preference for lesser PRN pain meds may be honored when the patient requests a less strong medication, a lower dose, or a less intrusive route of administration when the lesser drug, dose and route have been ordered for the patient. This patient request must be documented in the MAR. If both oral and IV options are ordered for the same pain severity, give oral first unless patient cannot tolerate oral intake, PACU $ Given 03/07/2024 6:56 PM CDT 0.5 mg $ Given 03/07/2024 6:45 PM CDT 0.5 mg $ Given 03/07/2024 6:35 PM CDT 0.5 mg HYDROmorphone (Dilaudid) injection 1 mg 1 mg, Intravenous, NOW, 1 dose, On Tue03/06/24 at 0015, Patient preference for lesser PRN pain meds may be honored when the patient requests a less strong medication, a lower dose, or a less intrusive route of administration when the lesser drug, dose and route have been ordered for the patient. This patient request must be documented in the MAR. If both oral and IV options are ordered for the same pain severity, give oral first unless patient cannot tolerate oral intake $ Given 03/06/2024 12:57 AM CDT 1 mg HYDROmorphone (Dilaudid) injection 1 mg 1 mg, Intravenous, EVERY 30 MIN PRN, Moderate Pain, Severe Pain, 3 doses, Starting on Tue03/06/24 at 0346, Until Tue03/06/24 at 0912, Patient preference for lesser PRN pain meds may be honored when the patient requests a less strong medication, a lower dose, or a less intrusive route of administration when the lesser drug, dose and route have been ordered for the patient. This patient request must be documented in the MAR. If both oral and IV options are ordered for the same pain severity, give oral first unless patient cannot tolerate oral intake $ Given 03/06/2024 9:12 AM CDT 1 mg $ Given 03/06/2024 5:17 AM CDT 1 mg $ Given 03/06/2024 4:17 AM CDT 1 mg iopamidol (Isovue 370) 76 % contrast Intravenous, CONTRAST ONCE, Starting on Tue03/06/24 at 0158, Until Malathi 03/08/24 at 0157 $ Given - Contrast 03/06/2024 2:35 AM CDT 100 mL ketamine (Ketalar) injection 50 mg 50 mg, Intravenous, NOW, 1 dose, On Tue03/06/24 at 0115, . $ Given 03/06/2024 1:15 AM CDT 50 mg lactated ringers infusion at 100 mL/hr, Intravenous, CONTINUOUS, Starting on Tue03/06/24 at 1300, Until Tue03/06/24 at 2044 $ New Bag/Syringe 03/06/2024 2:21 PM CDT 100 mL/hr melatonin tablet 3 mg 3 mg, Oral, AT BEDTIME, First dose on Tue03/06/24 at 2115, Until Discontinued $ Given 03/08/2024 8:27 PM CDT 3 mg $ Given 03/07/2024 10:18 PM CDT 3 mg $ Given 03/06/2024 9:17 PM CDT 3 mg ondansetron (disintegrating) (Zofran ODT) tablet 4 mg 4 mg, Oral, EVERY 6 HOURS PRN, Nausea/Vomiting, Starting on Tue03/06/24 at 2044, Until Tue03/09/24 at 1218, Dissolved orally on tongue ondansetron (Zofran) injection 4 mg 4 mg, Intravenous, EVERY 6 HOURS PRN, Nausea/Vomiting, Starting on Tue03/06/24 at 0858, Until Tue03/09/24 at 1218, Administer over 2 to 5 minutes. $ Given 03/06/2024 9:13 AM CDT 4 mg oxyCODONE (immediate release) (Roxicodone) tablet 10 mg 10 mg, Oral, EVERY 4 HOURS PRN, Severe Pain, Starting on Tue03/06/24 at 2038, Until Tue03/09/24 at 1218, Patient preference for lesser PRN pain meds may be honored when the patient requests a less strong medication, a lower dose, or a less intrusive route of administration when the lesser drug, dose and route have been ordered for the patient. This patient request must be documented in the MAR. If both oral and IV options are ordered for the same pain severity, give oral first unless patient cannot tolerate oral intake $ Given 03/09/2024 8:38 AM CDT 10 mg $ Given 03/09/2024 4:47 AM CDT 10 mg $ Given 03/08/2024 10:53 PM CDT 10 mg oxyCODONE (immediate release) (Roxicodone) tablet 5 mg 5 mg, Oral, EVERY 4 HOURS PRN, Moderate Pain, Starting on Tue03/06/24 at 2038, Until Tue03/09/24 at 1218, Patient preference for lesser PRN pain meds may be honored when the patient requests a less strong medication, a lower dose, or a less intrusive route of administration when the lesser drug, dose and route have been ordered for the patient. This patient request must be documented in the MAR. If both oral and IV options are ordered for the same pain severity, give oral first unless patient cannot tolerate oral intake $ Given 03/06/2024 9:17 PM CDT 5 mg polyethylene glycol 3350 (Miralax) packet 17 g 17 g, Oral, DAILY, First dose on Tue03/06/24 at 0900, Until Discontinued, Mix in 8 ounces of water, juice, soda, coffee or tea prior to administration $ Given 03/06/2024 9:13 AM CDT 17 g topiramate (Topamax) tablet 100 mg 100 mg, Oral, 2 TIMES DAILY, First dose on Tue03/06/24 at 2115, Until Discontinued, Swallow tablets whole if taking orally to avoid a bitter taste. $ Given 03/09/2024 8:37 AM CDT 100 mg $ Given 03/08/2024 8:27 PM CDT 100 mg $ Given 03/08/2024 9:35 AM CDT 100 mg vitamin D3 (Cholecalciferol) 25 MCG (1000 UNITS) tablet 1,000 Units 1,000 Units, Oral, DAILY, First dose on Tue03/06/24 at 1345, Until Discontinued, 1000 units = 25 mcg $ Given 03/09/2024 8:37 AM CDT 1,000 Unit s $ Given 03/08/2024 9:36 AM CDT 1,000 Units $ Given 03/07/2024 7:43 AM CDT 1,000 Units documented in this encounter Active and Recently Administered Medications Times are shown in CDT. Scheduled Medication Order 03/07/2024 03/08/2024 03/09/2024 0.9% NaCl injection 3 mL(Linked Group 1) 3 mL, Intracatheter, EVERY 8 HOURS, First dose on Tue03/06/24 at 0045, Until Discontinued, Flush peripheral IV catheter with 3 mL of normal saline every 8 hours. 0608 ($ Given - Provider: Dipti Askew RN)1307 ($ Given - Provider: Antonieta Mccann RN)2218 ($ Given - Provider: Shae Rivera RN) 0630 ($ Given - Provider: Dipti Askew RN)0635 ($ Given - Provider: Dipti Askew RN)1506 ($ Given - Provider: SN Elle)2028 ($ Given - Provider: Dipti Askew RN) 0605 ($ Given - Provider: Dipti Askew RN) acetaminophen (Tylenol) tablet 1,000 mg 1,000 mg, Oral, EVERY 6 HOURS, First dose on Tue03/06/24 at 2045, Until Discontinued, Patient preference for lesser PRN pain meds may be honored when the patient requests a less strong medication, a lower dose, or a less intrusive route of administration when the lesser drug, dose and route have been ordered for the patient. This patient request must be documented in the MAR. If both oral and IV options are ordered for the same pain severity, give oral first unless patient cannot tolerate oral intake 0608 ($ Given - Provider: Dipti Askew RN)1116 ($ Given - Provider: Antonieta Mccann RN)1825 ($ Given - Provider: Nolvia Gillespie RN) 0211 ($ Given - Provider: Dipti Askew RN)0627 ($ Given - Provider: Dipti Askew RN)1128 ($ Given - Provider: SN Elle)1740 ($ Given - Provider: Raine Proctor RN) 0014 ($ Given - Provider: Dipti Askew RN)0604 ($ Given - Provider: Dipti Askew RN) buPROPion SR 12hr (Wellbutrin-SR) tablet 150 mg 150 mg, Oral, 2 TIMES DAILY, First dose on Tue03/06/24 at 2115, Until Discontinued, Do not crush, chew, or cut in half. 0743 ($ Given - Provider: Antonieta Mccann RN)2219 ($ Given - Provider: Shae Rivera RN) 0935 ($ Given - Provider: SN Elle)2027 ($ Given - Provider: Dipti Askew RN) 0837 ($ Given - Provider: Raine Proctor RN) ceFAZolin (Ancef) 2 g in sterile water (PF) 20 mL syringe (COMPLETED) 2 g, Intravenous, EVERY 8 HOURS, 3 doses, First dose on Tue03/07/24 at 2300, Last dose on Tue03/08/24 at 1500, Infuse over 3-5 minutes. Dilute vial with 20 ml solution for a final concentration of 100 mg/ml., Indication for anti-infective therapy: Surgical prophylaxis 2216 ($ Given - Provider: Shae Rivera RN) 0630 ($ Given - Provider: Dipti Askew RN)1505 ($ Given - Provider: SN Elle) docusate sodium (Colace) capsule 100 mg 100 mg, Oral, DAILY, First dose on Tue03/06/24 at 0900, Until Discontinued 0743 ($ Given - Provider: Antonieta Mccann RN) 0936 (Not Administered - Provider: SN Elle - Reason: Refused-Patient) 0838 ($ Given - Provider: Raine Proctor RN) enoxaparin (Lovenox) injection 40 mg 40 mg, Subcutaneous, EVERY 12 HOURS, First dose on Tue03/06/24 at 0900, Until Discontinued, (for prefilled syringes) do not expel air bubble from the syringe prior to the injection Remind Patient to not rub injection site. Could cause hematoma. 0750 (Not Administered - Provider: Antonieta Mccann RN - Reason: Procedural Hold)221 ($ Given - Provider: Shae Rivera RN) 0935 ($ Given - Provider: SN Elle)2026 ($ Given - Provider: Dipti Askew, RN) 0837 ($ Given - Provider: Raine Proctor, FRANNIE) melatonin tablet 3 mg 3 mg, Oral, AT BEDTIME, First dose on Tue03/06/24 at 2115, Until Discontinued 2217 ($ Given - Provider: Shae Rivera RN) 2026 ($ Given - Provider: Dipti Askew RN) polyethylene glycol 3350 (Miralax) packet 17 g 17 g, Oral, DAILY, First dose on Tue03/06/24 at 0900, Until Discontinued, Mix in 8 ounces of water, juice, soda, coffee or tea prior to administration 0750 (Not Administered - Provider: Antonieta Mccann RN - Reason: Procedural Hold) 0935 (Not Administered - Provider: SN Elle - Reason: Refused-Patient) 1026 (Not Administered - Provider: Raine Proctor RN - Reason: Refused-Patient) topiramate (Topamax) tablet 100 mg 100 mg, Oral, 2 TIMES DAILY, First dose on Tue03/06/24 at 2115, Until Discontinued, Swallow tablets whole if taking orally to avoid a bitter taste. 0743 ($ Given - Provider: Antonieta Mccann RN)2217 ($ Given - Provider: Shae Rivera RN) 0935 ($ Given - Provider: SN Elle)2026 ($ Given - Provider: Dipti Askew RN) 0837 ($ Given - Provider: Raine Proctor, FRANNIE) vitamin D3 (Cholecalciferol) 25 MCG (1000 UNITS) tablet 1,000 Units 1,000 Units, Oral, DAILY, First dose on Tue03/06/24 at 1345, Until Discontinued, 1000 units = 25 mcg 0743 ($ Given - Provider: Antonieta Mccann RN) 0936 ($ Given - Provider: SN Elle) 0837 ($ Given - Provider: Raine Proctor RN) PRN Medication Order 03/07/2024 03/08/2024 03/09/2024 0.9% NaCl injection 1-10 mL(Linked Group 1) 1-10 mL, Intracatheter, PRN, Other, peripheral line flush, Starting on Tue03/06/24 at 0004, Until Tue03/09/24 at 1218, Flush peripheral IV catheter with 1-10 mL of normal saline before and after medications and prn to clear blood from the line or to verify patency. cyclobenzaprine (Flexeril) tablet 10 mg 10 mg, Oral, 3 TIMES DAILY PRN, Muscle Spasms, Starting on Tue03/06/24 at 2038, Until Tue03/09/24 at 1218 0417 ($ Given - Provider: Dipti Askew RN)0743 ($ Given - Provider: Antonieta Mccann RN)1835 ($ Given - Provider: Nolvia Gillespie RN) 0936 ($ Given - Provider: SN Elle)1740 ($ Given - Provider: Raine Proctor, FRANNIE) 0838 ($ Given - Provider: Raine Proctor, FRANNIE) diazePAM (Valium) tablet 2 mg () 2 mg, Oral, 3 TIMES DAILY PRN, Anxiety, Starting on Tue03/06/24 at 2039, Until Tue03/09/24 at 0400 0417 ($ Given - Provider: Dipti Askew RN)0743 ($ Given - Provider: Antonieta Mccann RN)1305 ($ Given - Provider: Antonieta Mccann RN)2218 ($ Given - Provider: Shae Rivera RN) 0935 ($ Given - Provider: SN Elle) HYDROmorphone (Dilaudid) injection 0.4 mg (CANCELED) 0.4 mg, Intravenous, EVERY 3 HOURS PRN, Severe Pain, break thru, Starting on Tue03/07/24 at 1800, Until Malathi 03/08/24 at 1616, Patient preference for lesser PRN pain meds may be honored when the patient requests a less strong medication, a lower dose, or a less intrusive route of administration when the lesser drug, dose and route have been ordered for the patient. This patient request must be documented in the MAR. If both oral and IV options are ordered for the same pain severity, give oral first unless patient cannot tolerate oral intake 1318 ($ Given - Provider: Raine Proctor RN) HYDROmorphone (Dilaudid) injection 0.5 mg (COMPLETED) 0.5 mg, Intravenous, EVERY 10 MIN PRN, Severe Pain, 4 doses, Starting on Tue03/07/24 at 1726, Until Tue03/07/24 at 1856, Maximum total of 4 doses If patient reaches max total dose, please consult anesthesiologist prior to further administration of pain meds. Hold pain meds if there are signs of hypoventilation. Patient preference for lesser PRN pain meds may be honored when the patient requests a less strong medication, a lower dose, or a less intrusive route of administration when the lesser drug, dose and route have been ordered for the patient. This patient request must be documented in the MAR. If both oral and IV options are ordered for the same pain severity, give oral first unless patient cannot tolerate oral intake, PACU 1825 ($ Given - Provider: Nolvia Gillespie RN)1835 ($ Given - Provider: Nolvia Gillespie RN)1845 ($ Given - Provider: Nolvia Gillespie RN)1856 ($ Given - Provider: Nolvia Gillespie RN) ondansetron (disintegrating) (Zofran ODT) tablet 4 mg 4 mg, Oral, EVERY 6 HOURS PRN, Nausea/Vomiting, Starting on Tue03/06/24 at 2044, Until Tue03/09/24 at 1218, Dissolved orally on tongue ondansetron (Zofran) injection 4 mg 4 mg, Intravenous, EVERY 6 HOURS PRN, Nausea/Vomiting, Starting on Tue03/06/24 at 0858, Until Tue03/09/24 at 1218, Administer over 2 to 5 minutes. oxyCODONE (immediate release) (Roxicodone) tablet 10 mg(Linked Group 2) 10 mg, Oral, EVERY 4 HOURS PRN, Severe Pain, Starting on Tue03/06/24 at 2039, Until Tue03/09/24 at 1218, Patient preference for lesser PRN pain meds may be honored when the patient requests a less strong medication, a lower dose, or a less intrusive route of administration when the lesser drug, dose and route have been ordered for the patient. This patient request must be documented in the MAR. If both oral and IV options are ordered for the same pain severity, give oral first unless patient cannot tolerate oral intake 0309 ($ Given - Provider: Dipti Askew RN)0743 ($ Given - Provider: Antonieta Mccann RN)1306 ($ Given - Provider: Antonieta Mccann RN)2218 ($ Given - Provider: Shae Rivera RN) 0218 ($ Given - Provider: Dipti Askew RN)0627 ($ Given - Provider: Dipti Askew RN)1034 ($ Given - Provider: SN Elle)1506 ($ Given - Provider: SN Elle)1850 ($ Given - Provider: Raine Proctor RN)2253 ($ Given - Provider: Dipti Askew RN) 0447 ($ Given - Provider: Dipti Askew RN)0838 ($ Given - Provider: Raine Proctor RN) oxyCODONE (immediate release) (Roxicodone) tablet 5 mg(Linked Group 2) 5 mg, Oral, EVERY 4 HOURS PRN, Moderate Pain, Starting on Tue03/06/24 at 2039, Until Tue03/09/24 at 1218, Patient preference for lesser PRN pain meds may be honored when the patient requests a less strong medication, a lower dose, or a less intrusive route of administration when the lesser drug, dose and route have been ordered for the patient. This patient request must be documented in the MAR. If both oral and IV options are ordered for the same pain severity, give oral first unless patient cannot tolerate oral intake 0309 (See Alternative - Provider: Dipti Askew RN)0743 (See Alternative - Provider: Antonieta Mccann RN)1306 (See Alternative - Provider: Antonieta Mccann RN)2218 (See Alternative - Provider: Shae Rivera RN) 0218 (See Alternative - Provider: Dipti Askew RN)0627 (See Alternative - Provider: Dipti Askew RN)1034 (See Alternative - Provider: SN Elle)1506 (See Alternative - Provider: SN Elle)1850 (See Alternative - Provider: Raine Proctor RN)2253 (See Alternative - Provider: Dipti Askew RN) 0447 (See Alternative - Provider: Dipti Askew RN)0838 (See Alternative - Provider: Raine Proctor RN) Linked Groups Order Group 1: SALINE LOCK, INSERT AND MAINTAIN (CANCELED) Routine, CONTINUOUS, Starting on Tue03/06/24 at 0015, Until Specified, New collection And 0.9% NaCl injection 3 mLJump to med 3 mL, Intracatheter, EVERY 8 HOURS, First dose on Tue03/06/24 at 0045, Until Discontinued, Flush peripheral IV catheter with 3 mL of normal saline every 8 hours. And 0.9% NaCl injection 1-10 mLJump to med 1-10 mL, Intracatheter, PRN, Other, peripheral line flush, Starting on Tue03/06/24 at 0004, Until Tue03/09/24 at 1218, Flush peripheral IV catheter with 1-10 mL of normal saline before and after medications and prn to clear blood from the line or to verify patency. Group 2: oxyCODONE (immediate release) (Roxicodone) tablet 5 mgJump to med 5 mg, Oral, EVERY 4 HOURS PRN, Moderate Pain, Starting on Tue03/06/24 at 203, Until Tue03/09/24 at 1218, Patient preference for lesser PRN pain meds may be honored when the patient requests a less strong medication, a lower dose, or a less intrusive route of administration when the lesser drug, dose and route have been ordered for the patient. This patient request must be documented in the MAR. If both oral and IV options are ordered for the same pain severity, give oral first unless patient cannot tolerate oral intake Or oxyCODONE (immediate release) (Roxicodone) tablet 10 mgJump to med 10 mg, Oral, EVERY 4 HOURS PRN, Severe Pain, Starting on Tue03/06/24 at 203, Until Tue03/09/24 at 1218, Patient preference for lesser PRN pain meds may be honored when the patient requests a less strong medication, a lower dose, or a less intrusive route of administration when the lesser drug, dose and route have been ordered for the patient. This patient request must be documented in the MAR. If both oral and IV options are ordered for the same pain severity, give oral first unless patient cannot tolerate oral intake documented in this encounter
--- OUTSIDE RECORDS SUMMARY | 2024-05-09 05:05 | XMS_ITS | Encounter Summary ---
Author Organization [facility] Address [address] [place] [address] Care Team Providers Care Air Technician Name Role Phone Unavailable Primary Care Provider Unavailabl e Reason for Visit * Auth/Cert (Routine) Specialty Diagnoses / Procedures Referred By Sammy t Referred To Contact Referral ID Status Reason Start Date Expiration Date Visits Re quested Visits Authorized [id number] 1 1 Encounter Details Date Type Department Care Team (Late st Contact Info) Description 03/07/2024 3:33 PM CDT Anesthesia Event [facility] [address] [place] [phone] Abhishek Rubi MD [address] [facility] [address] Katlyn King, [employer] [address] [facility] [place] [phone] Anesthesia Record Procedure Summary Procedure Name Responsible Anesthesiologist Anesthesia Start Time Anesthesia Stop Time INTRAMEDULLARY (IM) NAILING TIBIA (Left: Leg Lower) Abhishek Rubi MD 03/07/24 1533 03/07/24 1803 Events Date Time Event Comment 03/07/2024 1446 1533 An Start 1533 Pt In Room 1534 An Start Data 1534 PT Reassessment 1537 Induction 1543 An Intubation 1543 Anes Ready 1600 Time Out Anesthesia part icipated in timeout at the time documented in the record by nursing 1602 Proc Start 1604 An Tourn Inflated Pressure: 250 mmHg 1619 Handoff 1733 An Tourn Deflated 1751 Proc Stop 1753 An Emergence 175 Extubation 1758 ANPTO2 1758 an stop data 1758 Pt out of Room 1803 An Stop Meds Name Total ceFAZolin 2,000 mg IVPB 2 g midazolam 2 mg/2mL injection 2 mg fentaNYL 100 mcg/2ml injection 100 mcg lidocaine PF 2% 60 mg propofol 200mg/20mL injection 130 mg rocuronium 50 mg/5 mL injection 80 mg phenylephrine 100 mcg/mL syringe 320 mcg dexamethasone 10 mg/ml PF injection 4 mg ondansetron 4mg/2mL injection 4 mg sugammadex 200 mg/2mL injection 200 mg ePHEDrine injection 10 mg HYDROmorphone (Dilaudid) 2 mg/ml injecti on 1.2 mg dexmedeTOMIDine (Precedex) 4 mcg/mL syri nge 12 mcg LR (Lactated ringers) 850 mL * Agents Name Insp. N2O Exp. Sevoflurane Exp. N2O O2 Air Insp. Sevoflurane N2O * Blood No blood administrations on file. Lines, Drains, and Airways Type Details Placement Removal External Urinary Catheter 03/06/24; 1999; 03/09/24; 1109 03/06/241999 by Dipti Askew RN 03/09/24 1109 by Raine Proctor RN Peripheral IV Date: 03/07/24; Time : 1441; Orientation: Left; Location: Hand; Gauge: 18 G 03/07/24 1441 by Cat Johnson RN 03/09/24 1109 by Raine Proctor RN ETT Date: 03/07/24; Time : 1543; Placed By: Obinna Gupta MD; Vent: easy with oral airway mask; Induction: Standard IV; Blade Type: Umer; Blade Size: 3; Laryngoscopy View: Grade 1 (full cords); Intubation Adjuncts: Stylet; Tube: Endotracheal Tube; Placement: Oral; Tube Type: Cuffed-inflated; Tube Size(mm): 7 MM; Depth of Insertion: 22 CM; Measured From: teeth; Attempts: 1; Cuff Infated: Air; Cuff Vol(mL): 10 mL; Verified By: Direct visualization, Bilateral breath sounds, Chest Auscultation, CO2 Monitor 03/07/24 1543 by Obinna Gupta MD 03/07/24 1756 by Obinna Gupta MD Procedural Site (Incision) 03/07/24; 1610; Anterior, Left; Knee; 03/09/24; 1718 03/07/24 1610 by Benny Wray RN 03/09/24 1718 by Adryan, Auto Release documented in this encounter Social History Tobacco Use Types Packs/Day Years Used Date Smoking Tobacco: Never Assessed AUDIT-C Answer Date Recorded Q1: How often [...] medical care, and heating? Patient declined 03/09/2024 [facility] - Occupational [...] any time in the past 12 m [facility], were you homeless or living in a group home (including now)? Patient declined 03/09/2024 Sex and Gender Information Value Date Recorded Sex Assigned at Not on file Gender Identity Not on file Sexual Orientation Not on file documented as of this encounter Progress Notes * Abhishek Rubi MD - 03/08/2024 7:03 AM CDT ANESTHESIA POSTOP EVALUATION NOTE Procedure: INTRAMEDULLARY (IM) NAILING TIBIA (Left: Leg Lower) Serenity Mooney is a 43 year old female Patient Vitals for the past 6 hrs: BP Temp Pulse Resp SpO2 Pain Rating Score #1 Pain Scale/Observation 03/08/24 0211 -- -- -- -- -- 8 -- 03/08/24 0404 113/69 97.9 ??F (36.6 ??C) 85 19 99 % -- -- 03/08/24 0627 -- -- -- -- -- 9 N Anesthesia Type: general ETT Pre-op Diagnosis Codes: * Closed fracture of distal end of left tibia, unspecified fracture morphology, initial encounter [S82.302A] Mental Status: awake, alert, oriented and neurologic status has returned to preoperative level Neuro Status: No numbness, tingling or visual disturbances Respiratory Function: natural Cardiac Function: stable Postop Pain: acceptable to the patient Postop Hydration: adequate Postop Nausea: none Assessment: no apparent anesthetic complications, patient tolerated procedure well and no evidence of recall Patient Disposition: Release from Anesthesia Care NOTABLE EVENTS: No notable events documented. * Dorothea Ortega MD - 03/06/2024 1:54 PM CDT ANESTHESIA PREOPERATIVE EVALUATION NOTE Procedure: INTRAMEDULLARY (IM) NAILING TIBIA (Left: Leg Lower) Vitals: Patient Vitals for the past 6 hrs: Pain Rating Score #1 03/06/24 1124 7 03/06/24 0912 5 LMP: No LMP recorded. OB Status: unknown ANESTHESIA PRE-EVALUATION NOTE History of Present Illness: Serenity Mooney is a 43 year old female who is presented with left ankle pain after an unwitnessed ground level fall. At 2100 on 03/05 she was smoking weed at home. She stood up and walked into the house and suddenly became dizzy and fell. She heard a snap. She is not sure if she lost consciousness but she was found by her sitting up on the floor confused. she does not usually smoke and thi nks that it was stronger than normal. She had a left ankle deformity with swelling and bruising butno bleeding. Scheduled now for Im nail PMH: Metal plate in right arm 2/2 [...] 2-3 weeks Smokes marijuana every 2-3 months The patient is a current smoker. The patient was instructed to abstain from smoking on day of procedure. Physical Exam: Orientation X3 Airway/Mallampati Score: I Mouth Opening Distance: 3 fingerwidths Neck ROM: full TM Distance: > 3 FB Teeth: normal Heart: normal - S1 S2 Lungs: clear to ausculation bilaterally Review of Systems: History of anesthetic complications: No Sleep Apnea Risk: No Malignant Hyperthermia: No GERD: No Poor Exercise Tolerance: No Recent Chest Pain: No Shortness of Breath: No AICD/Pacemaker: No Renal Disease: No Diagnostic Tests: Lab(s) reviewed: Yes. ANESTHESIA PLAN ASA Score: 2 NPO Status: No liquids within 2 hours and No solids for 8 hours Anesthesia Plan: general ETT Planned Induction: intravenous Planned Postop Destination: PACU Anesthetic plan was discussed with: patient Anesthetic Plan discussion was: Consented The patient's procedural Anesthetic Plan was discussed with the anesthesiologist and resident. Overall additional findings/comments: Discussed with pt risks of anesthesia including but not limited to nausea/vomiting, aspiration, headache, dental damage, sore throat, arrhythmia, myocardial infarction, stroke, . Questions solicited and answered. Pt understands risks and would like to proceed with surgery. . BMI, Height, Weight Tobacco History Estimated body mass index is 27.88 kg/m?? as calculated from the following: Height as of this encounter: 1.651 m (5' 5 ). Weight as of this encounter: 76 kg (167 lb 8.8 oz). Social History Tobacco Use Smoking Status Not on file Smokeless Tobacco Not on file Alcohol History Drug History Social History Substance and Sexual Activity Alcohol Use None Social History Substance and Sexual Activity Drug Use Yes ??? Types: Marijuana Outpatient Medications: Inpatient Medications: Outpatient Medications Marked as Taking for the 03/05/24 encounter (Hospital Encounter) Medication Sig Last Dose ??? buPROPion SR 12hr Take 1 (one) tablet by mouth 2 times daily ??? topiramate Take 1 (one) tablet by mouth 2 times daily Current Facility-Administered Medications Medication Dose Last Admin ??? 0.9% NaCl 3 mL And ??? 0.9% NaCl 1-10 mL ??? docusate sodium 100 mg 100 mg at 03/06/24 0913 ??? enoxaparin 40 mg 40 mg at 03/06/24 0913 ??? HYDROcodone-acetaminophen 1 tablet Or ??? HYDROcodone-acetaminophen 1 tablet 1 tablet at 03/06/24 1124 ??? HYDROmorphone 0.5 mg ??? iopamidol 100 mL at 03/06/24 0235 ??? lactated ringers ??? ondansetron 4 mg 4 mg at 03/06/24 0913 ??? polyethylene glycol 3350 17 g 17 g at 03/06/24 0913 ??? vitamin D3 1,000 Units Allergies: No Known Allergies Relevant Problems Cardiovascular (+) Syncope and collapse Problem List: Patient Active Problem List Diagnosis Date Noted ??? Fall 03/06/2024 Priority: Not Prioritized ??? Fracture tibia/fibula, left, closed, initial encounter 03/06/2024 Priority: Not Prioritized ??? Syncope and collapse 03/06/2024 Priority: Not Prioritized ??? Closed fracture of left ankle, initial encounter 03/06/2024 Priority: Not Prioritized ??? Ground-level fall 03/06/2024 Priority: Not Prioritized Medical History: Past Medical History: Diagnosis Date ??? Basal cell carcinoma face and arm ??? Diverticulitis ??? Humerus fracture Right arm ??? MDD (major depressive disorder) Surgical History: Past Surgical History: Procedure Laterality Date ??? ADJUSTABLE GASTRIC BAND, LAP PLACEMENT ??? Breast Augmentation Bilateral ??? COLECTOMY PARTIAL OR HEMICOLECTOMY ??? HUMERAL SHAFT FRACTURE, OPEN REPAIR Right DIRECTOR OF DIRECT MARKETING Status: No LMP recorded. unknown OB History No obstetric history on file. Covid Vaccine: Lab Results: Recent Labs Component Name 03/06/24 0100 WBC 8.8 RBC 3.88* HCT 34.0* HGB 11.6* PLTCOUNT 297 MCV 87.6 MCH 29.9 MCHC 34.1 MPV 9.2 Recent Labs Component Name 03/06/24 0239 03/06/24 0100 ABORH A POS A POS ABSCG - NEG Recent Labs Component Name 03/06/24 0100 POTASSIUM 3.6 CALCIUM 8.9 CO2 22 GLUCOSE 132* BUN 12 CREATININE 0.97* Recent Labs Component Name 03/06/24 0236 PTT 26.0 PT 12.7 INR 1.0 No results found for requested labs within last 120 days. Recent Labs Result Component Current Result Alkaline Phosphatase 63 (03/06/2024) ALT 12 (03/06/2024) Anion Gap 9 (03/06/2024) AST 15 (03/06/2024) eGFR by CKD-EPI 75 (L) (03/06/2024) Inpatient PAT evaluation start: T Wt Readings from Last 3 Encounters: 03/05/24 76 kg (167 lb 8.8 oz) Temp Readings from Last 3 Encounters: 03/05/24 98.6 ??F (37 ??C) (Temporal) BP Readings from Last 3 Encounters: 03/06/24 120/80 Pulse Readings from Last 3 Encounters: 03/06/24 86 I. Perioperative Cardiac Risk Index Stratification based on 2014 ACC/AHA Guidelines for patients undergoing noncardiac surgery Is the surgery high-risk? NO 2. History of ischemic heart disease? NO If yes then paste summary of most recent LHC / stress tests here: 3. History of CHF? no If yes then paste summary of most recent echo: 4. History of cerebrovascular disease? Prior TIA or stroke no If yes then paste summary of most any relevant neurovascular imaging (head and neck CTA, MRI / MRA,carotid duplex) here: 5. Insulin-dependent Diabetes? NO A1c: No results for input(s): HGBA1C , A1C , [id number] , EAG in the last 45428 hours. 6. Preoperative creatinine > 2 mg/dl? no HD? no Recent Labs Component Name 03/06/24 0100 POTASSIUM 3.6 CO2 22 BUN 12 CREATININE 0.97* EGFR 75* GLUCOSE 132* CALCIUM 8.9 Total RCRI / MACE score 0 Points >= 0.4% II. METs > 4? yes 4 METs = Can walk up a flight of steps or a hill or walk on level ground at 3 mph III. Mechanical ventilation? no IV. CXR XR Knee Left 2Vw or Less Result Date: 03/06/2024 IMPRESSION: No acute fracture or dislocation identified. Report dictated by Cedric Bal DO (residential manager). Naveen Mallory MD have personally reviewed and interpreted this examination/study. > Interpreting Provider: Naveen Ace MD on 03/06/2024 9:26 AM XR Tibia Fibula Left 2Vw Result Date: 03/06/2024 IMPRESSION: Acute moderately displaced comminuted fracture of the distal tibia and fibula with extension into the tibial plafond. Report dictated by Cedric Bal DO (residential manager). Naveen Mallory MD have personally reviewed and interpreted this examination/study. > Interpreting Provider: Naveen Ace MD on 03/06/2024 9:21 AM XR Ankle Left 3Vw or More Result Date: 03/06/2024 IMPRESSION: Acute moderately displaced comminuted fracture of the distal tibia and fibula with extension into the tibial plafond. Report dictated by Cedric Bal DO (residential manager). Naveen Mallory MD have personally reviewed and interpreted this examination/study. > Interpreting Provider: Naveen Ace MD on 03/06/2024 9:[address] HEAD WO CONTRAST - Head Trauma, CSF leak, mental status changes Result Date: 03/06/2024 IMPRESSION: 1.No acute intracranial hemorrhage, midline shift, or significant mass effect. 2.No evidence of acute fracture in the cervical, thoracic, or lumbar spine. 3.Please refer to the concurrent, dedicated body report for findings in the chest, abdomen, and pelvis. > Dictated by Cedric Bal DO (Pump Servicer Supervisor), 03/06/2024 3:09 AM. Anthony Mallory MD have personally reviewed and interpreted this examination/study. > Interpreting Provider: Anthony Adler MD on03/06/2024 7:[address] CERVICAL SPINE WO CONTRAST - C-Spine Trauma, Spine fracture Result Date: 03/06/2024 IMPRESSION: 1.No acute intracranial hemorrhage, midline shift, or significant mass effect. 2.No evidence of acute fracture in the cervical, thoracic, or lumbar spine. 3.Please refer to the concurrent, dedicated body report for findings in the chest, abdomen, and pelvis. > Dictated by Cedric Bal DO (Pump Servicer Supervisor), 03/06/2024 3:09 AM. Anthony Mallory MD have personally reviewed and interpreted this examination/study. > Interpreting Provider: Anthony Adler MD on03/06/2024 7:[address] THORACIC SPINE WO CONTRAST - T/L-spine trauma, spine fracture Result Date: 03/06/2024 IMPRESSION: 1.No acute intracranial hemorrhage, midline shift, or significant mass effect. 2.No evidence of acute fracture in the cervical, thoracic, or lumbar spine. 3.Please refer to the concurrent, dedicated body report for findings in the chest, abdomen, and pelvis. > Dictated by Cedric Bal DO (Pump Servicer Supervisor), 03/06/2024 3:09 AM. Anthony Mallory MD have personally reviewed and interpreted this examination/study. > Interpreting Provider: Anthony Adler MD on03/06/2024 7:[address] LUMBAR SPINE WO CONTRAST - T/L-spine trauma, Spine fracture Result Date: 03/06/2024 IMPRESSION: 1.No acute intracranial hemorrhage, midline shift, or significant mass effect. 2.No evidence of acute fracture in the cervical, thoracic, or lumbar spine. 3.Please refer to the concurrent, dedicated body report for findings in the chest, abdomen, and pelvis. > Dictated by Cedric Bal DO (Pump Servicer Supervisor), 03/06/2024 3:09 AM. Anthony Mallory MD have personally reviewed and interpreted this examination/study. > Interpreting Provider: Anthony Adler MD on03/06/2024 7:[address] Ankle Left Wo Contrast Result Date: 03/06/2024 IMPRESSION: Redemonstration of moderately displaced mildly comminuted distal fibular and tibial fractures with posterior displacement and angulation of the apex fragments relative to the proximal fragments. There is extension of the distal tibial fracture into the tibial plafond. > Dictated by Pranav Morales DO (residential manager). Selina Mallory MD have personally reviewedand interpreted this examination/study. > Interpreting Provider: Selina Narvaez MD on 03/06/2024 7:[address] CHEST ABDOMEN PELVIS W CONT - Abdomen-pelvis trauma, blunt or penetrating Result Date: 03/06/2024 Impression: 1.No acute visceral, vascular, or osseus injury identified in the chest, abdomen, or pelvis. 2.Postoperative changes of partial colectomy with surgical anastomosis within the region of the sigmoid colon. Postoperative changes of gastric banding are seen. > Dictated by Pranav Morales DO (residential manager). Selina Mallory MD have personally reviewed and interpreted this examination/study. > Interpreting Provider: Selina Narvaez MD on 03/06/2024 7:08 AM V. Most recent EKG (paste here if not autoimported). EKG needed within 6 months if: (ASA >= 3 ORany RCRI) AND non-low risk procedure No results found for this or any previous visit. . CIEDs Does patient have a CIED (cardiovascular implantable electronic device eg: PM, AICD)? no _ VII. Anticoagulants Is patient receiving chronic antiplatelet/ anticoagulant medications (with exception of DVT prophylaxis and or Aspirin) ? What is periop plan ? NO VIII. T&S available within past 72 hrs (if needed)? yes Recent Labs Component Name 03/06/24 0239 03/06/24 0100 ABORH A POS A POS ABSCG - NEG IX. JEFFERSON score JEFFERSON score: X. Known or suspected difficult airway - only then complete previous airway management section in preop section above XI. Frailty screen: No data recorded XII. Suboxone (Buprenorphine / Naloxone) therapy? N/A GLP-1 Agonists No XIII. Consults: YES - medicine and YES - other trauma XIV. Additional testing needed within 3 months prior to DOS (if possible, else on DOS) - CBC w/o diff if ASA >= 3 OR expected blood loss >250 OR previously abnormal - BMP if ASA >= 3 AND non low- risk procedure / previously abnormal - CMP (instead of BMP) for patient with chronic liver disease or previously abnormal -PT/ PTT/ INR if recent use of anticoagulants OR scheduled for major vascular procedures including aortic and carotid stents / aneurysm coiling / TIPS Recent Labs Component Name 03/06/24 0100 WBC 8.8 HGB 11.6* HCT 34.0* PLTCOUNT 297 Additional testing needed on DOS : - EPOC blood glucose for patients w/ DM - EPOC whole blood K+ for patient with ESRD or poorly controlled K+ Labs or in need of review on DOS: hCG ORDERED 254 PM 03/06 Summary: Serenity Mooney is a 43 year old female presenting for INTRAMEDULLARY (IM) NAILING TIBIA (Left: Leg Lower). They have an ASA score of 2 and a RCRI / MACE score of 0 Points >= 0.4% They ARE OPTIMIZED - PAT EVALUATION COMPLETE Katlyn King APRN-KARL 03/06/2024 2:54 PM for this procedure. Preoperative plan was not discussed w/ PAT attending (date and name). (please note that ALL RESIDENT charts must be discussed with the PAT director or designated person) XXI. LDAs Peripheral IV Anterior;Left;Proximal Forearm (Active) Placement Date/Time: 03/06/24 0000 Size (Gauge): 20 G Orientation: Anterior;Left;Proximal Location:Forearm Insertion attempts (FOR ED ONLY): 1 Number of days: 0 PAT evaluation end: documented in this encounter Procedure Notes * Obinna Gupta MD - 03/07/2024 4:11 PM CDTAssociated Order(s): ETT Placement Endotracheal Tube Placement: Patient Location: OR. Intubation Event Date/Time: 03/07/2024 3:43 PM Procedure: intubation ([id number]) Procedure Section: Sedation: under general anesthesia. Indications for Airway Management: anesthesia Procedure pretreatments used? No Induction: standard IV Patient Position: sniffing and supine Mask Ventilation: easy with oral airway. Blade Type: Umer Blade Size: 3 Laryngoscopy View: grade 1 (full cords) Intubation Adjuncts: stylet Tube: endotracheal tube Placement: oral Tube type: cuff - inflated Tube Size (MM): 7 Depth of Insertion (CM): 22 Measured From: teeth Cuff volume (mL): 10 Cuff Inflated With: air Number of Attempts: 1. Placement Verified By: direct visualization, bilateral breath sounds, chest auscultation and CO2 monitor Tube secured with: adhesive tape. Dentition unchanged? Yes Difficult Airway? No. Procedure Start Time: 03/07/2024 3:43 PM. Staff Section Anesthesia Provider: Obinna Gupta MD, Performed the procedure Provider #1: Iker Jonas MD. documented in this encounter Miscellaneous Notes * Anesthesia Transfer of Care - Obinna Gupta MD - 03/07/2024 6:04 PM CDT ANESTHESIA TRANSFER OF CARE NOTE Today's Date: 03/07/2024 Date of : 1980 Patient: Serenity Mooney Procedure(s): INTRAMEDULLARY (IM) NAILING TIBIA Surgeon(s): Primary: Manuel Resendiz DO Resident - Assisting: Abdulkadir Guardado MD Fellow: Benny Jnoes MD Preop Diagnosis: Pre-op Diagnois: * Closed fracture of distal end of left tibia, unspecified fracture morphology, initial encounter [S82.888Q] Pre-op Meds (From admission, onward) Start Stop Status Route Frequency Ordered 03/06/24 0004 0.9% NaCl injection 1-10 mL Placed in And Linked Group -- Dispensed IK PRN 03/06/248 03/06/24 0045 0.9% NaCl injection 3 mL Placed in And Linked Group -- Dispensed IK EVERY 8 HOURS 03/06/24703/06/242044 acetaminophen (Tylenol) tablet 1,000 mg -- Dispensed PO EVERY 6 HOURS 03/06/24203803/07/241725 albuterol (Proventil;Ventolin) (5 MG/ML) 0.5% nebulizer solution 2.5 mg -- Verified IN POST-OP MULTIPLE 03/07/24172503/06/242114 buPROPion SR 12hr (Wellbutrin-SR) tablet 150 mg Note to Pharmacy: OP sig: Take 1 (one) tablet by mouth 2 times daily -- Dispensed PO 2 TIMES DAILY 03/06/24204203/07/24 230 ceFAZolin (Ancef) 2 g in sterile water (PF) 20 mL syringe 03/08/24 225 Verified IV EVERY 8 HOURS 03/07/24175703/06/242037 cyclobenzaprine (Flexeril) tablet 10 mg -- Dispensed PO 3 TIMES DAILY PRN 03/06/24203803/06/242038 diazePAM (Valium) tablet 2 mg -- Dispensed PO 3 TIMES DAILY PRN 03/06/24203903/07/241725 diphenhydrAMINE (Benadryl) injection 25 mg -- Verified IV ONCE PRN 03/07/24172503/07/241725 diphenhydrAMINE (Benadryl) injection 25 mg -- Verified IV POST-OP MULTIPLE 03/07/24172503/06/24 0900 docusate sodium (Colace) capsule 100 mg -- Dispensed PO DAILY 03/06/24 0858 03/06/24 0900 enoxaparin (Lovenox) injection 40 mg -- Dispensed SC EVERY 12 HOURS 03/06/24 0719 03/07/24 172 fentaNYL (PF) (Sublimaze) injection 25 mcg -- Verified IV EVERY 5 MIN PRN 03/07/24 17203/07/24 172 fentaNYL (PF) (Sublimaze) injection 50 mcg -- Verified IV EVERY 5 MIN PRN 03/07/24 1726 03/07/24 172 hydrALAZINE (Apresoline) injection 5 mg -- Verified IV POST-OP MULTIPLE 03/07/24 1726 03/07/24 1800 HYDROmorphone (Dilaudid) injection 0.4 mg -- Verified IV EVERY 3 HOURS PRN 03/07/24 1800 03/07/24 172 HYDROmorphone (Dilaudid) injection 0.5 mg -- Verified IV EVERY 10 MIN PRN 03/07/24 1726 03/06/24 0158 iopamidol (Isovue 370) 76 % contrast 03/08/24 0157 Dispensed IV CONTRAST ONCE 03/06/24 0158 03/07/24 172 labetalol (Normodyne; Trandate) injection 5 mg -- Verified IV POST-OP MULTIPLE 03/07/24 1726 03/07/24 173 lactated ringers infusion 03/07/25 1729 Dispensed IV CONTINUOUS 03/07/24 17203/06/242114 melatonin tablet 3 mg -- Dispensed PO AT BEDTIME 03/06/24203803/07/24 172 naloxone (Narcan) injection 0.04 mg -- Verified IV POST-OP MULTIPLE 03/07/24 17203/06/24 204 ondansetron (disintegrating) (Zofran ODT) tablet 4 mg -- Verified PO EVERY 6 HOURS PRN 03/06/24204303/06/24857 ondansetron (Zofran) injection 4 mg -- Dispensed IV EVERY 6 HOURS PRN 03/06/24 0858 03/07/24 172 ondansetron (Zofran) injection 4 mg -- Verified IV ONCE PRN 03/07/24172503/06/242038 oxyCODONE (immediate release) (Roxicodone) tablet 10 mg Placed in Or Linked Group -- Dispensed PO EVERY 4 HOURS PRN 03/06/24203803/06/242038 oxyCODONE (immediate release) (Roxicodone) tablet 5 mg Placed in Or Linked Group -- Dispensed PO EVERY 4 HOURS PRN 03/06/24203803/06/24899 polyethylene glycol 3350 (Miralax) packet 17 g -- Dispensed PO DAILY 03/06/24 0858 03/07/241725 prochlorperazine (Compazine) injection 10 mg -- Verified IV ONCE PRN 03/07/24172503/06/242114 topiramate (Topamax) tablet 100 mg Note to Pharmacy: OP sig: Take 1 (one) tablet by mouth 2 times daily -- Dispensed PO 2 TIMES DAILY 03/06/24204203/06/24 1345 vitamin D3 (Cholecalciferol) 25 MCG (1000 UNITS) tablet 1,000 Units -- Dispensed PO DAILY 03/06/24 1337 Post-op Diagnosis: * Closed fracture of distal end of left tibia, unspecified fracture morphology, initial encounter [S82.302A] . No Known Allergies Vitals: No data found. Lines, Drains, and Airways Type Details Placement Removal Peripheral IV Date: 03/07/24; Time: 1441; Orientation: Left; Location: Hand; Gauge: 18 G 03/07/24 1441 by Cat Johnson RN ETT Date: 03/07/24; Time: 1543; Placed By: Obinna Gupta MD; Vent: easy with oral airway mask; Induction: Standard IV; Blade Type: Umer; Blade Size: 3; Laryngoscopy View: Grade 1 (full cords); Intubation Adjuncts: Stylet; Tube: Endotracheal Tube; Placement: Oral; Tube Type: Cuffed-inflated; Tube Size(mm): 7 MM; Depth of Insertion: 22 CM; Measured From: teeth; Attempts: 1; Cuff Infated: Air; Cuff Vol(mL): 10 mL; Verified By: Direct visualization, Bilateral breath sounds, Chest Auscultation, CO2 Monitor 03/07/24 1543 by Obinna Gupta MD 03/07/24 1756 by Obinna Gupta MD Intraprocedure I/O Totals Intake LR (Lactated ringers) 850.00 mL Total Intake 850 mL Output Estimated Blood Loss 150 mL Total Output 150 mL Net Net Volume 700 mL Patient Transfer Location: PACU Transport Airway: spontaneous respirations and supplemental O2 Transport Monitoring: continuous pulse oximetry Complications: None Handoff Given? Yes Checklist or Protocol - The drummond handoff elements that must be included in the transfer of care checklist include: 1. Identification of patient. 2. Identification of responsible practitioner (PACU nurse or advanced practitioner). 3. Discussion of pertinent medical history. 4. Discussion of the surgical/procedure course (procedure, reason for surgery, procedure performed). 5. Intraoperative anesthetic management and issue/concerns. 6. Expectations/Plans for the early post-procedure period. 7. Opportunity for questions and acknowledgement of understanding of report from the receiving PACUteam. 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 03/07/2024 ??4:11 PM Endotracheal Tube Placement: ? Patient Location: OR. Intubation Event Date/Time: ??03/07/2024 3:43 PM Procedure: intubation (70666) Procedure Section: ?? Sedation: under general anesthesia. [...] Iker Jonas MD GENERAL ANESTHESIA O RDERABLES documented in this encounter Visit Diagnoses Not on filedocumented in this encounter Administered Medications Inactive Administered Medications - up to 3 most recent administrations Medication Order MAR Action Action Date Dose Rate Site ceFAZolin (Ancef) 2,000 mg in 50 mL IVPB Intravenous, PRN, Starting on Tue03/07/24 at 1552, Until Tue03/07/24 at 1803, Anesthesia Intra-op $ Given 03/07/2024 3:52 PM CDT 2 g dexAMETHasone Sod Phosphate PF injection Intravenous, PRN, Starting on Tue03/07/24 at 1607, Until Tue03/07/24 at 1803, Anesthesia Intra-op $ Given 03/07/2024 4:07 PM CDT 4 mg dexmedeTOMIDine (Precedex) injection Intravenous, PRN, Starting on Tue03/07/24 at 1658, Until Tue03/07/24 at 1803, Anesthesia Intra-op $ Given 03/07/2024 5:17 PM CDT 8 mcg $ Given 03/07/2024 4:58 PM CDT 4 mcg ePHEDrine 50 MG/ML injection Intravenous, PRN, Starting on Tue03/07/24 at 1617, Until Tue03/07/24 at 1803, Anesthesia Intra-op $ Given 03/07/2024 4:17 PM CDT 10 mg fentaNYL (PF) (Sublimaze) injection Intravenous, PRN, Starting on Tue03/07/24 at 1537, Until Tue03/07/24 at 1803, Anesthesia Intra-op $ Given 03/07/2024 3:37 PM CDT 100 mcg HYDROmorphone (Dilaudid) injection Intravenous, PRN, Starting on Tue03/07/24 at 1626, Until Tue03/07/24 at 1803, Anesthesia Intra-op $ Given 03/07/2024 5:24 PM CDT 0.4 mg $ Given 03/07/2024 4:52 PM CDT 0.4 mg $ Given 03/07/2024 4:26 PM CDT 0.4 mg lactated ringers infusion Intravenous, CONTINUOUS PRN, Starting on Tue03/07/24 at 1533, Until Tue03/07/24 at 1803, Anesthesia Intra-op $ New Bag/Syringe 03/07/2024 3:33 PM CDT lidocaine HCl (PF) (Xylocaine MPF) 2 % injection Intravenous, PRN, Starting on Tue03/07/24 at 1538, Until Tue03/07/24 at 1803, Anesthesia Intra-op $ Given 03/07/2024 3:38 PM CDT 60 mg midazolam (Versed) injection Intravenous, PRN, Starting on Tue03/07/24 at 1533, Until Tue03/07/24 at 1803, Anesthesia Intra-op $ Given 03/07/2024 3:33 PM CDT 2 mg ondansetron (Zofran) injection Intravenous, PRN, Starting on Tue03/07/24 at 1717, Until Tue03/07/24 at 1803, Anesthesia Intra-op $ Given 03/07/2024 5:17 PM CDT 4 mg phenylephrine 100 mcg/mL injection Intravenous, PRN, Starting on Tue03/07/24 at 1553, Until Tue03/07/24 at 1803, Anesthesia Intra-op $ Given 03/07/2024 4:01 PM CDT 160 mcg $ Given 03/07/2024 3:53 PM CDT 160 mcg propofol (Diprivan) injection Intravenous, PRN, Starting on Tue03/07/24 at 1538, Until Tue03/07/24 at 1803, Anesthesia Intra-op $ Given 03/07/2024 3:38 PM CDT 130 mg rocuronium (Zemuron) injection Intravenous, PRN, Starting on Tue03/07/24 at 1539, Until Tue03/07/24 at 1803, Anesthesia Intra-op $ Given 03/07/2024 4:31 PM CDT 20 mg $ Given 03/07/2024 3:39 PM CDT 60 mg sugammadex (Bridion) injection Intravenous, PRN, Starting on Tue03/07/24 at 1742, Until Tue03/07/24 at 1803, Anesthesia Intra-op $ Given 03/07/2024 5:42 PM CDT 200 mg documented in this encounter
--- OUTSIDE RECORDS SUMMARY | 2024-05-09 05:05 | XMS_ITS | Encounter Summary ---
Author Organization [facility] Address [address] [place] [address] Care Team Providers Care Pulp Grinder Feeder Name Role Phone Unavailable Primary Care Provider Unavailabl e Encounter Details Date Type Department Care Team (Latest Contact Info) Description 03/05/2024 Travel Social History Tobacco Use Types Packs/Day Years Used Date Smoking Tobacco: Never Assessed Sex and Gender Information Value Date Recorded Sex Assigned at Not on file Gender Identity Not on file Sexual Orientation Not on file documented as of this encounter Plan of Treatment Upcoming Encounters Date Type Department Care Team (Late st Contact Info) Description 05/18/2024 9: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
--- OUTSIDE RECORDS SUMMARY | 2024-05-09 05:05 | XMS_ITS | Encounter Summary ---
Author Organization [facility] Address [address] [facility] [place] [address] Care Team Providers Care Records Management Engineer Name Role Phone Unavailable Primary Care Provider Unavailabl e Reason for Visit * Reason Comments Fall [...] Expiration Date Visits Re quested Visits Authorized [id number] 1 1 Encounter Details Date Type Department Care Team (Late st Contact Info) Description 03/07/2024 2:29 PM CDT - 03/07/2024 4:52 PM CDT Surgery [facility] [address] [place] [phone] Manuel Resendiz DO [address] [place] [phone] INTRAMEDULLARY (IM) NAILING TIBIA Surgery Details Date/Time Status Location OR Service Patient Class Case Class Case Type Trauma Case? 03/07/2024 2:29 PM Posted [facility] OR OR Orthopedics Inpatient Work Ins >24 Hrs to 5 Days Panel 1 Procedure LRB Anes Op Region Wound Class Comments INTRAMEDULLARY (IM) NAILING TIBIA Left General Leg Lo wer Clean Surgeon Surgeon Role Service Panel Abdulkadir Guardado MD Resident - Assisting Orthopedi cs 1 Manuel Resendiz DO Primary Orthopedics 1 Benny Jones MD Fellow Orthopedics 1 documented in this encounter Social History Tobacco Use Types Packs/Day Years Used Date Smoking Tobacco: Never Smokeless Tobacco: Never Tobacco Cessation:Counseling Given: Yes Sex and Gender Information Value Date Recorded Sex Assigned at Not on file Gender Identity Not on file Sexual Orientation Not on file documented as of this encounter Last Filed Vital Signs Vital Sign Reading Time Taken Comments Blood Pressure 118/82 03/07/2024 2:45 PM CDT Pulse 79 03/07/2024 2:45 PM CDT Temperature 36.8 ??C (98.2 ??F) 03/07/2024 2:30 PM CD T Respiratory Rate 16 03/07/2024 2:45 PM CDT Oxygen Saturation 100% 03/07/2024 2:45 PM CDT Inhaled Oxygen Concentration - - Weight [...] year old / female : 1980 CSN: [id number] Attending Physician: Chase Garcia DO Consults: PT/OT, [...] left medial malleolus CRPP by Dr. Resendiz [facility] Course: Serenity Yang is a 43 year [...] DVT prophylaxis. Medications were ordered to her [facility] pharmacy pre request due to insurance issues. [...] Your Medications These medications were sent to [facility] [address] [address] aspirin EC 81 MG tablet cyclobenzaprine 10 [...] with Manuel Resendiz at [facility] - Orthopedics ([phone]) [address] [place] [phone] Discharge Orders & Patient Instructions Summary: Weight Bearing: left lower extremity weight bearing as tolerated in ACB Activity: activity as tolerated Diet: may resume diet (prior to hospitalization) Anticoagulation: Aspirin: 325 mg twice daily Sutures/Norco: any nonabsorbable sutures to be removed at next clinic appointment Pain Medication: Tylenol, oxycodone, and Flexeril Wound Care: Keep wound clean and dry. Change dressing in 2 days or sooner if saturated. OK to shower on POD#5 . Remove brace daily for skin checks For after hours orthopaedic emergency calls dial [phone] and page the orthopaedic surgery resident statement distribution clerk Discharge Instructions Orthopaedic Trauma Surgery Patient Discharge Instructions Serenity Yang you were admitted to [facility] for evaluation and treatment of [...] 9:00 AM Appointment with Manuel Resendiz at [facility] - Orthopedics ([phone]) [address] [place] [phone] You can call the clinic to confirm, cancel, or reschedule as needed. If you have any questions or concerns please call before your visit. Office Schedulers: [phone], option 1 Activity: Activity as tolerated. No [...] such as your primary care doctor, a sugarcane planter (heart), vascular (blood vessel), or a signals collection technician (lung), please call their office for instructions. [...] Make sure skin is covered by an GOPAL wrap or tall sock. You can also [...] to prevent skin breakdown. Compression stockings or GOPAL wrap worn during the day when you [...] mail, or fax it to our office ([phone]) in advance so itcan be completed in a timely manner before the necessary deadline. FMLA, disability, and work paperwork is completed each Tuesday by the Marine Mechanic. Also, the doctor is only in the office one day a week to sign the paperwork. Medical records: Your medical records can be obtained by calling [phone] Fax number: [phone] Please contact our clinic at if you need to schedule or change an appointment or forany additional questions. After hours: [phone] - ask the black top spreader machine operator for the On-Call Ortho Resident For medical emergencies, please call [phone]. Follow up Contact Information: [facility] Orthopedic Surgery office contact information: [facility] ([facility]) [address] [place] [address], 1st [place] [address] Visit our website at www.[facility] for information about our practice and an interactive health encyclopedia. Please visit [employer] to access your health record, ask questions, request medication refills, and request appointments for non-urgent needs after you have configured your [employer] account. If you do not currently have access, please contact one of our staff members or call [phone]. Tailored patient discharge instructions (see above) reviewed with patient. Patient verbalized understanding. Patient given office contact information should questions/concerns arise. Rissa Montes PA-C 03/09/2024 7:59 AM documented in this encounter Discharge Instructions * Discharge Instructions* Elizabeth Vargas PA-C - 03/08/2024 4:19 PM CDT Orthopaedic Trauma Surgery Patient Discharge Instructions Serenity cutler were admitted to [facility] for evaluation and treatment of [...] with Manuel Resendiz at [facility] - Orthopedics ([phone]) [address] [place] [phone] You can call the clinic to confirm, cancel, or reschedule as needed. If you have any questions or concerns please call before your visit. Office Schedulers: [phone], option 1 Activity: Activity as tolerated. No [...] such as your primary care doctor, a sugarcane planter (heart), vascular (blood vessel), or a signals collection technician (lung), please call their office for instructions. [...] Make sure skin is covered by an GOPAL wrap or tall sock. You can also [...] to prevent skin breakdown. Compression stockings or GOPAL wrap worn during the day when you [...] mail, or fax it to our office ([phone]) in advance so itcan be completed in a timely manner before the necessary deadline. FMLA, disability, and work paperwork is completed each Tuesday by the Marine Mechanic. Also, the doctor is only in the office one day a week to sign the paperwork. Medical records: Your medical records can be obtained by calling [phone] Fax number: [phone] Please contact our clinic at if you need to schedule or change an appointment or forany additional questions. After hours: [phone] - ask the black top spreader machine operator for the On-Call Ortho Resident For medical emergencies, please call [phone]. Follow up Contact Information: [facility] Orthopedic Surgery office contact information: [facility] ([facility]) [address] [place] [address], 1st [place] [address] Visit our website at www.[facility] for information about our practice and an interactive health encyclopedia. Please visit [employer] to access your health record, ask questions, request medication refills, and request appointments for non-urgent needs after you have configured your [employer] account. If you do not currently have access, please contact one of our staff members or call [phone]. documented in this encounter Medications at Time [...] Medrano MD - 03/09/2024 5:50 AM CDT [facility] Orthopedic Surgery Progress Note Admit Date: 03/05/2024 [...] please page with questions. DO NOT USE [employer] Secure Chat. Greg Medrano MD 5:50 AM [...] Emergency Contact: tony yang Mobile Relation: Spouse Rn Invasive needed? No Transportation at Discharge: Family: READMISSION [...] Magana OT - 03/08/2024 9:14 AM CDT [facility] Physical Medicine and Rehabilitation Occupational Therapy Initial Evaluation Note Patient: Serenity Yang Med Record Number: [id number] Date of : 1980 Age: [age] year [...] upon arrival.) Transfers: Sit to Stand: Modified Angelina Stand to Sit: Modified Angelina Toilet Transfers: Modified Angelina Transfer Device: Gait belt;Walker-2 Wheeled Functional Ambulation: Patient ambulated in room with modified independent using 2 wheeled walker. Balance: Sitting - Static: Good Sitting - Dynamic: Good Standing - Static: Good Standing - Dynamic: Good Activities of Daily Living Feeding: Complete Angelina Oral Facial Hygiene: Complete Angelina Upper Body Dressing: Complete Angelina Lower Body Dressing: Modified Angelina (educated pt on hemidressing techniques, technique for doffing/donning ACB) Toileting: Complete Angelina Splint Issued/Checked: none ACTIVITY TOLERANCE: Activity Tolerance: [...] Oconnell, PT - 03/08/2024 9:06 AM CDT [facility] Physical Medicine and Rehabilitation Physical Therapy Initial Evaluation Note Patient: Serenity Yang Med Record Number: [id number] Date of : 1980 Age: [age] year [...] date. Bed Mobility: Supine to Sit: Complete Angelina with HOB in semi-fowlers position Transfers: Sit to Stand: Complete Angelina Stand to Sit: Complete Angelina Gait: Weight Bearing Status: (WBAT LLE in ACB) Distance Ambulated (ft): 60 FEET Ambulation: Assistive Device: Gait Belt;Walker-2 Wheeled Ambulation: Level of Assistance: Complete Angelina Ambulation: Gait Deviations: Diana - Decreased;Step Length [...] Medrano MD - 03/08/2024 5:06 AM CDT [facility] Orthopedic Surgery Progress Note Admit Date: 03/05/2024 [...] PLTCOUNT 270 264 Recent Labs Component Name 03/07/2424003/06/24 0100 NA 140 138 POTASSIUM 3.9 3.6 [...] LLE in ACB PT/OT Pain Control Bowel [facility] DVT Prophylaxis: Lovenox Anticoagulation plan at discharge: 35 days of DVT chemoprophylaxis Dispo: pending PT/OT Will continue to follow, please page with questions. DO NOT USE [employer] Secure Chat. Greg Medrano MD 5:07 AM [...] boot removed with LLE in elevation pillow. Douglas provided. Pt resting comfortably. * Abdulkadir Guardado MD - 03/07/2024 5:53 PM CDT Orthopedic Surgery Postoperative Check Serenity Yang, 43 year old, female : 1980 CSN: [id number] Admitted: 03/05/2024 11:26 PM Subjective Nausea/vomiting: none [...] 43 year old female who presented to [facility] on 03/05/2024. Patient presents with a left tibia-fibula fracture after a ground-level fall. Patient having surgery today with ortho. Patient is from home with her . She reports that she is independent of all cares. Will await for PT/OT recom mendations following surgery to determine discharge plans. CM to follow. Lives with: Spouse/Significant Other Physical Limitations: None Requires Assistance With: None Preferred Pharmacy: [facility] [address] [phone] READMISSION RISK SCORE is N/A at 3:08 PM 03/07/2024. Met with patient Family Support (name and phone): Extended Emergency Contact Information Primary Emergency Contact: tony yang Mobile Relation: Spouse Rn Invasive needed? No Patient or inside outside sales representative requests care coordination reach out to family or caregiver listed above regarding discharge planning and at time of discharge? No Actual Level of Care/Dispostion Details Durable Medical Equipment Planning Equipment at Home: None List DME pt. requires but does not have.: None Pit Laborer Referral: No Will continue to follow. For any questions or needs please contact: Smoked Meat Preparer/Social Work Name/Phone number: Racheal Ruiz RN * [...] D Recent Labs Component Name 03/06/24 0236 [id number] 26.0* Vitals BP 120/90 Pulse 78 Temp [...] people treated with IM nail will have mcfp anterior knee pain. Occasionally the locking bolts will be irritating in the mcfp and require removal. All questions were answered. Orders written. Consent obtained. Surgery planned for 03/07/2024 for intramedullary nailing versus open reduction internal fixation of left tibial shaft fracture. Manuel Resendiz DO * Abdulkadir Guardado MD - 03/07/2024 5:27 AM CDT Orthopaedic Trauma Surgery Daily Progress Note Name: Serenity Yang Age: [age] year old Room: 4/ Date Admitted: 03/05/2024 Interval History: Patient seen [...] D Recent Labs Component Name 03/06/24 0236 [id number] 26.0* Vitals BP 111/73 Pulse 68 Temp [...] please contact Ortho Trauma APPs or send [employer] chat to CHARLY. For urgent questions, please page Ortho Trauma service pager through [employer]. Abdulkadir Guardado MD 03/07/2024 5:27 AM Associated [...] CDT Skin assessment completed by 2 Rns, Marcial and Dipti. Skin to WDL with exceptions to left knee small laceration, picture uploaded to [employer]. * Dipti Askew RN - 03/06/2024 10:28 [...] Dodson OT - 03/06/2024 4:[address] [facility] Department of Physical Medicine & Rehabilitation Progress Note Patient: Serenity Yang Med Record Number: [id number] Date of : 1980 Age: [age] year [...] Serenity Yang Age: [age] year old Room: 13/[facility] Date Admitted: 03/05/2024 Interval History: Patient seen and examined on rounds this AM. No acute events overnight. Pain is controlled. Decreased sensation in distribution of deep peroneal nerve. to OR this admission for left tibia open reduction internal fixation versus intramedullary nail versus external fixator application. Keep NPO untilfurther notice, patient in add on pool today. Labs CBC Recent Labs Component Name 03/06/2499 WBC 8.8 HGB 11.6* HCT 34.0* PLTCOUNT 297 BMP Recent Labs Component Name 03/06/2499 NA 138 POTASSIUM 3.6 CL 107 CO2 22 BUN 12 CREATININE 0.97* GLUCOSE 132* CALCIUM 8.9 Coags Recent Labs Component Name 03/06/24 0236 03/06/24 010 PT 12.7 12.3 INR 1.0 1.0 PTT 26.0 25.6 Vitamin D No results for input(s): [id number] in the last 79035 hours. Vitals BP 135/98 Pulse 83 Temp [...] please page Ortho Trauma service pager through [employer]. Michelle Boyd MD 03/06/2024 4:42 AM documented in this encounter H&P Notes * Chase Garcia, DO - 03/07/2024 7:45 AM CDT [facility] Orthopedic Trauma Surgery Consultation Note Serenity Yang, 43 year old, female : 1980 CSN: [id number] Admitted: 03/05/2024 11:26 PM Consulting Service: ED [...] 43 year old female who presented to [facility] on 03/05/2024. Patient presents with a left [...] units daily. Will discuss this patient with statement distribution clerk physician Dr. Garcia and update plan accordingly. Please pageOrtho Trauma with any questions or concerns. Chase Garcia DO 03/07/2024 7:45 AM Orthopaedic Surgery [facility], Level I-Orthopaedic Surgery [address] [place] [address] Visit our website at [email or web address] for information about our practice and an interactive health encyclopedia. Please visit [employer] to access your health record, ask questions, request medication refills, and request appointments for non-urgent needs after you have configured your [employer] account. If you do not currently have access, please contact one of our staff members or call [phone]. For after hour emergencies, please call [phone] and press 0 for the black top spreader machine operator in order to page the orthopedic resident statement distribution clerk. documented in this encounter Procedure Notes * [...] 03/06/2024 Reason for Consult: Fall HPI: Serenity Ynag is a 43 year old female who [...] page trauma with questions or concerns Darwin Perez MD 03/06/2024 6:24 AM Associated attestation - Salvatore Nobles MD - 03/07/2024 1:39 PM CDT Patient seen and examined with the residents and bolt cutter. Please see note for further details. Patient's [...] CDTAssociated Order(s): IP CONSULT TO ORTHOPEDIC SURGERY [facility] Orthopedic Trauma Surgery Consultation Note Serenity Yang, 43 year old, female : 1980 CSN: [id number] Admitted: 03/05/2024 11:26 PM Consulting Service: ED [...] 43 year old female who presented to [facility] on 03/05/2024. Patient presents with a left [...] units daily. Will discuss this patient with statement distribution clerk physician Dr. Garcia and update plan accordingly. Please pageOrtho Trauma with any questions or concerns. Abdelrahman Pandey MD 03/06/2024 6:02 AM Orthopaedic Surgery [facility] Medicine, Level I-Orthopaedic Surgery [address] [place] [id number] Visit our website at www.[facility] for information about our practice and an interactive health encyclopedia. Please visit [employer] to access your health record, ask questions, request medication refills, and request appointments for non-urgent needs after you have configured your [employer] account. If you do not currently have access, please contact one of our staff members or call [phone]. For after hour emergencies, please call and press 0 for the black top spreader machine operator in order to page the orthopedic resident statement distribution clerk. documented in this encounter OR Notes * [...] Assisting * Benny Jones MD - Fellow Marble And Granite Polisher(s): Derik Stack MS4 Anesthesia Type: general ETT [...] Implant Name Type Inv. Item Serial No. Digester Cook Lot No. LRB No. Used Action Screw 2.7Mm 5Mm 30Mm T8 Slf-Tap Strdr Screw 2.7Mm 5Mm 30Mm T8 Slf-Tap Strdr [employer] Left 1 Implanted Screw 2.7Mm 5Mm 32Mm T8 Slf-Tap Strdr Screw 2.7Mm 5Mm 32Mm T8 Slf-Tap Strdr Synthes [facility] Left 1 Implanted Nail Im 9Mm 345Mm Xprt Tib Cornell Prox Bnd Nail Im 9Mm 345Mm Xprt Tib Cornell Prox Bnd Synthes [facility] [id number] Left 1 Implanted Abdulkadir Guardado MD * Operative - Manuel Resendiz DO - 03/07/2024 4:02 PM CDT Intramedullary Nail Tibia Procedure Note Name: Serenity Yang Date of Service: 03/07/2024 [facility] #: [id number] Pre-operative Diagnosis: left Tibial shaft fracture Left medial malleolus fracture Post-operative Diagnosis: left Tibial shaft fracture Left medial malleolus fracture Procedure: left tibia intramedullary nailing (CPT: 38280) Open duction internal fixation left medial malleolus (CPT: 24392) Surgeon: Manuel Resendiz DO Marble And Granite Polisher: Karen, PGY 6 Estimated Blood Loss: less than [...] was down into place, utilizing a perfect nikolai technique, 2 medial to lateral distalinterlocking screws [...] wounds. Xeroform, 4x4, cast padding, and then Gopal bandages were then used to dress the [...] By signing my name below, I, Maty Meme, attest that this documentation has been prepared [...] to suction. Pt asking for pain meds.Luna scratcher will follow up with covering Attending. * [...] Height: ED Course: ED Course as of 03/08/24 2045 Tue Mar 06, 2024 0705 Pending trauma [...] is resting comfortably with no new complaints. VSS. 12:02 AM Discussed all the pertinent [...] personal performance and is accurate and complete. ER HELPER * Kerrie Rodriguez RN - 03/05/2024 11:26 PM CDT Bed: [facility] Expected date: Expected time: Means of arrival: [...] at time of sign out * Reyna Butler RN - 03/05/2024 10:57 PM CDT PT [...] st Contact Info) Description 05/18/2024 9:15 AM FITTER HELPER Office Visit [facility] - Orthopedics [address] [place] [address], [facility] [place] [phone] Manuel Resendiz T, DO [address] [place] [phone] documented as of this encounter Procedures Procedure [...] CDT Fracture tibia/fibula, left, closed, initial encounter NM OPEN RX TIBIA SHAFT FX,INTRAMED NASIR 03/07/2024 [...] 03/06/2024 1:04 AM CDT Ground-level fall PTT [facility] STAT 03/06/2024 1:00 AM CDT PT-INR [facility] STAT 03/06/2024 1:00 AM CDT TYPE + [...] CBC W/O DIFFERENTIAL (03/09/2024 2:53 AM CDT) [facility] WBC 5.5 4.0 - 10.7 x10E9/L 03/09/2024 3:49 AM CDT [facility] RBC Count 3.06(L) 3.90 - 5.20 x10E12/L 03/09/2024 3:49 AM CDT [facility] Hemoglobin 8.9(L) 11.9 - 15.8 g/dL 03/09/2024 3:49 AM [facility] Hematocrit 28.2(L) 34.8 - 46.1 % 03/09/2024 3:49 AM [facility] MCV 92.2 80.0 - 98.0 fL 03/09/2024 3:49 AM [facility] MCH 29.1 26.7 - 33.6 pg 03/09/2024 3:49 AM [facility] MCHC 31.6(L) 31.7 - 36.3 g/dL 03/09/2024 3:49 AM [facility] RDW-CV 14.5 11.3 - 14.8 % 03/09/2024 3:49 AM [facility] Platelet Count 230 150 - 420 x10E9/L 03/09/2024 3:49 AM [facility] MPV 9.4 7.8 - 11.4 fL 03/09/2024 3:49 AM [facility] Blood BLOOD SPECIMEN / Unknown Lab Venipuncture / Unknown 03/09/2024 2:53 AM CDT 03/09/2024 3:28 AM CDT Chase Garcia DO LAB - HEMATOLOGY ORD ERABLES [address] [address], [facility] [phone] * CARDIAC EKG ORDER (03/08/2024 11:33 AM CDT) Narrative 03/08/2024 11:33 AM CDT Ordered by an unspecified provider. Scanned Document CARDIAC SERVICES ORD ERABLES * (ABNORMAL) CBC W/O DIFFERENTIAL (03/08/2024 2:41 AM CDT) WBC 7.3 4.0 - 10.7 x10E9/L 03/08/2024 3:22 AM [facility] RBC Count 3.34(L) 3.90 - 5.20 x10E12/L 03/08/2024 3:22 AM [facility] Hemoglobin 9.8(L) 11.9 - 15.8 g/dL 03/08/2024 3:22 AM CDT [facility] Hematocrit 30.0(L) 34.8 - 46.1 % 03/08/2024 3:22 AM CDT [facility] MCV 89.8 80.0 - 98.0 fL 03/08/2024 3:22 AM CDT [facility] MCH 29.3 26.7 - 33.6 pg 03/08/2024 3:22 AM T [facility] MCHC 32.7 31.7 - 36.3 g/dL 03/08/2024 3:22 AM T [facility] RDW-CV 14.1 11.3 - 14.8 % 03/08/2024 3:22 AM T [facility] Platelet Count 270 150 - 420 x10E9/L 03/08/2024 3:22 AM T [facility] MPV 9.2 7.8 - 11.4 fL 03/08/2024 3:22 AM CDT [facility] Blood BLOOD SPECIMEN / Unknown Lab Venipuncture / Unknown 03/08/2024 2:41 AM CDT 03/08/2024 3:09 AM CDT Chase Garcia DO LAB - HEMATOLOGY ORD ERABLES Performing Organization Address City/[facility]/ZIP Co de Phone Number [facility] [address] [place] [address], [facility] [phone] * [place] [facility] Surgery (03/07/2024 5:55 PM CDT) Narrative [facility] RADIOLOGY - 03/07/2024 5:57 PM CDT Fluoroscopy was used for this exam in the OR. Please see the Operative report. Manuel Resendiz DO FLUOROSCOPY ORDERABL ES [facility] RADIOLOGY * (ABNORMAL) CBC W/O DIFFERENTIAL (03/07/2024 2:41 AM CDT) WBC 6.5 4.0 - 10.7 x10E9/L 03/07/2024 3:20 AM CDT [facility] RBC Count 3.51(L) 3.90 - 5.20 x10E12/L 03/07/2024 3:20 AM [facility] Hemoglobin 10.4(L) 11.9 - 15.8 g/dL 03/07/2024 3:20 AM [facility] Hematocrit 31.4(L) 34.8 - 46.1 % 03/07/2024 3:20 AM [facility] MCV 89.5 80.0 - 98.0 fL 03/07/2024 3:20 AM [facility] MCH 29.6 26.7 - 33.6 pg 03/07/2024 3:20 AM [facility] MCHC 33.1 31.7 - 36.3 g/dL 03/07/2024 3:20 AM [facility] RDW-CV 14.6 11.3 - 14.8 % 03/07/2024 3:20 AM [facility] Platelet Count 264 150 - 420 x10E9/L 03/07/2024 3:20 AM [facility] MPV 9.5 7.8 - 11.4 fL 03/07/2024 3:20 AM [facility] Blood BLOOD SPECIMEN / Unknown Lab Venipuncture / Unknown 03/07/2024 2:41 AM CDT 03/07/2024 3:11 AM CDT Chase Garcia DO LAB - HEMATOLOGY ORD ERABLES Performing Organization Address City/State/[facility] Co de Phone Number [facility] [address] [place] [address], [facility] [phone] * (ABNORMAL) BASIC METABOLIC PANEL (CALCIUM TOTAL) (03/07/2024 2:41 AM CDT) BUN 12 7 - 26 mg/dL 03/07/2024 3:42 AM [facility] Creatinine 1.04(H) 0.56 - 0.96 mg/dL 03/07/2024 3:42 AM [facility] Sodium 140 136 - 145 mmol/L 03/07/2024 3:42 AM [facility] Potassium 3.9 3.5 - 4.5 mmol/L 03/07/2024 3:42 AM [facility] Chloride 106 98 - 107 mmol/L 03/07/2024 3:42 AM [facility] CO2 25 22 - 29 mmol/L 03/07/2024 3:42 AM [facility] Glucose 101(H) 70 - 99 mg/dL 03/07/2024 3:42 AM [facility] Calcium 8.2(L) 8.4 - 10.2 mg/dL 03/07/2024 3:42 AM [facility] Anion Gap 9 6 - 16 03/07/2024 3:42 AM [facility] BUN/Creatinine Ratio 12 7 - 23 03/07/2024 3:42 AM [facility] Osmolality Calculated 290 275 - 295 mOsm/kg 03/07/2024 3:42 AM [facility] eGFR by CKD-EPI 69(L) >=90 mL/min/1.7 3 m2 03/07/2024 3:42 AM [facility] Blood BLOOD SPECIMEN / Unknown Lab Venipuncture / Unknown 03/07/2024 2:41 AM CDT 03/07/2024 3:08 AM CDT Chase Garcia DO LAB - CHEMISTRY PAULINE JORGE [facility] [address] [place] [address], [facility] [phone] * EKG 12-LEAD (03/06/2024 4:07 PM CDT) Ventricular Rate 65 BPM [facility] MUSE Atrial Rate 65 BPM [facility] MUSE P-R Interval 150 ms [facility] MUSE QRS Duration ms 78 ms [facility] MUSE Q-T Interval ms 408 ms [facility] MUSE QTC Calculation (Bezet) 424 ms [facility] MUSE Calculated P Lulu 46 degrees [facility] MUSE Calculated R Lulu 61 degrees [facility] MUSE Calculated T Lulu 35 degrees [facility] MUSE Interpretation EKG NORMAL SINUS RHYTHM NORMAL ECG NO PREVIOUS ECGS AVAILABLE Confirmed by VICENTE SUAZO, MAYURI ([id number]) on 03/11/2024 10:28:06 AM [facility] MUSE 03/06/2024 4:07 PM CDT 03/11/2024 10:28 AM FITTER HELPER Katlyn King EMBLEM DRAWER [employer] ECG ORDERAB LES [facility] MUSE * (ABNORMAL) URINE DRUG SCREEN IMMUNOASSAY (03/06/2024 9:38 AM CDT) Amphetamines Screen Urine Negative Negative : < 1000 ng/mL 03/06/2024 10:00 AM [facility] Barbiturates Screen Urine Negative Negative : < 200 ng/mL 03/06/2024 10:00 AM [facility] Benzodiazepine Screen Urine Negative Negative : < 200 ng/mL 03/06/2024 10:00 AM [facility] Opiates Urine Positive(A) Negative : < 300 ng/mL 03/06/2024 10:00 AM [facility] Comment:Positive urine opiat e screening results should be confirmed by another generally accepted non-immunological method such as gas chromatography or mass spectrometry. Cocaine Metabolites Urine Negative Negative : < 300 ng/mL 03/06/2024 10:00 AM [facility] Phencyclidine Screen Urine Negative Negative : < 25 ng/ml 03/06/2024 10:00 AM [facility] Cannabinoids Screen Urine Positive(A) Negative : <50 ng/mL 03/06/2024 10:00 AM [facility] Comment:Positive urine canna binoids (THC) screening results should be confirmed by another generally accepted non-immunological method such as gas chromatography or mass spectrometry. Methadone Screen Urine Negative Negative : < 300 ng/mL 03/06/2024 10:00 AM [facility] Fentanyl Screen Urine Negative Negative : <1.5 ng/mL 03/06/2024 10:00 AM [facility] Urine URINE / Unknown Collection / Unknown 03/06/2024 9:38 AM CDT 03/06/2024 9:41 AM CDT Narrative [facility] - 03/06/2024 10:00 AM CDT The Urine Toxicology Screening Panel does not screen for Propoxyphene, Meprobamate, Carisoprodol, Trazodone, ffmb-max-lupnttl medications and/or volatiles (Acetone, Isopropanol, Methanol or Ethylene Glycol). Ethanol, Salicylate, Acetaminophen, Tricyclic Antidepressants and several therapeutic drugs may be individually assayed in serum or plasma specimen. Toxicology testing by the [facility] is an aid to medical diagnosis and treatment of patients. No documented chain of custody was maintained. Results are intended to be used for clinical purposes only. ? Jv Garcia MD LAB - URINE CHEMISTR Y ORDERABLES Performing Organization Address [facility]/State/[facility] Co de Phone Number [address] [address], [place] [phone] * CT LUMBAR SPINE WO CONTRAST - [...] pelvis. > Dictated by Cedric Bal DO ([employer]), 03/06/2024 3:09 AM. Anthony Mallory MD have personally reviewed and interpreted this examination/study. > Interpreting Provider: Anthony Adler MD on 03/06/2024 7:44 AM Narrative 03/06/2024 7:44 AM CDT PROCEDURE: ??CT HEAD WO CONTRAST, CT LUMBAR SPINE WO CONTRAST, CT THORACIC SPINE WO CONTRAST, CT CERVICAL SPINE WO CONTRAST, DATE/TIME OF EXAM: 03/06/2024 2:43 AM, LOCATION ??[facility] INDICATION: Trauma EXAMINATION: 1.Computed tomography [...] DATE/TIME OF EXAM: 03/06/2024 2:43 AM, LOCATION [facility] INDICATION: Trauma EXAMINATION: 1.Computed tomography [...] pelvis. > Dictated by Cedric Bal DO ([employer]), 03/06/2024 3:09AM. I, Anthony Adler MD have personally reviewed and interpretedthis examination/study. [...] pelvis. > Dictated by Cedric Bal DO ([employer]), 03/06/2024 3:09 AM. IAnthony MD have personally reviewed and interpreted this examination/study. > Interpreting Provider: Anthony Adler MD on 03/06/2024 7:44 AM Narrative 03/06/2024 7:44 AM CDT PROCEDURE: ??CT HEAD WO CONTRAST, CT LUMBAR SPINE WO CONTRAST, CT THORACIC SPINE WO CONTRAST, CT CERVICAL SPINE WO CONTRAST, DATE/TIME OF EXAM: 03/06/2024 2:43 AM, LOCATION ??[facility] INDICATION: Trauma EXAMINATION: 1.Computed tomography [...] DATE/TIME OF EXAM: 03/06/2024 2:43 AM, LOCATION [facility] INDICATION: Trauma EXAMINATION: 1.Computed tomography [...] pelvis. > Dictated by Cedric Bal DO ([employer]), 03/06/2024 3:09AM. IAnthony MD have personally reviewed [...] > Dictated by Pranav Morales DO (president [employer]). I, Selina Narvaez MD have personally reviewed and interpreted this examination/study. > Interpreting Provider: Selina Narvaez MD on 03/06/2024 7:08 AM Narrative 03/06/2024 7:08 AM CDT PROCEDURE: ??CT CHEST ABDOMEN PELVIS W CONT, DATE/TIME OF EXAM: ??03/06/2024 2:43 AM, LOCATION ??[facility] INDICATION: Trauma COMPARISON: None. TECHNIQUE: [...] CONT, DATE/TIME OF EXAM:03/06/2024 2:43 AM, LOCATION [facility] INDICATION: Trauma COMPARISON: None. TECHNIQUE: [...] > Dictated by Pranav Morales DO (president consumer [employer]). I, Selina Narvaez MD have personally reviewed and interpreted this examination/study. > Interpreting Provider: Selina Narvaez MD on :08 AM Jv Garcia MD CT ORDERABLES * [...] pelvis. > Dictated by Cedric Bal DO ([employer]), 03/06/2024 3:09 AM. IAnthony MD have personally reviewed and interpreted this examination/study. > Interpreting Provider: Anthony Adler MD on 03/06/2024 7:44 AM Narrative 03/06/2024 7:44 AM CDT PROCEDURE: ??CT HEAD WO CONTRAST, CT LUMBAR SPINE WO CONTRAST, CT THORACIC SPINE WO CONTRAST, CT CERVICAL SPINE WO CONTRAST, DATE/TIME OF EXAM: 03/06/2024 2:43 AM, LOCATION ??[facility] INDICATION: Trauma EXAMINATION: 1.Computed tomography [...] DATE/TIME OF EXAM: 03/06/2024 2:43 AM, LOCATION [facility] INDICATION: Trauma EXAMINATION: 1.Computed tomography [...] pelvis. > Dictated by Cedric Bal DO ([employer]), 03/06/2024 3:09AM. I, Anthony Adler MD have personally reviewed and interpretedthis examination/study. > Interpreting Provider: Anthony Adler MD on 03/06/2024 7:44 AM Jv Garcia MD CT ORDERABLES * CT HEAD WO CONTRAST - Head Trauma, CSF leak, mental status changes (03/06/2024 2:42 AM CDT) Anatomical Region Laterality Modality Head Computed Tomogra phy 03/06/2024 2:5 7 AM CDT Impressions 03/06/2024 7:44 AM CDT IMPRESSION: 1.No acute intracranial hemorrhage, midline shift, or significant mass effect. 2.No evidence of acute fracture in the cervical, thoracic, or lumbar spine. 3.Please refer to the concurrent, dedicated body report for findings in the chest, abdomen, and pelvis. > Dictated by Cedric Bal DO ([employer]), 03/06/2024 3:09 AM. IAnthony MD have personally reviewed and interpreted this examination/study. > Interpreting Provider: Anthony Adler MD on 03/06/2024 7:44 AM Narrative 03/06/2024 7:44 AM CDT PROCEDURE: ??CT HEAD WO CONTRAST, CT LUMBAR SPINE WO CONTRAST, CT THORACIC SPINE WO CONTRAST, CT CERVICAL SPINE WO CONTRAST, DATE/TIME OF EXAM: 03/06/2024 2:43 AM, LOCATION ??[facility] INDICATION: Trauma EXAMINATION: 1.Computed tomography [...] DATE/TIME OF EXAM: 03/06/2024 2:43 AM, LOCATION [facility] INDICATION: Trauma EXAMINATION: 1.Computed tomography [...] pelvis. > Dictated by Cedric Bal DO ([employer]), 03/06/2024 3:09AM. Anthony Mallory MD have personally [...] > Dictated by Pranav Morales DO (president [employer]). ISelina MD have personally reviewed and interpreted this [...] > Dictated by Pranav Morales DO (president [employer]). I, Selina Narvaez MD have personally reviewed and interpreted this examination/study. > Interpreting Provider: Selina Narvaez MD on 47:43 AM Jv Garcia MD CT ORDERABLES * BLOOD TYPE VERIFICATION (03/06/2024 2:39 AM CDT) Pathologist [facility] ABO Rh A POS 03/06/2024 3:1 0 AM CDT [facility] BLOOD BANK LAB Blood Bank BLOOD SPECIMEN / Unknown Venipuncture / Unknown 03/06/2024 2:39 AM CDT 03/06/2024 2:45 AM CDT Jv Garcia MD LAB - BLOOD BANK ORD ERABLES [facility] BLOOD BANK LAB [address] [place] [address], [facility] [phone] * HCG BETA BLOOD QUANTITATIVE (03/06/2024 2:36 AM CDT) Pathologist [facility] Beta-hCG Total Quantitative <3 mIU/mL 03/06/2024 3:16 PM CDT [facility] Comment: HCG Numeric Result Interpretation: [...] CDT 03/06/2024 2:47 AM CDT Katlyn King EMBLEM DRAWER [employer] LAB - CHEMI STRY ORDERABLES Performing Organization Address City/State/[facility] Co de Phone Number [facility] [address] [place] [address], [facility] [phone] * (ABNORMAL) VITAMIN D 25-HYDROXY (03/06/2024 2:36 AM CDT) [facility] Vitamin D, 25 Hydroxy 26.0(L) 30.0 - 80.0 ng/mL 03/06/2024 6:57 AM CDT [facility] Comment: The recommendations for 25-Hydroxy Vitamin [...] - CHEMISTRY OR DERABLES Performing Organization Address [facility] Co de Phone Number [address] [address], [facility] [phone] * PTT [facility] (03/06/2024 2:36 AM CDT) APTT 26.0 23.0 - 38.4 Seconds 03/06/2024 3:08 AM CDT [facility] Comment:Suggested therapeuti c range for full dose I.V. unfractionated heparin therapy for venous thromboembolism is 71 to 109 seconds. Blood BLOOD SPECIMEN / Unknown Venipuncture / Unknown 03/06/2024 2:36 AM CDT 03/06/2024 2:47 AM CDT Jv Garcia MD LAB - COAGULATION OR DERABLES Performing Organization Address [facility] de Phone Number [address] [address], [place] [phone] * PT-INR [facility] (03/06/2024 2:36 AM CDT) PT 12.7 12.1 - 14.8 Seconds 03/06/2024 3:08 AM CDT [facility] INR 1.0 See Comment 03/06/2024 3:08 AM CDT [facility] Comment:The suggested therap eutic range for standard coumadin (warfarin) therapy is an INR of 2.0-3.0. For high-risk patients (Mechanical Mitral Valve Prosthesis, etc.), the suggested prophylactic therapeutic range is an INR of 2.5-3.5. Blood BLOOD SPECIMEN / Unknown Venipuncture / Unknown 03/06/2024 2:36 AM CDT 03/06/2024 2:47 AM CDT Jv Garcia MD LAB - COAGULATION OR DERABLES Performing Organization Address [facility] Co de Phone Number [address] [place] [address], [facility] [phone] * ALCOHOL ETHYL BLOOD (03/06/2024 2:36 AM CDT) Ethanol (mg/dL) <10 <10 mg/dL 3:09 AM CDT [facility] Ethanol Calculated (g/dL) <0.010 <=0.010 g/dL 03/06/2024 3:09 AM CDT [facility] Blood BLOOD SPECIMEN / Unknown Venipuncture / Unknown 03/06/2024 2:36 AM CDT 03/06/2024 2:47 AM CDT Narrative [facility] - 03/06/2024 3:09 AM CDT Ethanol Interp <10: None Detected. Depression of ORTHOPEDIC CAST SPECIALIST: >100 mg/dl Potentially Critical: >250 mg/dl Potentially [...] Garcia MD LAB - CHEMISTRY PAULINE JORGE [facility] Organization Address City/State/ZIP Co de Phone Number [place] [id number] [place] [address], [facility] [phone] * XR Tibia Fibula Left 2Vw (03/06/2024 1:40 AM CDT) Anatomical Region Laterality Modality Lower Extremity Digital Radiogra phy 03/06/2024 2:40 AM CDT Narrative 03/06/2024 11:55 AM CDT PROCEDURE: ??XR TIBIA FIBULA LEFT 2VW, DATE/TIME OF EXAM: ??03/06/2024 1:40 AM, LOCATION ??[facility] INDICATION: W18.30XA: Ground-level fall ADDITIONAL [...] Report dictated by Cedric Bal DO (president consumer [employer]). Naveen Mallory MD have personally reviewed and interpreted this examination/study. > Interpreting Provider: Naveen Ace MD on 03/06/2024 11:55 AM Procedure Note Naveen Ace MD - 03/06/2024 PROCEDURE: XR TIBIA FIBULA LEFT 2VW, DATE/TIME OF EXAM: 41:40 AM, LOCATION [facility] INDICATION: W18.30XA: Ground-level fall ADDITIONAL [...] Report dictated by Cedric Bal DO (president consumer [employer]). Naveen Mallory MD have personally reviewed andinterpreted [...] Report dictated by Cedric Bal DO (president consumer [employer]). Naveen Mallory MD have personally reviewed and interpreted this examination/study. > Interpreting Provider: Naveen Ace MD on 03/06/2024 9:26 AM Narrative 03/06/2024 9:26 AM CDT PROCEDURE: ??XR KNEE LEFT 2VW OR LESS, DATE/TIME OF EXAM: ??03/06/2024 1:05 AM, LOCATION ??[facility] INDICATION: W18.30XA: Ground-level fall ADDITIONAL [...] LESS, DATE/TIME OF EXAM: 41:05 AM, LOCATION [facility] INDICATION: W18.30XA: Ground-level fall ADDITIONAL CLINICAL INFORMATION: Ordering Provider Reason For Exam: injury films COMPARISON: None. FINDINGS: The osseous structures are intact and well aligned without acutefracture or dislocation. The knee joint space is preserved. No joint effusion is seen. Bone density and texture are normal. IMPRESSION: No acute fracture or dislocation identified. Report dictated by Cedric Bal DO (president consumer [employer]). I, Naveen Ace MD have personally reviewed andinterpreted this examination/study. > Interpreting Provider: Naveen Ace MD on 03/06/2024 9:26AM Jv Garcia MD DIAGNOSTIC IMAGING O RDERABLES * PTT [facility] (03/06/2024 1:00 AM CDT) APTT 25.6 23.0 - 38.4 Seconds 03/06/2024 1:56 AM CDT [facility] Comment:Suggested therapeuti c range for full dose I.V. unfractionated heparin therapy for venous thromboembolism is 71 to 109 seconds. Blood BLOOD SPECIMEN / Unknown Venipuncture / Unknown 03/06/2024 1:00 AM CDT 03/06/2024 1:07 AM CDT Jv Garcia MD LAB - COAGULATION OR DERABLES [facility] [address] [place] [address], [facility] [phone] * TYPE + SCREEN PANEL (03/06/2024 1:00 AM CDT) [facility] Antibody Screen NEG 1:50 AM CDT [facility] BLOOD BANK LAB ABO Rh A POS 03/06/2024 1:50 AM CDT [facility] BLOOD BANK LAB Blood Bank BLOOD SPECIMEN / Unknown Venipuncture / Unknown 03/06/2024 1:00 AM CDT 03/06/2024 1:07 AM CDT Jv Garcia MD LAB - BLOOD BANK ORD ERABLES Performing Organization Address City/[facility]/ZIP Co de Phone Number [facility] BLOOD BANK LAB [address] [place] [address], [facility] [phone] * PT-INR [facility] (03/06/2024 1:00 AM CDT) [facility] PT 12.3 12.1 - 14.8 Seconds 03/06/2024 1:56 AM CDT [facility] INR 1.0 See Comment 03/06/2024 1:56 AM CDT [facility] Comment:The suggested therap eutic range for standard coumadin (warfarin) therapy is an INR of 2.0-3.0. For high-risk patients (Mechanical Mitral Valve Prosthesis, etc.), the suggested prophylactic therapeutic range is an INR of 2.5-3.5. Blood BLOOD SPECIMEN / Unknown Venipuncture / Unknown 03/06/2024 1:00 AM CDT 03/06/2024 1:07 AM CDT Jv Garcia MD LAB - COAGULATION OR DERABLES [facility] [address] [place] [address], [facility] [phone] * (ABNORMAL) COMPREHENSIVE METABOLIC PANEL (03/06/2024 1:00 AM CDT) [facility] BUN 12 7 - 26 mg/dL 03/06/2024 1:32 AM [facility] Creatinine 0.97(H) 0.56 - 0.96 mg/dL 03/06/2024 1:32 AM [facility] Sodium 138 136 - 145 mmol/L 03/06/2024 1:32 AM [facility] Potassium 3.6 3.5 - 4.5 mmol/L 03/06/2024 1:32 AM [facility] Chloride 107 98 - 107 mmol/L 03/06/2024 1:32 AM [facility] CO2 22 22 - 29 mmol/L 03/06/2024 1:32 AM [facility] Glucose 132(H) 70 - 99 mg/dL 03/06/2024 1:32 AM [facility] Calcium 8.9 8.4 - 10.2 mg/dL 03/06/2024 1:32 AM [facility] Protein Total 6.3 6.0 - 8.3 g/dL 03/06/2024 1:32 AM [facility] Albumin 3.6 3.4 - 5.0 g/dL 03/06/2024 1:32 AM [facility] Bilirubin Total 0.2 0.2 - 1.2 mg/dL 03/06/2024 1:32 AM [facility] Alkaline Phosphatase 63 40 - 150 U/L 03/06/2024 1:32 AM [facility] ALT 12 5 - 55 U/L 03/06/2024 1:32 AM [facility] AST 15 5 - 34 U/L 03/06/2024 1:32 AM [facility] Anion Gap 9 6 - 16 03/06/2024 1:32 AM [facility] BUN/Creatinine Ratio 12 7 - 23 03/06/2024 1:32 AM [facility] Osmolality Calculated 288 275 - 295 mOsm/kg 03/06/2024 1:32 AM [facility] Albumin/Globulin Ratio 1.3 1.1 - 2.3 03/06/2024 1:32 AM [facility] eGFR by CKD-EPI 75(L) >=90 mL/min/1.7 3 m2 03/06/2024 1:32 AM [facility] Blood BLOOD SPECIMEN / Unknown Venipuncture / Unknown 03/06/2024 1:00 AM CDT 03/06/2024 1:07 AM CDT Jv Garcia MD LAB - CHEMISTRY PAULINE Mcnally Organization Address City/State/ZIP Co de Phone Number [facility] [address] [place] [address], [facility] [phone] * (ABNORMAL) CBC W AUTO DIFFERENTIAL (03/06/2024 1:00 AM CDT) WBC 8.8 4.0 - 10.7 x10E9/L 03/06/2024 1:13 AM [facility] RBC Count 3.88(L) 3.90 - 5.20 x10E12/L 03/06/2024 1:13 AM [facility] Hemoglobin 11.6(L) 11.9 - 15.8 g/dL 03/06/2024 1:13 AM [facility] Hematocrit 34.0(L) 34.8 - 46.1 % 03/06/2024 1:13 AM [facility] MCV 87.6 80.0 - 98.0 fL 03/06/2024 1:13 AM [facility] MCH 29.9 26.7 - 33.6 pg 03/06/2024 1:13 AM [facility] MCHC 34.1 31.7 - 36.3 g/dL 03/06/2024 1:13 AM [facility] RDW-CV 14.1 11.3 - 14.8 % 03/06/2024 1:13 AM [facility] Platelet Count 297 150 - 420 x10E9/L 03/06/2024 1:13 AM [facility] MPV 9.2 7.8 - 11.4 fL 03/06/2024 1:13 AM [facility] Neutrophil % 78.1(H) 41.0 - 74.0 % 03/06/2024 1:13 AM [facility] Lymphocyte % 15.7(L) 17.0 - 47.0 % 03/06/2024 1:13 AM CDT [facility] LABOR[facility]ORY [facility] Monocyte % 4.9 3.0 - 11.0 % 03/06/2024 1:13 AM CDT [facility] Eosinophil % 0.6 0.0 - 7.0 % 03/06/2024 1:13 AM T [facility] Basophil % 0.5 0.0 - 1.6 % 03/06/2024 1:13 AM T [facility] Immature Granulocytes % 0.2 0.0 - 1.0 % 03/06/2024 1:13 AM CDT [facility] Neutrophil Absolute 6.85 1.60 - 7.50 x10E9/L 03/06/2024 1:13 AM T [facility] Lymphocyte Absolute 1.38 1.00 - 4.40 x10E9/L 03/06/2024 1:13 AM T [facility] Monocyte Absolute 0.43 0.15 - 1.00 x10E9/L 03/06/2024 1:13 AM [facility] Eosinophil Absolute 0.05 0.00 - 0.60 x10E9/L 03/06/2024 1:13 AM [facility] Basophil Absolute 0.04 0.00 - 0.13 x10E9/L 03/06/2024 1:13 AM [facility] Blood BLOOD SPECIMEN / Unknown Venipuncture / Unknown 03/06/2024 1:00 AM CDT 03/06/2024 1:07 AM CDT Jv Garcia MD LAB - HEMATOLOGY ORD ERABLES Performing Organization Address City/State/[facility] Co de Phone Number [facility] [address] [place] [address], [facility] [phone] * XR Tibia Fibula Left 2Vw (03/05/2024 11:50 PM CDT) Anatomical Region Laterality Modality Lower Extremity Digital Radiogra phy 03/06/2024 2:28 AM CDT Impressions 03/06/2024 9:21 AM CDT IMPRESSION: Acute moderately displaced comminuted fracture of the distal tibia and fibula with extension into the tibial plafond. Report dictated by Cedric Bal DO (president [employer]). Naveen Mallory MD have personally reviewed and interpreted this examination/study. > Interpreting Provider: Naveen Ace MD on 03/06/2024 9:21 AM Narrative 03/06/2024 9:21 AM CDT PROCEDURE: ??XR TIBIA FIBULA LEFT 2VW, DATE/TIME OF EXAM: ??03/05/2024 11:50 PM, LOCATION ??[facility] INDICATION: W18.30XA: Ground-level fall ADDITIONAL [...] 2VW, DATE/TIME OF EXAM: 1:50 PM, LOCATION [facility] INDICATION: W18.30XA: Ground-level fall ADDITIONAL [...] Report dictated by Cedric Bal DO (president [employer]). Naveen Mallory MD have personally reviewed andinterpreted [...] Report dictated by Cedric Bal DO (president [employer]). Naveen Mallory MD have personally reviewed and interpreted this examination/study. > Interpreting Provider: Naveen Ace MD on 03/06/2024 9:21 AM Narrative 03/06/2024 9:21 AM CDT PROCEDURE: ??XR ANKLE LEFT 3VW OR MORE, DATE/TIME OF EXAM: ??03/05/2024 11:50 PM, LOCATION ??[facility] INDICATION: W18.30XA: Ground-level fall ADDITIONAL [...] MORE, DATE/TIME OF EXAM: 1:50 PM, LOCATION [facility] INDICATION: W18.30XA: Ground-level fall ADDITIONAL [...] Report dictated by Cedric Bal DO (president [employer]). Naveen Mallory MD have personally reviewed andinterpreted [...] of left ankle, initial encounter Ground-level fall Closed fracture of distal end of left tibia, unspecified fracture morphology, initial encounter documented in this encounter Administered Medications Inactive [...] Given 03/08/2024 9:35 AM CDT 150 mg cyclobenzaprine (Flexeril) tablet 10 mg 10 mg, Oral, 3 TIMES DAILY PRN, Muscle Spasms, Starting on Tue03/06/24 at 2038, Until Tue03/09/24 at 1218 $ Given 03/09/2024 8:38 AM CDT 10 mg $ Given 03/08/2024 5:40 PM CDT 10 mg $ Given 03/08/2024 9:36 AM CDT 10 mg docusate sodium (Colace) capsule 100 mg [...] 40 mg Ab d Right Upper Quadrant melatonin tablet 3 mg 3 mg, Oral, [...] mg/ml., Indication for anti-infective therapy: Surgical prophylaxis 221 ($ Given - Provider: Shae Rivera RN) [...] Provider: Antonieta Mccann RN - Reason: Procedural Hold)2218 ($ Given - Provider: Shae Rivera RN) 0935 ($ Given - Provider: SN Elle)2026 ($ Given - Provider: Dipti Askew RN) 0837 ($ Given - Provider: Raine Proctor RN) melatonin tablet 3 mg 3 mg, Oral, [...] 0743 ($ Given - Provider: Antonieta Mccann RN)2218 ($ Given - Provider: Shae Rivera RN) 0935 ($ Given - Provider: SN Elle)2026 ($ Given - Provider: Dipti Askew RN) 0837 ($ Given - Provider: Raine Proctor RN) vitamin D3 (Cholecalciferol) 25 MCG (1000 UNITS) [...] ($ Given - Provider: Raine Proctor RN) 0838 ($ Given - Provider: Raine Proctor RN) diazePAM (Valium) tablet 2 mg () 2 [...] Gillespie RN)1845 ($ Given - Provider: Nolvia Gillespie, FRANNIE)1856 ($ Given - Provider: Nolvia Gillespie, FRANNIE) ondansetron (disintegrating) (Zofran ODT) tablet 4 mg [...] Askew RN)0743 (See Alternative - Provider: Antonieta Mccann, FRANNIE)1306 (See Alternative - Provider: Antonieta Mccann RN)2218 (See Alternative - Provider: Shae Rivera RN) 0218 (See Alternative - Provider: Dipti Askew RN)0627 (See Alternative - Provider: Dipti Askew RN)1034 (See Alternative - Provider: SN Elle)1506 (See Alternative - Provider: SN Elel)1850 (See Alternative - Provider: Raine Proctor RN)2253 [...]
--- OUTSIDE RECORDS SUMMARY | 2024-05-09 05:24 | XMS_ITS | Continuity of Care Document ---
Author Name [facility] Organization [facility] Care Team Providers Care Parts Finisher Name Role Phone [facility] Unavailable Unavailable Problems [...] nce, 1 cap(s) Oral Daily, Pharmacy : [id number] Oral (given by mouth) Ordered 90.0 6130C-A [...] nce, 1 tab(s) Oral BID, Pharmacy : [facility] Oral (given by mouth) Discont inued 04/30/2024 180.0 6130C-A f-C-375 Th Medgrp- Varinder Wellbutrin SR 200 mg/12 hours oral tablet, extended release 1 tab(s), Oral, BID, # 180 tab(s), 3 total refill(s ), Maintena nce, 1 tab(s) Oral BID, Pharmacy : [facility] #[id number] Oral (given by mouth) Ordered 180.0 6130C-A f-C-375 Th Medgrp- Varinder Allergies, Adverse Reactions, Alerts Combined list of allergies from Department of Defense and Veterans Affairs facilities. It does not include entries that were removed or entered in error. Substance Category Reaction Severity Reaction type Status Date Reported Comments Source No Known Allergies Drug allergy (disorder) active 02/23/2017 [facility] Immunizations Combined list of available immunizations from the Department of Defense and Veterans Affairs facilities. Immunization Series Date Given Administered By Site Reaction Lot Number CVX Code Drug Downstairs Maid Status Comments Source COVID Vaccine Pfizer 2021 Traci myers Arm [id number] PFIZER complet ed COVID Vaccine Pfizer 07/29/21 Given Ambulat ory Pharmac y SARS-COV-2 (COVID-19) vaccine, mRNA, spike protein, LNP, preservative free, 30 mcg/0.3mL dose 1 2021 [place] CATHERINE [id number] Pfizer, Inc (PFR) complet ed SARS-COV- 2 (COVID-19 ) vaccine, mRNA, spike protein, LNP, preservat pierre free, 30 mcg/0.3mL dose DoD SARS-CoV-2 (COVID-19) Ad26 vaccine, rec 2020 [facility] Arm [id number] complet ed SARS-CoV- 2 (COVID-19 ) Ad26 vaccine, rec 07/25/20 Given Ambulat ory Pharmac y SARS-COV-2 (COVID-19) vaccine, vector non-replicati ng, recombinant spike protein-Ad26, preservative free, 0.5 mL 1 2020 LESTERKURT [id number] [facility] (JSN) complet ed SARS-COV- 2 (COVID-19 ) vaccine, vector non-repli cating, recombina nt spike protein-A d26, preservat pierre free, 0.5 mL DoD influenza, seasonal, injectable 2013 zzMiquel Arm [id number] 141 [employer]SmithK[employer] ne complet ed influenza , seasonal, injectabl e 03/04/14 Given Ambulat ory Pharmac y Influenza, seasonal, injectable 1 2013 JUJU JONES [id number] 141 [facility] (SKB) complet ed Influenza , seasonal, injectabl e DoD tuberculin purified protein derivative 2009 zzLef t Arm [id number] complet ed Patient Tolerance : Negative Ambulat ory Pharmac y tuberculin skin test; purified protein derivative solution, intradermal 0 2009 ISIDRO CANTU [id number] [employer] ([employer] SALES CONS[employer]ANT) complet ed tuberculi n skin test; purified [...] 2009 KATINA TAPIA ahabb16 7ba 104 [employer] ([facility]) complet ed hepatitis A and hepatitis B vaccine DoD hepatitis A-hepatitis B vaccine 2009 zzLef t Arm ahabb17 4aa 104 [facility] complet ed hepatitis A-hepatit is B [...] 2007 zzLef t Arm [id number] [id number] [address] [facility] complet ed hepatitis A-hepatit is B [...] 2007 JJ BAIRD [id number] [id number] 104 [employer] ([facility]) complet ed hepatitis A and hepatitis B vaccine DoD tetanus-dipht h toxoids (Td) adult/adol 2007 UNK 09 Unknown complet ed tetanus-d iphth toxoids (Td) adult/ado l 02/21/08 Given Ambulat ory Pharmac y tetanus, diphtheria, acellular pertu is 2007 zzLef t Arm [id number] [address] [facility] complet ed tetanus, diphtheri a, acellular pertussis 02/21/08 Given Ambulat ory Pharmac y tetanus toxoid, reduced diphtheria toxoid, and acellular pertu is vaccine, adsorbed 1 2007 SEEMA BILLINGSLEY [id number] 115 [facility] ([facility]) complet ed tetanus toxoid, reduced diphtheri a [...] 0.1 ng/mL Thyroglobul in measured by Bruce [employer] Immunomet[employer] c Assay Performed At: [address] [id number] Lenora Blanco PhD Ph:[phone] [facility] Pharmacy Chemistry eGFR CKD [...] is > 4.2 uIU/mL Amb[facility] Pharmacy Chemistry Protein Total 7.6 [...] immunoassay (ECLIA). [facility] Chemistry T3 Reverse.LC 18.5 ng/dL 04/04 Result Comment: This test was developed and its performance characteris tics determined by [employer]. It has not been cleared or approved by the Food and Drug Administrat ion. Performed At: [address] [id number] Jeffy Flowers MD Ph:[phone] [facility] Pharmacy Chemistry Thyroglobul in Antibody LC <1.0 IU/mL 04/04 Result Comment: Thyroglobul in Antibody measured by Bruce Keller Methodology It should be noted that the presence of thyroglobul in antibodies may not be pathogenic nor diagnostic, especially at very low levels. The assay manufacture r has found that four percent of individuals without evidence of thyroid disease or autoimmunit y will have positive TgAb levels up to 4 IU/mL. Performed At: [address] [id number] Lenora Blanco PhD Ph:[phone] [facility] Pharmacy Hematolog y WBC 5.4 [...] 1:05 PM) 04/04 N [facility]acy Hematolog y Neutrophil % Auto 60.1 % 46.0 - 77.0 04/04 N Amb[facility] Pharmacy Hematolog y Neutro Absolute 3.3 x10^3/ mcL 2.0 - 7.0103 04/04 N Amb[facility] Pharmacy Hematolog y Monocyte % Auto 7 % 1 - 12 04/04 N Amb[facility] Pharmacy Hematolog y Cass Absolute 0.4 x10^3/ mcL 0.2 - 0.8103 [...] - 0.1103 04/04 N Amb[facility]acy Immunolog y/Serolog y Thyroid [...] available for pediatric patients. Methodology : Electrochem ilumineserendiran ce [facility] Pharmacy Vital Signs Combined list [...] ADM Date DC Date Status Disposition Source [facility] 01A17 Fabricati on) OUTPATIENT [id number] poss kidney infecti on x4dys BOB DAVILA 10/29 Released w/o Limitations [facility](A MHS 01A17 [place]) [facility] 01A17 Fabricati on) OUTPATIENT [id number] F/U PAP TEST RESULTS ,REQ BSKIP MOCTEZUMA 12/04 Released w/o Limitations [facility](A MHS 01A17 [place]) [facility] Immunizat ion [facility]) OUTPATIENT [id number] td SEEMA BILLINGSLEY 02/20 Released w/o Limitations [facility] Immuniz ation [facility]) [facility] OUTPATIENT [id number] Pre Appt health screen MARY ELLEN DIETRICH 02/23 Released w/o Limitations [facility]) [facility] 01A17 Fabricati on) OUTPATIENT [id number] imms varicel la MMR Hep B JOCELINE BOOKER 02/25 Released w/o Limitations [facility](A MHS 01A17 [place]) [facility] 01A17 Fabricati on) OUTPATIENT [id number] ANNUAL PAP/BC LEATHA ESTEBAN 03/15 Released w/o Limitations [facility](A MHS 01A17 [place]) [facility] 01A17 Fabricati on) OUTPATIENT [id number] OLESYA Ortiz 03/18 Released w/o Limitations [facility](A MHS 01A17 [place]) [facility] 01A17 Fabricati on) OUTPATIENT [id number] fu cough,s ore throat, sinus x2wks OLESYA MICHAELS 03/26 Released w/o Limitations [facility](A MHS 01A17 [place]) [facility] 01A17 Fabricati on) OUTPATIENT [id number] iud placmen t LEATHA ESTEBAN A 03/29 Released w/o Limitations [facility](A MHS 01A17 [place]) [facility] 01A17 Fabricati on) OUTPATIENT [id number] fu iud LEATHA ESTEBAN A 06/05 Released w/o Limitations [facility](A MHS 01A17 [place]) [facility] 01A17 Fabricati on) OUTPATIENT [id number] back pain +yrs/la bs + multi issues (uar 06/19) SKIP KEYS 06/20 Released w/o Limitations [facility](A MHS 01A17 [place]) [facility]) OUTPATIENT [id number] ini SERGEY Simpson 08/02 [facility] Limitations [facility] [place]) [place]PATIENT [id number] ISIDRO Dubose 07/08 Released w/o Limitations [facility] [place]Im[place]) [facility] [place]) OUTPATIENT [id number] [facility] MARIAELENA FRANKEL 07/29 Released w/o Limitations [facility] [place]) [facility] [place]) OUTPATIENT [id number] ISIDRO Leary 07/29 Released w/o Limitations [facility] [place] [facility] Samuel Mendosa [facility] [place]) [place] [id number] ARNOLDO LUNA 08/25 Released w/o Limitations [facility] Samuel Mendosa [facility] [place] [facility] Samuel Mendosa [facility] [place]Family Practice [place] 1) OUTPATIENT [id number] poss uti/hcg LAUREN ROSA 10/17 Released w/o Limitations [facility] Samuel Mendosa [facility] [place]Fami [place] Practic [place] Team 1) [facility] [place]) OUTPATIENT [id number] [facility] JUJU SALAS L 10/21 Released w/o Limitations [facility] Samuel Mendosa [facility] [place]) [facility] Samuel Mendosa [facility] [place]) OUTPATIENT [id number] urinary issues BARBARA IZQUIERDO 10/22 Released w/o Limitations [facility] Samuel Mendosa [facility] [place] Pract[place] 1) [facility] [place] TELE CONSULT [id number] UTI WILI RAMOS 10/[address] [facility] [place] 1[place] [facility] [place] TELE CONSULT [id number] Complet e Hepatit is Series JUJU SALAS L 10/30 [facility] [place] [facility] [place]) [place]IENT [id number] twin YANG BUTLER 11/06 Released w/o Limitations [facility] Samuel Mendosa [facility] [place] [facility] [place]) OUTPAT[place] [id number] swati webb for job TIMBOBARBARA VARINDER 12/04 Released w/o Limitations [facility] Samuel Mendosa [facility] [place] [facility] [place]) [place] [id number] ISIDRO [place] 12/08 Released w/o Limitations [facility] Mend[facility] [place](Immu nizatio ns) [facility] Samuel Mendosa [facility] [place](Immuni zations) OUTPATIENT [id number] read ISIDRO CANTU 12/10 Released w/o Limitations [facility] [place](Immu nizatio ns) [facility] Samuel Mendosa [facility] [place](Family Practice Team 1) TELE CONSULT [id number] pap letter SUMMER CLARK 12/29 Referred for Appointment [facility] Samuel Mendosa [facility] [place](Fami ly Practic e Team 1) [facility] Samuel Mendosa [facility] [place](Family Practice Team 1) OUTPATIENT [id number] f/u weight managem ent BARBARA IZQUIERDO 12/29 Released w/o Limitations [facility] Samuel Mendosa [facility] [place] Practic [place] Team 1) [facility] Samuel Mendosa [facility] [place]) OUTPATIENT [id number] f/up meds BARBARA IZQUIERDO 02/19 Released w/o Limitations [facility] Samuel Mendosa [facility] [place](Fami ly Practic e Team 1) [facility] Samuel Mendosa [facility] [place](Family Practice Team 1) TELE CONSULT [id number] Needs referra ls WILI Stratton 03/10 Referred for Appointment [facility] Samuel Mendosa [facility] [place](Fami ly Practic e Team 1) [facility] Samuel Mendosa [facility] [place]Family [place] TELE CONSULT [id number] Pt asking for new order's for a multivi tamin and calcuim supplem ent WILI RAMOS 03/23 Referred for Appointment [facility] Samuel Mendosa [facility] [place](Fami ly Practic e Team 1) [facility] Mendosa [facility] [place]) OUTPATIENT [id number] F/U SLEEP STUDY BARBARA IZQUIERDO 04/22 Released w/o Limitations [facility] Mend[facility] [place] Team 1) [facility] Mendosa [facility] [place] TELE CONSULT [id number] Pt seen yesterd ay and sleep study to be faxed and titrati on done need's script. BARBARA IZQUIERDO 04/23 [facility] Mend[place] [facility] [place]Fami [place] Practic [place] Team 1) [facility] Samuel Mendosa [facility] [place] 1[place] TELE CONSULT [id number] control MOSELEY, ANDREI A. 05/[address] [facility] Samuel Mnedosa [facility] [place]Fami [place] Practic [place] Team 1) [facility] Samuel Mendosa [facility] [place]Family Practice Team 1[place] TELE CONSULT [id number] rx refill MOSELEY, ANDREI A. 05/[address] [facility] Samuel Mendosa [facility] [place](Fami [place] Practic [place] Team 1) [facility] Samuel Mendosa [facility] [place]) [place] [id number] JAKUB KHOURY 06/05 Released w/o Limitations [facility] Samuel Mendosa [facility] [place] [facility] [place] TELE CONSULT [id number] medicat ion refill WILI RAMOS 06/[address] [facility] Samuel Mendosa [facility] [place]Fami [place] Practic [place] Team 1) [facility] Samuel Mendosa [facility] [place]) [place] [id number] OLESYA GUZMAN 06/27 Released w/o Limitations [facility] Samuel Mendosa [facility] [place] [facility] Samuel Mendosa [facility] [place]) OUTPATIENT [id number] control needed and back pain GURJIT KISER 12/11 Released w/o Limitations [facility] Samuel Mendosa [facility] [place] Practic [place] Team 1) [facility] Samuel Mendosa [facility] [place]) OUTPATIENT [id number] f/u on xray s JACKY STODDARD 12/29 Released w/o Limitations [facility] Samuel Mendosa [facility] [place]Fami [place] Practic [place] Team 1) [facility] Samuel Mendosa [facility] [place]Talent Sourcing Specialist al Medicine) OUTPATIENT [id number] CONSULT FOR BREAST REDUCTI ON JACKY STODDARD 01/08 Released w/o Limitations [facility] [facility] [place] [facility] Samuel Mendosa [facility] [place] Specialist al Medicine[place] TELE CONSULT [id number] Med Renewal JACKY STODDARD 02/17 [facility] Samuel Mendosa [facility] [place] [facility] Samuel Mendosa [facility] [place]Talent Sourcing Specialist al Medicine) OUTPATIENT [id number] sinus/v ertigo issues JACKY STODDARD F 02/22 Released w/o Limitations [facility] Samuel Mendosa [facility] [place] [facility] Samuel Mendosa [facility] [place]Talent Sourcing Specialist al Medicine) TELE CONSULT [id number] refbisi st[place]ford JACKY STODDARD 03/03 [facility] Samuel Mendosa [facility] [place] [facility] Samuel Mendosa [facility] [place]Talent Sourcing Specialist al Medicine) OUTPATIENT [id number] f/u med refill JACKY STODDARD 03/16 Released w/o Limitations [facility] Samuel Mendosa [facility] [place] [facility] Samuel Mendosa [facility] [place]) [place] [id number] DEBRA TRUONG R 04/27 Released w/o Limitations [facility] Samuel Mendosa [facility] [place] [facility] Samuel Mendosa [facility] [place] M01D Cats[place] OUTPATIENT [id number] swati [place] JACKY STODDARD F 05/04 Released w/o Limitations [facility] Samuel Mendosa [facility] [place] M01[place]) [facility] Samuel Mendosa [facility] [place] M01A Cards[place] OUTPATIENT [id number] POSS SINUS INFECTI ON KELVIN GARCIA R 07/07 Released w/o Limitations [facility] Samuel Mendosa [facility] [place]01[place]) [facility] Samuel Mendosa [facility] [place] M01A [place] TELE CONSULT [id number] KELVIN Cerda R 07/13 [facility] Samuel Mendosa [facility] [place]01[place] [facility] Samuel Mendosa [facility] [place]) OUTPATIENT [id number] referra l wanted and med. renewal s JOSESINDHUSachi Ambrocio 07/18 Released w/o Limitations [facility] Samuel Mendosa [facility] [place](AMH M01A Cards) [facility] Samuel Mendosa [facility] [place](AMH M01D Cats) TELE CONSULT [id number] Adminis trative issue JACKY STODDARD 07/19 [facility] Samuel Mendosa [facility] [place](AMH M01D Cats) [facility] Samuel Mendosa [facility] [place](AMH M01A Cards) TELE CONSULT [id number] xray results MOSELEY, ANDREI A. 07/21 Referred for Appointment General Samuel Mendosa [facility] [place](AMH M01A Cards) [facility] Samuel Mendosa [facility] [place](AMH M01A Cards) TELE CONSULT [id number] Sleep Study Results MOSELEY, ANDREI A. 08/09 Referred for Appointment General Samuel Mendosa [facility] [place](AMH M01A Cards) [facility] Samuel Mendosa [facility] [place](AMH M01A Cards) TELE CONSULT [id number] med refills MOSELEY, ANDRIE A. 08/26 Referred for Appointment General Samuel Mendosa [facility] [place](AMH M01A Cards) [facility] Samuel Mendosa [facility] [place](AMH M01A Cards) TELE CONSULT [id number] Med refills MOSELEY, ANDREI A. 08/30 Referred for Appointment [facility] Samuel Mendosa [facility] [place](AMH M01A Cards) [facility] Samuel Mendosa [facility] [place](AMH M01A Cards) OUTPATIENT [id number] MARC Gong 10/21 Released w/o Limitations [facility] Samuel Mendosa [facility] [place](AMH M01A Cards) [facility] Samuel Mendosa [facility] [place](AMH M01A Cards) TELE CONSULT [id number] Notes Entered by: LUBA RAMIREZ 03 Nov 2011 1430 ------- ------- ------- ------- -- Followu p labs MOSELEY ANDREI A. 11/02 Referred for Appointment [facility] Samuel Mendosa [facility] [place](AMH M01A Cards) [facility] Samuel Mendosa [facility] [place]01[place]) OUTPATIENT [id number] medicat ion & tail bone LOPEZHARRISON LOVE 12/20 Released w/o Limitations [facility] Samuel Mendosa [facility] [place]01[place]) [facility] Samuel Mendosa [facility] [place] M01A [place] OUTPATIENT [id number] Nexipla non inserti on, hcg ordered AMITA AYERSLEIGH ANN 01/03 Released w/o Limitations [facility] Samuel Mendosa [facility] [place]01[place]) [facility] Samuel Mendosa [facility] [place] F01A Oz 1) OUTPATIENT [id number] [place] PE/WWE ANDREI DANIELS JASSI 09/12 Released w/o Limitations [facility] Samuel Mendosa [facility] [place] F01A Oz 1) [facility] [place] OUTPATIENT [id number] Notes Entered by: EDGARD MAY 26 Sep 2013 0848 ------- ------- ------- ------- -- OSS FOR GENNY EVAN ARAUJO 09/26 Released w/o Limitations [facility] Samuel Mendosa [facility] [place] ) [facility] Samuel Mendosa [facility] [place] F01A Oz 1) OUTPATIENT [id number] nexplan on removal ANDREI DANIELS JASSI 10/08 Released w/o Limitations [facility] Samuel Mendosa [facility] [place] F01[place] Oz 1) [facility] Samuel Mendosa [facility] [place] F01A Oz 1) TELE CONSULT [id number] Notes Entered by: MARIAELENA BRANCH 09 Oct 2013 1337 ------- ------- ------- ------- -- symptom MARIAELENA LIU 10/[address] [facility] Samuel Mendosa [facility] [place]AMH F01A Oz 1) [facility] Samuel Mendosa [facility] [place] F01A Oz 1) TELE CONSULT [id number] Notes Entered by: JOSEPH HAMILTON 10 Dec 2013 1602 ------- ------- ------- ------- -- pt needs zoloft 100mg, zestore tic 20/12.5 mg ARNOLD KISER 12/10 Medication Ref[place]ed [place] TELE CONSULT [id number] Notes Entered by: MARIAELENA BRANCH 02 Jan 2014 1205 ------- ------- ------- ------- -- referMARIAELENA Adrian 01/02 Referred for Appointment [place]) OUTPATIENT [id number] discuss referra ANDREI Durbin 01/29 Released w/o Limitations [place] [facility]) OUTPATIENT [id number] Larm pain JUJU BANDA LEON 03/04 Released w/o Limitations [facility]) OUTPATIENT [id number] medicat ion update JUJU BANDA LEON 03/14 [facility]ased w/o Limitations [facility] TELE CONSULT [id number] Notes Entered by: KESHA THOMSON 28 Mar 2014 0925 ------- ------- ------- ------- -- f/u labwork JUJU BANDA LEON 03/28 [facility] M04A Blue) [facility] M04A Blue) TELE CONSULT [id number] Notes Entered by: ZEFERINO PATEL 10 Apr 2014 1128 ------- ------- ------- ------- -- Hospita l Dischar UBALDO Joe 04/10 [facility]H M04A Blue) [facility]H M04A Blue) OUTPATIENT [id number] F/U diverti roque SOTOHARRISON Ram Cristóbal 04/10 Released w/o Limitations [facility](AMH M04A Blue) [facility] TELE CONSULT [id number] Notes Entered by: JH ARELLANO 11 Apr 2014 0922 ------- ------- ------- ------- -- Dischar ge Follow Up JH ARELLANO 04/11 [facility](AMH M04B Red) [facility] M04A Blue) OUTPATIENT [id number] Follow up JUJU BANDA 04/18 Released w/o Limitations [facility] M04A Blue) TELE CONSULT [id number] Notes Entered by: ZEFERINO PATEL 22 Apr 2014 0929 ------- ------- ------- ------- -- Poss Yeast infecti on JUJU BANDA 04/22 [facility](AMH M04A Blue) [facility]H M04A Blue) OUTPATIENT [id number] Telecon UBALDO Mccann 04/23 [facility] Limitations [facility] General Surgery) OUTPATIENT [id number] Telehea lt, Scope, Diverti ROBYN Choe 04/23 Released w/o Limitations [facility] General Surgery ) [facility]H M04A Blue) OUTPATIENT [id number] sore throat JUJU BANDA 05/13 Released w/o Limitations [facility](AMH M04A Blue) [facility](AMH M04A Blue) TELE CONSULT [id number] Notes Entered by: JOHNY NICOLE 14 May 2014 1010 ------- ------- ------- ------- -- JUJU Byrd 05/14 [facility]H M04A Blue) [facility] OUTPATIENT [id number] METABOL IC TESTING DREW GANDHI 05/15 Released w/o Limitations [facility] OUTPATIENT [id number] Notes Entered by: TATI SYED 15 May 2014 1346 ------- ------- ------- ------- -- BODY DREW WILKINS 05/15 Released w/o Limitations [facility]) [facility] M04A Blue) TELE CONSULT [id number] Notes Entered by: BILL GANDHI 15 May 2014 1541 ------- ------- ------- ------- -- Please review Metabol ic Test JUJU BANDA 05/15 [facility] M04A Blue) [facility]) OUTPATIENT [id number] UYM CLASS DREW GANDHI 05/21 Released w/o Limitations [facility]) OUTPATIENT [id number] Notes Entered by: SHAW MYERS 23 May 2014 1312 ------- ------- ------- ------- -- UYM Class SHAW HALEY 05/23 Released w/o Limitations [facility] M04A Blue) TELE CONSULT [id number] Notes Entered by: ZEFERINO PATEL 23 May 2014 1519 ------- ------- ------- ------- -- Lap Band/La b work JUJU BANDA LEON 05/23 [facility]H M04A Blue) [facility](AMH M04B Red) OUTPATIENT [id number] Smoking GUILLERMINA DELEON 05/29 Released w/o Limitations [facility](AMH M04B Red) [facility](AMH M04B Red) OUTPATIENT [id number] smoking cessati on KHRIS HAYWOOD 05/29 Released w/o Limitations [facility](AMH M04B Red) [facility](AMH M04A Blue) OUTPATIENT [id number] pt stated that her lap band is leaking JUJU BANDA LEON 06/06 Released w/o Limitations [facility](AMH M04A Blue) [facility](AMH M04B Red) TELE CONSULT [id number] Notes Entered by: JOSE LYONS 06 Jun 2014 1113 ------- ------- ------- ------- -- smoking cessati on medicat ions KHRIS HAYWOOD 06/06 [facility] M04B Red) [facility](AMH M04A Blue) TELE CONSULT [id number] Notes Entered by: KESHA THOMSON 07 Jun 2014 0813 ------- ------- ------- ------- -- low Vitamin D level JUJU BANDA 06/07 [facility]H M04A Blue) [facility]H M04A Blue) OUTPATIENT [id number] acupunc ture JUJU BANDA LEON 06/10 Released w/o Limitations [facility](AMH M04A Blue) [facility](AMH M04B Red) OUTPATIENT [id number] smoking cessati on f/u #2 [facility] 06/12 Released w/o Limitations [facility](AMH M04B Red) [facility](AMH M04A Blue) OUTPATIENT [id number] acupunc ture JUJU BANDA LEON 06/12 Released w/o Limitations [facility](AMH M04A Blue) [facility](AMH M04A Blue) OUTPATIENT [id number] acupunc ture-20 min per JUJU Chowdary LEON 06/14 Released w/o Limitations [facility](AMH M04A Blue) [facility](AMH M04B Red) TELE CONSULT [id number] Notes [facility]: [facility] 28 Jun 2014 0917 ------- ------- ------- ------- -- Zyban refKHRIS Aguilera 06/28 [facility]H M04B Red) [facility]H M04B Red) OUTPATIENT [id number] F/U per patient [facility] 07/25 Released w/o Limitations [facility](AMH M04B Red) [facility](AMH M04B Red) TELE CONSULT [id number] Notes Entered by: [facility] 25 Jul 2014 1024 ------- ------- ------- ------- -- medicat ion refill JUJU BANDA 07/25 [facility](AMH M04B Red) [facility](AMH M04A Blue) OUTPATIENT [id number] pain in knee pcm JUJU Edge 07/31 Released w/o Limitations [facility](AMH M04A Blue) [facility](AMH M04A Blue) TELE CONSULT [id number] Notes Entered by: JUAN PABLO PEREZ 19 Aug 2014 0743 ------- ------- ------- ------- -- Need presc refills for Topiram ax, Setrali ne UBALDO MCHUGH 08/19 [facility] M04A Blue) [facility](AMH M04B Red) OUTPATIENT [id number] smoking cessati on GUILLERMINA DELEON 08/28 Released w/o Limitations [facility](AMH M04B Red) [facility](AMH M04A Blue) TELE CONSULT [id number] Notes Entered by: SURJIT PORTER 04 Sep 2014 1401 ------- ------- ------- ------- -- NETWORK RESULTS - INPT - -10 APR 2014. LOOK IN ARTIFAC TS AND IMAGES JUJU BANDA LEON 09/04 [facility] M04A Blue) [facility]H M04A Blue) TELE CONSULT [id number] Notes Entered by: NGOC WONG 23 Sep 2014 1150 ------- ------- ------- ------- -- medicai ton refill UBALDO MCHUGH 09/23 [facility]H M04A Blue) [facility]H M04A Blue) OUTPATIENT [id number] smoking cessati on med refill KHRIS HAYWOOD 10/17 Released w/o Limitations [facility](AMH M04A Blue) [facility]H M04A Blue) OUTPATIENT [id number] [facility] JUJU aHwthorne LEON 11/21 Released w/o Limitations [facility]H M04A Blue) [facility]H M04A Blue) TELE CONSULT [id number] Notes Entered by: Cassandra MCHUGH 27 Nov 2014 0911 ------- ------- ------- ------- -- patient states she is doing fine, but would like results from labs on 11/21 JUJU BANDA 11/27 [facility] M04A Blue) [facility]H M04A Blue) OUTPATIENT [id number] family emely garza PCM Antony swan n/a DANIKA KNIGHT 01/21 Released w/o Limitations [facility](AMH M04A Blue) [facility]H M04A Blue) TELE CONSULT [id number] Notes Entered by: JUAN PABLO PEREZ 11 Feb 2015 1046 ------- ------- ------- ------- -- Need lab results done on Jan 23 2015 UBALDO MCHUGH 02/11 [facility]H M04A Blue) [facility]H M04A Blue) OUTPATIENT [id number] severe stomach pains ALEKSANDER AMBROSE 02/18 Released w/o Limitations [facility](AMH M04A Blue) [facility](AMH M04A Blue) TELE CONSULT [id number] Notes Entered by: Cassandra MCHUGH 18 Feb 2015 1539 ------- ------- ------- ------- -- UBALDO De Luna 02/18 [facility]H M04A Blue) [facility](AMH M04A Blue) TELE CONSULT [id number] Notes Entered by: BILL SALAZAR 19 Feb 2015 1150 ------- ------- ------- ------- -- Lab results . PCM UBALDO SANDOVAL 02/19 [facility]H M04A Blue) [facility]H M04A Blue) TELE CONSULT [id number] Notes Entered by: ADRIANE HOUSE 06 Mar 2015 1517 ------- ------- ------- ------- -- rx ALEKSANDER Goddard 03/06 [facility]H M04A Blue) [facility]H M04A Blue) TELE CONSULT [id number] Notes Entered by: VIDYA BLAKELYSENACristóbal Hassan 14 Apr 2015 1417 ------- ------- ------- ------- -- consult ation report ALEKSANDER AMBROSE 04/14 [facility]H M04A Blue) [facility]H M04A Blue) TELE CONSULT [id number] Notes Entered by: BILL SALAZAR 05 May 2015 1245 ------- ------- ------- ------- -- Imms needed. PCM ALEKSANDER OSHEA 05/05 [facility]H M04A Blue) [facility] M04A Blue) OUTPATIENT [id number] [facility] ALEKSANDER Ball 05/12 Released w/o Limitations [facility](AMH M04A Blue) [facility]H M04A Blue) TELE CONSULT [id number] Notes Entered by: NIKOLAI ESPITIA 16 May 2015 1042 ------- ------- ------- ------- -- Medicat ion refill ALEKSANDER AMBROSE 05/16 [facility]H M04A Blue) [facility]H M04A Blue) OUTPATIENT [id number] chest cold CARLENE ALTAMIRANO 05/30 Released w/o Limitations [facility](AMH M04A Blue) [facility]H M04A Blue) OUTPATIENT [id number] Conjunc DANIKA Vela 06/19 Released w/o Limitations [facility](AMH M04A Blue) [facility]H M04A Blue) TELE CONSULT [id number] Notes Entered by: Geoffrey STEVENSON 24 Jun 2015 1007 ------- ------- ------- ------- -- NETWORK RESULTS -IN PATIENT -[id number] 6 ALEKSANDER AMBROSE 06/24 [facility]H M04A Blue) [facility]H M04A Blue) OUTPATIENT [id number] Skin ulcer DANIKA KNIGHT 07/01 Released w/o Limitations [facility](AMH M04A Blue) [facility] Dermatolo gy) TELE CONSULT [id number] Notes Entered by: ELLEN FAULKNER 03 Jul 2015 1601 ------- ------- ------- ------- -- EVAN Pascal 07/03 [facility] Dermato logy) [facility] M[facility] OUTPAT[facility] [id number] hip pain ALEKSANDER AMBROSE 07/08 Released w/o Limitations [facility](AMH M04A Blue) [facility]H M04A Blue) OUTPATIENT [id number] CT scan follow up Diverti culosis ALEKSANDER AMBROSE 07/14 Released w/o Limitations [facility](AMH M04A Blue) [facility](AMH M04A Blue) TELE CONSULT [id number] Notes Entered by: ALFREDO HARDY 21 Jul 2015 0943 ------- ------- ------- ------- -- NETWORK RESULTS - RAD - [id number] ALEKSANDER AMBROSE 07/20 [facility](AMH M04A Blue) [facility] Dermatolo gy) OUTPATIENT [id number] pos skin cancer EVAN PETERSEN 07/20 Released w/o Limitations [facility] Dermato logy) [facility] Dermatolo gy) OUTPATIENT [id number] per team EVAN PETERSEN 08/10 Released w/o Limitations [facility] Dermato logy) [facility] Dermatolo gy) TELE CONSULT [id number] Notes Entered by: ELANA CHAVEZ 11 Aug 2015 1618 ------- ------- ------- ------- -- care after procedu re NICOLAEVAN JEAN-PAUL 08/10 [facility] Dermato logy) [facility] [place](Em erg[place]) OUTPATIENT [id number] L Elbow Pain//A brasion L Elbow/M edical Exam CHOW, TRUNG 10/07 Released w/o Limitations [facility] [place]( Emergen [place]) [facility] [place] [place] OUTPATIENT [id number] ED F/up HUSSAIN RODRIGUEZ 10/13 Released w/o Limitations [facility] [place]( [facility]) [facility] [place] [place] OUTPATIENT [id number] F/up appt HUSSAIN RODRIGUEZ 10/27 Released w/o Limitations [facility] [place]( [facility]) [facility] [place](Em ergency) OUTPATIENT [id number] L ear pain/th roat pain//p haryngi tis acute/o talgia ear pain, bilater al/coug h CHOW, TRUNG 11/18 Released w/o Limitations [facility] [place]( Emergen [place]) [facility] [place] [place] TELE CONSULT [id number] Notes Entered by: Yared BADILLO 26 Nov 2015 1328 ------- ------- ------- ------- -- rx AUBRIE Monahan 11/25 Released to Self Care .[facility] [place]( [place] [facility] [place] [place] [place] TELE CONSULT [id number] Notes Entered by: AUBRIE DANIELS 05 Dec 2015 1634 ------- ------- ------- ------- -- NO SHOW - Nov-MED REFILL AUBRIE DANIELS 12/04 [facility] [place] M04A Blue) TELE CONSULT [id number] Notes Entered by: MAXIMO LANDERS 30 Dec 2015 1617 ------- ------- ------- ------- -- med refill ALEKSANDER AMBROSE 12/29 [facility]H M04A Blue) [facility] M04A Blue) OUTPATIENT [id number] multipl e med refills and checkup with ALEKSANDER Buckley 01/04 Released w/o Limitations [facility]H M04A Blue) [facility]H M04A Blue) TELE CONSULT [id number] Notes Entered by: ADRIANE HOUSE 15 Jan 2016 1246 ------- ------- ------- ------- -- lab results ALEKSANDER AMBROSE 01/14 [facility]H M04A Blue) [facility]H M04A Blue) TELE CONSULT [id number] Notes Entered by: ELLEN FAULKNER 05 Feb 2016 1548 ------- ------- ------- ------- -- Rx refill ALEKSANDER AMBROSE 02/04 [facility]H M04A Blue) [facility]H M04A Blue) TELE CONSULT [id number] Notes Entered by: DALIA MATHIS 21 Apr 2016 0857 ------- ------- ------- ------- -- NETWORK RESULTS [facility] 16 ALEKSANDER AMBROSE 04/21 [facility]H M04A Blue) [facility]H M04A Blue) OUTPATIENT [id number] Possibl e sinus infecti on ANANYA CORRIGAN 05/20 Released w/o Limitations [facility](AMH M04A Blue) [facility]H M04A Blue) OUTPATIENT [id number] Lung pain,co ughing, and sinuses ALEKSANDER AMBRSOE 05/26 Released w/o Limitations [facility](AMH M04A Blue) [facility](AMH M04B Red) TELE CONSULT [id number] Notes Entered by: Fely ENGLISH 28 May 2016 1043 ------- ------- ------- ------- -- Medicat ALEKSANDER Riley 05/28 [facility](AMH M04B Red) [facility] ) OUTPATIENT [id number] eye exam JACKY DREW BLANCO 08/24 Released w/o Limitations [facility]) [facility]H M04A Blue) OUTPATIENT [id number] ALEKSANDER Mosley 09/02 Released w/o Limitations [facility](AMH M04A Blue) [facility](AMH M04A Blue) TELE CONSULT [id number] Notes Entered by: YVONNE BE 10 Sep 2016 1421 ------- ------- ------- ------- -- ALEKSANDER Montes 09/10 [facility]H M04A Blue) [facility]H M04A Blue) TELE CONSULT [id number] Notes Entered by: LORETTA ARCINIEGA 10 Sep 2016 1510 ------- ------- ------- ------- -- Medicat ALEKSANDER Eller 09/10 [facility] M04A Blue) [facility]H M04A Blue) TELE CONSULT [id number] Notes Entered by: YVONNE BE 23 Sep 2016 1552 ------- ------- ------- ------- -- Lab results ALEKSANDER AMBROSE 09/23 [facility](AMH M04A Blue) [facility]H M04A Blue) OUTPATIENT [id number] sore throat for 2 wks TORIE TEMPLE 10/13 Released w/o Limitations [facility](AMH M04A Blue) [facility]H M04A Blue) TELE CONSULT [id number] Notes Entered by: Cassandra ALEXANDER 22 Oct 2016 1009 ------- ------- ------- ------- -- NETWORK RESULTS -RADIO- [id number] ALEKSANDER AMBROSE 10/22 [facility]H M04A Blue) [facility]H M04A Blue) TELE CONSULT [id number] Notes Entered by: Geoffrey STEVENSON 22 Oct 2016 1522 ------- ------- ------- ------- -- NETWORK RESULTS -DERM-1 [id number] ALEKSANDER AMBROSE 10/22 [facility] M04A Blue) [facility]([employer] (Non-GWOT /WTU)) OUTPATIENT [id number] Notes Entered by: CARMELITA KWAN 01 Nov 2016 1015 ------- ------- ------- ------- -- Care Coordin STACEY Costello 11/01 Released w/o Limitations [facility]([employer] (Non-GW OT/WTU) ) [facility]H M04A Blue) TELE CONSULT [id number] Notes Entered by: DALIA MATHIS 26 Nov 2016 0950 ------- ------- ------- ------- -- NETWORK RESULTS DERM [id number] VIDYAREDDYALEKSANDER 11/26 [facility](AMH M04A Blue) [facility], DIRECT TO [facility] [id number] CEASAR ROJAS 01/[address] [facility]( [facility]) OUTPATIENT [id number] f/u per diverti CEASAR Wetzel 01/24 Released w/o Limitations [facility] ([facility]) [facility] Team 1) TELE CONSULT [id number] Notes Entered by: MANE CLEMENS 17 Feb 2017 1519 ------- ------- ------- ------- -- medicat ion bridge, appoint ment on Feb SYLVIA FRAZIER 02/17 Referred for Appointment [facility] ([facility] Team 1) [facility] Team 1) OUTPATIENT [id number] medicat ion refill - topamax , velafax JASSI Smith 03/04 Released w/o Limitations [facility] ([facility] Team 1) [facility]( [facility]) OUTPATIENT [id number] f/u diverti cultisi CEASAR Ramos 03/16 Released w/o Limitations [facility] ([facility]) [facility]( [facility]) OUTPATIENT [id number] f/u CSP 17nov, sched surgery CEASAR ROJAS 04/04 Released w/o Limitations [facility] ([facility]) [address] Medgrp-Sc paris Between Visit [id number] 04/05 Discharge Disposition: Home or Self Care 6130C-A f-C-375 Th Medgrp- Varinder 6130C-Af- C-375Th Medgrp-Sc paris Between Visit [id number] 04/08 Discharge Disposition: Home or Self Care 6130C-A f-C-375 Th Medgr[facility]- [facility] 6130C-Af- C-375Th Medgrp-Sc paris Between Visit [id number] Unspeci fied abnorma l finding in specime ns from other organs, systems and tissues ,Unspec ified fractur e of unspeci fied lower leg, initial encount er for closed fractur e 04/09 Discharge Disposition: Home or Self Care [address] f[facility]Af[facility] C[facility]375[facility] [id number] Unspeci fied fractur e of unspeci fied lower leg, initial encount er for closed fractur e,Abnor mal weight gain,De pressio n, unspeci fied,Un specifi ed fractur e of unspeci fied lower leg, initial encount er for closed fractur e,Abnor mal weight gain,De pressio n, unspeci fied ILYA BURNETT 04/24 Discharge Disposition: Home or Self Care 6130C[facility]A f-C[facility] 6130C-Af- C[address]375Th Medgrp-Ak paris Between Visit [id number] 04/30 Discharge Disposition: Home or Self Care 6[address]C[facility]A f-C[facility] Procedures Combined list of: 1) Procedures from Department of Veterans Affairs facilities [facility], not all VA non-surgical procedures are included; 2) All procedures from the Department of Defense facilities. Procedure Procedure Type Code Date Perfomer Comments Sourc e No data available for this section [facility] Pharmacy UNLISTED SPECIAL SERVICE, PROCEDURE OR REPORT 2016 [facility] INTRAVENOUS INFUSION, FOR THERAPY, PROPHYLAXIS, OR DIAGNOSIS (SPECIFY SUBSTANCE OR DRUG); EACH ADDITIONAL HOUR (LIST SEPARATELY IN ADDITION TO CODE FOR PRIMARY PROCEDURE) 2016 [facility] INTRAVENOUS INFUSION, FOR THERAPY, PROPHYLAXIS, OR DIAGNOSIS (SPECIFY SUBSTANCE OR DRUG); EACH ADDITIONAL HOUR (LIST SEPARATELY IN ADDITION TO CODE FOR PRIMARY PROCEDURE) 2016 [facility] INTRAVENOUS INFUSION, FOR THERAPY, PROPHYLAXIS, OR DIAGNOSIS [...] (HEPA-HEPB), ADULT DOSAGE, FOR INTRAMUSCULAR USE 2007 [facility] SCREENING TEST OF VISUAL ACUITY, QUANTITATIVE, BILATERAL [...] FOR INTRAMUSCULAR USE 2009 DoD VIS FUNCT SCREEN,AUTOMAT/JOCEYLNE I-AUTOMAT BILAT QUANT DETERM VISUAL ACUITY,OCULAR ALIGN,COLOR VISION,PSEUDOISOCH ROMAT PLATES,& FIELD VIS (MAY INC ALL/SOME SCRN DETERM FOR CONTRAST SENSITIV,VIS UND GLARE) 2009 [facility] INFLUENZA VIRUS VACCINE, TRIVALENT (IIV3), SPLIT VIRUS, [...] PROVIDE W/IN THE PREV 7 DAYS,USE THE [employer] NETWORK 2016 DoD TELE ASSESS & MGT [...] MANAGEMENT SERVICE(S) PROVIDED BY A PHARMACIST, INDIVIDUAL, BSOT-RX-RAES WITH PATIENT, WITH ASSESSMENT AND INTERVENTION IF [...] EDUCATION &TRAINING, PATIENT SELF-MGT QUALIFIED, 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 USING STDIZED CURRICULUM, [id number] W THE PATIENT (COULD INCL CAREGIVER/FAMILY) EA [...] EDUCATION &TRAINING, PATIENT SELF-MGT QUALIFIED, 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 USING STDIZED CURRICULUM, [id number] W THE PATIENT (COULD INCL CAREGIVER/FAMILY) EA 30 MIN; INDIVIDUAL PATIENT 2014 [facility] ACUPUNCTURE, 1/MORE NEEDLES; WO ELECTRICAL STIMULATION, EA ADDITIONAL 15 MINUTES, PERSONAL ONE-ON-ONE CONTACT W THE PATIENT, W RE-INSERTION, NEEDLE(S) (LIST SEPARATELY ADDITION CODE, 1 PROCEDURE) 2014 [facility] ACUPUNCTURE, 1 OR MORE NEEDLES; WITHOUT ELECTRICAL STIMULATION, INITIAL 15 MINUTES OF PERSONAL ONE-ON-ONE CONTACT WITH THE PATIENT 2014 [facility] UNLISTED SPECIAL SERVICE, PROCEDURE OR REPORT 2014 [facility] MEDICATION THERAPY MGT SERVICE(S) PROVIDED,A PHARMACIST,Brandi BARON LUZ ELENA-TO-FACE W PATIENT,WITH ASSESS & INTERVENE IF PROVIDED;EA ADDITION 15 MINUTES (LIST SEPARATELY IN ADDITION TO CODE FOR PRIM SERVICE) 2014 [facility] PATIENT EDUCATION, NOT OTHERWISE CLASSIFIED, NON-PHYSICIAN PROVIDER, GROUP, PER SESSION 2014 [facility] PATIENT EDUCATION, NOT OTHERWISE CLASSIFIED, NON-PHYSICIAN PROVIDER, GROUP, PER SESSION 2014 [facility] PATIENT EDUCATION, NOT OTHERWISE CLASSIFIED, NON-PHYSICIAN PROVIDER, INDIVIDUAL, PER SESSION 2014 [facility] OXYGEN UPTAKE, GAS ANALYSIS; REST, INDIRECT (SEPARATE PROCEDURE) 2014 [facility] TELEHEALTH ORIGINATING SITE FACILITY FEE 2013 [facility] HEEL OR ELBOW PROTECTOR, EACH 2013 [facility] Case Management, each 15 minutes 2016 STACEY KWAN [facility] Coordinated care fee, maintenance rate 2016 STACEY KWAN [facility] Psychotherapy Individual Approx 30 Min W/ Medical Evaluation & Management Psychotherapy Individual Approx 30 Min W/ Medical Evaluation & Management [id number] 2016 STANTON RENE [facility] Non-Physician Phone Call To Patient/Provider Brief (5-10min) Non-Physician Phone Call To Patient/Provider Brief (5-10min) [id number] 2016 ALE[place]ER AMBROSE [employer] Qual Nonphys Healthcare Prof Up To 7 Days Estab Patient Internet Med Svc Qual Nonphys Healthcare Prof Up To 7 Days Estab Patient [id number] 2016 [place] AMBROSE Non-Physician Phone Call To Patient/Provider Brief (5-10min) Non-Physician Phone Call To Patient/Provider Brief (5-10min) [id number] 2016 ALE[place]ER AMBROSE Determination Of Refractive State Determination Of Refractive State [id number] 2016 DREW RICO Ophthalmological New Patient Start Comprehensive Care Ophthalmological New Patient Start Comprehensive Care [id number] 2016 DREW RICO Psychiatric Diagnostic Evaluation With Medical Evaluation And Management Psychiatric Diagnostic Evaluation With Medical Evaluation And Management [id number] 2016 RENECOTYSTANTON Yanely [facility] Psychiatric Diagnostic Evaluation Comprehensive Examination Psychiatric Diagnostic Evaluation Comprehensive Examination [id number] 2016 TOM RANDLE Non-Physician Phone Call To Patient/Provider Brief (5-10min) Non-Physician Phone Call To Patient/Provider Brief (5-10min) [id number] 2015 ALEKSANDER AMBROSE Non-Physician Phone Call To Patient/Provider Brief (5-10min) Non-Physician Phone Call To Patient/Provider Brief (5-10min) [id number] 2015 ALEKSANDER AMBROSE Non-Physician Phone Call To Patient/Provider Brief (5-10min) Non-Physician Phone Call To Patient/Provider Brief (5-10min) [id number] 2015 ANDREWS MITTAL Layer Closure Of Wound Face 2.6 to 5.0 cm Layer Closure Of Wound Face 2.6 to 5.0 cm [id number] 2015 EVAN PETERSEN Excision Of Lesion Face Malignant 1.1 to 2cm Excision Of Lesion Face Malignant 1.1 to 2cm [id number] 2015 EVAN PETERSEN Biopsy Skin Biopsy Skin [id number] 2015 EVAN PETERSEN Osteopathic Manip Treatment (OMT) 3-4 Body Regions Involved Osteopathic Manip Treatment (OMT) 3-4 Body Regions Involved [id number] 2015 ALEKSANDER AMBROSE Non-Physician Phone Call To Patient/Provider Brief (5-10min) Non-Physician Phone Call To Patient/Provider Brief (5-10min) [id number] 2015 CHANTEL MORRIS Non-Physician Phone Call To Patient/Provider Brief (5-10min) Non-Physician Phone Call To Patient/Provider Brief (5-10min) [id number] 2014 CHANTEL MORRIS Non-Physician Phone Call To Patient/Provider Brief (5-10min) Non-Physician Phone Call To Patient/Provider Brief (5-10min) [id number] 2014 UBALDO MCHUGH Non-Physician Phone Call To Patient/Provider Brief (5-10min) Non-Physician Phone Call To Patient/Provider Brief (5-10min) [id number] 2014 CHANTEL MORRIS Non-Physician Phone Call To Patient/Provider Brief (5-10min) Non-Physician Phone Call To Patient/Provider Brief (5-10min) [id number] 2014 CHANTEL MORRIS Medication Management By Pharmacist Initial 15 Minutes Established Patient Medication Management By Pharmacist Initial 15 Minutes Established Patient [id number] 2014 KHRIS HAYWOOD Non-Physician Phone Call To Patient/Provider Brief (5-10min) Non-Physician Phone Call To Patient/Provider Brief (5-10min) [id number] 2014 CHANTEL MORRIS Smoking and tobacco ce ation counseling visit for the asymptomatic patient; intensive, greater than 10 minutes 2014 GUILLERMINA DELEON Non-Physician Phone Call To Patient/Provider Brief (5-10min) Non-Physician Phone Call To Patient/Provider Brief (5-10min) [id number] 2014 CHANTEL MORRIS Acupuncture One Or More Beeson With Stimulation Initial 15 Min Acupuncture One Or More Beeson With Stimulation Initial 15 Min [id number] 2014 JUJU BANDA Acupunct One Or More Beeson W/O Stimulation Initial 15 Min Acupunct One Or More Beeson W/O Stimulation Initial 15 Min [id number] 2014 JUJU BANDA Acupunct One Or More Beeson W/O Stimulation Initial 15 Min Acupunct One Or More Beeson W/O Stimulation Initial 15 Min [id number] 2014 JUJU BANDA Verbal consent after review of risks and benefits. Sterile 0.2 x 40 mm needles placed to Kidney, Point Zero, Gracia Men, Lung, and nicotine point bilaterally for 30 minutes. Body points added to LR3, SP6, MH6 and Anderson Elsi and left in dispersion. Patient tolerated procedure well. Damaris Acupunct One/More Beeson W/O Stim Each Addl 15 Min W/ Reinsert Needle(s) Acupunct One/More Beeson W/O Stim Each Addl 15 Min W/ Reinsert Needle(s) 99222 2014 JUJU BANDA Verbal consent after review of risks and benefits. Body points to LR 3, SP 6, MH 6, and Anderson Elsi placed bilaterally and left in dispersion for 15 minutes. Patient tolerated procedure well. DoD Acupunct One Or More Beeson W/O Stimulation Initial 15 Min Acupunct One Or More Beeson W/O Stimulation Initial 15 Min [id number] 2014 JUJU BANDA Verbal consent after review of risks and benefits. Auricular acupuncture with points to Gracia Men, Kidney, Point Zero, Lung and nicotine point bilaterally and left for 30 minutes. DoD Acupunct One Or More Beeson W/O Stimulation Initial 15 Min Acupunct One Or More Beeson W/O Stimulation Initial 15 Min [id number] 2014 JUJU BANDA Verbal consent after review of risks and benefits. Auricular acupuncture bilaterally to Gracia Men, kidney, Point Zero, Lung, and Nicotine Point for 30 minutes. Beeson removed without incident and patient tolerated procedure well. [facility] Intervention And Counseling On Ce ation Of Tobacco Use Intervention And Counseling On Cessation Of Tobacco Use 4000F 2014 KHRIS HAYWOOD [facility] Medication Management By Pharmacist Each Additional 15 Minutes Medication Management By Pharmacist Each Additional 15 Minutes [id number] 2014 KHRIS HAYWOOD [facility] Medication Management By Pharmacist Initial 15 Minutes New Patient Medication Management By Pharmacist Initial 15 Minutes New Patient [id number] 2014 KHRIS HAYWOOD [facility] Patient education, not otherwise cla ified, non-physician provider, group, per se ion 2014 SHAW HENRY [facility] Patient education, not otherwise cla ified, non-physician provider, group, per se ion 2014 DREW GANDHI [facility] Patient education, not otherwise cla ified, non-physician provider, individual, per se ion 2014 DREW GANDHI Pulmon Function - O2 Uptake - Gas Analysis Rest, Ind Pulmon Function - [place]2 [place] [address] 2014 DREW GANDHI Acupunct One Or More Beeson W/O Stimulation Initial 15 Min Acupunct One Or More Beeson W/O Stimulation Initial 15 Min 80402 2014 JUJU BANDA Verbal consent after review of risks and benefits. 22 gauge needle used to create small punctures from BL2 medially to glabella at GV 24.5 bilaterally (about 10 total) and excess blood wiped away with sterile gauze. Procedure caused profuse rhinorrhea (normal response). Patient reported 70+% improvement in pressure and rhinorrhea following procedure. [facility] Telehealth originating site facility fee 2013 UBALDO MCHUGH [facility] Heel or elbow protector, each 2013 JUJU BANDA Issued Tennis Elbow Strap and patient instructed on use. [facility] Vaccines Vaccines 69924 2013 JUJU BANDA Influenza Split (Injectable); Series #: 1; .5 mL; IM; Right Arm; Mfg: [employer]; Lot: [id number]; VIS given (Gurdeep: 12/01/12). [facility] Immunization Administration By Injection, One Vaccine Immunization Administration By Injection, One Vaccine 87046 2013 JUJU BANDA [facility] Non-Physician Phone Call To Patient/Provider Brief (5-10min) Non-Physician Phone Call To Patient/Provider Brief (5-10min) [id number] 2013 MARIAELENA LIU [facility] Non-Physician Phone Call To Patient/Provider Brief (5-10min) Non-Physician Phone Call To Patient/Provider Brief (5-10min) [id number] 2013 ARNOLD KISER [facility] Screening papanicolaou smear; obtaining, preparing and conveyance of cervical or vaginal smear to laboratory 2013 ANDREI DANIELS [facility] Implantable Contraceptive Capsules Insertion 2011 AMITA AYERS [facility] Clinical Social Work Counseling Marital 2010 WILLAM MERAZ [facility] Psychiatric Diagnostic Evaluation Comprehensive Examination Psychiatric Diagnostic Evaluation Comprehensive Examination [id number] 2010 WILLAM MERAZ [facility] Skin Test Anergy Tuberculin Intradermal Skin Test Anergy Tuberculin Intradermal 73706 2009 ISIDRO CANTU [facility] Screening papanicolaou smear; obtaining, preparing and conveyance of cervical or vaginal smear to laboratory 2009 BARBARA IZQUIERDO [facility] Immunization Administration By Injection, One Vaccine Immunization Administration By Injection, One Vaccine 32487 2009 CARRIEYANG HENNING [facility] Hepatitis A And Hepatitis B (Intramuscular Use) Adult Dosage Hepatitis A And Hepatitis B (Intramuscular Use) Adult Dosage 06936 2009 CARRIEYANG HENNING [facility] Visual Function Screening Visual Function Screening 96596 2009 JUJU SALAS [facility] Influenza Split Virus Vaccine 0.5mL Dosage Intramuscular 2009 ISIDRO CANTU [facility] Immunization Administration By Injection, One Vaccine Immunization Administration By Injection, One Vaccine 20233 2009 CAMPO [facility] Hepatitis A And Hepatitis B (Intramuscular Use) Adult Dosage Hepatitis A And Hepatitis B (Intramuscular Use) Adult Dosage 02213 2009 CAMPO [facility] Immunization Administration By Injection, One Vaccine Immunization Administration By Injection, One Vaccine 50138 2009 [facility] Hepatitis A And Hepatitis B (Intramuscular Use) Adult Dosage Hepatitis A And Hepatitis B (Intramuscular Use) Adult Dosage 30533 2007 JJ BAIRD [facility] Immunization Administration By Injection, Each Additional Vaccine Immunization Administration By Injection, Each Additional Vaccine 12640 2007 JJ BAIRD [facility] Human Papilloma Virus Vaccine, Quadrivalent Human Papilloma Virus Vaccine, Quadrivalent 73308 2007 BAIDRJJ CARY [facility] Immunization Administration By Injection, One Vaccine Immunization Administration By Injection, One Vaccine 27502 2007 JJ BAIRD [facility] Screening Test Of Visual Acuity, Quantitative, Bilateral Screening Test Of Visual Acuity, Quantitative, Bilateral 34065 2007 MARY ELLEN DIETRICH [facility] Immunization Administration By Injection, One Vaccine Immunization Administration By Injection, One Vaccine 59357 2007 SEEMA BILLINGSLEY [facility] Tdap Vaccine Tdap Vaccine 26074 2007 SEEMA BILLINGSLEY [facility] Social History Combined list of available smoking, tobacco, and other social history from Department of Defense and Veterans Affairs facilities. Social History Type Response Date Comment [facility] e Female 12/02/2022 Ambulatory Pha rmacy [...] ordered ? ? ? Ordered: PTH Intact [id number] Referral Request 2.0 - DoD ? 2.?Weight gain ?- Has gained almost 10 lbs over the past ~1 month - Likely multifactorial: depression improvement, stopping topimax, leg fracture - Will trial phentermine, f/u in 3 months to discuss weight changes ? Ordered: phentermine(phentermine 37.5 mg oral capsule), 1 cap(s), Oral, Daily, # 90 cap(s), 0 total refill(s), Maintenance, 1 cap(s) Oral Daily, Pharmacy: [id number] [External Rx] ? 3.?Depression ?- BILLY-7: 6, PHQ-9: 6 - Changed from 150mg to 200mg BID of wellbutrin - Patient doing better on new med regimen, will f/u in 3 months as above ? ? Ilya Hahn MD PGY-2, Family Medicine Addendum by VICKIE ALMANZA DO on April 25, 2024 10:34:02 HEALTH CARE MARKETING MANAGER I certify that I was present for case discussion in the Family Medicine preceptor room at the time of this encounter. I have reviewed the note and agree with the findings, assessment, and plan except as I have documented below. Follow up as listed. All labs/imaging/consults to be followed by the ordering provider. Vickie Almanza, , [facility], Staff Physician Extracted from:Title: Leg fracture, depression/anxiety [...] T3 Level Free T4 Level Reverse T3 [id number] TgAb + Thyroglobulin JUANA or MESERET [id number] Thyroid Peroxidase Antibodies Thyroid Stimulating Hormone CT [...] refill(s), Maintenance, 1 tab(s) Oral BID, Pharmacy: 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 Future Scheduled TestsLaboratoryCalcium Random Ur [id number] 04/20/24PTH Intact [id number] 04/24/24PTH Intact+Calcium [id number] 04/13/24Phosphorus Level 04/13/24RadiologyCT Bone Density Axial Skeleton 03/26/24US Thyroid 04/13/24 05/09/2024 Ambulatory Pharmacy Functional Status Combined list of recent functional and cognitive assessments recorded at [facility] of Defense and [facility] (VA).VA Functional Swift Measurement (FIM) Scale: 1 = Total Assistance (Subject = 0% +), 2 = Maximal Assistance (Subject = 25% +), 3 = Moderate Assistance (Subject = 50% +), 4 = Minimal Assistance (Subject = 75% +), 5 = Supervision, 6 = Modified Swift (Device), 7 = Complete Swift (Timely, Safely). Assessment Date/Time Source Assessment Type Assessment Skill Assessment Score Assessment Details No data available for this section
--- OUTSIDE RECORDS SUMMARY | 2024-05-09 05:27 | XMS_ITS | Encounter Summary ---
Author Organization [facility] Address [address] [place] [address] Care Team Providers Care Bread Molder Name Role Phone None, Physician Primary Care [...] medical care, and heating? Patient declined 03/09/2024 [facility] - Occupational [...] any time in the past 12 m [facility], were you homeless or living in a detention (including now)? 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
--- OUTSIDE RECORDS SUMMARY | 2024-05-09 05:27 | XMS_ITS | Encounter Summary ---
Author Organization [facility] Address [address] [place] [address] Care Team Providers Care Lube Worker Name Role Phone Unavailable Primary Care Provider Unavailabl e Reason for Visit * Auth/Cert (Routine) Specialty Diagnoses / Procedures Referred By Sammy t Referred To Contact Referral ID Status Reason Start Date Expiration Date Visits Re quested Visits Authorized [id number] 1 1 Encounter Details Date Type Department Care Team (Late st Contact Info) Description 03/07/2024 3:33 PM CDT Anesthesia Event [facility] OP [address] [place] [phone] Abhishek Rubi MD [address] [facility] [place] [address] Katlyn King, SUPERINTENDENT CEMETERY-COPY LATHE TENDER [address] [facility] [place] [phone] Anesthesia Record Procedure Summary Procedure Name Responsible [...] medical care, and heating? Patient declined 03/09/2024 [facility] - Occupational [...] any time in the past 12 m [facility], were you homeless or living in [...] ??? HUMERAL SHAFT FRACTURE, OPEN REPAIR Right BRAKE COU[address] RO[address] FREIGHT Status: No LMP recorded. unknown OB History [...] results for input(s): HGBA1C , A1C , [id number] , EAG in the last 51081 hours. 6. Preoperative creatinine > 2 mg/dl? [...] identified. Report dictated by Cedric Bal DO (surgical resident). Naveen Mallory MD have personally reviewed and interpreted this examination/study. > Interpreting Provider: Naveen Ace MD on 03/06/2024 9:26 AM XR Tibia Fibula Left 2Vw Result Date: 03/06/2024 IMPRESSION: Acute moderately displaced comminuted fracture of the distal tibia and fibula with extension into the tibial plafond. Report dictated by Cedric Bal DO (surgical resident). Naveen Mallory MD have personally reviewed and interpreted this examination/study. > Interpreting Provider: Naveen Ace MD on 03/06/2024 9:21 AM XR Ankle Left 3Vw or More Result Date: 03/06/2024 IMPRESSION: Acute moderately displaced comminuted fracture of the distal tibia and fibula with extension into the tibial plafond. Report dictated by Cedric Bal DO (surgical resident). Naveen Mallory MD have personally reviewed and [...] pelvis. > Dictated by Cedric Bal DO (Real Estate Appraiser), 03/06/2024 3:09 AM. Anthony Mallory MD have [...] pelvis. > Dictated by Cedric Bal DO (Real Estate Appraiser), 03/06/2024 3:09 AM. Anthony Mallory MD have [...] pelvis. > Dictated by Cedric Bal DO (Real Estate Appraiser), 03/06/2024 3:09 AM. Anthony Mallory MD have [...] pelvis. > Dictated by Cedric Bal DO (Real Estate Appraiser), 03/06/2024 3:09 AM. Anthony Mallory MD have [...] plafond. > Dictated by Pranav Morales DO (surgical resident). Selina Mallory MD have personally reviewedand interpreted [...] seen. > Dictated by Pranav Morales DO (surgical resident). Selina Mallory MD have personally reviewed and [...] Event Date/Time: 03/07/2024 3:43 PM Procedure: intubation (08343) Procedure Section: Sedation: under general anesthesia. Indications [...] - Assisting: Abdulkadir Guardado MD Fellow: Benny Jones MD Preop Diagnosis: Pre-op Diagnois: * Closed fracture of distal end of left tibia, unspecified fracture morphology, initial encounter [S82.043L] Pre-op Meds (From admission, onward) Start Stop [...] st Contact Info) Description 05/18/2024 9:15 AM FEATHER DUSTER WINDER Office Visit [facility] - Orthopedics [address] [place] [address], [facility] [place] [address] Manuel Resendiz T, DO [address] [place] [phone] documented as of this encounter Procedures Procedure [...] Event Date/Time: ??03/07/2024 3:43 PM Procedure: intubation (90503) Procedure Section: ?? Sedation: under general anesthesia. [...]
--- OUTSIDE RECORDS SUMMARY | 2024-05-09 05:27 | XMS_ITS | Encounter Summary ---
Author Organization [facility] Address [address] [place] [address] Care Team Providers Care Doughnut Machine Operator Helper Name Role Phone Unavailable Primary Care Provider Unavailabl e Reason for Referral * (Routine) - Pending Review Specialty Diagnoses / Procedures Referred By Sammy myers Referred To Contact Procedures Follow up with provider Rissa Montes PA-C [address] [place] [address] Referral ID Status Reason Start Date Expiration Date V isits Requested Visits Authorized [id number] Pending Review 03/08/2024 03/08/2025 1 1 Reason [...] Expiration Date Visits Re quested Visits Authorized [id number] 1 1 Encounter Details Date Type Department Care Team (Late st Contact Info) Description 03/05/2024 11:26 PM CDT - 03/09/2024 11:17 AM CDT Hospital Encounter [facility] 5[facility] ACUTE [address] [place] [id number] Jv Garcai MD [address] [facility] [place] [address] Chase Garcia, [address] [facility] [place] [address] Surgery Orthopedics Discharge Disposition: Home or Self [...] medical care, and heating? Patient declined 03/09/2024 [facility] - [facility] [...] any time in the past [facility], were you homeless or living in a fci (including now)? Patient declined 03/09/2024 Sex and [...] year old / female : 1980 CSN: [id number] Attending Physician: Chase Garcia DO Consults: PT/OT, [...] Your Medications These medications were sent to [facility] [address] [address] aspirin EC 81 MG tablet cyclobenzaprine 10 MG tablet oxyCODONE (immediate release) 5 MG tablet vitamin D3 25 MCG (1000 UNITS) tablet You can get these medications from any pharmacy You don't need a prescription for these medications acetaminophen 500 MG tablet polyethylene glycol 3350 17 g packet Follow up: Future Appointments Saturday March 23, 2024 9:00 AM Appointment with Manuel Resendiz at [facility] - Orthopedics ([phone]) [address] [place] [phone] Discharge Orders & Patient Instructions Summary: Weight [...] For after hours orthopaedic emergency calls dial [phone] and page the orthopaedic surgery resident network control supervisor Discharge Instructions Orthopaedic Trauma Surgery Patient Discharge Instructions Serenity Yang you were admitted to [facility] for evaluation and treatment of injuries sustained [...] 9:00 AM Appointment with Manuel Resendiz at [facility] - Orthopedics ([phone]) [address] [place] [address] You can call the clinic to confirm, cancel, or reschedule as needed. If you have any questions or concerns please call before your visit. Office Schedulers: [phone], option 1 Activity: Activity as tolerated. No [...] such as your primary care doctor, a line tester (heart), vascular (blood vessel), or a anodiser (lung), please call their office for instructions. [...] mail, or fax it to our office ([phone]) in advance so itcan be completed in a timely manner before the necessary deadline. FMLA, disability, and work paperwork is completed each Tuesday by the Glass Carrier. Also, the doctor is only in the office one day a week to sign the paperwork. Medical records: Your medical records can be obtained by calling [phone] Fax number: [phone] Please contact our clinic at if you need to schedule or change an appointment or forany additional questions. After hours: [phone] - ask the sulfonation equipment operator for the On-Call Ortho Resident For medical emergencies, please call [phone]. Follow up Contact Information: [facility] Orthopedic Surgery office contact information: [facility] Special[facility] Medicine ([facility]) [address] [place] [address], 1[address] [place] [address] Visit our website at [email or web address] for information about our practice and an interactive health encyclopedia. Please visit [employer] to access your health record, ask questions, request medication refills, and request appointments for non-urgent needs after you have configured your Spare Backup account. If you do not currently have access, please contact one of our staff members or call [phone]. Tailored patient discharge instructions (see above) reviewed with patient. Patient verbalized understanding. Patient given office contact information should questions/concerns arise. Rissa Montes PA-C 03/09/2024 7:59 AM documented in this encounter Discharge Instructions * Discharge Instructions* Elizabeth Vargas PA-C - 03/08/2024 4:19 PM CDT Orthopaedic Trauma Surgery Patient Discharge Instructions Serenity Yang you were admitted to [facility] for evaluation and treatment of injuries sustained [...] 9:00 AM Appointment with Manuel Resendiz at [facility] - Orthopedics ([phone]) [address] [place] [address] You can call the clinic to confirm, cancel, or reschedule as needed. If you have any questions or concerns please call before your visit. Office Schedulers: [phone], option 1 Activity: Activity as tolerated. No [...] such as your primary care doctor, a line tester (heart), vascular (blood vessel), or a anodiser (lung), please call their office for instructions. [...] mail, or fax it to our office ([phone]) in advance so itcan be completed in a timely manner before the necessary deadline. FMLA, disability, and work paperwork is completed each Tuesday by the Glass Carrier. Also, the doctor is only in the office one day a week to sign the paperwork. Medical records: Your medical records can be obtained by calling [phone] Fax number: [phone] Please contact our clinic at if you need to schedule or change an appointment or forany additional questions. After hours: [phone] - ask the sulfonation equipment operator for the On-Call Ortho Resident For medical emergencies, please call [phone]. Follow up Contact Information: [facility] Orthopedic Surgery office contact information: [facility] Medicine ([facility]) [address] [place] [address], 1st [place] [address] Visit our website at [email or web address].[facility] for information about our practice and an interactive health encyclopedia. Please visit [employer] to access your health record, ask questions, request medication refills, and request appointments for non-urgent needs after you have configured your Spare Backup account. If you do not currently have access, please contact one of our staff members or call [phone]. documented in this encounter Medications at Time [...] Medrano MD - 03/09/2024 5:50 AM CDT [facility] Orthopedic Surgery Progress Note Admit [...] please page with questions. DO NOT USE [employer] Secure Chat. Greg Medrano MD 5:50 AM [...] Emergency Contact: tony yang Mobile Relation: Spouse Director Recreation needed? No Transportation at Discharge: Family: READMISSION [...] Magana OT - 03/08/2024 9:14 AM CDT [facility] Physical Medicine and Rehabilitation Occupational Therapy Initial Evaluation Note Patient: Serenity Yang Med Record Number: [id number] Date of : 1980 Age: [age] year [...] upon arrival.) Transfers: Sit to Stand: Modified [place] Stand to Sit: Modified [place] Toilet Transfers: Modified [place] Transfer Device: Gait belt;Walker-2 Wheeled Functional Ambulation: Patient ambulated in room with modified independent using 2 wheeled walker. Balance: Sitting - Static: Good Sitting - Dynamic: Good Standing - Static: Good Standing - Dynamic: Good Activities of Daily Living Feeding: Complete [place] Oral Facial Hygiene: Complete [place] Upper Body Dressing: Complete [place] Lower Body Dressing: Modified [place] (educated pt on hemidressing techniques, technique for doffing/donning ACB) Toileting: Complete [place] Splint Issued/Checked: none ACTIVITY TOLERANCE: Activity Tolerance: [...] Oconnell, PT - 03/08/2024 9:06 AM CDT [facility] Physical Medicine and Rehabilitation Physical Therapy Initial Evaluation Note Patient: Serenity Yang Med Record Number: [id number] Date of : 1980 Age: [age] year [...] date. Bed Mobility: Supine to Sit: Complete [place] with HOB in semi-fowlers position Transfers: Sit to Stand: Complete [place] Stand to Sit: Complete [place] Gait: Weight Bearing Status: (WBAT LLE in ACB) Distance Ambulated (ft): 60 FEET Ambulation: Assistive Device: Gait Belt;Walker-2 Wheeled Ambulation: Level of Assistance: Complete [place] Ambulation: Gait Deviations: Diana - Decreased;Step Length [...] Medrano MD - 03/08/2024 5:06 AM CDT [facility] Orthopedic Surgery Progress Note Admit [...] please page with questions. DO NOT USE [employer] Secure Chat. Greg Medrano MD 5:07 AM [...] boot removed with LLE in elevation pillow. [place] provided. Pt resting comfortably. * Abdulkadir Guardado MD - 03/07/2024 5:53 PM CDT Orthopedic Surgery Postoperative Check Serenity Yang, 43 year old, female : 1980 CSN: [id number] Admitted: 03/05/2024 11:26 PM Subjective Nausea/vomiting: none [...] 43 year old female who presented to [facility] on 03/05/2024. Patient presents with a left tibia-fibula fracture after a ground-level fall. Patient having surgery today with ortho. Patient is from home with her . She reports that she is independent of all cares. Will await for PT/OT recom mendations following surgery to determine discharge plans. CM to follow. Lives with: Spouse/Significant Other Physical Limitations: None Requires Assistance With: None Preferred Pharmacy: [facility] [address] [address] READMISSION RISK SCORE is N/A at 3:08 PM 03/07/2024. Met with patient Family Support (name and phone): Extended Emergency Contact Information Primary Emergency Contact: tony yang Mobile Relation: Spouse Director Recreation needed? No Patient or construction representative requests care coordination reach out to family or caregiver listed above regarding discharge planning and at time of discharge? No Actual Level of Care/Dispostion Details Durable Medical Equipment Planning Equipment at Home: None List DME pt. requires but does not have.: None Programmer Analyst Referral: No Will continue to follow. For any questions or needs please contact: Sales Secretary/Social Work Name/Phone number: Racheal Ruiz RN * [...] D Recent Labs Component Name 03/06/24 0236 [id number] 26.0* Vitals BP 120/90 Pulse 78 Temp [...] people treated with IM nail will have intermission coordinator anterior knee pain. Occasionally the locking bolts will be irritating in the intermission coordinator and require removal. All questions were answered. [...] D Recent Labs Component Name 03/06/24 0236 [id number] 26.0* Vitals BP 111/73 Pulse 68 Temp [...] please contact Ortho Trauma APPs or send [employer] [facility] chat to CHARLY. For urgent questions, please page Ortho Trauma service pager through goviralTARYN. Abdulkadir Guardado MD 03/07/2024 5:27 AM Associated [...] left knee small laceration, picture uploaded to [employer] [facility]. * Dipti Askew RN - 03/06/2024 10:28 [...] Dodson OT - 03/06/2024 4:18 PM CDT [facility] Department of Physical Medicine & Rehabilitation Progress Note Patient: Serenity Yang Med Record Number: [id number] Date of : 1980 Age: [age] year [...] 25.6 Vitamin D No results for input(s): [id number] in the last 05443 hours. Vitals BP 135/98 Pulse 83 Temp [...] please page Ortho Trauma service pager through goviralTARYN. Michelle Boyd MD 03/06/2024 4:42 AM documented in this encounter H&P Notes * Chase Garcia, DO - 03/07/2024 7:45 AM CDT [facility] Orthopedic Trauma Surgery Consultation Note Serenity Yang, 43 year old, female : 1980 CSN: [id number] Admitted: 03/05/2024 11:26 PM Consulting Service: ED [...] 43 year old female who presented to [facility] on 03/05/2024. Patient presents with a left [...] units daily. Will discuss this patient with network control supervisor physician Dr. Garcia and update plan accordingly. Please pageOrtho Trauma with any questions or concerns. Chase Garcia DO 03/07/2024 7:45 AM Orthopaedic Surgery [facility], Level I-Orthopaedic Surgery [address] [place] [address] Visit our website at [email or web address] for information about our practice and an interactive health encyclopedia. Please visit [employer] to access your health record, ask questions, request medication refills, and request appointments for non-urgent needs after you have configured your Spare Backup account. If you do not currently have access, please contact one of our staff members or call [phone]. For after hour emergencies, please call [phone] and press 0 for the sulfonation equipment operator in order to page the orthopedic resident network control supervisor. documented in this encounter Procedure Notes * [...] seen and examined with the residents and workforce development assistant. Please see note for further details. Patient's [...] traumatic issues, will performtertiary trauma exam Salvatore Noblse MD * Abdelrahman Pandey MD - 03/05/2024 11:00 PM CDTAssociated Order(s): IP CONSULT TO ORTHOPEDIC SURGERY [facility] Orthopedic Trauma Surgery Consultation Note Serenity Yang, 43 year old, female : 1980 CSN: [id number] Admitted: 03/05/2024 11:26 PM Consulting Service: ED [...] 43 year old female who presented to [facility] on 03/05/2024. Patient presents with a left [...] units daily. Will discuss this patient with network control supervisor physician Dr. Garcia and update plan accordingly. Please pageOrtho Trauma with any questions or concerns. Abdelrahman Pandey MD 03/06/2024 6:02 AM Orthopaedic Surgery [facility] Medicine, Level I-Orthopaedic Surgery [address] [place] [address] Visit our website at www.[facility] for information about our practice and an interactive health encyclopedia. Please visit [employer] to access your health record, ask questions, request medication refills, and request appointments for non-urgent needs after you have configured your Spare Backup account. If you do not currently have access, please contact one of our staff members or call [phone]. For after hour emergencies, please call and press 0 for the sulfonation equipment operator in order to page the orthopedic resident network control supervisor. documented in this encounter OR Notes * [...] Assisting * Benny Jones MD - Fellow Bilingual Medical Receptionist(s): Derik Stack MS4 Anesthesia Type: general ETT [...] Implant Name Type Inv. Item Serial No. Field Marketing Associate Lot No. LRB No. Used Action Screw 2.7Mm 5Mm 30Mm T8 Slf-Tap Strdr Screw 2.7Mm 5Mm 30Mm T8 Slf-Tap Strdr Synthes [facility] Left 1 Implanted Screw 2.7Mm 5Mm 32Mm T8 Slf-Tap Strdr Screw 2.7Mm 5Mm 32Mm T8 Slf-Tap Strdr Synthes [facility] Left 1 Implanted Nail Im 9Mm 345Mm Xprt Tib Cornell Prox Bnd Nail Im 9Mm 345Mm Xprt Tib Cornell Prox Bnd Synthes [facility] [id number] Left 1 Implanted Abdulkadir Guardado MD * Operative - Manuel Resendiz DO - 03/07/2024 4:02 PM CDT Intramedullary Nail Tibia Procedure Note Name: Serenity Yang Date of Service: 03/07/2024 [facility] #: [id number] Pre-operative Diagnosis: left Tibial shaft fracture Left medial malleolus fracture Post-operative Diagnosis: left Tibial shaft fracture Left medial malleolus fracture Procedure: left tibia intramedullary nailing (CPT: 06804) Open duction internal fixation left medial malleolus (CPT: 64714) Surgeon: Manuel Resendiz DO Bilingual Medical Receptionist: Karen PGY 6 Estimated Blood Loss: less [...] was down into place, utilizing a perfect [place] technique, 2 medial to lateral distalinterlocking screws [...] performance and is accurate and complete. * Katlny Olsen - 03/06/2024 8:19 AM CDT Pt assisted with bathroom. PureWick connected to suction. Pt asking for pain meds.Luna nematology teacher will follow up with covering Attending. * [...] personal performance and is accurate and complete. ODONTIST SMALL BUSINESS OWNER * Kerrie Rodriguez RN - 03/05/2024 11:26 PM CDT Bed: [facility] Expected date: Expected time: Means of arrival: [...] st Contact Info) Description 05/18/2024 9:15 AM ORTHODONTIST SMALL BUSINESS OWNER Office Visit [facility] - Orthopedics [address] [place] [address], [facility] [place] [address] Manuel Resendiz T, DO [address] [place] [phone] documented as of this encounter Procedures Procedure [...] CDT Fracture tibia/fibula, left, closed, initial encounter DE OPEN RX TIBIA SHAFT FX,INTRAMED NASIR 03/07/2024 [...] H STAT 03/06/2024 1:00 AM CDT PT-INR [facility] STAT 03/06/2024 1:00 AM CDT TYPE + [...] CBC W/O DIFFERENTIAL (03/09/2024 2:53 AM CDT) [facility] WBC 5.5 4.0 - 10.7 x10E9/L 03/09/2024 3:49 AM CDT [facility] RBC Count 3.06(L) 3.90 - 5.20 x10E12/L 03/09/2024 3:49 AM CDT [facility] Hemoglobin 8.9(L) 11.9 - 15.8 g/dL 03/09/2024 3:49 AM CDT [facility] Hematocrit 28.2(L) 34.8 - 46.1 % 03/09/2024 3:49 AM CDT [facility] MCV 92.2 80.0 - 98.0 fL 03/09/2024 3:49 AM CDT [facility] MCH 29.1 26.7 - 33.6 pg 03/09/2024 3:49 AM CDT [facility] MCHC 31.6(L) 31.7 - 36.3 g/dL 03/09/2024 3:49 AM T [facility] RDW-CV 14.5 11.3 - 14.8 % 03/09/2024 3:49 AM T [facility] Platelet Count 230 150 - 420 x10E9/L 03/09/2024 3:49 AM T [facility] MPV 9.4 7.8 - 11.4 fL 03/09/2024 3:49 AM T [facility] Blood BLOOD SPECIMEN / Unknown Lab Venipuncture / Unknown 03/09/2024 2:53 AM CDT 03/09/2024 3:28 AM CDT Chase Garcia DO LAB - HEMATOLOGY ORD ERABLES [facility] [address] [place] [address], [facility] [phone] * CARDIAC EKG ORDER (03/08/2024 11:33 AM CDT) Narrative 03/08/2024 11:33 AM CDT Ordered by an unspecified provider. Scanned Document CARDIAC SERVICES ORD ERABLES * (ABNORMAL) CBC W/O DIFFERENTIAL (03/08/2024 2:41 AM CDT) WBC 7.3 4.0 - 10.7 x10E9/L 03/08/2024 3:22 AM CDT [facility] RBC Count 3.34(L) 3.90 - 5.20 x10E12/L 03/08/2024 3:22 AM CDT [facility] Hemoglobin 9.8(L) 11.9 - 15.8 g/dL 03/08/2024 3:22 AM [facility] Hematocrit 30.0(L) 34.8 - 46.1 % 03/08/2024 3:22 AM [facility] MCV 89.8 80.0 - 98.0 fL 03/08/2024 3:22 AM [facility] MCH 29.3 26.7 - 33.6 pg 03/08/2024 3:22 AM [facility] MCHC 32.7 31.7 - 36.3 g/dL 03/08/2024 3:22 AM [facility] RDW-CV 14.1 11.3 - 14.8 % 03/08/2024 3:22 AM [facility] Platelet Count 270 150 - 420 x10E9/L 03/08/2024 3:22 AM [facility] MPV 9.2 7.8 - 11.4 fL 03/08/2024 3:22 AM [facility] Blood BLOOD SPECIMEN / Unknown Lab Venipuncture / Unknown 03/08/2024 2:41 AM CDT 03/08/2024 3:09 AM CDT Chase Garcia DO LAB - HEMATOLOGY ORD ERABLES [facility] [address] [place] [address], [facility] [phone] * [place] Mariela Surgery (03/07/2024 5:55 PM CDT) Narrative [facility] RADIOLOGY - 03/07/2024 5:57 PM CDT Fluoroscopy was used for this exam in the OR. Please see the Operative report. Manuel Myers Gentomás DO FLUOROSCOPY ORDERABL ES [facility] RADIOLOGY * (ABNORMAL) CBC W/O DIFFERENTIAL (03/07/2024 2:41 AM CDT) WBC 6.5 4.0 - 10.7 x10E9/L 03/07/2024 3:20 AM CDT [facility] RBC Count 3.51(L) 3.90 - 5.20 x10E12/L 03/07/2024 3:20 AM [facility] Hemoglobin 10.4(L) 11.9 - 15.8 g/dL 03/07/2024 3:20 AM [facility] Hematocrit 31.4(L) 34.8 - 46.1 % 03/07/2024 3:20 AM [facility] MCV 89.5 80.0 - 98.0 fL 03/07/2024 3:20 AM [facility] MCH 29.6 26.7 - 33.6 pg 03/07/2024 3:20 AM [facility] MCHC 33.1 31.7 - 36.3 g/dL 03/07/2024 3:20 AM [facility] RDW-CV 14.6 11.3 - 14.8 % 03/07/2024 3:20 AM [facility] Platelet Count 264 150 - 420 x10E9/L 03/07/2024 3:20 AM [facility] MPV 9.5 7.8 - 11.4 fL 03/07/2024 3:20 AM [facility] Blood BLOOD SPECIMEN / Unknown Lab Venipuncture / Unknown 03/07/2024 2:41 AM CDT 03/07/2024 3:11 AM CDT Chase Garcia DO LAB - HEMATOLOGY ORD ERABLES Performing Organization Address City/State/[facility] Co de Phone Number [address] [address], [facility] [phone] * (ABNORMAL) BASIC METABOLIC PANEL (CALCIUM TOTAL) (03/07/2024 2:41 AM CDT) BUN 12 7 - 26 mg/dL 03/07/2024 3:42 AM [facility] Creatinine 1.04(H) 0.56 - 0.96 mg/dL 03/07/2024 3:42 AM [facility] Sodium 140 136 - 145 mmol/L 03/07/2024 3:42 AM [facility] Potassium 3.9 3.5 - 4.5 mmol/L 03/07/2024 3:42 AM [facility] Chloride 106 98 - 107 mmol/L 03/07/2024 3:42 AM [facility] CO2 25 22 - 29 mmol/L 03/07/2024 3:42 AM [facility] Glucose 101(H) 70 - 99 mg/dL 03/07/2024 3:42 AM [facility] Calcium 8.2(L) 8.4 - 10.2 mg/dL 03/07/2024 3:42 AM [facility] Anion Gap 9 6 - 16 03/07/2024 3:42 AM [facility] BUN/Creatinine Ratio 12 7 - 23 03/07/2024 3:42 AM [facility] Osmolality Calculated 290 275 - 295 mOsm/kg 03/07/2024 3:42 AM [facility] eGFR by CKD-EPI 69(L) >=90 mL/min/1.7 3 m2 03/07/2024 3:42 AM [facility] Blood BLOOD SPECIMEN / Unknown Lab Venipuncture / Unknown 03/07/2024 2:41 AM CDT 03/07/2024 3:08 AM CDT Cahse Garcia DO LAB - CHEMISTRY PAULINE JORGE [facility] [address] [place] [address], [facility] [phone] * EKG 12-LEAD (03/06/2024 4:07 PM CDT) Ventricular Rate 65 BPM [facility] MUSE Atrial Rate 65 BPM [facility] MUSE P-R Interval 150 ms [facility] MUSE QRS Duration ms 78 ms [facility] MUSE Q-T Interval ms 408 ms [facility] MUSE QTC Calculation (Bezet) 424 ms [facility] MUSE Calculated P Leeds 46 degrees [facility] MUSE Calculated R [place] 61 degrees [facility] MUSE Calculated T [place] 35 degrees [facility] MUSE Interpretation EKG NORMAL SINUS RHYTHM NORMAL ECG NO PREVIOUS ECGS AVAILABLE Confirmed by VICENTE SUAZO, MAYURI ([id number]) on 03/11/2024 10:28:06 AM [facility] MUSE 03/06/2024 4:07 PM CDT 03/11/2024 10:28 AM ORTHODONTIST SMALL BUSINESS OWNER Katlyn King HIDE STRETCHER HAND-SOUND TRUCK OPERATOR ECG ORDERAB LES [facility] MUSE * (ABNORMAL) URINE DRUG SCREEN IMMUNOASSAY (03/06/2024 9:38 AM CDT) Amphetamines Screen Urine Negative Negative : < 1000 ng/mL 03/06/2024 10:00 AM [facility] Barbiturates Screen Urine Negative Negative : < 200 ng/mL 03/06/2024 10:00 AM [facility] Benzodiazepine Screen Urine Negative Negative : < 200 ng/mL 03/06/2024 10:00 AM [facility] Opiates Urine Positive(A) Negative : < 300 ng/mL 03/06/2024 10:00 AM [facility] Comment:Positive urine opiat e screening results should be confirmed by another generally accepted non-immunological method such as gas chromatography or mass spectrometry. Cocaine Metabolites Urine Negative Negative : < 300 ng/mL 03/06/2024 10:00 AM [facility] Phencyclidine Screen Urine Negative Negative : < 25 ng/ml 03/06/2024 10:00 AM [facility] Cannabinoids Screen Urine Positive(A) Negative : <50 ng/mL 03/06/2024 10:00 AM [facility] Comment:Positive urine canna binoids (THC) screening results should be confirmed by another generally accepted non-immunological method such as gas chromatography or mass spectrometry. Methadone Screen Urine Negative Negative : < 300 ng/mL 03/06/2024 10:00 AM [facility] Fentanyl Screen Urine Negative Negative : <1.5 ng/mL 03/06/2024 10:00 AM [facility] Urine URINE / Unknown Collection / Unknown 03/06/2024 9:38 AM CDT 03/06/2024 9:41 AM CDT Narrative [facility] - 03/06/2024 10:00 AM CDT The Urine Toxicology Screening Panel does not screen for Propoxyphene, Meprobamate, Carisoprodol, Trazodone, vohg-cye-xehqphd medications and/or volatiles (Acetone, Isopropanol, Methanol or Ethylene Glycol). Ethanol, Salicylate, Acetaminophen, Tricyclic Antidepressants and several therapeutic drugs may be individually assayed in serum or plasma specimen. Toxicology testing by the [facility] is an aid to medical diagnosis and treatment of patients. No documented chain of custody was maintained. Results are intended to be used for clinical purposes only. ? Jv Garcia MD LAB - URINE CHEMISTR Y ORDERABLES Performing Organization Address City/State/[facility] Co de Phone Number [address] [address], [facility] [phone] * CT LUMBAR SPINE WO CONTRAST - [...] pelvis. > Dictated by Cedric Bal DO (Dye Weigher Helper), 03/06/2024 3:09 AM. IAnthony MD have personally reviewed and interpreted this examination/study. > Interpreting Provider: Anthony Adler MD on 03/06/2024 7:44 AM Narrative 03/06/2024 7:44 AM CDT PROCEDURE: ??CT HEAD WO CONTRAST, CT LUMBAR SPINE WO CONTRAST, CT THORACIC SPINE WO CONTRAST, CT CERVICAL SPINE WO CONTRAST, DATE/TIME OF EXAM: 03/06/2024 2:43 AM, LOCATION ??[facility] INDICATION: Trauma EXAMINATION: 1.Computed tomography (CT) [...] DATE/TIME OF EXAM: 03/06/2024 2:43 AM, LOCATION [facility] INDICATION: Trauma EXAMINATION: 1.Computed tomography (CT) [...] pelvis. > Dictated by Cedric Bal DO (Dye Weigher Helper), 03/06/2024 3:09AM. Anthony Mallory MD have personally [...] pelvis. > Dictated by Cedric Bal DO (Dye Weigher Helper), 03/06/2024 3:09 AM. Anthony Mallory MD have personally reviewed and interpreted this examination/study. > Interpreting Provider: Anthony Adler MD on 03/06/2024 7:44 AM Narrative 03/06/2024 7:44 AM CDT PROCEDURE: ??CT HEAD WO CONTRAST, CT LUMBAR SPINE WO CONTRAST, CT THORACIC SPINE WO CONTRAST, CT CERVICAL SPINE WO CONTRAST, DATE/TIME OF EXAM: 03/06/2024 2:43 AM, LOCATION ??[facility] INDICATION: Trauma EXAMINATION: 1.Computed tomography (CT) [...] DATE/TIME OF EXAM: 03/06/2024 2:43 AM, LOCATION [facility] INDICATION: Trauma EXAMINATION: 1.Computed tomography (CT) [...] pelvis. > Dictated by Cedric Bal DO (Dye Weigher Helper), 03/06/2024 3:09AM. IAnthony MD have personally reviewed [...] seen. > Dictated by Pranav Morales DO (global consumer sector vice president). Selina Mallory MD have personally reviewed and interpreted this examination/study. > Interpreting Provider: Selina Narvaez MD on 03/06/2024 7:08 AM Narrative 03/06/2024 7:08 AM CDT PROCEDURE: ??CT CHEST ABDOMEN PELVIS W CONT, DATE/TIME OF EXAM: ??03/06/2024 2:43 AM, LOCATION ??[facility] INDICATION: Trauma COMPARISON: None. TECHNIQUE: CT [...] CONT, DATE/TIME OF EXAM:03/06/2024 2:43 AM, LOCATION [facility] INDICATION: Trauma COMPARISON: None. TECHNIQUE: CT [...] seen. > Dictated by Pranav Morales DO (global consumer sector vice president). I, Selina Narvaez MD have [...] pelvis. > Dictated by Cedric Bal DO (Dye Weigher Helper), 03/06/2024 3:09 AM. IAnthony MD have personally reviewed and interpreted this examination/study. > Interpreting Provider: Anthony Adler MD on 03/06/2024 7:44 AM Narrative 03/06/2024 7:44 AM CDT PROCEDURE: ??CT HEAD WO CONTRAST, CT LUMBAR SPINE WO CONTRAST, CT THORACIC SPINE WO CONTRAST, CT CERVICAL SPINE WO CONTRAST, DATE/TIME OF EXAM: 03/06/2024 2:43 AM, LOCATION ??[facility] INDICATION: Trauma EXAMINATION: 1.Computed tomography (CT) [...] DATE/TIME OF EXAM: 03/06/2024 2:43 AM, LOCATION [facility] INDICATION: Trauma EXAMINATION: 1.Computed tomography (CT) [...] pelvis. > Dictated by Cedric Bal DO (Dye Weigher Helper), 03/06/2024 3:09AM. IAnthony MD have personally reviewed [...] pelvis. > Dictated by Cedric Bal DO (Dye Weigher Helper), 03/06/2024 3:09 AM. IAnthony MD have personally reviewed and interpreted this examination/study. > Interpreting Provider: Anthony Adler MD on 03/06/2024 7:44 AM Narrative 03/06/2024 7:44 AM CDT PROCEDURE: ??CT HEAD WO CONTRAST, CT LUMBAR SPINE WO CONTRAST, CT THORACIC SPINE WO CONTRAST, CT CERVICAL SPINE WO CONTRAST, DATE/TIME OF EXAM: 03/06/2024 2:43 AM, LOCATION ??[facility] INDICATION: Trauma EXAMINATION: 1.Computed tomography (CT) [...] DATE/TIME OF EXAM: 03/06/2024 2:43 AM, LOCATION [facility] INDICATION: Trauma EXAMINATION: 1.Computed tomography (CT) [...] pelvis. > Dictated by Cedric Bal DO (Dye Weigher Helper), 03/06/2024 3:09AM. IAnthony MD have personally reviewed [...] plafond. > Dictated by Pranav Morales DO (global consumer sector vice president). I, Selina Narvaez MD have [...] plafond. > Dictated by Pranav Morales DO (global consumer sector vice president). I, Selina Narvaez MD have personally reviewed and interpreted this examination/study. > Interpreting Provider: Selina Narvaez MD on 47:43 AM Jv Garcia MD CT ORDERABLES * BLOOD TYPE VERIFICATION (03/06/2024 2:39 AM CDT) Pathologist [facility] ABO Rh A POS 03/06/2024 3:1 0 AM CDT [facility] BLOOD BANK LAB Blood Bank BLOOD SPECIMEN / Unknown Venipuncture / Unknown 03/06/2024 2:39 AM CDT 03/06/2024 2:45 AM CDT Jv Garcia MD LAB - BLOOD BANK ORD ERABLES [facility] BLOOD BANK LAB [address] [place] [address], [facility] [phone] * HCG BETA BLOOD QUANTITATIVE (03/06/2024 2:36 AM CDT) Pathologist [facility] Beta-hCG Total Quantitative <3 mIU/mL 03/06/2024 3:16 PM CDT [facility] HOSPITAL Comment: HCG Numeric Result Interpretation: [...] CDT 03/06/2024 2:47 AM CDT Katlyn King HIDE STRETCHER HAND-SOUND TRUCK OPERATOR LAB - CHEMI STRY ORDERABLES [facility] [address] [place] [address], [facility] [phone] * (ABNORMAL) VITAMIN D 25-HYDROXY (03/06/2024 2:36 AM CDT) [facility] Vitamin D, 25 Hydroxy 26.0(L) 30.0 - [...] - CHEMISTRY OR DERABLES Performing Organization Address [facility] Co de Phone Number [address] [address], [facility] [phone] * PTT [facility] (03/06/2024 2:36 AM CDT) APTT 26.0 23.0 - 38.4 Seconds 03/06/2024 3:08 AM CDT [facility] LABORATORY [facility] Comment:Suggested therapeuti c range for full dose I.V. unfractionated heparin therapy for venous thromboembolism is 71 to 109 seconds. Blood BLOOD SPECIMEN / Unknown Venipuncture / Unknown 03/06/2024 2:36 AM CDT 03/06/2024 2:47 AM CDT Jv Garcia MD LAB - COAGULATION OR DERABLES Performing Organization Address [facility] Co de Phone Number [address] [address], [facility] [phone] * PT-INR [facility] (03/06/2024 2:36 AM CDT) PT 12.7 12.1 - 14.8 Seconds 03/06/2024 3:08 AM CDT [facility] LABORATORY [facility] INR 1.0 See Comment 03/06/2024 3:08 AM [...] - COAGULATION OR DERABLES Performing Organization Address [facility] Co de Phone Number [address] [address], [facility] [phone] * ALCOHOL ETHYL BLOOD (03/06/2024 2:36 AM [...] Ethanol Interp <10: None Detected. Depression of PROGRAMMER ANALYST: >100 mg/dl Potentially Critical: >250 mg/dl Potentially [...] Garcia MD LAB - CHEMISTRY PAULINE JORGE [facility] Organization Address City/State/ZIP Co de Phone Number [address] [address], [facility] [phone] * XR Tibia Fibula Left 2Vw (03/06/2024 1:40 AM CDT) Anatomical Region Laterality Modality Lower Extremity Digital Radiogra phy 03/06/2024 2:40 AM CDT Narrative 03/06/2024 11:55 AM CDT PROCEDURE: ??XR TIBIA FIBULA LEFT 2VW, DATE/TIME OF EXAM: ??03/06/2024 1:40 AM, LOCATION ??[facility] INDICATION: W18.30XA: Ground-level fall ADDITIONAL CLINICAL [...] exam. Report dictated by Cedric Bal DO (global consumer sector vice president). Naveen Mallory MD have personally reviewed and interpreted this examination/study. > Interpreting Provider: Naveen Ace MD on 03/06/2024 11:55 AM Procedure Note Naveen Ace MD - 03/06/2024 PROCEDURE: XR TIBIA FIBULA LEFT 2VW, DATE/TIME OF EXAM: 41:40 AM, LOCATION [facility] INDICATION: W18.30XA: Ground-level fall ADDITIONAL CLINICAL INFORMATION: Ordering Provider Reason For Exam: reduction will call when ready COMPARISON: Left tibia fibula x-ray 03/05/2024 FINDINGS/IMPRESSION: Splint material obscures osseous and soft tissue detail. Redemonstrated acute moderately displaced comminuted fracture of the distal tibia and fibula with extension into the tibial plafond. Alignment appearsrelatively unchanged from prior exam. Report dictated by Cedric Bal DO (global consumer sector vice president). Naveen Mallory MD have personally [...] identified. Report dictated by Cedric Bal DO (global consumer sector vice president). Naveen Mallory MD have personally reviewed and interpreted this examination/study. > Interpreting Provider: Naveen Ace MD on 03/06/2024 9:26 AM Narrative 03/06/2024 9:26 AM CDT PROCEDURE: ??XR KNEE LEFT 2VW OR LESS, DATE/TIME OF EXAM: ??03/06/2024 1:05 AM, LOCATION ??[facility] INDICATION: W18.30XA: Ground-level fall ADDITIONAL CLINICAL [...] LESS, DATE/TIME OF EXAM: 41:05 AM, LOCATION [facility] INDICATION: W18.30XA: Ground-level fall ADDITIONAL CLINICAL INFORMATION: Ordering Provider Reason For Exam: injury films COMPARISON: None. FINDINGS: The osseous structures are intact and well aligned without acutefracture or dislocation. The knee joint space is preserved. No joint effusion is seen. Bone density and texture are normal. IMPRESSION: No acute fracture or dislocation identified. Report dictated by Cedric Bal DO (global consumer sector vice president). I, Naveen Ace MD have personally reviewed andinterpreted this examination/study. > Interpreting Provider: Naveen Ace MD on 03/06/2024 9:26AM Jv Garcia MD DIAGNOSTIC IMAGING O RDERABLES * PTT [facility] (03/06/2024 1:00 AM CDT) APTT 25.6 23.0 - 38.4 Seconds 03/06/2024 1:56 AM CDT [facility] LABORATORY [facility] Comment:Suggested therapeuti c range for full dose I.V. unfractionated heparin therapy for venous thromboembolism is 71 to 109 seconds. Blood BLOOD SPECIMEN / Unknown Venipuncture / Unknown 03/06/2024 1:00 AM CDT 03/06/2024 1:07 AM CDT Jv Garcia MD LAB - COAGULATION OR DERABLES [facility] [address] [place] [address], [facility] [phone] * TYPE + SCREEN PANEL (03/06/2024 1:00 AM CDT) [facility] Antibody Screen NEG 1:50 AM CDT [facility] BLOOD BANK LAB ABO Rh A POS 03/06/2024 1:50 AM CDT [facility] BLOOD BANK LAB Blood Bank BLOOD SPECIMEN / Unknown Venipuncture / Unknown 03/06/2024 1:00 AM CDT 03/06/2024 1:07 AM CDT Jv Garcia MD LAB - BLOOD BANK ORD ERABLES [facility] BLOOD BANK LAB [address] [place] [address], [facility] [phone] * PT-INR [facility] (03/06/2024 1:00 AM CDT) [facility] PT 12.3 12.1 - 14.8 Seconds 03/06/2024 1:56 AM CDT [facility] LABOR[facility]ORY [facility] INR 1.0 See Comment 03/06/2024 1:56 AM CDT [facility] Comment:The suggested [...] - COAGULATION OR DERABLES [facility] [address] [place] [address], [id number] [phone] * (ABNORMAL) COMPREHENSIVE METABOLIC PANEL (03/06/2024 1:00 AM CDT) [facility] BUN 12 7 - 26 mg/dL 03/06/2024 1:32 AM CDT [facility] LABOR[facility]ORY [facility] Creatinine 0.97(H) 0.56 - 0.96 mg/dL 03/06/2024 1:32 AM [facility] Sodium 138 136 - 145 mmol/L 03/06/2024 1:32 AM [facility] Potassium 3.6 3.5 - 4.5 mmol/L 03/06/2024 1:32 AM [facility] Chloride 107 98 - 107 mmol/L 03/06/2024 1:32 AM [facility] CO2 22 22 - 29 mmol/L 03/06/2024 1:32 AM [facility] Glucose 132(H) 70 - 99 mg/dL 03/06/2024 1:32 AM [facility] Calcium 8.9 8.4 - 10.2 mg/dL 03/06/2024 1:32 AM [facility] Protein Total 6.3 6.0 - 8.3 g/dL 03/06/2024 1:32 AM [facility] Albumin 3.6 3.4 - 5.0 g/dL 03/06/2024 1:32 AM [facility] Bilirubin Total 0.2 0.2 - 1.2 mg/dL 03/06/2024 1:32 AM [facility] Alkaline Phosphatase 63 40 - 150 U/L 03/06/2024 1:32 AM [facility] ALT 12 5 - 55 U/L 03/06/2024 1:32 AM [facility] AST 15 5 - 34 U/L 03/06/2024 1:32 AM [facility] Anion Gap 9 6 - 16 03/06/2024 1:32 AM [facility] BUN/Creatinine Ratio 12 7 - 23 03/06/2024 1:32 AM [facility] Osmolality Calculated 288 275 - 295 mOsm/kg 03/06/2024 1:32 AM [facility] Albumin/Globulin Ratio 1.3 1.1 - 2.3 03/06/2024 1:32 AM [facility] eGFR by CKD-EPI 75(L) >=90 mL/min/1.7 3 m2 03/06/2024 1:32 AM [facility] Blood BLOOD SPECIMEN / Unknown Venipuncture / Unknown 03/06/2024 1:00 AM CDT 03/06/2024 1:07 AM CDT Jv Garcia MD LAB - CHEMISTRY PAULINE JORGE [facility] Organization Address City/State/ZIP Co de Phone Number [facility] LABORATORY [facility] [address] [place] [address], [facility] [phone] * (ABNORMAL) CBC W AUTO DIFFERENTIAL (03/06/2024 1:00 AM CDT) WBC 8.8 4.0 - 10.7 x10E9/L 03/06/2024 1:13 AM [facility] RBC Count 3.88(L) 3.90 - 5.20 x10E12/L 03/06/2024 1:13 AM [facility] Hemoglobin 11.6(L) 11.9 - 15.8 g/dL 03/06/2024 1:13 AM [facility] Hematocrit 34.0(L) 34.8 - 46.1 % 03/06/2024 1:13 AM [facility] MCV 87.6 80.0 - 98.0 fL 03/06/2024 1:13 AM [facility] MCH 29.9 26.7 - 33.6 pg 03/06/2024 1:13 AM [facility] MCHC 34.1 31.7 - 36.3 g/dL 03/06/2024 1:13 AM [facility] RDW-CV 14.1 11.3 - 14.8 % 03/06/2024 1:13 AM [facility] Platelet Count 297 150 - 420 x10E9/L 03/06/2024 1:13 AM [facility] MPV 9.2 7.8 - 11.4 fL 03/06/2024 1:13 AM [facility] Neutrophil % 78.1(H) 41.0 - 74.0 % 03/06/2024 1:13 AM [facility] Lymphocyte % 15.7(L) 17.0 - 47.0 % 03/06/2024 1:13 AM [facility] Monocyte % 4.9 3.0 - 11.0 % 03/06/2024 1:13 AM CDT [facility] LABORATORY [facility] Eosinophil % 0.6 0.0 - 7.0 % 03/06/2024 1:13 AM CDT [facility] Basophil % 0.5 0.0 - 1.6 % 03/06/2024 1:13 AM CDT [facility] Immature Granulocytes % 0.2 0.0 - 1.0 % 03/06/2024 1:13 AM CDT [facility] Neutrophil Absolute 6.85 1.60 - 7.50 x10E9/L 03/06/2024 1:13 AM CDT [facility] Lymphocyte Absolute 1.38 1.00 - 4.40 x10E9/L 03/06/2024 1:13 AM T [facility] Monocyte Absolute 0.43 0.15 - 1.00 x10E9/L 03/06/2024 1:13 AM T [facility] Eosinophil Absolute 0.05 0.00 - 0.60 x10E9/L 03/06/2024 1:13 AM CDT [facility] Basophil Absolute 0.04 0.00 - 0.13 x10E9/L 03/06/2024 1:13 AM CDT [facility] Blood BLOOD SPECIMEN / Unknown Venipuncture / Unknown 03/06/2024 1:00 AM CDT 03/06/2024 1:07 AM CDT Jv Garcia MD LAB - HEMATOLOGY ORD ERABLES Performing Organization Address City/State/[facility] Co de Phone Number [facility] [address] [place] [phone] [phone] * XR Tibia Fibula Left 2Vw (03/05/2024 11:50 PM CDT) Anatomical Region Laterality Modality Lower Extremity Digital Radiogra phy 03/06/2024 2:28 AM CDT Impressions 03/06/2024 9:21 AM CDT IMPRESSION: Acute moderately displaced comminuted fracture of the distal tibia and fibula with extension into the tibial plafond. Report dictated by Cedric Bal DO (global consumer sector vice president). Naveen Mallory MD have personally reviewed and interpreted this examination/study. > Interpreting Provider: Naveen Ace MD on 03/06/2024 9:21 AM Narrative 03/06/2024 9:21 AM CDT PROCEDURE: ??XR TIBIA FIBULA LEFT 2VW, DATE/TIME OF EXAM: ??03/05/2024 11:50 PM, LOCATION ??[facility] INDICATION: W18.30XA: Ground-level fall ADDITIONAL CLINICAL [...] 2VW, DATE/TIME OF EXAM: 1:50 PM, LOCATION [facility] INDICATION: W18.30XA: Ground-level fall ADDITIONAL CLINICAL [...] plafond. Report dictated by Cedric Bal DO (global consumer sector vice president). Naveen Mallory MD have personally [...] plafond. Report dictated by Cedric Bal DO (global consumer sector vice president). Naveen Mallory MD have personally reviewed and interpreted this examination/study. > Interpreting Provider: Naveen Ace MD on 03/06/2024 9:21 AM Narrative 03/06/2024 9:21 AM CDT PROCEDURE: ??XR ANKLE LEFT 3VW OR MORE, DATE/TIME OF EXAM: ??03/05/2024 11:50 PM, LOCATION ??[facility] INDICATION: W18.30XA: Ground-level fall ADDITIONAL CLINICAL [...] MORE, DATE/TIME OF EXAM: 1:50 PM, LOCATION [facility] INDICATION: W18.30XA: Ground-level fall ADDITIONAL CLINICAL [...] plafond. Report dictated by Cedric Bal DO (global consumer sector vice president). Naveen Mallory MD have personally [...] mg Ab d Right Upper Quadrant HYDROcodone-acetaminophen ([place]) 10-325 MG tablet 1 tablet 1 tablet, [...] Antonieta Mccann RN)1825 ($ Given - Provider: Nolvai Gillespie RN) 0211 ($ Given - Provider: [...]
--- OUTSIDE RECORDS SUMMARY | 2024-05-09 05:27 | XMS_ITS | Encounter Summary ---
Author Organization [facility] Address [address] [facility] [place] [address] Care Team Providers Care Compliance Director Name Role Phone Unavailable Primary Care Provider [...] Expiration Date Visits Re quested Visits Authorized [id number] 1 1 Encounter Details Date Type Department Care Team (Late st Contact Info) Description 03/07/2024 2:29 PM CDT - 03/07/2024 4:52 PM CDT Surgery [facility] [address] [place] [id number] Manuel Resendiz DO [address] [place] [id number] INTRAMEDULLARY (IM) NAILING TIBIA Surgery Details Date/Time Status Location OR Service Patient Class Case Class Case Type Trauma Case? 03/07/2024 2:29 PM Posted [facility] OR OR Orthopedics Inpatient Work Ins >24 [...] year old / female : 1980 CSN: [id number] Attending Physician: Chase Garcia DO Consults: PT/OT, [...] left medial malleolus CRPP by Dr. Resendiz [facility] Course: Serenity Yang is a 43 year [...] Your Medications These medications were sent to [facility] [address] [address] aspirin EC 81 MG tablet cyclobenzaprine 10 MG tablet oxyCODONE (immediate release) 5 MG tablet vitamin D3 25 MCG (1000 UNITS) tablet You can get these medications from any pharmacy You don't need a prescription for these medications acetaminophen 500 MG tablet polyethylene glycol 3350 17 g packet Follow up: Future Appointments Saturday March 23, 2024 9:00 AM Appointment with Manuel Resendiz at [facility] ([phone]) [address] [place] [phone] Discharge Orders & Patient Instructions Summary: Weight Bearing: left lower extremity weight bearing as tolerated in ACB Activity: activity as tolerated Diet: may resume diet (prior to hospitalization) Anticoagulation: Aspirin: 325 mg twice daily Sutures/[place]: any nonabsorbable sutures to be removed at next clinic appointment Pain Medication: Tylenol, oxycodone, and Flexeril Wound Care: Keep wound clean and dry. Change dressing in 2 days or sooner if saturated. OK to shower on POD#5 . Remove brace daily for skin checks For after hours orthopaedic emergency calls dial [phone] and page the orthopaedic surgery resident phone engineer Discharge Instructions Orthopaedic Trauma Surgery Patient Discharge Instructions Serenity Yang you were admitted to [facility] for evaluation and treatment of injuries sustained [...] 9:00 AM Appointment with Manuel Resendiz at [facility] - Orthoped[facility] ([phone]) [address] [place] [phone] You can call the clinic to confirm, cancel, or reschedule as needed. If you have any questions or concerns please call before your visit. Office Schedulers: [phone], option 1 Activity: Activity as tolerated. No [...] such as your primary care doctor, a social work professor (heart), vascular (blood vessel), or a apprentice plant attendant (lung), please call their office for instructions. [...] mail, or fax it to our office ([phone]) in advance so itcan be completed in a timely manner before the necessary deadline. FMLA, disability, and work paperwork is completed each Tuesday by the Clin Application Specialist. Also, the doctor is only in the office one day a week to sign the paperwork. Medical records: Your medical records can be obtained by calling [phone] Fax number: [phone] Please contact our clinic at if you need to schedule or change an appointment or forany additional questions. After hours: [phone] - ask the precision thread grinder operator for the On-Call Ortho Resident For medical emergencies, please call [phone]. Follow up Contact Information: [facility] office contact information: [facility] Specialized Medicine ([facility]) [address] [place] [address], 1[address] [place] [address] Visit our website at [email or web address] for information about our practice and an interactive health encyclopedia. Please visit [email or web address] to access your health record, ask questions, request medication refills, and request appointments for non-urgent needs after you have configured your My Digital Life account. If you do not currently have access, please contact one of our staff members or call [phone]. Tailored patient discharge instructions (see above) reviewed with patient. Patient verbalized understanding. Patient given office contact information should questions/concerns arise. Rissa Montes PA-C 03/09/2024 7:59 AM documented in this encounter Discharge Instructions * Discharge Instructions* Elizabeth Vargas PA-C - 03/08/2024 4:19 PM CDT Orthopaedic Trauma Surgery Patient Discharge Instructions Serenity [place] were admitted to [facility] for evaluation and treatment of injuries sustained [...] 9:00 AM Appointment with Manuel Resendiz at [facility] ([phone]) [address] [place] [phone] You can call the clinic to confirm, cancel, or reschedule as needed. If you have any questions or concerns please call before your visit. Office Schedulers: [phone], option 1 Activity: Activity as tolerated. No [...] such as your primary care doctor, a social work professor (heart), vascular (blood vessel), or a apprentice plant attendant (lung), please call their office for instructions. [...] mail, or fax it to our office ([phone]) in advance so itcan be completed in a timely manner before the necessary deadline. FMLA, disability, and work paperwork is completed each Tuesday by the Clin Application Specialist. Also, the doctor is only in the office one day a week to sign the paperwork. Medical records: Your medical records can be obtained by calling [phone] Fax number: [phone] Please contact our clinic at if you need to schedule or change an appointment or forany additional questions. After hours: [phone] - ask the precision thread grinder operator for the On-Call Ortho Resident For medical emergencies, please call 911. Follow up Contact Information: [facility] office contact information: [facility] Medicine ([facility]) [address] [place] [address], 1[address] [place] [address] Visit our website at [email or web address] for information about our practice and an interactive health encyclopedia. Please visit [email or web address] to access your health record, ask questions, request medication refills, and request appointments for non-urgent needs after you have configured your My Digital Life account. If you do not currently have access, please contact one of our staff members or call [phone]. documented in this encounter Medications at Time [...] MD - 03/09/2024 5:50 AM CDT [facility] Orthopedic Surgery Progress Note Admit Date: [...] please page with questions. DO NOT USE Pricebets Secure Chat. Greg Medrano MD 5:50 AM [...] Emergency Contact: tony yang Mobile Relation: Spouse Leak Detection Engineer needed? No Transportation at Discharge: Family: READMISSION [...] Magana OT - 03/08/2024 9:14 AM CDT [facility] Physical Medicine and Rehabilitation Occupational Therapy Initial Evaluation Note Patient: Serenity Yang Med Record Number: [id number] Date of : 1980 Age: [age] year [...] upon arrival.) Transfers: Sit to Stand: Modified Hunt Stand to Sit: Modified Hunt Toilet Transfers: Modified Hunt Transfer Device: Gait belt;Walker-2 Wheeled Functional Ambulation: Patient ambulated in room with modified independent using 2 wheeled walker. Balance: Sitting - Static: Good Sitting - Dynamic: Good Standing - Static: Good Standing - Dynamic: Good Activities of Daily Living Feeding: Complete Hunt Oral Facial Hygiene: Complete Hunt Upper Body Dressing: Complete Hunt Lower Body Dressing: Modified Hunt (educated pt on hemidressing techniques, technique for doffing/donning ACB) Toileting: Complete Hunt Splint Issued/Checked: none ACTIVITY TOLERANCE: Activity Tolerance: [...] Oconnell, PT - 03/08/2024 9:06 AM CDT [facility] Physical Medicine and Rehabilitation Physical Therapy Initial Evaluation Note Patient: Serenity Yang Med Record Number: [id number] Date of : 1980 Age: [age] year [...] date. Bed Mobility: Supine to Sit: Complete Hunt with HOB in semi-fowlers position Transfers: Sit to Stand: Complete Hunt Stand to Sit: Complete Hunt Gait: Weight Bearing Status: (WBAT LLE in ACB) Distance Ambulated (ft): 60 FEET Ambulation: Assistive Device: Gait Belt;Walker-2 Wheeled Ambulation: Level of Assistance: Complete Hunt Ambulation: Gait Deviations: Diana - Decreased;Step Length [...] MD - 03/08/2024 5:06 AM CDT [facility] Orthopedic Surgery Progress Note Admit Date: [...] LLE in ACB PT/OT Pain Control Bowel [facility] DVT Prophylaxis: Lovenox Anticoagulation plan at discharge: 35 days of DVT chemoprophylaxis Dispo: pending PT/OT Will continue to follow, please page with questions. DO NOT USE Pricebets Secure Chat. Greg Medrano MD 5:07 AM [...] boot removed with LLE in elevation pillow. Vidal provided. Pt resting comfortably. * Abdulkadir Guardado MD - 03/07/2024 5:53 PM CDT Orthopedic Surgery Postoperative Check Serenity Yang, 43 year old, female : 1980 CSN: [id number] Admitted: 03/05/2024 11:26 PM Subjective Nausea/vomiting: none [...] 43 year old female who presented to [facility] on 03/05/2024. Patient presents [...] None Requires Assistance With: None Preferred Pharmacy: [facility] [address] [address] READMISSION RISK SCORE is N/A at 3:08 PM 03/07/2024. Met with patient Family Support (name and phone): Extended Emergency Contact Information Primary Emergency Contact: tony yang Mobile Relation: Spouse Leak Detection Engineer needed? No Patient or parts sales representative requests care coordination reach out to family or caregiver listed above regarding discharge planning and at time of discharge? No Actual Level of Care/Dispostion Details Durable Medical Equipment Planning Equipment at Home: None List DME pt. requires but does not have.: None Lumber Straightener Referral: No Will continue to follow. For any questions or needs please contact: Accounts Payable Accountant/Social Work Name/Phone number: Racheal Ruiz RN * [...] D Recent Labs Component Name 03/06/24 0236 [id number] 26.0* Vitals BP 120/90 Pulse 78 Temp [...] people treated with IM nail will have fpc anterior knee pain. Occasionally the locking bolts will be irritating in the fpc and require removal. All questions were answered. [...] D Recent Labs Component Name 03/06/24 0236 [id number] 26.0* Vitals BP 111/73 Pulse 68 Temp [...] please contact Ortho Trauma APPs or send Helijia chat to CHARLY. For urgent questions, please page Ortho Trauma service pager through Spime. Abdulkadir Guardado MD 03/07/2024 5:27 AM Associated [...] left knee small laceration, picture uploaded to Helijia. * Dipti Askew RN - 03/06/2024 10:28 [...] Dodson OT - 03/06/2024 4:18 PM CDT [facility] Department of Physical Medicine & Rehabilitation Progress Note Patient: Serenity Yang Med Record Number: [id number] Date of : 1980 Age: [age] year [...] Serenity Yang Age: [age] year old Room: 13/[facility] Date Admitted: 03/05/2024 Interval History: Patient seen [...] 25.6 Vitamin D No results for input(s): [id number] in the last 12861 hours. Vitals BP 135/98 Pulse 83 Temp [...] please page Ortho Trauma service pager through Spime. Michelle Boyd MD 03/06/2024 4:42 AM documented in this encounter H&P Notes * Chase Garcia, DO - 03/07/2024 7:45 AM CDT [facility] Orthopedic Trauma Surgery Consultation Note Serenity Yang, 43 year old, female : 1980 CSN: [id number] Admitted: 03/05/2024 11:26 PM Consulting Service: ED [...] 43 year old female who presented to [facility] on 03/05/2024. Patient presents [...] units daily. Will discuss this patient with phone engineer physician Dr. Garcia and update plan accordingly. Please pageOrtho Trauma with any questions or concerns. Chase Garcia DO 03/07/2024 7:45 AM Orthopaedic Surgery [facility], Level I-Orthopaedic Surgery [address] [place] [address] Visit our website at [email or web address] for information about our practice and an interactive health encyclopedia. Please visit [email or web address] to access your health record, ask questions, request medication refills, and request appointments for non-urgent needs after you have configured your My Digital Life account. If you do not currently have access, please contact one of our staff members or call [phone]. For after hour emergencies, please call [phone] and press 0 for the precision thread grinder operator in order to page the orthopedic resident phone engineer. documented in this encounter Procedure Notes * [...] seen and examined with the residents and hvac operations technician. Please see note for further details. Patient's [...] Order(s): IP CONSULT TO ORTHOPEDIC SURGERY [facility] Orthopedic Trauma Surgery Consultation Note Serenity Yang, 43 year old, female : 1980 CSN: [id number] Admitted: 03/05/2024 11:26 PM Consulting Service: ED [...] 43 year old female who presented to [facility] on 03/05/2024. Patient presents [...] units daily. Will discuss this patient with phone engineer physician Dr. Garcia and update plan accordingly. Please pageOrtho Trauma with any questions or concerns. Abdelrahman Pandey MD 03/06/2024 6:02 AM Orthopaedic Surgery [facility] Medicine, Level I-Orthopaedic Surgery [address] [place] [address] Visit our website at [email or web address] for information about our practice and an interactive health encyclopedia. Please visit [email or web address] to access your health record, ask questions, request medication refills, and request appointments for non-urgent needs after you have configured your My Digital Life account. If you do not currently have access, please contact one of our staff members or call [phone]. For after hour emergencies, please call [phone] and press 0 for the precision thread grinder operator in order to page the orthopedic resident phone engineer. documented in this encounter OR Notes * [...] Assisting * Benny Jones MD - Fellow Electric Detector Operator(s): Derik Stack MS4 Anesthesia Type: general ETT [...] Implant Name Type Inv. Item Serial No. Renewable [employer] Broker Lot No. LRB No. Used Action Screw 2.7Mm 5Mm 30Mm T8 Slf-Tap Strdr Screw 2.7Mm 5Mm 30Mm T8 Slf-Tap Strdr Synthes [employer] Left 1 Implanted Screw 2.7Mm 5Mm 32Mm T8 Slf-Tap Strdr Screw 2.7Mm 5Mm 32Mm T8 Slf-Tap Strdr Synthes [facility] Left 1 Implanted Nail Im 9Mm 345Mm Xprt Tib Cornell Prox Bnd Nail Im 9Mm 345Mm Xprt Tib Cornell Prox Bnd Synthes [facility] [id number] Left 1 Implanted Abdulkadir Guardado MD * Operative - Manuel Resendiz DO - 03/07/2024 4:02 PM CDT Intramedullary Nail Tibia Procedure Note Name: Serenity Yang Date of Service: 03/07/2024 [facility] #: [id number] Pre-operative Diagnosis: left Tibial shaft fracture Left medial malleolus fracture Post-operative Diagnosis: left Tibial shaft fracture Left medial malleolus fracture Procedure: left tibia intramedullary nailing (CPT: 38966) Open duction internal fixation left medial malleolus (CPT: 07739) Surgeon: Manuel Resendiz DO Electric Detector Operator: Karen, PGY 6 Estimated Blood Loss: less [...] was down into place, utilizing a perfect mashpee technique, 2 medial to lateral distalinterlocking screws [...] to suction. Pt asking for pain meds.Luna wheelabrator operator will follow up with covering Attending. * [...] personal performance and is accurate and complete. OGRAPH FINISHER * Kerrie Rodriguez RN - 03/05/2024 11:26 PM CDT Bed: [facility] Expected date: Expected time: Means of [...] Pending at time of sign out * eRyna Butler RN - 03/05/2024 10:57 PM CDT [...] st Contact Info) Description 05/18/2024 9:15 AM PHOTOGRAPH FINISHER Office Visit [facility] [address] [place] [address], [facility] [place] [phone] Manuel Resendiz T, DO [address] [place] [phone] documented as of this encounter Procedures Procedure [...] CDT Fracture tibia/fibula, left, closed, initial encounter [place] OPEN RX TIBIA SHAFT FX,INTRAMED NASIR 03/07/2024 [...] CBC W/O DIFFERENTIAL (03/09/2024 2:53 AM CDT) [facility] WBC 5.5 4.0 - 10.7 x10E9/L 03/09/2024 3:49 AM CDT [facility] RBC Count 3.06(L) 3.90 - 5.20 x10E12/L 03/09/2024 3:49 AM CDT [facility] Hemoglobin 8.9(L) 11.9 - 15.8 g/dL 03/09/2024 3:49 AM [facility] Hematocrit 28.2(L) 34.8 - 46.1 % 03/09/2024 3:49 AM [facility] MCV 92.2 80.0 - 98.0 fL 03/09/2024 3:49 AM [facility] MCH 29.1 26.7 - 33.6 pg 03/09/2024 3:49 AM [facility] MCHC 31.6(L) 31.7 - 36.3 g/dL 03/09/2024 3:49 AM [facility] RDW-CV 14.5 11.3 - 14.8 % 03/09/2024 3:49 AM [facility] Platelet Count 230 150 - 420 x10E9/L 03/09/2024 3:49 AM [facility] MPV 9.4 7.8 - 11.4 fL 03/09/2024 3:49 AM [facility] Blood BLOOD SPECIMEN / Unknown Lab Venipuncture / Unknown 03/09/2024 2:53 AM CDT 03/09/2024 3:28 AM CDT Chase Garcia DO LAB - HEMATOLOGY ORD ERABLES [address] [address], [facility] [phone] * CARDIAC EKG ORDER (03/08/2024 11:33 AM CDT) Narrative 03/08/2024 11:33 AM CDT Ordered by an unspecified provider. Scanned Document CARDIAC SERVICES ORD ERABLES * (ABNORMAL) CBC W/O DIFFERENTIAL (03/08/2024 2:41 AM CDT) WBC 7.3 4.0 - 10.7 x10E9/L 03/08/2024 3:22 AM [facility] RBC Count 3.34(L) 3.90 - 5.20 x10E12/L 03/08/2024 3:22 AM [facility] Hemoglobin 9.8(L) 11.9 - 15.8 g/dL [...] - HEMATOLOGY ORD ERABLES Performing Organization Address City/[facility]/ZIP Co de Phone Number [facility] [address] [place] [address], [facility] [phone] * [place] [facility] (03/07/2024 5:55 PM CDT) Narrative [facility] RADIOLOGY - 03/07/2024 5:57 PM CDT Fluoroscopy was used for this exam in the OR. Please see the Operative report. Manuel Resendiz DO FLUOROSCOPY ORDERABL ES [facility] RAD[facility]OLOG[facility] * (ABNORMAL) CBC W/O DIFFERENTIAL (03/07/2024 2:41 AM CDT) WBC 6.5 4.0 - 10.7 x10E9/L 03/07/2024 3:20 AM CDT [facility] RBC Count 3.51(L) 3.90 - 5.20 x10E12/L 03/07/2024 3:20 AM [facility] Hemoglobin 10.4(L) 11.9 - 15.8 g/dL 03/07/2024 3:20 AM [facility] Hematocrit 31.4(L) 34.8 - 46.1 % 03/07/2024 3:20 AM [facility] MCV 89.5 80.0 - 98.0 fL 03/07/2024 3:20 AM [facility] MCH 29.6 26.7 - 33.6 pg 03/07/2024 3:20 AM [facility] MCHC 33.1 31.7 - 36.3 g/dL 03/07/2024 3:20 AM [facility] RDW-CV 14.6 11.3 - 14.8 % 03/07/2024 3:20 AM [facility] Platelet Count 264 150 - 420 x10E9/L 03/07/2024 3:20 AM [facility] MPV 9.5 7.8 - 11.4 fL 03/07/2024 3:20 AM [facility] Blood BLOOD SPECIMEN / Unknown Lab Venipuncture / Unknown 03/07/2024 2:41 AM CDT 03/07/2024 3:11 AM CDT Chase Garcia DO LAB - HEMATOLOGY ORD ERABLES Performing Organization Address City/State/[facility] Co de Phone Number [facility] [address] [place] [address], [facility] [phone] * (ABNORMAL) BASIC METABOLIC PANEL (CALCIUM TOTAL) (03/07/2024 2:41 AM CDT) BUN 12 7 - 26 mg/dL 03/07/2024 3:42 AM [facility] Creatinine 1.04(H) 0.56 - 0.96 mg/dL 03/07/2024 3:42 AM [facility] Sodium 140 136 - 145 mmol/L 03/07/2024 3:42 AM [facility] Potassium 3.9 3.5 - 4.5 mmol/L 03/07/2024 3:42 AM [facility] Chloride 106 98 - 107 mmol/L 03/07/2024 3:42 AM [facility] CO2 25 22 - 29 mmol/L 03/07/2024 3:42 AM [facility] Glucose 101(H) 70 - 99 mg/dL 03/07/2024 3:42 AM [facility] Calcium 8.2(L) 8.4 - 10.2 mg/dL 03/07/2024 3:42 AM [facility] Anion Gap 9 6 - 16 03/07/2024 3:42 AM [facility] BUN/Creatinine Ratio 12 7 - 23 03/07/2024 3:42 AM [facility] Osmolality Calculated 290 275 - 295 mOsm/kg 03/07/2024 3:42 AM [facility] eGFR by CKD-EPI 69(L) >=90 mL/min/1.7 3 m2 03/07/2024 3:42 AM [facility] Blood BLOOD SPECIMEN / Unknown Lab Venipuncture / Unknown 03/07/2024 2:41 AM CDT 03/07/2024 3:08 AM CDT Chase Garcia DO LAB - CHEMISTRY PAULINE JORGE [facility] [address] [place] [address], [facility] [phone] * EKG 12-LEAD (03/06/2024 4:07 PM CDT) Ventricular Rate 65 BPM [facility] M[facility] Atrial Rate 65 BPM [facility] P-R Interval 150 ms [facility] QRS Duration ms 78 ms [facility] Q-T Interval ms 408 ms [facility] QTC Calculation (Bezet) 424 ms [facility] Calculated P [place] 46 degrees [facility] Calculated R [place] 61 degrees [facility] Calculated T [place] 35 degrees [facility] Interpretation EKG NORMAL SINUS RHYTHM NORMAL ECG NO PREVIOUS ECGS AVAILABLE Confirmed by VICENTE SUAZO, MAYURI ([id number]) on 03/11/2024 10:28:06 AM [facility] 03/06/2024 4:07 PM CDT 03/11/2024 10:28 AM PHOTOGRAPH FINISHER Katlyn King HYDRATE CONTROL TENDER-SURVEILLANCE SYSTEMS ANALYST ECG ORDERAB LES [facility] * (ABNORMAL) URINE DRUG SCREEN IMMUNOASSAY (03/06/2024 9:38 AM CDT) Amphetamines Screen Urine Negative Negative : < 1000 ng/mL 03/06/2024 10:00 AM [facility] Barbiturates Screen Urine Negative Negative : < 200 ng/mL 03/06/2024 10:00 AM [facility] Benzodiazepine Screen Urine Negative Negative : < 200 ng/mL 03/06/2024 10:00 AM [facility] Opiates Urine Positive(A) Negative : < 300 ng/mL 03/06/2024 10:00 AM [facility] Comment:Positive urine opiat e screening results should be confirmed by another generally accepted non-immunological method such as gas chromatography or mass spectrometry. Cocaine Metabolites Urine Negative Negative : < 300 ng/mL 03/06/2024 10:00 AM [facility] Phencyclidine Screen Urine Negative Negative : < 25 ng/ml 03/06/2024 10:00 AM [facility] Cannabinoids Screen Urine Positive(A) Negative : <50 ng/mL 03/06/2024 10:00 AM [facility] Comment:Positive urine canna binoids (THC) screening results should be confirmed by another generally accepted non-immunological method such as gas chromatography or mass spectrometry. Methadone Screen Urine Negative Negative : < 300 ng/mL 03/06/2024 10:00 AM [facility] Fentanyl Screen Urine Negative Negative : <1.5 ng/mL 03/06/2024 10:00 AM [facility] Urine URINE / Unknown Collection / Unknown 03/06/2024 9:38 AM CDT 03/06/2024 9:41 AM CDT Narrative [facility] - 03/06/2024 10:00 AM CDT The Urine Toxicology Screening Panel does not screen for Propoxyphene, Meprobamate, Carisoprodol, Trazodone, ejbi-szx-uacctyu medications and/or volatiles (Acetone, Isopropanol, Methanol or Ethylene Glycol). Ethanol, Salicylate, Acetaminophen, Tricyclic Antidepressants and several therapeutic drugs may be individually assayed in serum or plasma specimen. Toxicology testing by the [facility] is an aid to medical diagnosis and treatment of patients. No documented chain of custody was maintained. Results are intended to be used for clinical purposes only. ? Jv Garcia MD LAB - URINE CHEMISTR Y ORDERABLES Performing Organization Address [facility] Hospital/State/[facility] Co de Phone Number [address] [address], [place] [phone] * CT LUMBAR SPINE WO CONTRAST - [...] pelvis. > Dictated by Cedric Bal DO (Management Coordinator), 03/06/2024 3:09 AM. Anthony Mallory MD have personally reviewed and interpreted this examination/study. > Interpreting Provider: Anthony Adler MD on 03/06/2024 7:44 AM Narrative 03/06/2024 7:44 AM CDT PROCEDURE: ??CT HEAD WO CONTRAST, CT LUMBAR SPINE WO CONTRAST, CT THORACIC SPINE WO CONTRAST, CT CERVICAL SPINE WO CONTRAST, DATE/TIME OF EXAM: 03/06/2024 2:43 AM, LOCATION ??[facility] INDICATION: Trauma EXAMINATION: 1.Computed tomography (CT) [...] DATE/TIME OF EXAM: 03/06/2024 2:43 AM, LOCATION [facility] INDICATION: Trauma EXAMINATION: 1.Computed tomography (CT) [...] pelvis. > Dictated by Cedric Bal DO (Management Coordinator), 03/06/2024 3:09AM. I, Anthony Adler MD have [...] pelvis. > Dictated by Cedric Bal DO (Management Coordinator), 03/06/2024 3:09 AM. IAnthony MD have personally reviewed and interpreted this examination/study. > Interpreting Provider: Anthony Adler MD on 03/06/2024 7:44 AM Narrative 03/06/2024 7:44 AM CDT PROCEDURE: ??CT HEAD WO CONTRAST, CT LUMBAR SPINE WO CONTRAST, CT THORACIC SPINE WO CONTRAST, CT CERVICAL SPINE WO CONTRAST, DATE/TIME OF EXAM: 03/06/2024 2:43 AM, LOCATION ??[facility] INDICATION: Trauma EXAMINATION: 1.Computed tomography (CT) [...] DATE/TIME OF EXAM: 03/06/2024 2:43 AM, LOCATION [facility] INDICATION: Trauma EXAMINATION: 1.Computed tomography (CT) [...] pelvis. > Dictated by Cedric Bal DO (Management Coordinator), 03/06/2024 3:09AM. IAnthony MD have personally reviewed [...] seen. > Dictated by Pranav Morales DO (interventional radiology rn). I, Selina Narvaez MD have personally reviewed and interpreted this examination/study. > Interpreting Provider: Selina Narvaez MD on 03/06/2024 7:08 AM Narrative 03/06/2024 7:08 AM CDT PROCEDURE: ??CT CHEST ABDOMEN PELVIS W CONT, DATE/TIME OF EXAM: ??03/06/2024 2:43 AM, LOCATION ??[facility] INDICATION: Trauma COMPARISON: None. TECHNIQUE: CT [...] CONT, DATE/TIME OF EXAM:03/06/2024 2:43 AM, LOCATION [facility] INDICATION: Trauma COMPARISON: None. TECHNIQUE: CT [...] seen. > Dictated by Pranav Morales DO (interventional radiology rn). I, Selina Narvaez MD have personally reviewed [...] pelvis. > Dictated by Cedric Bal DO (Management Coordinator), 03/06/2024 3:09 AM. IAnthony MD have personally reviewed and interpreted this examination/study. > Interpreting Provider: Anthony Adler MD on 03/06/2024 7:44 AM Narrative 03/06/2024 7:44 AM CDT PROCEDURE: ??CT HEAD WO CONTRAST, CT LUMBAR SPINE WO CONTRAST, CT THORACIC SPINE WO CONTRAST, CT CERVICAL SPINE WO CONTRAST, DATE/TIME OF EXAM: 03/06/2024 2:43 AM, LOCATION ??[facility] INDICATION: Trauma EXAMINATION: 1.Computed tomography (CT) [...] DATE/TIME OF EXAM: 03/06/2024 2:43 AM, LOCATION [facility] INDICATION: Trauma EXAMINATION: 1.Computed tomography (CT) [...] pelvis. > Dictated by Cedric Bal DO (Management Coordinator), 03/06/2024 3:09AM. I, Anthony Adler MD have [...] pelvis. > Dictated by Cedric Bal DO (Management Coordinator), 03/06/2024 3:09 AM. IAnthony MD have personally reviewed and interpreted this examination/study. > Interpreting Provider: Anthony Adler MD on 03/06/2024 7:44 AM Narrative 03/06/2024 7:44 AM CDT PROCEDURE: ??CT HEAD WO CONTRAST, CT LUMBAR SPINE WO CONTRAST, CT THORACIC SPINE WO CONTRAST, CT CERVICAL SPINE WO CONTRAST, DATE/TIME OF EXAM: 03/06/2024 2:43 AM, LOCATION ??[facility] INDICATION: Trauma EXAMINATION: 1.Computed tomography (CT) [...] DATE/TIME OF EXAM: 03/06/2024 2:43 AM, LOCATION [facility] INDICATION: Trauma EXAMINATION: 1.Computed tomography (CT) [...] pelvis. > Dictated by Cedric Bal DO (Management Coordinator), 03/06/2024 3:09AM. Anthony Mallory MD have personally [...] plafond. > Dictated by Pranav Morales DO (interventional radiology rn). ISelina MD have personally reviewed and interpreted [...] plafond. > Dictated by Pranav Morales DO (interventional radiology rn). I, Selina Narvaez MD have personally reviewed and interpreted this examination/study. > Interpreting Provider: Selina Narvaez MD on 47:43 AM Jv Garcia MD CT ORDERABLES * BLOOD TYPE VERIFICATION (03/06/2024 2:39 AM CDT) Pathologist [facility] ABO Rh A POS 03/06/2024 3:1 0 AM CDT [facility] BLOOD BANK LAB Blood Bank BLOOD SPECIMEN / Unknown Venipuncture / Unknown 03/06/2024 2:39 AM CDT 03/06/2024 2:45 AM CDT Jv Garcia MD LAB - BLOOD BANK ORD ERABLES [facility] BLOOD BANK LAB [address] [place] [address], [facility] [phone] * HCG BETA BLOOD QUANTITATIVE (03/06/2024 2:36 AM CDT) Pathologist [facility] Beta-hCG Total Quantitative <3 mIU/mL 03/06/2024 3:16 PM CDT [facility] Comment: HCG Numeric Result Interpretation: [...] CDT 03/06/2024 2:47 AM CDT Katlyn King HYDRATE CONTROL TENDER-[employer] ANALYST LAB - CHEMI STRY ORDERABLES Performing Organization Address City/State/[facility] Co de Phone Number [facility] [address] [place] [address], [facility] [phone] * (ABNORMAL) VITAMIN D 25-HYDROXY (03/06/2024 2:36 AM CDT) [facility] Vitamin D, 25 Hydroxy 26.0(L) 30.0 [...] - CHEMISTRY OR DERABLES Performing Organization Address [facility] Co de Phone Number [address] [address], [facility] [phone] * PTT [facility] (03/06/2024 2:36 AM CDT) APTT 26.0 23.0 - 38.4 Seconds 03/06/2024 3:08 AM CDT [facility] Comment:Suggested therapeuti c range for full dose I.V. unfractionated heparin therapy for venous thromboembolism is 71 to 109 seconds. Blood BLOOD SPECIMEN / Unknown Venipuncture / Unknown 03/06/2024 2:36 AM CDT 03/06/2024 2:47 AM CDT Jv Garcia MD LAB - COAGULATION OR DERABLES Performing Organization Address [facility] de Phone Number [address] [address], [place] [phone] * PT-INR [facility] (03/06/2024 2:36 AM CDT) PT 12.7 12.1 [...] - COAGULATION OR DERABLES Performing Organization Address [facility] Co de Phone Number [address] [place] [address], [facility] [phone] * ALCOHOL ETHYL BLOOD (03/06/2024 2:36 AM [...] Ethanol Interp <10: None Detected. Depression of [employer]GER [employer]: >100 mg/dl Potentially Critical: >250 mg/dl Potentially Fatal >400 mg/dl Ethanol in the patient's blood will contribute to the osmolar gap. Ethanol's contribution to the osmolar gap can be estimated by dividing the concentration of ethanol in mg/dL by 4.6. This test is for clinical use only and does not equal a MARY for legal purposes. Jv Gacria MD LAB - CHEMISTRY PAULINE JORGE [facility] Organization Address City/State/ZIP Co de Phone Number [id number] [place] [address], [facility] [phone] * XR Tibia Fibula Left 2Vw (03/06/2024 1:40 AM CDT) Anatomical Region Laterality Modality Lower Extremity Digital Radiogra phy 03/06/2024 2:40 AM CDT Narrative 03/06/2024 11:55 AM CDT PROCEDURE: ??XR TIBIA FIBULA LEFT 2VW, DATE/TIME OF EXAM: ??03/06/2024 1:40 AM, LOCATION ??[facility] INDICATION: W18.30XA: Ground-level fall ADDITIONAL CLINICAL [...] exam. Report dictated by Cedric Bal DO (interventional radiology rn). Naveen Mallory MD have personally reviewed and interpreted this examination/study. > Interpreting Provider: Naveen Ace MD on 03/06/2024 11:55 AM Procedure Note Naveen Ace MD - 03/06/2024 PROCEDURE: XR TIBIA FIBULA LEFT 2VW, DATE/TIME OF EXAM: 41:40 AM, LOCATION [facility] INDICATION: W18.30XA: Ground-level fall ADDITIONAL CLINICAL INFORMATION: Ordering Provider Reason For Exam: reduction will call when ready COMPARISON: Left tibia fibula x-ray 03/05/2024 FINDINGS/IMPRESSION: Splint material obscures osseous and soft tissue detail. Redemonstrated acute moderately displaced comminuted fracture of the distal tibia and fibula with extension into the tibial plafond. Alignment appearsrelatively unchanged from prior exam. Report dictated by Cedric Bal DO (interventional radiology rn). Naveen Mallory MD have personally reviewed andinterpreted [...] identified. Report dictated by Cedric Bal DO (interventional radiology rn). Naveen Mallory MD have personally reviewed and interpreted this examination/study. > Interpreting Provider: Naveen Ace MD on 03/06/2024 9:26 AM Narrative 03/06/2024 9:26 AM CDT PROCEDURE: ??XR KNEE LEFT 2VW OR LESS, DATE/TIME OF EXAM: ??03/06/2024 1:05 AM, LOCATION ??[facility] INDICATION: W18.30XA: Ground-level fall ADDITIONAL CLINICAL [...] LESS, DATE/TIME OF EXAM: 41:05 AM, LOCATION [facility] INDICATION: W18.30XA: Ground-level fall ADDITIONAL CLINICAL INFORMATION: Ordering Provider Reason For Exam: injury films COMPARISON: None. FINDINGS: The osseous structures are intact and well aligned without acutefracture or dislocation. The knee joint space is preserved. No joint effusion is seen. Bone density and texture are normal. IMPRESSION: No acute fracture or dislocation identified. Report dictated by Cedric Bal DO (interventional radiology rn). I, Naveen Ace MD have personally reviewed andinterpreted this examination/study. > Interpreting Provider: Naveen Ace MD on 03/06/2024 9:26AM Jv Garcia MD DIAGNOSTIC IMAGING O RDERABLES * PTT [facility] (03/06/2024 1:00 AM CDT) APTT 25.6 23.0 [...] COAGULATION OR DERABLES [facility] [address] [place] [address], [facility] [phone] * TYPE + SCREEN PANEL (03/06/2024 1:00 AM CDT) [facility] Antibody Screen NEG 1:50 AM CDT [facility] BLOOD BANK LAB ABO Rh A POS 03/06/2024 1:50 AM CDT [facility] BLOOD BANK LAB Blood Bank BLOOD SPECIMEN / Unknown Venipuncture / Unknown 03/06/2024 1:00 AM CDT 03/06/2024 1:07 AM CDT Jv Garcia MD LAB - BLOOD BANK ORD ERABLES Performing Organization Address City/[facility]/ZIP Co de Phone Number [facility] BLOOD BANK LAB [address] [place] [address], [facility] [phone] * PT-INR [facility] (03/06/2024 1:00 AM CDT) [facility] PT 12.3 12.1 - 14.8 Seconds [...] - COAGULATION OR DERABLES [facility] [address] [place] [address], [facility] [phone] * (ABNORMAL) COMPREHENSIVE METABOLIC PANEL (03/06/2024 1:00 AM CDT) [facility] BUN 12 7 - 26 mg/dL 03/06/2024 1:32 AM [facility] Creatinine 0.97(H) 0.56 - 0.96 mg/dL 03/06/2024 1:32 AM [facility] Sodium 138 136 - 145 mmol/L 03/06/2024 1:32 AM [facility] Potassium 3.6 3.5 - 4.5 mmol/L 03/06/2024 1:32 AM [facility] Chloride 107 98 - 107 mmol/L 03/06/2024 1:32 AM [facility] CO2 22 22 - 29 mmol/L 03/06/2024 1:32 AM [facility] Glucose 132(H) 70 - 99 mg/dL 03/06/2024 1:32 AM [facility] Calcium 8.9 8.4 - 10.2 mg/dL 03/06/2024 1:32 AM [facility] Protein Total 6.3 6.0 - 8.3 g/dL 03/06/2024 1:32 AM [facility] Albumin 3.6 3.4 - 5.0 g/dL 03/06/2024 1:32 AM [facility] Bilirubin Total 0.2 0.2 - 1.2 mg/dL 03/06/2024 1:32 AM [facility] Alkaline Phosphatase 63 40 - 150 U/L 03/06/2024 1:32 AM [facility] ALT 12 5 - 55 U/L 03/06/2024 1:32 AM [facility] AST 15 5 - 34 U/L 03/06/2024 1:32 AM [facility] Anion Gap 9 6 - 16 03/06/2024 1:32 AM [facility] BUN/Creatinine Ratio 12 7 - 23 03/06/2024 1:32 AM [facility] Osmolality Calculated 288 275 - 295 mOsm/kg 03/06/2024 1:32 AM [facility] Albumin/Globulin Ratio 1.3 1.1 - 2.3 03/06/2024 1:32 AM [facility] eGFR by CKD-EPI 75(L) >=90 mL/min/1.7 3 m2 03/06/2024 1:32 AM [facility] Blood BLOOD SPECIMEN / Unknown Venipuncture / Unknown 03/06/2024 1:00 AM CDT 03/06/2024 1:07 AM CDT Jv Garcia MD LAB - CHEMISTRY PAULINE Mcnally Organization Address City/State/ZIP Co de Phone Number [facility] [address] [place] [address], [facility] [phone] * (ABNORMAL) CBC W AUTO DIFFERENTIAL (03/06/2024 1:00 AM CDT) WBC 8.8 4.0 - 10.7 x10E9/L 03/06/2024 1:13 AM [facility] RBC Count 3.88(L) 3.90 - 5.20 x10E12/L 03/06/2024 1:13 AM [facility] Hemoglobin 11.6(L) 11.9 - 15.8 g/dL 03/06/2024 1:13 AM [facility] Hematocrit 34.0(L) 34.8 - 46.1 % 03/06/2024 1:13 AM [facility] MCV 87.6 80.0 - 98.0 fL 03/06/2024 1:13 AM [facility] MCH 29.9 26.7 - 33.6 pg 03/06/2024 1:13 AM [facility] MCHC 34.1 31.7 - 36.3 g/dL 03/06/2024 1:13 AM [facility] RDW-CV 14.1 11.3 - 14.8 % 03/06/2024 1:13 AM [facility] Platelet Count 297 150 - 420 x10E9/L 03/06/2024 1:13 AM [facility] MPV 9.2 7.8 - 11.4 fL 03/06/2024 1:13 AM [facility] Neutrophil % 78.1(H) 41.0 - 74.0 % 03/06/2024 1:13 AM [facility] Lymphocyte % 15.7(L) 17.0 - 47.0 % 03/06/2024 1:13 AM CDT [facility] LABORATORY [facility] Monocyte % 4.9 3.0 - 11.0 [...] 0.15 - 1.00 x10E9/L 03/06/2024 1:13 AM [facility] Eosinophil Absolute 0.05 0.00 - 0.60 x10E9/L 03/06/2024 1:13 AM [facility] Basophil Absolute 0.04 0.00 - 0.13 x10E9/L 03/06/2024 1:13 AM [facility] Blood BLOOD SPECIMEN / Unknown Venipuncture / Unknown 03/06/2024 1:00 AM CDT 03/06/2024 1:07 AM CDT Jv Garcia MD LAB - HEMATOLOGY ORD ERABLES Performing Organization Address City/State/[facility] Co de Phone Number [facility] [address] [place] [address], [facility] [phone] * XR Tibia Fibula Left 2Vw (03/05/2024 11:50 PM CDT) Anatomical Region Laterality Modality Lower Extremity Digital Radiogra phy 03/06/2024 2:28 AM CDT Impressions 03/06/2024 9:21 AM CDT IMPRESSION: Acute moderately displaced comminuted fracture of the distal tibia and fibula with extension into the tibial plafond. Report dictated by Cedric Bal DO (interventional radiology rn). Naveen Mallory MD have personally reviewed and interpreted this examination/study. > Interpreting Provider: Naveen Ace MD on 03/06/2024 9:21 AM Narrative 03/06/2024 9:21 AM CDT PROCEDURE: ??XR TIBIA FIBULA LEFT 2VW, DATE/TIME OF EXAM: ??03/05/2024 11:50 PM, LOCATION ??[facility] INDICATION: W18.30XA: Ground-level fall ADDITIONAL CLINICAL [...] 2VW, DATE/TIME OF EXAM: 1:50 PM, LOCATION [facility] INDICATION: W18.30XA: Ground-level fall ADDITIONAL CLINICAL [...] plafond. Report dictated by Cedric Bal DO (interventional radiology rn). Naveen Mallory MD have personally reviewed andinterpreted [...] plafond. Report dictated by Cedric Bal DO (interventional radiology rn). Naveen Mallory MD have personally reviewed and interpreted this examination/study. > Interpreting Provider: Naveen Ace MD on 03/06/2024 9:21 AM Narrative 03/06/2024 9:21 AM CDT PROCEDURE: ??XR ANKLE LEFT 3VW OR MORE, DATE/TIME OF EXAM: ??03/05/2024 11:50 PM, LOCATION ??[facility] INDICATION: W18.30XA: Ground-level fall ADDITIONAL CLINICAL [...] MORE, DATE/TIME OF EXAM: 1:50 PM, LOCATION [facility] INDICATION: W18.30XA: Ground-level fall ADDITIONAL CLINICAL [...] plafond. Report dictated by Cedric Bal DO (interventional radiology rn). Naveen Mallory MD have personally reviewed andinterpreted [...]
--- OUTSIDE RECORDS SUMMARY | 2024-05-09 05:27 | XMS_ITS | Patient Health Summary ---
Author Organization [facility] [employer] Address [address] [place] [address] Care Team Providers Care Candy Spreader Helper Name Role Phone None, Physician Primary Care Provider Unavailabl e Note from [facility] [employer] [facility],non-owned Affiliates and Associated Physician Practices is amultiple site organization consisting of ambulatory clinics and hospital sitesin [place], [place], [place] and [place]. This disclosure is being madepursuant to the Care Everywhere program and may not contain all information available regarding this patient. Last updated 18.[facility] [employer] Allergies No known active allergies Medications * [...] medical care, and heating? Patient declined 03/09/2024 [facility] - Occupational [...] any time in the past 12 [address] [place], were you homeless or living in a correction (including now)? Patient declined 03/09/2024 Sex and [...] 83 kg (183 lb) 03/30/2024 11:35 AM SHEET ROCKER Height 165.1 cm (5' 5 ) 03/30/2024 11:35 AM SHEET ROCKER Body Mass Index 30.45 03/30/2024 11:35 AM SHEET ROCKER Medical Devices Implanted Type Area Bulk Fluids Handler Device Identifier Shelf Expiration Date Model / Serial / Lot Screw 2.7mm 5mm 30mm T8 Slf-Tap Strdr Implanted:Qty: 1 on 03/07/2024 by Benny Jones MD at [facility] Left: Tibia [employer] Usa [id number] / / Screw 2.7mm 5mm 32mm T8 Slf-Tap Strdr Implanted:Qty: 1 on 03/07/2024 by Benny Jones MD at [facility] Left: Tibia [employer] Usa [id number] / / Nail Im 9mm 345mm Xprt Tib Cornell Prox Bnd Implanted:Qty: 1 on 03/07/2024 by Benny Jones MD at [facility] Left: Tibia [employer] 07/06/2033 04.043.135 S / / [id number] 5.0mm Locking Screw For Im Nail, 28mm Implanted:Qty: 1 on 03/07/2024 by Benny Jones MD at [facility] Left: Tibia [employer] Trauma 04.045.028 / / 5.0mm Locking Screw For Im Nail, 32mm Implanted:Qty: 1 on 03/07/2024 by Benny Jones MD at [facility] Left: Tibia [employer] Trauma 04.045.032 / / 5.0mm Locking Screw For Im Nail, 36mm Implanted:Qty: 1 on 03/07/2024 by Benny Jones MD at [facility] Left: Tibia [employer] Trauma 04.045.036 / / Explanted Type Area Bulk Fluids Handler Device Identifier Shelf Expiration Date Model / Serial / Lot Screw 2.7mm 5mm 28mm T8 Slf-Tap Strdr Explanted:Qty: 1 on 03/07/2024 by Benny Jones MD at [facility] Left: Tibia [employer] Usa 202.888 / / Slv Prtc 12mm Suprapatellar Strl Explanted:Qty: 1 on 03/07/2024 by Benny Jones MD at [facility] Left: Tibia [employer] Usa 03.010.437 S / [...] encounter * ENDOTRACHEAL TUBE NOTE(Performed 03/07/2024) * GA OPEN RX TIBIA SHAFT FX,INTRAMED NASIR(Performed 03/07/2024) [...] 4.0 - 10.7 x10E9/L 03/09/2024 3:49 AM [facility] RBC Count 3.06(L) 3.90 - 5.20 x10E12/L 03/09/2024 3:49 AM [facility] Hemoglobin 8.9(L) 11.9 - 15.8 g/dL 03/09/2024 3:49 AM [facility] Hematocrit 28.2(L) 34.8 - 46.1 % 03/09/2024 3:49 AM [facility] MCV 92.2 80.0 - 98.0 fL 03/09/2024 3:49 AM [facility] MCH 29.1 26.7 - 33.6 pg 03/09/2024 3:49 AM [facility] MCHC 31.6(L) 31.7 - 36.3 g/dL 03/09/2024 3:49 AM [facility] RDW-CV 14.5 11.3 - 14.8 % 03/09/2024 3:49 AM [facility] Platelet Count 230 150 - 420 x10E9/L 03/09/2024 3:49 AM [facility] MPV 9.4 7.8 - 11.4 fL 03/09/2024 3:49 AM [facility] Blood BLOOD SPECIMEN / Unknown Lab Venipuncture / Unknown 03/09/2024 2:53 AM CDT 03/09/2024 3:28 AM CDT Chase Garcia DO LAB - HEMATOLOGY ORD ERABLES [facility] [address] [place] [phone], [facility] [phone] * CARDIAC EKG ORDER (03/08/2024 11:33 AM CDT) Narrative 03/08/2024 11:33 AM CDT Ordered by an unspecified provider. Scanned Document CARDIAC SERVICES ORD ERABLES * FL Estefani Surgery (03/07/2024 5:55 PM CDT) Narrative [facility] - 03/07/2024 5:57 PM CDT Fluoroscopy was used for this exam in the OR. Please see the Operative report. Manuel Resendiz DO FLUOROSCOPY ORDERABL ES [facility] * ETT LINE PERFORMABLE (03/07/2024 4:11 PM CDT) Narrative Obinna Gupta MD - 03/07/2024 4:11 PM CDT Obinna Gupta MD ? 03/07/2024 ??4:11 PM Endotracheal Tube Placement: ? Patient Location: OR. Intubation Event Date/Time: ??03/07/2024 3:43 PM Procedure: intubation ([id number]) Procedure Section: ?? Sedation: under general anesthesia. [...] - 26 mg/dL 03/07/2024 3:42 AM CDT [facility] Creatinine 1.04(H) 0.56 - 0.96 mg/dL 03/07/2024 3:42 AM [facility] Sodium 140 136 - 145 mmol/L 03/07/2024 3:42 AM [facility] Potassium 3.9 3.5 - 4.5 mmol/L 03/07/2024 3:42 AM [facility] Chloride 106 98 - 107 mmol/L 03/07/2024 3:42 AM [facility] CO2 25 22 - 29 mmol/L 03/07/2024 3:42 AM [facility] Glucose 101(H) 70 - 99 mg/dL 03/07/2024 3:42 AM [facility] Calcium 8.2(L) 8.4 - 10.2 mg/dL 03/07/2024 3:42 AM [facility] Anion Gap 9 6 - 16 03/07/2024 3:42 AM [facility] BUN/Creatinine Ratio 12 7 - 23 03/07/2024 3:42 AM [facility] Osmolality Calculated 290 275 - 295 mOsm/kg 03/07/2024 3:42 AM [facility] eGFR by CKD-EPI 69(L) >=90 mL/min/1.7 3 m2 03/07/2024 3:42 AM [facility] Blood BLOOD SPECIMEN / Unknown Lab Venipuncture / Unknown 03/07/2024 2:41 AM CDT 03/07/2024 3:08 AM T Chase Garcia DO LAB - CHEMISTRY PAULINE JORGE [facility] [address] [place] [address], [facility] [phone] * EKG 12-LEAD (03/06/2024 4:07 PM CDT) Ventricular Rate 65 BPM [facility] Atrial Rate 65 BPM [facility] P-R Interval 150 ms [facility] QRS Duration ms 78 ms [facility] Q-T Interval ms 408 ms [facility] QTC Calculation (Bezet) 424 ms [facility] Calculated P [place] 46 degrees [facility] Calculated R [place] 61 degrees [facility] Calculated T [place] 35 degrees [facility] Interpretation EKG NORMAL SINUS RHYTHM NORMAL ECG NO PREVIOUS ECGS AVAILABLE Confirmed by MAYURI ZHANG MD ([id number]) on 03/11/2024 10:28:06 AM [facility] 03/06/2024 4:07 PM CDT 03/11/2024 10:28 AM SHE[facility]OCKER Katlyn Ann Fernando VP FOUNDATION-VEHICLE OPERATOR ECG ORDERAB LES [facility] * (ABNORMAL) URINE DRUG SCREEN IMMUNOASSAY (03/06/2024 9:38 AM [facility]) Amphetamines Screen Urine Negative Negative : < 1000 ng/mL 03/06/2024 10:00 AM [facility] Barbiturates Screen Urine Negative Negative : < 200 ng/mL 03/06/2024 10:00 AM [facility] Benzodiazepine Screen Urine Negative Negative : < 200 ng/mL 03/06/2024 10:00 AM [facility] Opiates Urine Positive(A) Negative : < 300 ng/mL 03/06/2024 10:00 AM [facility] Comment:Positive urine opiat e screening results should be confirmed by another generally accepted non-immunological method such as gas chromatography or mass spectrometry. Cocaine Metabolites Urine Negative Negative : < 300 ng/mL 03/06/2024 10:00 AM [facility] Phencyclidine Screen Urine Negative Negative : < 25 ng/ml 03/06/2024 10:00 AM [facility] Cannabinoids Screen Urine Positive(A) Negative : <50 ng/mL 03/06/2024 10:00 AM [facility] Comment:Positive urine canna binoids (THC) screening results should be confirmed by another generally accepted non-immunological method such as gas chromatography or mass spectrometry. Methadone Screen Urine Negative Negative : < 300 ng/mL 03/06/2024 10:00 AM [facility] Fentanyl Screen Urine Negative Negative : <1.5 ng/mL 03/06/2024 10:00 AM [facility] Urine URINE / Unknown Collection / Unknown 03/06/2024 9:38 AM CDT 03/06/2024 9:41 AM CDT Narrative [facility] - 03/06/2024 10:00 AM CDT The Urine Toxicology Screening Panel does not screen for Propoxyphene, Meprobamate, Carisoprodol, Trazodone, mkxa-qzm-lbosslw medications and/or volatiles (Acetone, Isopropanol, Methanol or Ethylene Glycol). Ethanol, Salicylate, Acetaminophen, Tricyclic Antidepressants and several therapeutic drugs may be individually assayed in serum or plasma specimen. Toxicology testing by the [facility] is an aid to medical diagnosis and treatment of patients. No documented chain of custody was maintained. Results are intended to be used for clinical purposes only. ? Jv Garcia MD LAB - URINE CHEMISTR Y ORDERABLES Performing Organization Address [facility] Phone Number [facility] [address] [place] [phone], [facility] [phone] * CT CHEST ABDOMEN PELVIS W CONT [...] Dictated by Pranav Morales DO (vice president quality). I, Selina Narvaez MD have personally reviewed and interpreted this examination/study. > Interpreting Provider: Selina Narvaez MD on 03/06/2024 7:08 AM Narrative 03/06/2024 7:08 AM CDT PROCEDURE: ??CT CHEST ABDOMEN PELVIS W CONT, DATE/TIME OF EXAM: ??03/06/2024 2:43 AM, LOCATION ??[facility] INDICATION: Trauma COMPARISON: None. TECHNIQUE: CT of [...] CONT, DATE/TIME OF EXAM:03/06/2024 2:43 AM, LOCATION [facility] INDICATION: Trauma COMPARISON: None. TECHNIQUE: CT of [...] Dictated by Pranav Morales DO (vice president quality). I, Selina Narvaez MD have personally reviewed [...] pelvis. > Dictated by Cedric Bal DO (Outbound Sales Advisor), 03/06/2024 3:09 AM. IAnthony MD have personally reviewed and interpreted this examination/study. > Interpreting Provider: Anthony Adler MD on 03/06/2024 7:44 AM Narrative 03/06/2024 7:44 AM CDT PROCEDURE: ??CT HEAD WO CONTRAST, CT LUMBAR SPINE WO CONTRAST, CT THORACIC SPINE WO CONTRAST, CT CERVICAL SPINE WO CONTRAST, DATE/TIME OF EXAM: 03/06/2024 2:43 AM, LOCATION ??[facility] INDICATION: Trauma EXAMINATION: 1.Computed tomography (CT) of [...] DATE/TIME OF EXAM: 03/06/2024 2:43 AM, LOCATION [facility] INDICATION: Trauma EXAMINATION: 1.Computed tomography (CT) of [...] pelvis. > Dictated by Cedric Bal DO (Outbound Sales Advisor), 03/06/2024 3:09AM. Anthony Mallory MD have personally [...] pelvis. > Dictated by Cedric Bal DO (Outbound Sales Advisor), 03/06/2024 3:09 AM. I, Anthony Adler MD have personally reviewed and interpreted this examination/study. > Interpreting Provider: Anthony Adler MD on 03/06/2024 7:44 AM Narrative 03/06/2024 7:44 AM CDT PROCEDURE: ??CT HEAD WO CONTRAST, CT LUMBAR SPINE WO CONTRAST, CT THORACIC SPINE WO CONTRAST, CT CERVICAL SPINE WO CONTRAST, DATE/TIME OF EXAM: 03/06/2024 2:43 AM, LOCATION ??[facility] INDICATION: Trauma EXAMINATION: 1.Computed tomography (CT) of [...] DATE/TIME OF EXAM: 03/06/2024 2:43 AM, LOCATION [facility] INDICATION: Trauma EXAMINATION: 1.Computed tomography (CT) of [...] pelvis. > Dictated by Cedric Bal DO (Outbound Sales Advisor), 03/06/2024 3:09AM. Anthony Mallory MD have personally [...] pelvis. > Dictated by Cedric Bal DO (Outbound Sales Advisor), 03/06/2024 3:09 AM. Anthony Mallory MD have personally reviewed and interpreted this examination/study. > Interpreting Provider: Anthony Adler MD on 03/06/2024 7:44 AM Narrative 03/06/2024 7:44 AM CDT PROCEDURE: ??CT HEAD WO CONTRAST, CT LUMBAR SPINE WO CONTRAST, CT THORACIC SPINE WO CONTRAST, CT CERVICAL SPINE WO CONTRAST, DATE/TIME OF EXAM: 03/06/2024 2:43 AM, LOCATION ??[facility] INDICATION: Trauma EXAMINATION: 1.Computed tomography (CT) of [...] DATE/TIME OF EXAM: 03/06/2024 2:43 AM, LOCATION [facility] INDICATION: Trauma EXAMINATION: 1.Computed tomography (CT) of [...] pelvis. > Dictated by Cedric Bal DO (Outbound Sales Advisor), 03/06/2024 3:09AM. Anthony Mallory MD have personally [...] pelvis. > Dictated by Cedric Bal DO (Outbound Sales Advisor), 03/06/2024 3:09 AM. Anthony Mallory MD have personally reviewed and interpreted this examination/study. > Interpreting Provider: Anthony Adler MD on 03/06/2024 7:44 AM Narrative 03/06/2024 7:44 AM CDT PROCEDURE: ??CT HEAD WO CONTRAST, CT LUMBAR SPINE WO CONTRAST, CT THORACIC SPINE WO CONTRAST, CT CERVICAL SPINE WO CONTRAST, DATE/TIME OF EXAM: 03/06/2024 2:43 AM, LOCATION ??[facility] INDICATION: Trauma EXAMINATION: 1.Computed tomography (CT) of [...] DATE/TIME OF EXAM: 03/06/2024 2:43 AM, LOCATION [facility] INDICATION: Trauma EXAMINATION: 1.Computed tomography (CT) of [...] pelvis. > Dictated by Cedric Bal DO (Outbound Sales Advisor), 03/06/2024 3:09AM. Anthony Mallory MD have personally [...] Dictated by Pranav Morales DO (vice president quality). Selina Mallory MD have personally reviewed and [...] Dictated by Pranav Morales DO (vice president quality). I, Selina Narvaez MD have personally reviewed and interpreted this examination/study. > Interpreting Provider: Selina Narvaez MD on 47:43 AM Jv Garcia MD CT ORDERABLES * BLOOD TYPE VERIFICATION (03/06/2024 2:39 AM CDT) ABO Rh A POS 03/06/2024 3:1 0 AM CDT [facility] Blood Bank BLOOD SPECIMEN / Unknown Venipuncture / Unknown 03/06/2024 2:39 AM CDT 03/06/2024 2:45 AM CDT Jv Garcia MD LAB - BLOOD BANK ORD ERABLES [facility] [address] [place] [address], [place] [phone] * PTT [facility] (03/06/2024 2:36 AM CDT) Only the most recent of2 resultswithin the time period is included. APTT 26.0 23.0 - 38.4 Seconds 03/06/2024 3:08 AM CDT [facility] Comment:Suggested therapeuti c range for full dose I.V. unfractionated heparin therapy for venous thromboembolism is 71 to 109 seconds. Blood BLOOD SPECIMEN / Unknown Venipuncture / Unknown 03/06/2024 2:36 AM CDT 03/06/2024 2:47 AM CDT Jv Garcia MD LAB - COAGULATION OR DERABLES Performing Organization Address [facility]/ZIP Co de Phone Number [facility] [address] [place] [address], [facility] [phone] * PT-INR [facility] (03/06/2024 2:36 AM CDT) Only the most recent of2 resultswithin the time period is included. Pathologist [facility] PT 12.7 12.1 - 14.8 Seconds 03/06/2024 3:08 AM CDT [facility] INR 1.0 See Comment 03/06/2024 3:08 AM CDT [facility] Comment:The suggested therap eutic range for standard coumadin (warfarin) therapy is an INR of 2.0-3.0. For high-risk patients (Mechanical Mitral Valve Prosthesis, etc.), the suggested prophylactic therapeutic range is an INR of 2.5-3.5. Blood BLOOD SPECIMEN / Unknown Venipuncture / Unknown 03/06/2024 2:36 AM CDT 03/06/2024 2:47 AM CDT Jv Garcia MD LAB - COAGULATION OR DERABLES Performing Organization Address [facility]/ZIP Co de Phone Number [facility] [address] [place] [phone], [facility] [phone] * (ABNORMAL) VITAMIN D 25-HYDROXY (03/06/2024 2:36 AM CDT) Pathologist [facility] Vitamin D, 25 Hydroxy 26.0(L) 30.0 - [...] - CHEMISTRY OR DERABLES Performing Organization Address [facility] Co de Phone Number [facility] [address] [place] [phone], [facility] [phone] * HCG BETA BLOOD QUANTITATIVE (03/06/2024 2:36 [...] CDT 03/06/2024 2:47 AM CDT Katlynjimbo King VP FOUNDATION-VEHICLE OPERATOR LAB - CHEMI STRY ORDERABLES Performing Organization Address [facility] Co de Phone Number [address] [phone], [facility] [phone] * ALCOHOL ETHYL BLOOD (03/06/2024 2:36 AM CDT) Pathologist [facility] Ethanol (mg/dL) <10 <10 mg/dL 3:09 AM CDT [facility] Ethanol Calculated (g/dL) <0.010 <=0.010 g/dL 03/06/2024 3:09 AM CDT [facility] Blood BLOOD SPECIMEN / Unknown Venipuncture / Unknown 03/06/2024 2:36 AM CDT 03/06/2024 2:47 AM CDT Narrative [facility] - 03/06/2024 3:09 AM CDT Ethanol Interp <10: None Detected. Depression of TRACK HOE OPERATOR: >100 mg/dl Potentially Critical: >250 mg/dl Potentially Fatal >400 mg/dl Ethanol in the patient's blood will contribute to the osmolar gap. Ethanol's contribution to the osmolar gap can be estimated by dividing the concentration of ethanol in mg/dL by 4.6. This test is for clinical use only and does not equal a MARY for legal purposes. Jv Garcia MD LAB - CHEMISTRY PAULINE OJRGE Performing Organization Address [facility]/ZIP Co de Phone Number [address] [phone], [facility] [phone] * XR Tibia Fibula Left 2Vw (03/06/2024 1:40 AM CDT) Only the most recent of2 resultswithin the time period is included. Anatomical Region Laterality Modality Lower Extremity Digital Radiogra phy 03/06/2024 2:40 AM CDT Narrative 03/06/2024 11:55 AM CDT PROCEDURE: ??XR TIBIA FIBULA LEFT 2VW, DATE/TIME OF EXAM: ??03/06/2024 1:40 AM, LOCATION ??[facility] INDICATION: W18.30XA: Ground-level fall ADDITIONAL CLINICAL INFORMATION: [...] dictated by Cedric Bal DO (vice president quality). Naveen Mallory MD have personally reviewed and interpreted this examination/study. > Interpreting Provider: Naveen Ace MD on 03/06/2024 11:55 AM Procedure Note Naveen Ace MD - 03/06/2024 PROCEDURE: XR TIBIA FIBULA LEFT 2VW, DATE/TIME OF EXAM: 41:40 AM, LOCATION [facility] INDICATION: W18.30XA: Ground-level fall ADDITIONAL CLINICAL INFORMATION: [...] dictated by Cedric Bal DO (vice president quality). Naveen Mallory MD have personally reviewed andinterpreted [...] dictated by Cedric Bal DO (vice president quality). Naveen Mallory MD have personally reviewed and interpreted this examination/study. > Interpreting Provider: Naveen Ace MD on 03/06/2024 9:26 AM Narrative 03/06/2024 9:26 AM CDT PROCEDURE: ??XR KNEE LEFT 2VW OR LESS, DATE/TIME OF EXAM: ??03/06/2024 1:05 AM, LOCATION ??[facility] INDICATION: W18.30XA: Ground-level fall ADDITIONAL CLINICAL INFORMATION: [...] LESS, DATE/TIME OF EXAM: 41:05 AM, LOCATION [facility] INDICATION: W18.30XA: Ground-level fall ADDITIONAL CLINICAL INFORMATION: Ordering Provider Reason For Exam: injury films COMPARISON: None. FINDINGS: The osseous structures are intact and well aligned without acutefracture or dislocation. The knee joint space is preserved. No joint effusion is seen. Bone density and texture are normal. IMPRESSION: No acute fracture or dislocation identified. Report dictated by Cedric Bal DO (vice president quality). Naveen Mallory MD have personally reviewed andinterpreted this examination/study. > Interpreting Provider: Naveen Ace MD on 03/06/2024 9:26AM Jv Garcia MD DIAGNOSTIC IMAGING O RDERABLES * TYPE + SCREEN PANEL (03/06/2024 1:00 AM CDT) Antibody Screen NEG 1:50 AM CDT [facility] ABO Rh A POS 03/06/2024 1:50 AM CDT [facility] Blood Bank BLOOD SPECIMEN / Unknown Venipuncture / Unknown 03/06/2024 1:00 AM CDT 03/06/2024 1:07 AM CDT Jv Gacria MD LAB - BLOOD BANK ORD ERABLES [facility] [address] [place] [address], [facility] [phone] * (ABNORMAL) CBC W AUTO DIFFERENTIAL (03/06/2024 1:00 AM CDT) WBC 8.8 4.0 - 10.7 x10E9/L 03/06/2024 1:13 AM [facility] RBC Count 3.88(L) 3.90 - 5.20 x10E12/L 03/06/2024 1:13 AM [facility] Hemoglobin 11.6(L) 11.9 - 15.8 g/dL 03/06/2024 1:13 AM [facility] Hematocrit 34.0(L) 34.8 - 46.1 % 03/06/2024 1:13 AM [facility] MCV 87.6 80.0 - 98.0 fL 03/06/2024 1:13 AM [facility] MCH 29.9 26.7 - 33.6 pg 03/06/2024 1:13 AM [facility] MCHC 34.1 31.7 - 36.3 g/dL 03/06/2024 1:13 AM [facility] RDW-CV 14.1 11.3 - 14.8 % 03/06/2024 1:13 AM [facility] Platelet Count 297 150 - 420 x10E9/L 03/06/2024 1:13 AM [facility] MPV 9.2 7.8 - 11.4 fL 03/06/2024 1:13 AM [facility] Neutrophil % 78.1(H) 41.0 - 74.0 % 03/06/2024 1:13 AM [facility] Lymphocyte % 15.7(L) 17.0 - 47.0 % 03/06/2024 1:13 AM CDT [facility] Monocyte % 4.9 3.0 - 11.0 % 03/06/2024 1:13 AM T [facility] Eosinophil % 0.6 0.0 - 7.0 % 03/06/2024 1:13 AM T [facility] Basophil % 0.5 0.0 - 1.6 % 03/06/2024 1:13 AM T [facility] Immature Granulocytes % 0.2 0.0 - 1.0 % 03/06/2024 1:13 AM [facility] Neutrophil Absolute 6.85 1.60 - 7.50 x10E9/L 03/06/2024 1:13 AM T [facility] Lymphocyte Absolute 1.38 1.00 - 4.40 x10E9/L 03/06/2024 1:13 AM [facility] Monocyte Absolute 0.43 0.15 - 1.00 x10E9/L 03/06/2024 1:13 AM [facility] Eosinophil Absolute 0.05 0.00 - 0.60 x10E9/L 03/06/2024 1:13 AM [facility] Basophil Absolute 0.04 0.00 - 0.13 x10E9/L 03/06/2024 1:13 AM [facility] Blood BLOOD SPECIMEN / Unknown Venipuncture / Unknown 03/06/2024 1:00 AM CDT 03/06/2024 1:07 AM CDT Jv Garcia MD LAB - HEMATOLOGY ORD ERABLES [facility] [address] [place] [phone], [facility] [phone] * (ABNORMAL) COMPREHENSIVE METABOLIC PANEL (03/06/2024 1:00 AM CDT) BUN 12 7 - 26 mg/dL 03/06/2024 1:32 AM T [facility] Creatinine 0.97(H) 0.56 - 0.96 mg/dL 03/06/2024 1:32 AM [facility] Sodium 138 136 - 145 mmol/L 03/06/2024 1:32 AM [facility] Potassium 3.6 3.5 - 4.5 mmol/L 03/06/2024 1:32 AM [facility] Chloride 107 98 - 107 mmol/L 03/06/2024 1:32 AM [facility] CO2 22 22 - 29 mmol/L 03/06/2024 1:32 AM [facility] Glucose 132(H) 70 - 99 mg/dL 03/06/2024 1:32 AM [facility] Calcium 8.9 8.4 - 10.2 mg/dL 03/06/2024 1:32 AM [facility] Protein Total 6.3 6.0 - 8.3 g/dL 03/06/2024 1:32 AM [facility] Albumin 3.6 3.4 - 5.0 g/dL 03/06/2024 1:32 AM [facility] Bilirubin Total 0.2 0.2 - 1.2 mg/dL 03/06/2024 1:32 AM [facility] Alkaline Phosphatase 63 40 - 150 U/L 03/06/2024 1:32 AM [facility] ALT 12 5 - 55 U/L 03/06/2024 1:32 AM [facility] AST 15 5 - 34 U/L 03/06/2024 1:32 AM [facility] Anion Gap 9 6 - 16 03/06/2024 1:32 AM [facility] BUN/Creatinine Ratio 12 7 - 23 03/06/2024 1:32 AM [facility] Osmolality Calculated 288 275 - 295 mOsm/kg 03/06/2024 1:32 AM [facility] Albumin/Globulin Ratio 1.3 1.1 - 2.3 03/06/2024 1:32 AM [facility] eGFR by CKD-EPI 75(L) >=90 mL/min/1.7 3 m2 03/06/2024 1:32 AM [facility] Blood BLOOD SPECIMEN / Unknown Venipuncture / Unknown 03/06/2024 1:00 AM CDT 03/06/2024 1:07 AM CDT Jv Garcia MD LAB - CHEMISTRY PAULINE Mcnally Organization Address City/State/ZIP Co de Phone Number [facility] [place] [address], [facility] [phone] * XR Ankle Left 3Vw or More (03/05/2024 11:50 PM CDT) Anatomical Region Laterality Modality Lower Extremity Digital Radiogra phy 03/06/2024 2:24 AM CDT Impressions 03/06/2024 9:21 AM CDT IMPRESSION: Acute moderately displaced comminuted fracture of the distal tibia and fibula with extension into the tibial plafond. Report dictated by Cedric Bal DO (vice president quality). I, Naveen Ace MD have personally reviewed and interpreted this examination/study. > Interpreting Provider: Naveen Ace MD on 03/06/2024 9:21 AM Narrative 03/06/2024 9:21 AM CDT PROCEDURE: ??XR ANKLE LEFT 3VW OR MORE, DATE/TIME OF EXAM: ??03/05/2024 11:50 PM, LOCATION ??[facility] INDICATION: [id number]: Ground-level fall ADDITIONAL CLINICAL INFORMATION: [...] MORE, DATE/TIME OF EXAM: 1:50 PM, LOCATION [facility] INDICATION: W18.30XA: Ground-level fall ADDITIONAL CLINICAL INFORMATION: [...] dictated by Cedric Bal DO (vice president quality). I, Naveen Ace MD have personally reviewed andinterpreted this examination/study. > Interpreting Provider: Naveen Ace MD on 03/06/2024 9:21AM Prachi Martinez MD [facility] Care Teams Candy Spreader Helper Relationship Specialty Start Date End Date None, Physician [address] [place] [address] PCP - General 03/30/24
--- OUTSIDE RECORDS SUMMARY | 2024-05-09 05:27 | XMS_ITS | Encounter Summary ---
Author Organization [facility] Address [address] [facility] [place] [address] Care Team Providers Care Special Education Tutor Name Role Phone None, Physician Primary Care Provider Unavailabl e Encounter Details Date Type Department Care Team (Late st Contact Info) Description 04/04/2024 Orders Only [facility] [address] [place] [address], [place] [id number] Manuel Resendiz T, [address] [place] [id number] Tibia/fibula fracture, left, closed, with routine healing, [...] medical care, and heating? Patient declined 03/09/2024 [facility] - Occupational Stress [...] any time in the past 12 m [facility], were you homeless or living in [...] st Contact Info) Description 05/18/2024 9:15 AM CLERK CASHIER Office Visit [facility] [address] [facility] [place] [address] Manuel Resendiz T, DO [address] [place] [address] Scheduled Orders Name Type Priority Associated Diagnoses Orde r Schedule XR Tibia Fibula Left 2Vw Imaging Routine Tibia/fibula fracture, left, closed, with routine healing, subsequent encounter 1 Occurrences starting 04/04/2024 until 04/04/2025 documented as of this encounter Visit Diagnoses Diagnosis Tibia/fibula fracture, left, closed, with routine healing, subsequent encounter- Primary documented in this encounter Care Teams Special Education Tutor Relationship Specialty Start Date End Date None, Physician [address] [place] [address] PCP - General 03/30/24 documented as of this encounter
--- OUTSIDE RECORDS SUMMARY | 2024-05-09 05:27 | XMS_ITS | Encounter Summary ---
Author Organization [facility] Address [address] [facility] [place] [address] Care Team Providers Care County Health Officer Name Role Phone Unavailable Primary Care Provider [...] st Contact Info) Description 05/18/2024 9:15 AM PROGRAM CONTROL ANALYST Office Visit [facility] [address] [facility] [place] [phone] Manuel Resendiz T, DO [address] [place] [phone] documented as of this encounter Visit Diagnoses Not on filedocumented in this encounter
--- OUTSIDE RECORDS SUMMARY | 2024-05-09 05:27 | XMS_ITS | Clinical Summary ---
Author Organization [facility] Address [address] [place] [address] Care Team Providers Care Chief Customer Officer Name Role Phone None, Physician Primary Care Provider Unavailabl e Source Comments [facility],non-owned Affiliates and Associated Physician Practices is amultiple site organization consisting of ambulatory clinics and hospital sitesin [place], [place], [place] and [place]. This disclosure is being madepursuant to the Care Everywhere program and may not contain all information available regarding this patient. Last updated 18.[employer] [facility] Allergies No known active allergies Medications * [...] Department Care Team Description 04/04/2024 Orders Only [facility] - Orthopedics [facility] [place] [address] Manuel Resendiz, Tibia/fibula fracture, left, closed, with routine healing, subsequent encounter 03/30/2024 11:15 AM FINANCIAL AID OFFICER Office Visit [facility] - Orthopedics [facility] [place] [address] Manuel Resendiz, DO Fracture tibia/fibula, left, closed, initial encounter (Primary Dx) 03/30/2024 Travel 03/07/2024 3:33 PM CDT Anesthesia Event [facility] [address] [place] [address] Abhishek Rubi MD Wilson, Patricia Ann, RADIOGRAPHER-ECHOCARDIOGRAPHY TECHNOLOGIST 03/07/2024 2:29 PM CDT - 03/07/2024 4:52 PM CDT Surgery [facility] [address] [place] [address] Manuel Resendiz, DO INTRAMEDULLARY (IM) NAILING TIBIA 03/05/2024 11:26 PM CDT - 03/09/2024 11:17 AM CDT Hospital Encounter [facility] ACUTE [address] [place] [address] Jv Garcia MD Revak, Thomas J, DO [...] any time in the past 12 m [facility], were you homeless or living in a chcf (including now)? Patient declined 03/09/2024 Sex and [...] 83 kg (183 lb) 03/30/2024 11:35 AM FINANCIAL AID OFFICER Height 165.1 cm (5' 5 ) 03/30/2024 11:35 AM FINANCIAL AID OFFICER Body Mass Index 30.45 03/30/2024 11:35 AM FINANCIAL AID OFFICER Plan of Treatment Upcoming Encounters Date Type Department Care Team (Late st Contact Info) Description 05/18/2024 9:15 AM FINANCIAL AID OFFICER Office Visit [facility] - Orthopedics [address] [place] [address], [place] [phone] Manuel Resendiz T, DO [address] [place] [phone] Health Maintenance Due Date Last Done Comments [...] this topic Medical Devices Implanted Type Area Attending Ambulatory Care Device Identifier Shelf Expiration Date Model / Serial / Lot Screw 2.7mm 5mm 30mm T8 Slf-Tap Strdr Implanted:Qty: 1 on 03/07/2024 by Benny Jones MD at [facility] Left: Tibia [employer] [id number] / / Screw 2.7mm 5mm 32mm T8 Slf-Tap Strdr Implanted:Qty: 1 on 03/07/2024 by Benny Jones MD at [facility] Left: Tibia [employer] 202.892 / / Nail Im 9mm 345mm Xprt Tib Cornell [employer] Bnd Implanted:Qty: 1 on 03/07/2024 by Benny Jones MD at [facility] Left: Tibia [employer] 07/06/2033 04.043.135 S / / [id number] 5.0mm Locking Screw For Im Nail, 28mm Implanted:Qty: 1 on 03/07/2024 by Benny Jones MD at [facility] Left: Tibia [employer] Trauma 04.045.028 / / 5.0mm Locking Screw For Im Nail, 32mm Implanted:Qty: 1 on 03/07/2024 by Benny Jones MD at [facility] Left: Tibia [employer] Trauma 04.045.032 / / 5.0mm Locking Screw For Im Nail, 36mm Implanted:Qty: 1 on 03/07/2024 by Benny Jones MD at [facility] Left: Tibia [employer] Trauma 04.045.036 / / Explanted Type Area Attending Ambulatory Care Device Identifier Shelf Expiration Date Model / Serial / Lot Screw 2.7mm 5mm 28mm T8 Slf-Tap Strdr Explanted:Qty: 1 on 03/07/2024 by Benny Jones MD at [facility] Left: Tibia [employer] 202.888 / / Slv Prtc 12mm Suprapatellar Strl Explanted:Qty: 1 on 03/07/2024 by Benny Jones MD at [facility] Left: Tibia Synthes [facility] 03.010.437 S / / Procedures Procedure [...] ENDOTRACHEAL TUBE NOTE Routine 4:11 PM CDT MS OPEN RX TIBIA SHAFT FX,INTRAMED NASIR 03/07/2024 [...] 4.0 - 10.7 x10E9/L 03/09/2024 3:[address] [facility] RBC Count 3.06(L) 3.90 - 5.20 x10E12/L 03/09/2024 3:[address] [facility] Hemoglobin 8.9(L) 11.9 - 15.8 g/dL 03/09/2024 3:[address] [facility] Hematocrit 28.2(L) 34.8 - 46.1 % 03/09/2024 3:[address] [facility] MCV 92.2 80.0 - 98.0 fL 03/09/2024 3:49 AM [facility] MCH 29.1 26.7 - 33.6 pg 03/09/2024 3:[address] [facility] MCHC 31.6(L) 31.7 - 36.3 g/dL 03/09/2024 3:[address] [facility] RDW-CV 14.5 11.3 - 14.8 % 03/09/2024 3:[address] [facility] Platelet Count 230 150 - 420 x10E9/L 03/09/2024 3:[address] [facility] MPV 9.4 7.8 - 11.4 fL 03/09/2024 3:[address] [facility] Blood BLOOD SPECIMEN / Unknown Lab Venipuncture / Unknown 03/09/2024 2:53 AM CDT 03/09/2024 3:28 AM CDT Chase Garcia DO LAB - HEMATOLOGY ORD ERABLES Performing Organization Address City/[facility]/ZIP Co de Phone Number [facility] [address] [place] [address], [facility] [phone] * CARDIAC EKG ORDER (03/08/2024 11:33 AM CDT) Narrative 03/08/2024 11:33 AM CDT Ordered by an unspecified provider. Scanned Document CARDIAC SERVICES ORD ERABLES * [place] Estefani Surgery (03/07/2024 5:55 PM CDT) Narrative [facility] RADIOLOG[facility] - 03/07/2024 5:57 PM CDT Fluoroscopy was used for this exam in the OR. Please see the Operative report. Manuel Resendiz DO FLUOROSCOPY ORDERABL ES Performing Organization Address City/[facility]/ZIP Co de Phone Number [facility] * ETT LINE PERFORMABLE (03/07/2024 4:11 PM CDT) Narrative Obinna Gupta MD - 03/07/2024 4:11 PM CDT Obinna Gupta MD ? 03/07/2024 ??4:11 PM Endotracheal Tube Placement: ? Patient Location: OR. Intubation Event Date/Time: ??03/07/2024 3:43 PM Procedure: intubation (21911) Procedure Section: ?? Sedation: under general anesthesia. [...] 7 - 26 mg/dL 03/07/2024 3:[address] [facility] Creatinine 1.04(H) 0.56 - 0.96 mg/dL 03/07/2024 3:[address] [facility] Sodium 140 136 - 145 mmol/L 03/07/2024 3:[address] [facility] Potassium 3.9 3.5 - 4.5 mmol/L 03/07/2024 3:[address] [facility] Chloride 106 98 - 107 mmol/L 03/07/2024 3:[address] [facility] CO2 25 22 - 29 mmol/L 03/07/2024 3:[address] [facility] Glucose 101(H) 70 - 99 mg/dL 03/07/2024 3:[address] [facility] Calcium 8.2(L) 8.4 - 10.2 mg/dL 03/07/2024 3:[address] [facility] Anion Gap 9 6 - 16 03/07/2024 3:[address] [facility] BUN/Creatinine Ratio 12 7 - 23 03/07/2024 3:[address] [facility] Osmolality Calculated 290 275 - 295 mOsm/kg 03/07/2024 3:[address] [facility] eGFR by CKD-EPI 69(L) >=90 mL/min/1.7 3 m2 03/07/2024 3:[address] [facility] Blood BLOOD SPECIMEN / Unknown Lab Venipuncture / Unknown 03/07/2024 2:41 AM CDT 03/07/2024 3:08 AM CDT Chase Garcia DO LAB - CHEMISTRY PAULINE MARYJANEFRANDY Performing Organization Address City/[facility]/ZIP Co de Phone Number [facility] [address] [place] [address], [facility] [phone] * EKG 12-LEAD (03/06/2024 4:07 PM CDT) Ventricular Rate 65 BPM [facility] MUSE Atrial Rate 65 BPM [facility] P-R Interval 150 ms [facility] QRS Duration ms 78 ms [facility] M[facility] Q-T Interval ms 408 ms [facility] QTC Calculation (Bezet) 424 ms [facility] M[facility] Calculated P [place] 46 degrees SL MUSE Calculated R [place] 61 degrees [facility] MUSE Calculated T [place] 35 degrees [facility] M[facility] Interpretation EKG NORMAL SINUS RHYTHM NORMAL ECG NO PREVIOUS ECGS AVAILABLE Confirmed by MAYURI ZHANG MD ([id number]) on 03/11/2024 10:28:06 AM [facility] M[facility] 03/06/2024 4:07 PM CDT 03/11/2024 10:28 AM FINANCIAL AID OFFICER Katlyn King RADIOGRAPHER-ECHOCARDIOGRAPHY TECHNOLOGIST ECG ORDERAB LES Performing Organization Address [facility] Co de Phone Number [facility] * (ABNORMAL) URINE DRUG SCREEN IMMUNOASSAY (03/06/2024 9:38 AM CDT) Pathologist [facility] Amphetamines Screen Urine Negative Negative : < 1000 ng/mL 03/06/2024 10:00 AM T [facility] Barbiturates Screen Urine Negative Negative : < 200 ng/mL 03/06/2024 10:[address] [facility] Benzodiazepine Screen Urine Negative Negative : < 200 ng/mL 03/06/2024 10:[address] [facility] Opiates Urine Positive(A) Negative : < 300 ng/mL 03/06/2024 10:[address] [facility] Comment:Positive urine opiat e screening results should be confirmed by another generally accepted non-immunological method such as gas chromatography or mass spectrometry. Cocaine Metabolites Urine Negative Negative : < 300 ng/mL 03/06/2024 10:[address] [facility] Phencyclidine Screen Urine Negative Negative : < 25 ng/ml 03/06/2024 10:[address] [facility] Cannabinoids Screen Urine Positive(A) Negative : <50 ng/mL 03/06/2024 10:[address] [facility] Comment:Positive urine canna binoids (THC) screening results should be confirmed by another generally accepted non-immunological method such as gas chromatography or mass spectrometry. Methadone Screen Urine Negative Negative : < 300 ng/mL 03/06/2024 10:[address] [facility] Fentanyl Screen Urine Negative Negative : <1.5 ng/mL 03/06/2024 10:[address] [facility] Urine URINE / Unknown Collection / Unknown 03/06/2024 9:38 AM T 03/06/2024 9:[address] [facility] - 03/06/2024 10:00 AM [facility] The Urine Toxicology Screening Panel does not screen for Propoxyphene, Meprobamate, Carisoprodol, Trazodone, hvnw-zgt-uhlpixo medications and/or volatiles (Acetone, Isopropanol, Methanol or Ethylene Glycol). Ethanol, Salicylate, Acetaminophen, Tricyclic Antidepressants and several therapeutic drugs may be individually assayed in serum or plasma specimen. Toxicology testing by the [facility] is an aid to medical diagnosis and treatment of patients. No documented chain of custody was maintained. Results are intended to be used for clinical purposes only. ? Jv Garcia MD LAB - URINE CHEMISTR Y ORDERABLES [facility] [place] [address], [facility] [phone] * CT CHEST ABDOMEN PELVIS W CONT [...] seen. > Dictated by Pranav Morales DO (logistics vice president). I, Selina Narvaez MD have personally reviewed and interpreted this examination/study. > Interpreting Provider: Selina Narvaez MD on 03/06/2024 7:08 AM Narrative 03/06/2024 7:08 AM CDT PROCEDURE: ??CT CHEST ABDOMEN PELVIS W CONT, DATE/TIME OF EXAM: ??03/06/2024 2:43 AM, LOCATION ??[facility] INDICATION: Trauma COMPARISON: None. TECHNIQUE: CT [...] CONT, DATE/TIME OF EXAM:03/06/2024 2:43 AM, LOCATION [facility] INDICATION: Trauma COMPARISON: None. TECHNIQUE: CT [...] seen. > Dictated by Pranav Morales DO (logistics vice president). Selina Mallory MD have personally [...] pelvis. > Dictated by Cedric Bal DO (Machine Operator General), 03/06/2024 3:09 AM. Anthony Mallory MD have personally reviewed and interpreted this examination/study. > Interpreting Provider: Anthony Adler MD on 03/06/2024 7:44 AM Narrative 03/06/2024 7:44 AM CDT PROCEDURE: ??CT HEAD WO CONTRAST, CT LUMBAR SPINE WO CONTRAST, CT THORACIC SPINE WO CONTRAST, CT CERVICAL SPINE WO CONTRAST, DATE/TIME OF EXAM: 03/06/2024 2:43 AM, LOCATION ??[facility] INDICATION: Trauma EXAMINATION: 1.Computed tomography (CT) [...] DATE/TIME OF EXAM: 03/06/2024 2:43 AM, LOCATION [facility] INDICATION: Trauma EXAMINATION: 1.Computed tomography (CT) [...] pelvis. > Dictated by Cedric Bal DO (Machine Operator General), 03/06/2024 3:09AM. Anthony Mallory MD have personally [...] pelvis. > Dictated by Cedric Bal DO (Machine Operator General), 03/06/2024 3:09 AM. Anthony Mallory MD have personally reviewed and interpreted this examination/study. > Interpreting Provider: Anthony Adler MD on 03/06/2024 7:44 AM Narrative 03/06/2024 7:44 AM CDT PROCEDURE: ??CT HEAD WO CONTRAST, CT LUMBAR SPINE WO CONTRAST, CT THORACIC SPINE WO CONTRAST, CT CERVICAL SPINE WO CONTRAST, DATE/TIME OF EXAM: 03/06/2024 2:43 AM, LOCATION ??[facility] INDICATION: Trauma EXAMINATION: 1.Computed tomography (CT) [...] DATE/TIME OF EXAM: 03/06/2024 2:43 AM, LOCATION [facility] INDICATION: Trauma EXAMINATION: 1.Computed tomography (CT) [...] pelvis. > Dictated by Cedric Bal DO (Machine Operator General), 03/06/2024 3:09AM. Anthony Mallory MD have personally [...] pelvis. > Dictated by Cedric Bal DO (Machine Operator General), 03/06/2024 3:09 AM. Anthony Mallory MD have personally reviewed and interpreted this examination/study. > Interpreting Provider: Anthony Adler MD on 03/06/2024 7:44 AM Narrative 03/06/2024 7:44 AM CDT PROCEDURE: ??CT HEAD WO CONTRAST, CT LUMBAR SPINE WO CONTRAST, CT THORACIC SPINE WO CONTRAST, CT CERVICAL SPINE WO CONTRAST, DATE/TIME OF EXAM: 03/06/2024 2:43 AM, LOCATION ??[facility] INDICATION: Trauma EXAMINATION: 1.Computed tomography (CT) [...] DATE/TIME OF EXAM: 03/06/2024 2:43 AM, LOCATION [facility] INDICATION: Trauma EXAMINATION: 1.Computed tomography (CT) [...] pelvis. > Dictated by Cedric Bal DO (Machine Operator General), 03/06/2024 3:09AM. Anthony Mallory MD have personally [...] pelvis. > Dictated by Cedric Bal DO (Machine Operator General), 03/06/2024 3:09 AM. Anthony Mallory MD have personally reviewed and interpreted this examination/study. > Interpreting Provider: Anthony Adler MD on 03/06/2024 7:44 AM Narrative 03/06/2024 7:44 AM CDT PROCEDURE: ??CT HEAD WO CONTRAST, CT LUMBAR SPINE WO CONTRAST, CT THORACIC SPINE WO CONTRAST, CT CERVICAL SPINE WO CONTRAST, DATE/TIME OF EXAM: 03/06/2024 2:43 AM, LOCATION ??[facility] INDICATION: Trauma EXAMINATION: 1.Computed tomography (CT) [...] DATE/TIME OF EXAM: 03/06/2024 2:43 AM, LOCATION [facility] INDICATION: Trauma EXAMINATION: 1.Computed tomography (CT) [...] pelvis. > Dictated by Cedric Bal DO (Machine Operator General), 03/06/2024 3:09AM. Anthony Mallory MD have personally [...] plafond. > Dictated by Pranav Morales DO (logistics vice president). Selina Mallory MD have personally [...] plafond. > Dictated by Pranav Morales DO (logistics vice president). I, Selina Narvaez MD have personally reviewed and interpreted this examination/study. > Interpreting Provider: Selina Narvaez MD on 47:43 AM Jv Garcia MD CT ORDERABLES * BLOOD TYPE VERIFICATION (03/06/2024 2:39 AM CDT) ABO Rh A POS 03/06/2024 3:1 0 AM CDT [facility] Blood Bank BLOOD SPECIMEN / Unknown Venipuncture / Unknown 03/06/2024 2:39 AM CDT 03/06/2024 2:45 AM CDT Jv Garcia MD LAB - BLOOD BANK ORD ERABLES Performing Organization Address City/[facility]/ZIP Co de Phone Number [facility] [address] [place] [address], [facility] [phone] * PTT [facility] (03/06/2024 2:36 AM CDT) Only the most recent of2 resultswithin the time period is included. APTT 26.0 23.0 - 38.4 Seconds 03/06/2024 3:08 AM CDT [facility] Comment:Suggested therapeuti c range for full dose I.V. unfractionated heparin therapy for venous thromboembolism is 71 to 109 seconds. Blood BLOOD SPECIMEN / Unknown Venipuncture / Unknown 03/06/2024 2:36 AM CDT 03/06/2024 2:47 AM CDT Jv Garcia MD LAB - COAGULATION OR DERABLES Performing Organization Address City/[facility] Co de Phone Number [facility] [address] [place] [address], [facility] [phone] * PT-INR [facility] (03/06/2024 2:36 AM CDT) Only the most recent of2 resultswithin the time period is included. PT 12.7 12.1 - 14.8 Seconds 03/06/2024 3:08 AM CDT [facility] INR 1.0 See Comment 03/06/2024 3:08 AM CDT [facility] Comment:The suggested therap eutic range for standard coumadin (warfarin) therapy is an INR of 2.0-3.0. For high-risk patients (Mechanical Mitral Valve Prosthesis, etc.), the suggested prophylactic therapeutic range is an INR of 2.5-3.5. Blood BLOOD SPECIMEN / Unknown Venipuncture / Unknown 03/06/2024 2:36 AM CDT 03/06/2024 2:47 AM CDT Jv Garcia MD LAB - COAGULATION OR DERABLES Performing Organization Address [facility] Co de Phone Number [facility] [address] [place] [address], [facility] [phone] * (ABNORMAL) VITAMIN D 25-HYDROXY (03/06/2024 2:36 AM CDT) Vitamin D, 25 Hydroxy 26.0(L) 30.0 - 80.0 ng/mL 03/06/2024 6:57 AM CDT [facility] Comment: The recommendations for 25-Hydroxy Vitamin [...] - CHEMISTRY OR DERABLES Performing Organization Address City/[facility] Co de Phone Number [facility] [address] [place] [address], [facility] [phone] * HCG BETA BLOOD QUANTITATIVE (03/06/2024 2:36 AM CDT) Pathologist [facility] Beta-hCG Total Quantitative <3 mIU/mL 03/06/2024 3:16 PM CDT [facility] Comment: HCG Numeric Result Interpretation: ? [...] CDT 03/06/2024 2:47 AM CDT Katlyn King RADIOGRAPHER-ECHOCARDIOGRAPHY TECHNOLOGIST LAB - CHEMI STRY ORDERABLES [facility] [address] [place] [address], [facility] [phone] * ALCOHOL ETHYL BLOOD (03/06/2024 2:36 AM CDT) [facility] Ethanol (mg/dL) <10 <10 mg/dL 3:09 AM CDT [facility] Ethanol Calculated (g/dL) <0.010 <=0.010 g/dL 03/06/2024 3:09 AM CDT [facility] Blood BLOOD SPECIMEN / Unknown Venipuncture / Unknown 03/06/2024 2:36 AM CDT 03/06/2024 2:47 AM CDT Narrative [facility] - 03/06/2024 3:09 AM CDT Ethanol Interp <10: None Detected. Depression of ELECTRONIC PARTS DESIGNER: >100 mg/dl Potentially Critical: >250 mg/dl Potentially [...] Garcia MD LAB - CHEMISTRY PAULINE JORGE [facility] Organization Address City/State/ZIP Co de Phone Number [facility] [address] [place] [address], [facility] [phone] * XR Tibia Fibula Left 2Vw (03/06/2024 1:40 AM CDT) Only the most recent of2 resultswithin the time period is included. Anatomical Region Laterality Modality Lower Extremity Digital Radiogra phy 03/06/2024 2:40 AM CDT Narrative 03/06/2024 11:55 AM CDT PROCEDURE: ??XR TIBIA FIBULA LEFT 2VW, DATE/TIME OF EXAM: ??03/06/2024 1:40 AM, LOCATION ??[facility] INDICATION: W18.30XA: Ground-level fall ADDITIONAL CLINICAL [...] exam. Report dictated by Cedric Bal DO (logistics vice president). I, Naveen Ace MD have personally reviewed and interpreted this examination/study. > Interpreting Provider: Naveen Ace MD on 03/06/2024 11:55 AM Procedure Note Naveen Ace MD - 03/06/2024 PROCEDURE: XR TIBIA FIBULA LEFT 2VW, DATE/TIME OF EXAM: 41:40 AM, LOCATION [facility] INDICATION: W18.30XA: Ground-level fall ADDITIONAL CLINICAL INFORMATION: Ordering Provider Reason For Exam: reduction will call when ready COMPARISON: Left tibia fibula x-ray 03/05/2024 FINDINGS/IMPRESSION: Splint material obscures osseous and soft tissue detail. Redemonstrated acute moderately displaced comminuted fracture of the distal tibia and fibula with extension into the tibial plafond. Alignment appearsrelatively unchanged from prior exam. Report dictated by Cedric Bal DO (logistics vice president). Naveen Mallory MD have personally [...] identified. Report dictated by Cedric Bal DO (logistics vice president). Naveen Mallory MD have personally reviewed and interpreted this examination/study. > Interpreting Provider: Naveen Ace MD on 03/06/2024 9:26 AM Narrative 03/06/2024 9:26 AM CDT PROCEDURE: ??XR KNEE LEFT 2VW OR LESS, DATE/TIME OF EXAM: ??03/06/2024 1:05 AM, LOCATION ??[facility] INDICATION: W18.30XA: Ground-level fall ADDITIONAL CLINICAL [...] LESS, DATE/TIME OF EXAM: 41:05 AM, LOCATION [facility] INDICATION: W18.30XA: Ground-level fall ADDITIONAL CLINICAL INFORMATION: Ordering Provider Reason For Exam: injury films COMPARISON: None. FINDINGS: The osseous structures are intact and well aligned without acutefracture or dislocation. The knee joint space is preserved. No joint effusion is seen. Bone density and texture are normal. IMPRESSION: No acute fracture or dislocation identified. Report dictated by Cedric Bal DO (logistics vice president). I, Naveen Ace MD have personally reviewed andinterpreted this examination/study. > Interpreting Provider: Naveen Ace MD on 03/06/2024 9:26AM Jv Garcia MD DIAGNOSTIC IMAGING O RDERABLES * TYPE + SCREEN PANEL (03/06/2024 1:00 AM CDT) [facility] Antibody Screen NEG 1:50 AM CDT [facility] ABO Rh A POS 03/06/2024 1:50 AM CDT [facility] Blood Bank BLOOD SPECIMEN / Unknown Venipuncture / Unknown 03/06/2024 1:00 AM CDT 03/06/2024 1:07 AM CDT Jv Garcia MD LAB - BLOOD BANK ORD ERABLES [facility] [address] [place] [address], [facility] [phone] * (ABNORMAL) CBC W AUTO DIFFERENTIAL (03/06/2024 1:00 AM CDT) [facility] WBC 8.8 4.0 - 10.7 x10E9/L 03/06/2024 1:13 AM CDT [facility] RBC Count 3.88(L) 3.90 - 5.20 x10E12/L 03/[facility]24 [facility] Hemoglobin 11.6(L) 11.9 - 15.8 g/dL 03/06/2024 1:[address] [facility] Hematocrit 34.0(L) 34.8 - 46.1 % 03/06/2024 1:[address] [facility] MCV 87.6 80.0 - 98.0 fL 03/06/2024 1:13 AM T [facility] MCH 29.9 26.7 - 33.6 pg 03/06/2024 1:[address] [facility] MCHC 34.1 31.7 - 36.3 g/dL 03/06/2024 1:[address] [facility] RDW-CV 14.1 11.3 - 14.8 % 03/06/2024 1:[address] [facility] Platelet Count 297 150 - 420 x10E9/L 03/06/2024 1:[address] [facility] MPV 9.2 7.8 - 11.4 fL 03/06/2024 1:[address] [facility] Neutrophil % 78.1(H) 41.0 - 74.0 % 03/06/2024 1:[address] [facility] Lymphocyte % 15.7(L) 17.0 - 47.0 % 03/06/2024 1:[address] [facility] Monocyte % 4.9 3.0 - 11.0 % 03/06/2024 1:[address] [facility] Eosinophil % 0.6 0.0 - 7.0 % 03/06/2024 1:[address] [facility] Basophil % 0.5 0.0 - 1.6 % 03/06/2024 1:[address] [facility] Immature Granulocytes % 0.2 0.0 - 1.0 % 03/06/2024 1:[address] [facility] Neutrophil Absolute 6.85 1.60 - 7.50 x10E9/L 03/06/2024 1:[address] [facility] Lymphocyte Absolute 1.38 1.00 - 4.40 x10E9/L 03/06/2024 1:[address] [facility] Monocyte Absolute 0.43 0.15 - 1.00 x10E9/L 03/06/2024 1:[address] [facility] Eosinophil Absolute 0.05 0.00 - 0.60 x10E9/L 03/06/2024 1:[address] [facility] Basophil Absolute 0.04 0.00 - 0.13 x10E9/L 03/06/2024 1:[address] [facility] Blood BLOOD SPECIMEN / Unknown Venipuncture / Unknown 03/06/2024 1:00 AM CDT 03/06/2024 1:07 AM CDT Jv Garcia MD LAB - HEMATOLOGY ORD ERABLES [facility] [address] [place] [address], [facility] [phone] * (ABNORMAL) COMPREHENSIVE METABOLIC PANEL (03/06/2024 1:00 AM CDT) BUN 12 7 - 26 mg/dL 03/06/2024 1:[address] [facility] Creatinine 0.97(H) 0.56 - 0.96 mg/dL 03/06/2024 1:[address] [facility] Sodium 138 136 - 145 mmol/L 03/06/2024 1:[address] [facility] Potassium 3.6 3.5 - 4.5 mmol/L 03/06/2024 1:[address] [facility] Chloride 107 98 - 107 mmol/L 03/06/2024 1:[address] [facility] CO2 22 22 - 29 mmol/L 03/06/2024 1:[address] [facility] Glucose 132(H) 70 - 99 mg/dL 03/06/2024 1:[address] [facility] Calcium 8.9 8.4 - 10.2 mg/dL 03/06/2024 1:[address] [facility] Protein Total 6.3 6.0 - 8.3 g/dL 03/06/2024 1:[address] [facility] Albumin 3.6 3.4 - 5.0 g/dL 03/06/2024 1:[address] [facility] Bilirubin Total 0.2 0.2 - 1.2 mg/dL 03/06/2024 1:[address] [facility] Alkaline Phosphatase 63 40 - 150 U/L 03/06/2024 1:[address] [facility] ALT 12 5 - 55 U/L 03/06/2024 1:[address] [facility] AST 15 5 - 34 U/L 03/06/2024 1:[address] [facility] Anion Gap 9 6 - 16 03/06/2024 1:32 AM CDT [facility] BUN/Creatinine Ratio 12 7 - 23 03/06/2024 1:32 AM CDT [facility] Osmolality Calculated 288 275 - 295 mOsm/kg 03/06/2024 1:32 AM CDT [facility] Albumin/Globulin Ratio 1.3 1.1 - 2.3 03/06/2024 1:32 AM CDT [facility] eGFR by CKD-EPI 75(L) >=90 mL/min/1.7 3 m2 03/06/2024 1:32 AM CDT [facility] Blood BLOOD SPECIMEN / Unknown Venipuncture / Unknown 03/06/2024 1:00 AM CDT 03/06/2024 1:07 AM CDT Jv Garcia MD LAB - CHEMISTRY PAULINE JORGE [facility] Organization Address City/State/ZIP Co de Phone Number [facility] [address] [place] [phone], [facility] [phone] * XR Ankle Left 3Vw or More (03/05/2024 11:50 PM CDT) Anatomical Region Laterality Modality Lower Extremity Digital Radiogra phy 03/06/2024 2:24 AM CDT Impressions 03/06/2024 9:21 AM CDT IMPRESSION: Acute moderately displaced comminuted fracture of the distal tibia and fibula with extension into the tibial plafond. Report dictated by Cedric Bal DO (logistics vice president). I, Naveen Ace MD have personally reviewed and interpreted this examination/study. > Interpreting Provider: Naveen Ace MD on 03/06/2024 9:21 AM Narrative 03/06/2024 9:21 AM CDT PROCEDURE: ??XR ANKLE LEFT 3VW OR MORE, DATE/TIME OF EXAM: ??03/05/2024 11:50 PM, LOCATION ??[facility] INDICATION: W18.30XA: Ground-level fall ADDITIONAL CLINICAL [...] MORE, DATE/TIME OF EXAM: 1:50 PM, LOCATION [facility] INDICATION: W18.30XA: Ground-level fall ADDITIONAL CLINICAL [...] plafond. Report dictated by Cedric Bal DO (logistics vice president). I, Naveen Ace MD have personally reviewed andinterpreted this examination/study. > Interpreting Provider: Naveen Ace MD on 03/06/2024 9:21AM Prachi Martinez MD DIAGNOSTIC IMAGING O RDERABLES from Last 3 Months Advance Directives * Full Code (Latest Code Status on File) Date Activated Date Inactivated Comments 03/06/2024 8:39 PM 03/09/2024 12:23 PM Care Teams Chief Customer Officer Relationship Specialty Start Date End Date None, Physician [address] [place] [address] PCP - General 03/30/24
--- OUTSIDE RECORDS SUMMARY | 2024-05-09 05:27 | XMS_ITS | Encounter Summary ---
Author Organization [facility] Address [address] [place] [address] Care Team Providers Care Extension Educator Name Role Phone None, Physician Primary Care Provider Unavailabl e Reason for Visit * Reason Comments Injury Ankle Encounter Details Date Type Department Care Team (Late st Contact Info) Description 03/30/2024 11:15 AM TEST FACILITY ENGINEER Office Visit [facility] [address], [place] [phone] Manuel Resendiz T, DO [address] [place] [phone] Fracture tibia/fibula, left, closed, initial encounter (Primary [...] medical care, and heating? Patient declined 03/09/2024 [facility] [place] [facility] - Occupational Stress [...] any time in the past 12 m [facility], were you homeless or living in a fpc (including now)? Patient declined 03/09/2024 Sex and [...] 83 kg (183 lb) 03/30/2024 11:35 AM TEST FACILITY ENGINEER Height 165.1 cm (5' 5 ) 03/30/2024 11:35 AM TEST FACILITY ENGINEER Body Mass Index 30.45 03/30/2024 11:35 AM TEST FACILITY ENGINEER documented in this encounter Functional Status Functional [...] Serenity Mooney 43 year old female CSN: [id number] Date of service: 03/30/2024 [facility] Serenity Mooney is a 43 year old [...] of the left lower extremity in ACB [place]utter ROM of joints along with Vitamin D and calcium supplementation for bone health. Follow up in 4 weeks XR needed at follow up: Yes - 2 view(s) XR of the left tib/fib She will call in the interim with any questions or concerns. Jennifer Gary MD 03/30/2024 11:55 AM FACILITY ENGINEER Associated attestation - Manuel Resendiz DO - 03/30/2024 12:15 PM TEST FACILITY ENGINEER I have seen and examined the patient [...] st Contact Info) Description 05/18/2024 9:15 AM TEST FACILITY ENGINEER Office Visit [facility] [address] [place] [phone] Manuel Resendiz DO [address] [place] [phone] documented as of this encounter Visit Diagnoses Diagnosis Fracture tibia/fibula, left, closed, initial encounter- Primary documented in this encounter Care Teams Extension Educator Relationship Specialty Start Date End Date None, Physician [address] [place] [address] PCP - General 03/30/24 documented as of this encounter
--- OUTSIDE RECORDS SUMMARY | 2024-05-09 05:27 | XMS_ITS | Referral Summary ---
Author Organization [facility] Address [address] [place] [address] Care Team Providers Care Leaflet Or Newspaper Deliverer Name Role Phone None, Physician Primary Care Provider Unavailabl e Source Comments [facility],non-owned Affiliates and Associated Physician Practices is amultiple site organization consisting of ambulatory clinics and hospital sitesin [place], [place], [place] and [place]. This disclosure is being madepursuant to the Care Everywhere program and may not contain all information available regarding this patient. Last updated 18.[facility] Encounters Date Type Department Care Team Description 04/04/2024 Orders Only [facility] - Orthopedics [address] [place] [phone] Manuel Resendiz, Tibia/fibula fracture, left, closed, with routine healing, subsequent encounter 03/30/2024 Travel 03/30/2024 11:15 AM DRUM TENDER Office Visit [facility] - Orthopedics [address] [place] [address] Manuel Resendiz, Fracture tibia/fibula, left, closed, initial encounter (Primary Dx) 03/05/2024 11:26 PM CDT - 03/09/2024 11:17 AM CDT Hospital Encounter [facility] 5S ACUTE [address] [place] [phone] Jv Garcia MD Revak, Thomas J, DO Surgery Orthopedics Discharge Disposition: Home or Self Care 03/07/2024 2:29 PM CDT - 03/07/2024 4:52 PM CDT Surgery [facility] DEN[facility] OP [address] [place] [address] Manuel Resendiz, DO INTRAMEDULLARY (IM) NAILING TIBIA 03/07/2024 3:33 PM CDT Anesthesia Event [facility] [address] [place] [address] Abhishek Rubi MD Wilson, Katlyn Oliver, CONCRETE TESTER-SPUD DRILLER 03/05/2024 Travel from Last 3 Months Allergies [...] medical care, and heating? Patient declined 03/09/2024 [facility] - Occupational [...] any time in the past 12 m [facility], were you homeless or living in a care home (including now)? Patient declined 03/09/2024 Sex [...] 83 kg (183 lb) 03/30/2024 11:35 AM DRUM TENDER Height 165.1 cm (5' 5 ) 03/30/2024 11:35 AM DRUM TENDER Body Mass Index 30.45 03/30/2024 11:35 AM DRUM TENDER Functional Status Functional Status Response Date of [...] st Contact Info) Description 05/18/2024 9:15 AM DRUM TENDER Office Visit [facility] - Orthopedics [address] [place] [address], [facility] [place] [phone] Manuel Resendiz T, DO [address] [place] [phone] Medical Devices Implanted Type Area Pyrometer Mechanic Device Identifier Shelf Expiration Date Model / Serial / Lot Screw 2.7mm 5mm 30mm T8 Slf-Tap Strdr Implanted:Qty: 1 on 03/07/2024 by Benny Jones MD at [facility] Left: Tibia [employer] [id number] / / Screw 2.7mm 5mm 32mm T8 Slf-Tap Strdr Implanted:Qty: 1 on 03/07/2024 by Benny Jones MD at [facility] Left: Tibia [employer]sa [id number] / / Nail Im 9mm 345mm Xprt Tib Cornell Prox Bnd Implanted:Qty: 1 on 03/07/2024 by Benny Jones MD at [facility] Left: Tibia [employer] 07/06/2033 04.043.135 S / / [id number] 5.0mm Locking Screw For Im Nail, 28mm Implanted:Qty: 1 on 03/07/2024 by Benny Jones MD at [facility] Left: Tibia Synthes Trauma [id number] / / 5.0mm Locking Screw For Im Nail, 32mm Implanted:Qty: 1 on 03/07/2024 by Benny Jones MD at [facility] Left: Tibia [employer]ynthes Trauma [id number] / / 5.0mm Locking Screw For Im Nail, 36mm Implanted:Qty: 1 on 03/07/2024 by Benny Jones MD at [facility] Left: Tibia [employer]ynthes Trauma 04.045.036 / / Explanted Type Area Pyrometer Mechanic Device Identifier Shelf Expiration Date Model / Serial / Lot Screw 2.7mm 5mm 28mm T8 Slf-Tap Strdr Explanted:Qty: 1 on 03/07/2024 by Benny Jones MD at [facility] Left: Tibia [employer]sa [id number] / / Slv Prtc 12mm Suprapatellar Strl Explanted:Qty: 1 on 03/07/2024 by Benny Jones MD at [facility] Left: Tibia [employer] [id number] S [...] ENDOTRACHEAL TUBE NOTE Routine 4:11 PM CDT NE OPEN RX TIBIA SHAFT FX,INTRAMED NASIR 03/07/2024 [...] 4.0 - 10.7 x10E9/L 03/09/2024 3:49 AM [facility] RBC Count 3.06(L) 3.90 - 5.20 x10E12/L 03/09/2024 3:49 AM [facility] Hemoglobin 8.9(L) 11.9 - 15.8 g/dL 03/09/2024 3:49 AM [facility] Hematocrit 28.2(L) 34.8 - 46.1 % 03/09/2024 3:49 AM [facility] MCV 92.2 80.0 - 98.0 fL 03/09/2024 3:49 AM [facility] MCH 29.1 26.7 - 33.6 pg 03/09/2024 3:49 AM [facility] MCHC 31.6(L) 31.7 - 36.3 g/dL 03/09/2024 3:49 AM [facility] RDW-CV 14.5 11.3 - 14.8 % 03/09/2024 3:49 AM [facility] Platelet Count 230 150 - 420 x10E9/L 03/09/2024 3:49 AM [facility] MPV 9.4 7.8 - 11.4 fL 03/09/2024 3:49 AM [facility] Blood BLOOD SPECIMEN / Unknown Lab Venipuncture / Unknown 03/09/2024 2:53 AM CDT 03/09/2024 3:28 AM CDT Chase Garcia DO LAB - HEMATOLOGY ORD ERABLES [facility] [address] [place] [phone], [facility] [phone] * CARDIAC EKG ORDER (03/08/2024 11:33 AM CDT) Narrative 03/08/2024 11:33 AM CDT Ordered by an unspecified provider. Scanned Document CARDIAC SERVICES ORD ERABLES * FL Estefani Surgery (03/07/2024 5:55 PM CDT) Narrative [facility] RADIOLOGY - 03/07/2024 5:57 PM CDT Fluoroscopy was used for this exam in the OR. Please see the Operative report. Manuel Geiger Astrid DO FLUOROSCOPY ORDERABL ES [facility] RAD[facility]OLOG[facility] * ETT LINE PERFORMABLE (03/07/2024 4:11 PM CDT) Narrative Obinna Gupta MD - 03/07/2024 4:11 PM CDT Obinna Gupta MD ? 03/07/2024 ??4:11 PM Endotracheal Tube Placement: ? Patient Location: OR. Intubation Event Date/Time: ??03/07/2024 3:43 PM Procedure: intubation ([id number]) Procedure Section: ?? Sedation: under general anesthesia. [...] - 26 mg/dL 03/07/2024 3:42 AM [facility] Creatinine 1.04(H) 0.56 - 0.96 mg/dL 03/07/2024 3:42 AM [facility] Sodium 140 136 - 145 mmol/L 03/07/2024 3:42 AM [facility] Potassium 3.9 3.5 - 4.5 mmol/L 03/07/2024 3:42 AM [facility] Chloride 106 98 - 107 mmol/L 03/07/2024 3:42 AM [facility] CO2 25 22 - 29 mmol/L 03/07/2024 3:42 AM [facility] Glucose 101(H) 70 - 99 mg/dL 03/07/2024 3:42 AM [facility] Calcium 8.2(L) 8.4 - 10.2 mg/dL 03/07/2024 3:42 AM [facility] Anion Gap 9 6 - 16 03/07/2024 3:42 AM [facility] BUN/Creatinine Ratio 12 7 - 23 03/07/2024 3:42 AM [facility] Osmolality Calculated 290 275 - 295 mOsm/kg 03/07/2024 3:42 AM [facility] eGFR by CKD-EPI 69(L) >=90 mL/min/1.7 3 m2 03/07/2024 3:42 AM [facility] Blood BLOOD SPECIMEN / Unknown Lab Venipuncture / Unknown 03/07/2024 2:41 AM CDT 03/07/2024 3:08 AM CDT Chase Garcia DO LAB - CHEMISTRY PAULINE JORGE [facility] [address] [place] [address], [facility] [phone] * EKG 12-LEAD (03/06/2024 4:07 PM CDT) Ventricular Rate 65 BPM [facility] Atrial Rate 65 BPM [facility] P-R Interval 150 ms [facility] QRS Duration ms 78 ms [facility] Q-T Interval ms 408 ms [facility] QTC Calculation (Bezet) 424 ms [facility] Calculated P [place] 46 degrees [facility] Calculated R [place] 61 degrees [facility] Calculated T [place] 35 degrees [facility] Interpretation EKG NORMAL SINUS RHYTHM NORMAL ECG NO PREVIOUS ECGS AVAILABLE Confirmed by MAYURI ZHANG MD ([id number]) on 03/11/2024 10:28:06 AM [facility] 03/06/2024 4:07 PM CDT 03/11/2024 10:28 AM DRUM TENDER Katlyn King CONCRETE TESTER-SPUD DRILLER ECG ORDERAB LES [facility] * (ABNORMAL) URINE DRUG SCREEN IMMUNOASSAY (03/06/2024 9:38 AM CDT) Amphetamines Screen Urine Negative Negative : < 1000 ng/mL 03/06/2024 10:00 AM [facility] Barbiturates Screen Urine Negative Negative : < 200 ng/mL 03/06/2024 10:00 AM [facility] Benzodiazepine Screen Urine Negative Negative : < 200 ng/mL 03/06/2024 10:00 AM [facility] Opiates Urine Positive(A) Negative : < 300 ng/mL 03/06/2024 10:00 AM [facility] Comment:Positive urine opiat e screening results should be confirmed by another generally accepted non-immunological method such as gas chromatography or mass spectrometry. Cocaine Metabolites Urine Negative Negative : < 300 ng/mL 03/06/2024 10:00 AM [facility] Phencyclidine Screen Urine Negative Negative : < 25 ng/ml 03/06/2024 10:00 AM [facility] Cannabinoids Screen Urine Positive(A) Negative : <50 ng/mL 03/06/2024 10:00 AM [facility] Comment:Positive urine canna binoids (THC) screening results should be confirmed by another generally accepted non-immunological method such as gas chromatography or mass spectrometry. Methadone Screen Urine Negative Negative : < 300 ng/mL 03/06/2024 10:00 AM CDT [facility] Fentanyl Screen Urine Negative Negative : <1.5 ng/mL 03/06/2024 10:00 AM CDT [facility] Urine URINE / Unknown Collection / Unknown 03/06/2024 9:38 AM CDT 03/06/2024 9:41 AM CDT Narrative [facility] - 03/06/2024 10:00 AM CDT The Urine Toxicology Screening Panel does not screen for Propoxyphene, Meprobamate, Carisoprodol, Trazodone, blwx-wps-vjitacf medications and/or volatiles (Acetone, Isopropanol, Methanol or Ethylene Glycol). Ethanol, Salicylate, Acetaminophen, Tricyclic Antidepressants and several therapeutic drugs may be individually assayed in serum or plasma specimen. Toxicology testing by the [facility] is an aid to medical diagnosis and treatment of patients. No documented chain of custody was maintained. Results are intended to be used for clinical purposes only. ? Jv Garcia MD LAB - URINE CHEMISTR Y ORDERABLES Performing Organization Address [facility]/State/[facility] Co de Phone Number [facility] [address] [place] [phone], [facility] [phone] * CT CHEST ABDOMEN PELVIS W CONT [...] DATE/TIME OF EXAM: ??03/06/2024 2:43 AM, LOCATION ??[facility] INDICATION: Trauma COMPARISON: None. TECHNIQUE: [...] CONT, DATE/TIME OF EXAM:03/06/2024 2:43 AM, LOCATION [facility] INDICATION: Trauma COMPARISON: None. TECHNIQUE: [...] pelvis. > Dictated by Cedric Bal DO (High School Sports Coach), 03/06/2024 3:09 AM. Anthony Mallory MD have personally reviewed and interpreted this examination/study. > Interpreting Provider: Anthony Adler MD on 03/06/2024 7:44 AM Narrative 03/06/2024 7:44 AM CDT PROCEDURE: ??CT HEAD WO CONTRAST, CT LUMBAR SPINE WO CONTRAST, CT THORACIC SPINE WO CONTRAST, CT CERVICAL SPINE WO CONTRAST, DATE/TIME OF EXAM: 03/06/2024 2:43 AM, LOCATION ??[facility] INDICATION: Trauma EXAMINATION: 1.Computed tomography [...] DATE/TIME OF EXAM: 03/06/2024 2:43 AM, LOCATION [facility] INDICATION: Trauma EXAMINATION: 1.Computed tomography [...] pelvis. > Dictated by Cedric Bal DO (High School Sports Coach), 03/06/2024 3:09AM. Anthony Mallory MD have personally [...] pelvis. > Dictated by Cedric Bal DO (High School Sports Coach), 03/06/2024 3:09 AM. Anthony Mallory MD have personally reviewed and interpreted this examination/study. > Interpreting Provider: Anthony Adler MD on 03/06/2024 7:44 AM Narrative 03/06/2024 7:44 AM CDT PROCEDURE: ??CT HEAD WO CONTRAST, CT LUMBAR SPINE WO CONTRAST, CT THORACIC SPINE WO CONTRAST, CT CERVICAL SPINE WO CONTRAST, DATE/TIME OF EXAM: 03/06/2024 2:43 AM, LOCATION ??[facility] INDICATION: Trauma EXAMINATION: 1.Computed tomography [...] DATE/TIME OF EXAM: 03/06/2024 2:43 AM, LOCATION [facility] INDICATION: Trauma EXAMINATION: 1.Computed tomography [...] pelvis. > Dictated by Cedric Bal DO (High School Sports Coach), 03/06/2024 3:09AM. Anthony Mallory MD have personally [...] pelvis. > Dictated by Cedric Bal DO (High School Sports Coach), 03/06/2024 3:09 AM. Anthony Mallory MD have personally reviewed and interpreted this examination/study. > Interpreting Provider: Anthony Adler MD on 03/06/2024 7:44 AM Narrative 03/06/2024 7:44 AM CDT PROCEDURE: ??CT HEAD WO CONTRAST, CT LUMBAR SPINE WO CONTRAST, CT THORACIC SPINE WO CONTRAST, CT CERVICAL SPINE WO CONTRAST, DATE/TIME OF EXAM: 03/06/2024 2:43 AM, LOCATION ??[facility] INDICATION: Trauma EXAMINATION: 1.Computed tomography [...] DATE/TIME OF EXAM: 03/06/2024 2:43 AM, LOCATION [facility] INDICATION: Trauma EXAMINATION: 1.Computed tomography [...] pelvis. > Dictated by Cedric Bal DO (High School Sports Coach), 03/06/2024 3:09AM. Anthony Mallory MD have personally [...] pelvis. > Dictated by Cedric Bal DO (High School Sports Coach), 03/06/2024 3:09 AM. Anthony Mallory MD have personally reviewed and interpreted this examination/study. > Interpreting Provider: Anthony Adler MD on 03/06/2024 7:44 AM Narrative 03/06/2024 7:44 AM CDT PROCEDURE: ??CT HEAD WO CONTRAST, CT LUMBAR SPINE WO CONTRAST, CT THORACIC SPINE WO CONTRAST, CT CERVICAL SPINE WO CONTRAST, DATE/TIME OF EXAM: 03/06/2024 2:43 AM, LOCATION ??[facility] INDICATION: Trauma EXAMINATION: 1.Computed tomography [...] DATE/TIME OF EXAM: 03/06/2024 2:43 AM, LOCATION [facility] INDICATION: Trauma EXAMINATION: 1.Computed tomography [...] pelvis. > Dictated by Cedric Bal DO (High School Sports Coach), 03/06/2024 3:09AM. Anthony Mallory MD have personally [...] AM CDT) ABO Rh A POS 03/06/2024 3:10 AM CDT [facility] Blood Bank BLOOD SPECIMEN / Unknown Venipuncture / Unknown 03/06/2024 2:39 AM CDT 03/06/2024 2:45 AM CDT Jv Garcia MD LAB - BLOOD BANK ORD ERABLES [facility] [address] [place] [address], [facility] [phone] * PTT [facility] (03/06/2024 2:36 AM CDT) Only the most recent of2 resultswithin the time period is included. APTT 26.0 23.0 - 38.4 Seconds 03/06/2024 3:08 AM CDT [facility] Comment:Suggested therapeuti c range for full dose I.V. unfractionated heparin therapy for venous thromboembolism is 71 to 109 seconds. Blood BLOOD SPECIMEN / Unknown Venipuncture / Unknown 03/06/2024 2:36 AM CDT 03/06/2024 2:47 AM CDT Jv Garcia MD LAB - COAGULATION OR DERABLES Performing Organization Address City/[facility]/ZIP Co de Phone Number [address] [address], [facility] [phone] * PT-INR [facility] (03/06/2024 2:36 AM CDT) Only the most recent of2 resultswithin the time period is included. PT 12.7 12.1 - 14.8 Seconds 03/06/2024 3:08 AM CDT [facility] INR 1.0 See Comment 03/06/2024 3:08 AM CDT [facility] Comment:The suggested therap eutic range for standard coumadin (warfarin) therapy is an INR of 2.0-3.0. For high-risk patients (Mechanical Mitral Valve Prosthesis, etc.), the suggested prophylactic therapeutic range is an INR of 2.5-3.5. Blood BLOOD SPECIMEN / Unknown Venipuncture / Unknown 03/06/2024 2:36 AM CDT 03/06/2024 2:47 AM CDT Jv Garcia MD LAB - COAGULATION OR DERABLES Performing Organization Address City/[facility]/ZIP Co de Phone Number [address] [address], [facility] [phone] * (ABNORMAL) VITAMIN D 25-HYDROXY (03/06/2024 2:36 AM CDT) [facility] Vitamin D, 25 Hydroxy 26.0(L) 30.0 - 80.0 ng/mL 03/06/2024 6:57 AM CDT [facility] Comment: The recommendations for 25-Hydroxy Vitamin [...] - CHEMISTRY OR DERABLES Performing Organization Address [facility] Phone Number [address] [address], [facility] [phone] * HCG BETA BLOOD QUANTITATIVE (03/06/2024 2:36 AM CDT) [facility] Beta-hCG Total Quantitative <3 mIU/mL 03/06/2024 3:16 PM CDT [facility] Comment: HCG Numeric Result Interpretation: ? [...] AM CDT 03/06/2024 2:47 AM CDT Katlyn Oliver Fernando CONCRETE TESTER-SPUD DRILLER LAB - CHEMI STRY ORDERABLES Performing Organization Address [facility] Co de Phone Number [facility] [address] [place] [phone], [facility] [phone] * ALCOHOL ETHYL BLOOD (03/06/2024 2:36 AM CDT) Ethanol (mg/dL) <10 <10 mg/dL 3:09 AM CDT [facility] Ethanol Calculated (g/dL) <0.010 <=0.010 g/dL 03/06/2024 3:09 AM CDT [facility] Blood BLOOD SPECIMEN / Unknown Venipuncture / Unknown 03/06/2024 2:36 AM CDT 03/06/2024 2:47 AM CDT Narrative [facility] - 03/06/2024 3:09 AM CDT Ethanol Interp <10: None Detected. Depression of HORSE RANCHER: >100 mg/dl Potentially Critical: >250 mg/dl Potentially [...] - CHEMISTRY PAULINE JORGE Performing Organization Address [facility] Co de Phone Number [address] [address], [facility] [phone] * XR Tibia Fibula Left 2Vw (03/06/2024 1:40 AM CDT) Only the most recent of2 resultswithin the time period is included. Anatomical Region Laterality Modality Lower Extremity Digital Radiogra phy 03/06/2024 2:40 AM CDT Narrative 03/06/2024 11:55 AM CDT PROCEDURE: ??XR TIBIA FIBULA LEFT 2VW, DATE/TIME OF EXAM: ??03/06/2024 1:40 AM, LOCATION ??[facility] INDICATION: W18.30XA: Ground-level fall ADDITIONAL [...] 2VW, DATE/TIME OF EXAM: 41:40 AM, LOCATION [facility] INDICATION: W18.30XA: Ground-level fall ADDITIONAL [...] DATE/TIME OF EXAM: ??03/06/2024 1:05 AM, LOCATION ??[facility] INDICATION: W18.30XA: Ground-level fall ADDITIONAL [...] LESS, DATE/TIME OF EXAM: 41:05 AM, LOCATION [facility] INDICATION: W18.30XA: Ground-level fall ADDITIONAL [...] + SCREEN PANEL (03/06/2024 1:00 AM CDT) [facility] Antibody Screen NEG 1:50 AM CDT [facility] ABO Rh A POS 03/06/2024 1:50 AM CDT [facility] Blood Bank BLOOD SPECIMEN / Unknown Venipuncture / Unknown 03/06/2024 1:00 AM CDT 03/06/2024 1:07 AM CDT Jv Garcia MD LAB - BLOOD BANK ORD ERABLES [facility] [address] [place] [address], [facility] [phone] * (ABNORMAL) CBC W AUTO DIFFERENTIAL (03/06/2024 1:00 AM CDT) [facility] WBC 8.8 4.0 - 10.7 x10E9/L 03/06/2024 1:13 AM [facility] RBC Count 3.88(L) 3.90 - 5.20 x10E12/L 03/06/2024 1:13 AM [facility] Hemoglobin 11.6(L) 11.9 - 15.8 g/dL 03/06/2024 1:13 AM [facility] Hematocrit 34.0(L) 34.8 - 46.1 % 03/06/2024 1:13 AM [facility] MCV 87.6 80.0 - 98.0 fL 03/06/2024 1:13 AM [facility] MCH 29.9 26.7 - 33.6 pg 03/06/2024 1:13 AM [facility] MCHC 34.1 31.7 - 36.3 g/dL 03/06/2024 1:13 AM [facility] RDW-CV 14.1 11.3 - 14.8 % 03/06/2024 1:13 AM [facility] Platelet Count 297 150 - 420 x10E9/L 03/06/2024 1:13 AM [facility] MPV 9.2 7.8 - 11.4 fL 03/06/2024 [facility]il % 78.1(H) 41.0 - 74.0 % 03/06/2024 1:13 AM [facility] Lymphocyte % 15.7(L) 17.0 - 47.0 % 03/06/2024 1:13 AM [facility] Monocyte % 4.9 3.0 - 11.0 % 03/06/2024 1:13 AM [facility] Eosinophil % 0.6 0.0 - 7.0 % 03/06/2024 1:13 AM [facility] Basophil % 0.5 0.0 - 1.6 % 03/06/2024 1:13 AM [facility] Immature Granulocytes % 0.2 0.0 - 1.0 % 03/06/2024 1:13 AM [facility] Neutrophil Absolute 6.85 1.60 - 7.50 x10E9/L 03/06/2024 1:13 AM [facility] Lymphocyte Absolute 1.38 1.00 - 4.40 x10E9/L 03/06/2024 1:13 AM [facility] Monocyte Absolute 0.43 0.15 - 1.00 x10E9/L 03/06/2024 1:13 AM [facility] Eosinophil Absolute 0.05 0.00 - 0.60 x10E9/L 03/06/2024 1:13 AM [facility] Basophil Absolute 0.04 0.00 - 0.13 x10E9/L 03/06/2024 1:13 AM [facility] Blood BLOOD SPECIMEN / Unknown Venipuncture / Unknown 03/06/2024 1:00 AM CDT 03/06/2024 1:07 AM CDT Jv Garcia MD LAB - HEMATOLOGY ORD ERABLES [facility] [address] [place] [phone], [facility] [phone] * (ABNORMAL) COMPREHENSIVE METABOLIC PANEL (03/06/2024 1:00 AM CDT) [facility] BUN 12 7 - 26 mg/dL 03/06/2024 1:32 AM [facility] Creatinine 0.97(H) 0.56 - 0.96 mg/dL 03/06/2024 1:32 AM [facility] Sodium 138 136 - 145 mmol/L 03/06/2024 1:32 AM [facility] Potassium 3.6 3.5 - 4.5 mmol/L 03/06/2024 1:32 AM [facility] Chloride 107 98 - 107 mmol/L 03/06/2024 1:32 AM [facility] CO2 22 22 - 29 mmol/L 03/06/2024 1:32 AM [facility] Glucose 132(H) 70 - 99 mg/dL 03/06/2024 1:32 AM [facility] Calcium 8.9 8.4 - 10.2 mg/dL 03/06/2024 1:32 AM [facility] Protein Total 6.3 6.0 - 8.3 g/dL 03/06/2024 1:32 AM [facility] Albumin 3.6 3.4 - 5.0 g/dL 03/06/2024 1:32 AM [facility] Bilirubin Total 0.2 0.2 - 1.2 mg/dL 03/06/2024 1:32 AM [facility] Alkaline Phosphatase 63 40 - 150 U/L 03/06/2024 1:32 AM [facility] ALT 12 5 - 55 U/L 03/06/2024 1:32 AM [facility] AST 15 5 - 34 U/L 03/06/2024 1:32 AM [facility] Anion Gap 9 6 - 16 03/06/2024 1:32 AM [facility] BUN/Creatinine Ratio 12 7 - 23 03/06/2024 1:32 AM [facility] Osmolality Calculated 288 275 - 295 mOsm/kg 03/06/2024 1:32 AM [facility] Albumin/Globulin Ratio 1.3 1.1 - 2.3 03/06/2024 1:32 AM [facility] eGFR by CKD-EPI 75(L) >=90 mL/min/1.7 3 m2 03/06/2024 1:32 AM CDT [facility] Blood BLOOD SPECIMEN / Unknown Venipuncture / Unknown 03/06/2024 1:00 AM CDT 03/06/2024 1:07 AM CDT Jv Garcia MD LAB - CHEMISTRY PAULINE Mcnally Organization Address City/State/ZIP Co de Phone Number [facility] [address] [place] [address], [facility] [phone] * XR Ankle Left 3Vw or More [...] DATE/TIME OF EXAM: ??03/05/2024 11:50 PM, LOCATION ??[facility] INDICATION: W18.30XA: Ground-level fall ADDITIONAL [...] MORE, DATE/TIME OF EXAM: 1:50 PM, LOCATION [facility] INDICATION: W18.30XA: Ground-level fall ADDITIONAL [...] 8:39 PM 03/09/2024 12:23 PM Care Teams Leaflet Or Newspaper Deliverer Relationship Specialty Start Date End Date None, Physician [id number] [place] [address] PCP - General 03/30/24
== END 2024-05-02 10:44 | disposition home or self-care (01) ==
LOC: ANHED 10:25
PROVIDERS: Emergency Provider Emergency Medicine
DX: M54.41 Lumbago with sciatica, right side (principal)
CPT/HCPCS: 96372; 99283; A9270; J1885

== ENCOUNTER 2024-05-10 14:09 | Emergency (ER) | payer OTHER, SELFPAY ==
[2024-05-10 14:18] VITALS: BP 134/90; PULSE 100; RESP 18; TEMP 36.6; O2SAT 100
--- NOTE | 2024-05-10 14:21 | ED_ITS ---
HPI - Skin/Abscess/Foreign Bdy General Chief complaint: Extremity Problem,Nontraumatic Stated complaint: butt pain Time Seen by Provider: 05/10/24 14:21 Source: patient, RN notes reviewed and old records reviewed Mode of arrival: ambulatory Limitations: no limitations History of Present Illness HPI narrative: patient presents with complaints of pain to right buttock that radiates down the right leg. Patient was recently treated for similar symptoms, seen in the emergency department on May 02, 2020 for. Reports that she took all medications as prescribed, felt better, now is tearful secondary to pain. She does have point with primary care provider, but states she needs some sort of relief between now and tomorrow. She has been taking Tylenol and ibuprofen with minimal relief. Left foot is in walking boot secondary to fracture, patient is using a walker. She denies any more recent injury or trauma Related Data Allergies Allergy/AdvReac Type Severity Reaction Status Date / Time No Known Allergies Allergy Verified 05/10/24 14:18 Review of Systems Review of Systems: All systems reviewed & are unremarkable except as noted in HPI and below Constitutional: Constitutional: Reports no additional constitutional complaints ENT: Reports system reviewed and no additional complaints, except as documented Cardiovascular: Cardiovascular: Reports no additional cardiovascular complaints Respiratory: Respiratory: Reports no additional respiratory complaints Gastrointestinal: Gastrointestinal: Reports no additional gastrointestinal complaints Musculoskeletal: Musculoskeletal: Reports no additional musculoskeletal complaints and Reports as per HPI PMF Comments At the time of my signature, I reviewed and agree with the nursing past medical, surgical, social, and family history. There is no relevant family history pertinent to the patient complaint. Exam Const: General: cooperative, no acute distress, alert and awake Orientation/consciousness: oriented to person, oriented to place and oriented to time HENMT: Head: normal to inspection Mouth: Yes moist mucous membranes Resp: Effort & Inspection: normal respiratory effort and able to speak in complete sentences Auscultation: clear to auscultation bilaterally, no crackles, no rales, no rhonchi and no wheezes Cardio: Palpation: normal PMI Rate: regular rate Rhythm: regular rhythm Heart sounds: S1 normal heart sound present and S2 normal heart sound present Neuro: General: oriented to person, oriented to place and oriented to time Cranial nerves: Yes CN's II-XII intact bilaterally Extrem: Right lower extremity: full ROM, normal capillary refill and hip/thigh Details: tenderness (over sciatic nerve) Psych: Appearance: grossly normal Thought process: Normal thought process present Insight: Good insight present (Psych) Judgement: Good judgement present (Psych) Course Course Level of Care: Express Care Visit Vital Signs Vital signs: Vital Signs Temperature 97.9 F 05/10/24 14:18 Pulse Rate 100 05/10/24 14:18 Respiratory Rate 18 05/10/24 14:18 Blood Pressure 134/90 05/10/24 14:18 Pulse Oximetry 100 05/10/24 14:18 Oxygen Delivery Room Air 05/10/24 14:18 Temperature 97.9 F 05/10/24 14:18 Pulse Rate 100 05/10/24 14:18 Respiratory Rate 18 05/10/24 14:18 Blood Pressure 134/90 05/10/24 14:18 Pulse Oximetry 100 05/10/24 14:18 Oxygen Delivery Room Air 05/10/24 14:18 Reviewed MDM - Skin/Abscess/Foreign Bdy MDM Narrative Medical decision making narrative: patient with sciatica, appears very uncomfortable. Hesitate to do a whole course of steroids, as patient just completed. Will give 1 dose while in clinic, no prescription however. Will send home with prescription for naproxen, cyclobenzaprine. She has primary care appointment tomorrow, she is encouraged to keep this in any case. Discharge instructions reviewed with patient, as well as provided in writing per nursing staff. The instructions also include specific and strict return/GO TO THE ER as well as f/u information. All questions have been answered, and the patient deny any further questions with discharge and discharge plan. Some parts of this dictation were generated by voice recognition software and may contain typographical and/or grammatical inaccuracies. Differential Diagnosis Differential diagnosis: Likely other (Musculoskeletal pain, sciatica, radiculopathy) Medical Records Attestation: I reviewed the patient's medical records. Discharge Plan Discharge Clinical Impression: Sciatica Qualifiers: Laterality: right Qualified Code(s): M54.31 - Sciatica, right side Patient Disposition: Home, Self-Care Condition: Stable Instructions: Antibiotic Form, Sciatica (ED) Additional Instructions: keep scheduled doctor appointment tomorrow. Follow up without fail. Emergency department for new or worse symptoms do not take ibuprofen while taking naproxen Patient Language: Portuguese Prescriptions: New cyclobenzaprine 10 mg tablet 10 mg PO TID PRN (Reason: muscle spasm) Qty: 14 0RF naproxen [Naprosyn] 500 mg tablet 500 mg PO BID PRN (Reason: pain) Qty: 30 0RF No Action methylprednisolone [Medrol (Rashad)] 4 mg tablets,dose pack See Rx Instructions .ROUTE .COMPLEX Qty: 21 0RF Rx Instructions: for 6 days hydrocodone-acetaminophen 5-325 mg tablet 1 tablet PO Q12H PRN (Reason: pain) Qty: 14 0RF Follow-up/Referrals: UNKNOWN,DOCTOR [Primary Care Provider] -
[2024-05-10] MEDS: predniSONE 20 MG TABLET 60 MG PO (14:38)
[2024-05-10] MEDS: KETOROLAC (*BKC) 60 MG/2 ML VIAL IM (14:38)
== END 2024-05-10 14:46 | disposition home or self-care (01) ==
PROVIDERS: Emergency Provider Nurse Practitioner Family
DX: M54.31 Sciatica, right side (principal); Z86.16 Personal history of COVID-19
CPT/HCPCS: 96372; 99213; G0463; J1885; J7512